=== PATIENT | male | born 1945 | race Caucasian/White ===

== ENCOUNTER 2017-11-08 17:30 | Inpatient (IN) | payer MEDICARE, MEDICAID ==
--- NOTE | 2017-11-08 18:55 | ED Physician Chart ---
ED Chief Complaint/HPI - Patient Information Date Seen:: 11/08/17 Time Seen:: 18:00 Chief Complaint:: ALOC History of Present Illness:: onset x 2 days of ALOC, decreased activity, weakness, dizziness with abnormal lab tests reported today; no report of trauma, H/As, neck pain, C/P, SOB, Abd. Pain, A/N/V/D/C, fever, chills, or urinary s/s Allergies:: Allergies Allergy/AdvReac Type Severity Reaction Status Date / Time No Known Allergies Allergy Verified 11/08/17 17:58 Vitals:: Vital Signs - 8 hr 11/08/17 17:58 Temp 98.0 F HR 99 RR 23 BP 105/50 O2 Sat % 96 Historian:: Patient, EMS Review:: Nurse's Note Reviewed, Old Chart Reviewed, EMS run form Reviewed ED Review of Systems - Review of Systems General/Constitutional: No fever, No chills, No weight loss, No weakness, No diaphoresis, No edema, No loss of appetite Skin: No skin lesions, No rash, No bruising Head: No headache, No light-headedness Eyes: No loss of vision, No pain, No diplopia ENT: No earache, No nasal drainage, No sore throat, No tinnitus Neck: No neck pain, No swelling, No thyromegaly, No stiffness, No mass noted Cardio Vascular: No chest pain, No palpitations, No PND, No orthopnea, No edema Pulmonary: No SOB, No cough, No sputum, No wheezing GI: No nausea, No vomiting, No diarrhea, No pain, No melena, No hematochezia, No constipation, No hematemesis G/U: No dysuria, No frequency, No hematuria, No nacturia Musculoskeletal: No bone or joint pain, No back pain, No muscle pain Endocrine: No polyuria, No polydipsia Psychiatric: Prior psych history, No depression, No anxiety, No suicidal ideation, No homicidal ideation, No auditory hallucination, No visual hallucination Hematopoietic: No bruising, No lymphadenopathy Allergic/Immuno: No urticaria, No angioedema Neurological: No syncope, No focal symptoms, Weakness, No paresthesia, No headache, No seizure, Dizziness, Confusion, Vertigo ED Past Medical History - Past Medical History Obtainable: Yes Past Medical History: Dementia, Other (Encephalopathy; Cardiac Arrythmias) Family History: Diabetes Melitus, HTN Social History: Non Smoker, No Alcohol, No Drug Use, Single, Care Facility Surgical History: Pacemaker Psychiatricy History: Bipolar, Dementia Medication: Reviewed ED Physical Exam - Physical Examination General/Constitutional: Awake, Well-developed, well-nourished, Alert, No distress, GCS 15, Non-toxic appearing, Ambulatory Head: Atraumatic Eyes: Lids, conjuctiva normal, PERRL, EOMI Skin: Nl inspection, No rash, No skin lesions, No ecchymosis, Well hydrated, No lymphadenopathy ENMT: External ears, nose nl, TM canals nl, Nasal exam nl, Lips, teeth, gums nl , Oropharynx nl, Tonsils nl Neck: Nontender, Full ROM w/o pain, No JVD, No nuchal rigidity, No bruit, No mass, No stridor Respiratory: Nl effort/Exclusion, Clear to Auscultation, No Wheeze/Rhonchi/Rales Cardio Vascular: RRR, No murmur, gallop, rubs, NL S1 S2, Carotid/Femoral/Distal pulses equal bilaterally GI: No tenderness/rebounding/guarding, No organomegaly, No hernia, Normal BS's, Nondistended, No mass/bruits, No McBurney tenderness : No CVA tenderness Extremities: No tenderness or effusion, Full ROM, normal strength in all extremities, No edema, Normal digits & nails Neuro/Psych: DTR's symmetric, Normal sensory exam, Normal motor strength, Judgement/insight normal, Mood normal, Normal gait, No focal deficits Other Neuro/Psych comments:: Disoriented and confused Misc: Normal back, No paraspinal tenderness ED Septic Shock - . Is Septic Shock (SBP<90, OR Lactate>4 mmol\L) present?: No - <6hrs of presentation: Vital Signs: Vital Signs - 8 hr 11/08/ 17:58 Temp 98.0 F HR 99 RR 23 BP 105/50 O2 Sat % 96 ED Reassessment (Disposition) - Reassessment Reassessment Condition:: Improved - Diagnosis Diagnosis:: Dehydration; ALOC; Encephalopathy; Cardiac Arrythmias - Aftercare/Follow up Instructions Aftercare/Follow-Up Instructions:: Counseled pt regarding lab results/diagnosis & need follow up, Counseled pt & family regarding lab results/diagnosis & need follow up - Patient Disposition Discharge/Transfer:: Acute Care w/in this hosp Accepting Physician:: Dr. Munoz Time Called:: 1899 Time Responded:: 19:00 Admitted to:: Telemetry Spoke to:: Dr. Munoz Admitting Medical Physician:: Dr. Munoz Condition at Disposition:: Stable, Improved
[2017-11-08] MEDS: Sodium Chloride 0.9% 1,000 ML IV ONE ×2 (19:06→22:52)
[2017-11-08 19:17] LABS: % BASOPHILS 0.3 % (0.0-2.0); % EOSINOPHILS 0.3 % (0.0-5.0); % LYMPHOCYTES 6.6 % (20.0-50.0); % MONOCYTES 11.4 % (2.0-10.0); % NEUTROPHILS 81.4 % (40.0-80.0); HEMATOCRIT 37.8 % (41.0-60); HEMOGLOBIN 12.8 gm/dL (12-16); LYMPHOCYTE ABSOLUTE 0.7 Th/cmm (1.5-3.0); MEAN CELL VOLUME 97.7 fl (80-99); MEAN CORPUSCULAR HEMOGLOBIN 33.1 pg (27.0-31.0); MEAN CORPUSCULAR HGB CONC 33.8 pg (28.0-36.0); MEAN PLATELET VOLUME 10.1 fl; MONOCYTE ABSOLUTE 1.2 Th/cmm (0.3-1.0); PLATELET COUNT 189 Th/cmm (150-400); RED BLOOD COUNT 3.87 Mil/cmm (3.80-5.80); RED CELL DISTRIBUTION WIDTH 13.6 % (11.5-20.0); WHITE BLOOD COUNT 10.9 Th/cmm (4.8-10.8)
[2017-11-08 19:39] LABS: ALB/GLOB RATIO 0.8 (1.0-1.8); ALBUMIN 3.8 gm/dL (4.2-5.5); ALKALINE PHOSPHATASE 66 U/L (34-104); ANION GAP 16.3 (7.0-16.0); CALCIUM SERUM 9.7 mg/dL (8.6-10.3); CARBON DIOXIDE 20.6 mEq/L (21.0-31.0); CHLORIDE 110 mEq/L (98-107); CREATININE - SERUM 3.4 mg/dL (0.7-1.3); GLUCOSE 134 mg/dL (70-105); POTASSIUM SERUM 3.9 mEq/L (3.5-5.1); SGOT 57 U/L (13-39); SGPT/ALT 35 U/L (7-52); SODIUM SERUM 143 mEq/L (136-145); TOTAL PROTEIN,SERUM 8.6 gm/dL (6.0-8.3)
[2017-11-08 19:42] LABS: BUN - UREA NITROGEN 96 mg/dL (7-25)
[2017-11-08 19:56] LABS: INR 1.1 (0.5-1.4); PROTHROMBIN TIME (TEST) 11.5 SECONDS (9.5-11.5)
[2017-11-08] MEDS ORDERED: Magnesium Hydroxide (MOM) 30 mL UDC PO PRN (20:26)
[2017-11-08] MEDS ORDERED: Albuterol Nebulizer 2.5mg/3mL HHN PRN (20:29)
[2017-11-08] MEDS ORDERED: Ipratropium Neb 0.5 mg/2.5 mL UD IH PRN (20:29)
[2017-11-08] MEDS ORDERED: Maalox 30 mL Cup PO PRN (20:29)
[2017-11-08] MEDS ORDERED: Haloperidol Lactate 5 mg/mL 1mL Vial IM STA (20:30)
[2017-11-08] MEDS ORDERED: Haloperidol Lactate 5 mg/mL 1mL Vial ONE (20:31)
[2017-11-08] MEDS: Sodium Chloride 0.45% 1,000 ML IV SCH (23:00)
[2017-11-08] MEDS: INSULIN ASPART, RECOMBINANT 100 UNITS/ML SUBQ SCH (23:01)
[2017-11-08 23:42] LABS: AMYLASE SERUM 43 U/L (29-103); LIPASE 13 U/L (11-82)
[2017-11-08 23:43] LABS: ALB/GLOB RATIO 0.8 (1.0-1.8); ALBUMIN 3.7 gm/dL (4.2-5.5); BILIRUBIN,DIRECT 0.24 mg/dL (0.0-0.2); TOTAL PROTEIN,SERUM 8.1 gm/dL (6.0-8.3)
[2017-11-09] MEDS ORDERED: Pneumococcal Vaccine 0.5 mL Vial IM ONE (01:09)
[2017-11-09] MEDS: Sodium Chloride 0.45% 1,000 ML IV SCH (06:43)
[2017-11-09] MEDS: INSULIN ASPART, RECOMBINANT 100 UNITS/ML SUBQ SCH ×4 (06:44→21:49)
--- NOTE | 2017-11-09 07:51 | Diagnostic Imaging Report ---
Portable chest x-ray HISTORY: Pain The heart is enlarged. Cardiac electrode lead wires project over the right atrium and right ventricle. No focal pulmonary processes. Right shoulder arthroplasty noted. Severe degenerative changes noted about the left shoulder. IMPRESSION: 1. No acute focal pulmonary processes 2. Cardiomegaly with electrode lead placement
[2017-11-09] MEDS: Benztropine 1 MG TAB PO SCH ×2 (08:45→17:20)
[2017-11-09] MEDS: Multivitamin w/ Minerals Tab PO SCH (08:45)
[2017-11-09] MEDS ORDERED: Non-Formulary Item 1 EA (Amino Acids/Protein Hydrolys [Pro-Stat Sugar Free Liquid] 30 ML) PO SCH (09:00)
--- NOTE | 2017-11-09 11:56 | Internal Medicine Prog Note ---
Internal Medicine Subjective - Subjective Service Date: 11/09/17 ([id number] [facility]) Internal Medicine Objective - Results Result Diagrams: 11/08/17 18:55 11/08/17 18:55 Recent Labs: Laboratory Last Values WBC 10.9 Th/cmm (4.8-10.8) H 11/08/17 18:55 RBC 3.87 Mil/cmm (3.80-5.80) 11/08/17 18:55 Hgb 12.8 gm/dL (12-16) 11/08/17 18:55 Hct 37.8 % (41.0-60) L 11/08/17 18:55 MCV 97.7 fl (80-99) 11/08/17 18:55 MCH 33.1 pg (27.0-31.0) H 11/08/17 18:55 MCHC Differential 33.8 pg (28.0-36.0) 11/08/17 18:55 RDW 13.6 % (11.5-20.0) 11/08/17 18:55 Plt Count 189 Th/cmm (150-400) 11/08/17 18:55 MPV 10.1 fl 11/08/17 18:55 Neutrophils % 81.4 % (40.0-80.0) H 11/08/17 18:55 Lymphocytes % 6.6 % (20.0-50.0) L 11/08/17 18:55 Monocytes % 11.4 % (2.0-10.0) H 11/08/17 18:55 Eosinophils % 0.3 % (0.0-5.0) 11/08/17 18:55 Basophils % 0.3 % (0.0-2.0) 11/08/17 18:55 PT 11.5 SECONDS (9.5-11.5) 11/08/17 17:50 INR 1.10 (0.5-1.4) 11/08/17 17:50 PTT (Actin FS) 24.5 SECONDS (26.0-38.0) L 11/08/17 17:50 Sodium 143 mEq/L (136-145) 11/08/17 18:55 Potassium 3.9 mEq/L (3.5-5.1) 11/08/17 18:55 Chloride 110 mEq/L (98-107) H 11/08/17 18:55 Carbon Dioxide 20.6 mEq/L (21.0-31.0) L 11/08/17 18:55 Anion Gap 16.3 (7.0-16.0) H 11/08/17 18:55 BUN 96 mg/dL (7-25) H* 11/08/17 18:55 Creatinine 3.4 mg/dL (0.7-1.3) H 11/08/17 18:55 Est GFR ( Amer) TNP 11/08/17 18:55 Est GFR (Non-Af Amer) TNP 11/08/17 18:55 BUN/Creatinine Ratio 28.2 11/08/17 18:55 Glucose 134 mg/dL (70-105) H 11/08/17 18:55 POC Glucose 160 MG/DL (70 - 105) H 11/09/17 11:17 Whole Bld Lactic Acid 1.69 mmol/L (0.60-1.99) 11/08/17 18:55 Calcium 9.7 mg/dL (8.6-10.3) 11/08/17 18:55 Total Bilirubin 1.0 mg/dL (0.3-1.0) 11/08/17 18:55 Direct Bilirubin 0.24 mg/dL (0.0-0.2) H 11/08/17 17:50 AST 57 U/L (13-39) H 11/08/17 18:55 ALT 35 U/L (7-52) 11/08/17 18:55 Alkaline Phosphatase 66 U/L (34-104) 11/08/17 18:55 Creatine Kinase 1066 U/L (30-223) H 11/08/17 18:55 Troponin I 0.03 ng/mL (0.01-0.05) 11/08/17 18:55 B-Natriuretic Peptide 65.3 pg/mL (5.0-100.0) 11/08/17 18:55 Total Protein 8.6 gm/dL (6.0-8.3) H 11/08/17 18:55 Albumin 3.8 gm/dL (4.2-5.5) L 11/08/17 18:55 Globulin 4.8 gm/dL 11/08/17 18:55 Albumin/Globulin Ratio 0.8 (1.0-1.8) L 11/08/17 18:55 Triglycerides 117 mg/dL (<150) 11/08/17 18:55 Cholesterol 188 mg/dL (<200) 11/08/17 18:55 LDL Cholesterol Direct 163 mg/dL (75-193) 11/08/17 18:55 HDL Cholesterol 37 mg/dL (23-92) 11/08/17 18:55 Amylase 43 U/L (29-103) 11/08/17 17:50 Lipase 13 U/L (11-82) 11/08/17 17:50 - Physical Exam Vitals and I&O: Vital Signs Temp 97.9 F 11/09/17 08:05 Pulse 95 11/09/17 08:47 Resp 19 11/09/17 08:05 BP 97/44 11/09/17 08:47 Pulse Ox 95 11/09/17 08:05 Intake & Output 11/08/17 11/09/17 11/09/17 18:59 06:59 18:59 Intake Total 376.667 Balance 376.667 Weight (lbs) 245 lb Intake: Intake, IV Amount 376.667 Sodium Chloride 0.9% 1, 376.667 000 ml @ 100 mls/hr IV . Q10H ONE Rx#:[id number] Active Medications: Current Medications Acetaminophen (Tylenol) 650 mg PO Q4H PRN PRN Reason: Pain Or Fever above 101 Stop: 01/07/18 20:29 Al Hydrox/Mg Hydrox/Simethicone (Maalox) 30 ml PO Q6H PRN PRN Reason: Dyspepsia Stop: 01/07/18 20:28 Albuterol Sulfate (Albuterol 2.5mg/3ml Neb Ud) 2.5 mg HHN Q2HRT PRN PRN Reason: Shortness of Breath or Wheeze Stop: 01/07/18 20:28 Ascorbic Acid (Vitamin C) 500 mg PO DAILY [facility] Stop: 01/08/18 08:59 Last Admin: 11/09/17 08:45 Dose: 500 mg Benztropine Mesylate (Cogentin) 1 mg PO BID [facility] Stop: 01/08/18 08:59 Last Admin: 11/09/17 08:45 Dose: 1 mg Carvedilol (Coreg) 12.5 mg PO BID [facility] Stop: 01/08/18 08:59 Last Admin: 11/09/17 08:47 Dose: Not Given Docusate Sodium (Colace) 100 mg PO DAILY [facility] Stop: 01/08/18 08:59 Last Admin: 11/09/17 08:45 Dose: 100 mg Gabapentin (Neurontin) 300 mg PO TID [facility] Stop: 01/07/18 20:59 Last Admin: 11/09/17 08:45 Dose: 300 mg Haloperidol (Haldol) 5 mg PO BID [place] PRN Reason: Protocol Stop: 01/08/18 08:59 Last Admin: 11/09/17 08:46 Dose: 5 mg Heparin Sodium (Porcine) (Heparin) 5,000 units SUBQ Q12HR [facility] Stop: 01/07/18 20:59 Last Admin: 11/09/17 08:46 Dose: 5,000 units Sodium Chloride (Nacl 0.45%) 1,000 mls @ 100 mls/hr IV .Q10H [facility] Stop: 01/07/18 20:29 Last Admin: 11/09/17 06:43 Dose: Not Given Insulin Aspart (Novolog) 0 units SUBQ ACHS [facility] PRN Reason: Protocol Stop: 01/07/18 20:59 Last Admin: 11/09/17 11:29 Dose: Not Given Ipratropium [place] (Atrovent Neb 0.5mg/2.5ml) 0.5 mg IH Q2HRT PRN PRN Reason: Shortness of Breath or Wheeze Stop: 01/07/18 20:28 Magnesium Hydroxide (Milk Of Magnesia) 30 ml PO DAILY PRN PRN Reason: Constipation Stop: 01/07/18 20:25 Miscellaneous (Clinical Monitoring) 1 ea [facility] DAILY PRN PRN Reason: RENAL Stop: 01/08/18 08:43 Ondansetron HCl (Zofran) 4 mg IV Q8H PRN PRN Reason: Nausea / Vomiting Stop: 01/07/18 20:29 Tramadol HCl (Ultram) 50 mg PO Q6HR PRN PRN Reason: PAIN Stop: 01/07/18 20:25 Last Admin: 11/09/17 11:38 Dose: 50 mg Zinc Sulfate (Zinc Sulfate) 220 mg PO DAILY [facility] Stop: 01/08/18 08:59 Last Admin: 11/09/17 08:45 Dose: 220 mg Zolpidem Tartrate (Ambien) 10 mg PO HS PRN PRN Reason: Insomnia Stop: 01/07/18 20:28 Internal Medicine Assmt/Plan - Assessment Assessment: ALOC ACUTE RENAL FAILURE DM2 PSYCHOSIS HTN MILD PROTEIN CALORIE MALNUTRITION CHEST DEFBRILLATOR STATUS COPD CHF CAD
--- NOTE | 2017-11-09 12:42 | History & Physical ---
ADMIT DATE: 11/08/2017 DICTATED FOR: Dr. Luis Munoz CHIEF COMPLAINT: Elevated BUN and creatinine; BUN of 94, creatinine 3.23. HISTORY OF PRESENT ILLNESS: This is a 72-year-old male who is a resident of [facility], was brought here to [facility] due to elevated BUN and creatinine for further management. The patient is now admitted to the med/surg unit. PAST MEDICAL HISTORY: Type 2 diabetes, psychosis, hypertension, anxiety, chest defibrillator, COPD, CHF, CAD, Alzheimer's. PAST SURGICAL HISTORY: None. SOCIAL HISTORY: The patient is a [facility] resident, requiring 24-hour nursing care. ALLERGIES: No drug allergies. REVIEW OF SYSTEMS: Unable to obtain due to the patient's mental status. PHYSICAL EXAMINATION: GENERAL: This is an elderly male, awake, not interactive, in no apparent distress. VITAL SIGNS: Temperature 97.9, heart rate of 95, blood pressure of 97/44, respiration 19, O2 95%. HEENT: Head; normocephalic, atraumatic. NECK: Supple. No mass. LUNGS: Clear bilaterally. HEART: ____. ABDOMEN: Soft, nontender. SKIN: Noted with few excoriations. LABORATORY DATA: WBC 10.9, H and H 12.8 and 37.8, platelet of 189. Sodium 142, potassium 3.9, chloride 110, BUN 96, creatinine 3.4, glucose of 134. DIAGNOSTIC DATA: The patient had a chest x-ray done and the impression is no acute pulmonary processes, cardiomegaly with electrode and lead placement. ASSESSMENT: ALOC, acute renal failure, mild protein calorie malnutrition, type 2 diabetes, hypertension, anxiety, psychosis, chest defibrillator status, COPD, CHF, CAD, Alzheimer disease. PLAN: The patient to be admitted to the med-surg unit. We will get a director hospice operations as well as psych on the case. We will get carotid ultrasound as well as renal ultrasound. We will also get a CT of the head without contrast. Keep the patient on IV fluids for hydration. Put the patient on Accu-Chek a.c. and at bedtime with sliding scale. We will continue to monitor this patient. JOB# [id number]
--- NOTE | 2017-11-09 20:23 | Consultation ---
DATE OF CONSULTATION: 11/09/2017 PSYCHIATRIC CONSULTATION CHIEF COMPLAINT: Psychotic illness. HISTORY OF PRESENT ILLNESS: The patient is a 72-year-old male with a history of psychosis and dementia, was admitted to the hospital with dizziness, abnormal lab testing, decreased activities, has been very restless, agitated now on medical floor, at times combative with staff. The patient apparently also has been trying to get out of bed, trying to push staff. The patient is confused and not able to give much information. PAST PSYCHIATRIC HISTORY: Significant for psychosis and dementia. Patient, according to chart in his intermediate facility, he was hearing voices. PAST MEDICAL HISTORY: Significant for history of cardiac arrhythmia, encephalopathy, dehydration. PSYCHOSOCIAL HISTORY: The patient resides in a intermediate facility and requires complete care. MENTAL STATUS EXAMINATION: The patient is disorganized, internally preoccupied, oriented to person, not oriented to time or place. Insight is poor. Judgment is impaired. ASSESSMENT: 1. Psychosis, not otherwise specified 2. Dementia, Alzheimer's type. PLAN: At this time, would recommend continuation of medical supportive measures. We would decrease Haldol to 2.5 mg p.o. b.i.d. Decrease Cogentin gradually over next few days. Add small dose of Seroquel. Monitor closely. The patient will benefit from psychiatric hospitalization given the level of confusion and agitation. Thank you for the consultation. JOB# [id number]
--- NOTE | 2017-11-09 22:34 | Consultation ---
DATE OF CONSULTATION: 11/09/2017 ATTENDING: Luis Munoz D.O. EXPERIMENTAL DISPLAY BUILDER: Iban Garcia M.D. REASON FOR CONSULT: Worsening kidney function, electrolyte imbalance and fluid management. HISTORY OF PRESENT ILLNESS: This is a 72-year-old male with past medical history of chronic kidney disease, who was brought in because of elevated BUN/creatinine. A few hours prior to admission, the patient was found to be confused, restless and disoriented. Labs were drawn, which revealed a BUN/creatinine of 94/3.23 and sodium of 147. He was then brought to the Emergency Room. His BUN/creatinine upon arrival were 96/3.4. Chest x-ray revealed no acute disease. He was then admitted for further evaluation and management. PAST MEDICAL HISTORY: 1. Type 2 diabetes mellitus. 2. Essential hypertension. 3. History of psychosis. 4. History of anxiety. 5. AICD. 6. COPD. 7. History of decompensating CHF. 8. Coronary artery disease. CURRENT MEDICATIONS: He is currently on acetaminophen, albuterol, ascorbic acid, benztropine, Coreg, docusate sodium, haloperidol, lorazepam, magnesium, ondansetron, quetiapine, , tramadol, zinc sulfate, zolpidem. ALLERGIES: No known drug allergies. SOCIAL AND FAMILY HISTORY: I was unable to obtain from the patient because of his current mental status. REVIEW OF SYSTEMS: Again, I was unable to decipher directly from the patient because of the above reasons. PHYSICAL EXAMINATION: GENERAL: The patient is uncooperative, agitated, restless. VITAL SIGNS: Temperature is 97.6 degrees, pulse 93, blood pressure 122/61. SKIN: Dry, warm, poor turgor. HEENT: Head: Normocephalic, atraumatic. Eyes: Unable to assess his extraocular muscles nor pupils. Anicteric sclerae. Nose: Midline nasal septum. Mouth: Very dry mucosa, adequate dentition. NECK: Supple, unable to again pursue further examination of the neck because the patient is not cooperative. CHEST AND CARDIOVASCULAR: S1, S2. No rub, murmur, nor gallop appreciated. Point of maximal impulse, unable to assess. LUNGS: Equal expansion. No use of accessory muscles. No supraclavicular retractions. Decreased breath sounds, but no rhonchi, no rales or wheeze appreciated. ABDOMEN: Mildly globular, soft. Positive for bowel sounds. No bruits either diastolic or systolic. RECTAL: Unable to perform. GENITOURINARY: Normal appearing male genitalia. MUSCULOSKELETAL: Unable to perform. EXTREMITIES: No evidence of any edema, cyanosis nor clubbing. He has a palpable femoral, but unable to examine his popliteal, dorsalis pedis pulses. He has multiple small ulcers of both lower extremities especially on his feet. BACK: He has multiple areas of hematomas observed in his back, which is quite tender to touch. NEURO EXAM: The patient is agitated, uncooperative, so I could not pursue further my neuro exam. LABORATORY DATA: Revealed white count 10.9, hemoglobin 12.8, hematocrit 37.8, platelets 189, polys 81.4%. Sodium 143, potassium 3.9, chloride 110, bicarbonate 20.6, BUN 96, creatinine 3.4, glucose 134, calcium 9.7. Creatinine kinase 1066, troponin 0.03. BNP of 65.1. Albumin is 3.7. IMPRESSION: 1. Acute kidney injury. The patient has no history of kidney failure in the past. However, since that he has developed prerenal azotemia because of his psychosis, he was unable to eat properly nor drink as required, he developed dehydration. His prerenal azotemia then progressed to acute tubular injury. 2. Metabolic (uremia) encephalopathy. 3. Acute decompensation of his psychosis. 4. Multiple ulcers involving bilateral lower extremities. 5. Multiple hematomas present in his back. 6. Mildly elevated CPK likely secondary to multiple hematomas. 7. Type 2 diabetes mellitus with chronic kidney disease. 8. Essential hypertension with chronic kidney disease. 9. Anxiety. 10. Automatic implantable cardioverter-defibrillator. 11. Chronic obstructive pulmonary disease. 12. History of decompensating congestive heart failure. 13. Coronary artery disease. PLAN: 1. Agree with IV fluids. 2. Followup urinalysis. 3. Requests for urine sodium, eosinophils and creatinine. 4. Urine for microalbumin to creatinine ratio. 5. Renal ultrasound. 6. Follow up electrolytes and CBC. Thank you, Dr. Munoz, for this consult. I will follow the patient closely with you. JOB# [id number]
[2017-11-10 06:02] LABS: % BASOPHILS 0.1 % (0.0-2.0); % EOSINOPHILS 0.4 % (0.0-5.0); % MONOCYTES 8.8 % (2.0-10.0); % NEUTROPHILS 81.7 % (40.0-80.0); EOSINOPHILE ABSOLUTE 0.1 Th/cmm (0.1-0.4); HEMATOCRIT 38.5 % (41.0-60); HEMOGLOBIN 12.9 gm/dL (12-16); LYMPHOCYTE ABSOLUTE 1.4 Th/cmm (1.5-3.0); MEAN CELL VOLUME 97.1 fl (80-99); MEAN CORPUSCULAR HEMOGLOBIN 32.6 pg (27.0-31.0); MEAN CORPUSCULAR HGB CONC 33.6 pg (28.0-36.0); MEAN PLATELET VOLUME 9.4 fl; MONOCYTE ABSOLUTE 1.3 Th/cmm (0.3-1.0); NEUTROPHILE ABSOLUTE 12.2 Th/cmm (1.8-8.0); PLATELET COUNT 163 Th/cmm (150-400); RED BLOOD COUNT 3.96 Mil/cmm (3.80-5.80); RED CELL DISTRIBUTION WIDTH 13.5 % (11.5-20.0)
[2017-11-10 06:28] LABS: ANION GAP 11.8 (7.0-16.0); BUN - UREA NITROGEN 54 mg/dL (7-25); CALCIUM SERUM 9.7 mg/dL (8.6-10.3); CHLORIDE 117 mEq/L (98-107); CREATININE - SERUM 1.6 mg/dL (0.7-1.3); GLUCOSE 148 mg/dL (70-105); MAGNESIUM 1.8 mg/dL (1.9-2.7); PHOSPHOROUS 2.8 mg/dL (2.5-5.0); POTASSIUM SERUM 3.8 mEq/L (3.5-5.1); SODIUM SERUM 150 mEq/L (136-145); URIC ACID 8.2 mg/dL (4.4-7.6)
--- NOTE | 2017-11-10 08:22 | Diagnostic Imaging Report ---
Head CT without intravenous contrast Indication: Altered level of consciousness Comparison: None Technique: Axial images were obtained from the vertex to the skull base without IV contrast. Coronal reconstructions were made. Total DLP: 811, [id number] FINDINGS: Images of the brain obtained without contrast demonstrate no evidence of an acute hemorrhage. Atrophy is noted. The celaya-white matter differentiation is preserved. The ventricles and basal cisterns are patent. No mass effect or midline shift. No evidence of a skull fracture focal soft tissue swelling. The visualized paranasal sinuses are clear. Mild atherosclerosis is noted. IMPRESSION: No acute intracranial abnormality. Atrophy. Mild atherosclerosis.
[2017-11-10] MEDS: INSULIN ASPART, RECOMBINANT 100 UNITS/ML SUBQ SCH ×4 (08:23→22:21)
[2017-11-10] MEDS: Benztropine 1 MG TAB PO SCH ×2 (09:00→18:00)
--- NOTE | 2017-11-10 11:29 | Internal Medicine Prog Note ---
Internal Medicine Subjective - Subjective Service Date: 11/10/17 (patients right elbow noted with redness and hardness noted with yellowish drainage. patient right big toe noted with open wound. multiple wound are noted on patients body) Patient seen and examined:: with staff Patient is:: awake Patient Complaints of:: other (pain) Per staff patient has:: tolerating meds Internal Medicine Objective - Results Result Diagrams: 11/10/17 05:20 11/10/17 05:20 Recent Labs: Laboratory Last Values WBC 15.0 Th/cmm (4.8-10.8) H D 11/10/17 05:20 RBC 3.96 Mil/cmm (3.80-5.80) 11/10/17 05:20 Hgb 12.9 gm/dL (12-16) 11/10/17 05:20 Hct 38.5 % (41.0-60) L 11/10/17 05:20 MCV 97.1 fl (80-99) 11/10/17 05:20 MCH 32.6 pg (27.0-31.0) H 11/10/17 05:20 MCHC Differential 33.6 pg (28.0-36.0) 11/10/17 05:20 RDW 13.5 % (11.5-20.0) 11/10/17 05:20 Plt Count 163 Th/cmm (150-400) 11/10/17 05:20 MPV 9.4 fl 11/10/17 05:20 Neutrophils % 81.7 % (40.0-80.0) H 11/10/17 05:20 Lymphocytes % 9.0 % (20.0-50.0) L 11/10/17 05:20 Monocytes % 8.8 % (2.0-10.0) 11/10/17 05:20 Eosinophils % 0.4 % (0.0-5.0) 11/10/17 05:20 Basophils % 0.1 % (0.0-2.0) 11/10/17 05:20 PT 11.5 SECONDS (9.5-11.5) 11/08/17 17:50 INR 1.10 (0.5-1.4) 11/08/17 17:50 PTT (Actin FS) 24.5 SECONDS (26.0-38.0) L 11/08/17 17:50 Sodium 150 mEq/L (136-145) H 11/10/17 05:20 Potassium 3.8 mEq/L (3.5-5.1) 11/10/17 05:20 Chloride 117 mEq/L (98-107) H 11/10/17 05:20 Carbon Dioxide 25.0 mEq/L (21.0-31.0) 11/10/17 05:20 Anion Gap 11.8 (7.0-16.0) 11/10/17 05:20 BUN 54 mg/dL (7-25) H 11/10/17 05:20 Creatinine 1.6 mg/dL (0.7-1.3) H 11/10/17 05:20 Est GFR ( Amer) TNP 11/10/17 05:20 Est GFR (Non-Af Amer) TNP 11/10/17 05:20 BUN/Creatinine Ratio 33.8 11/10/17 05:20 Glucose 148 mg/dL (70-105) H 11/10/17 05:20 POC Glucose 129 MG/DL (70 - 105) H 11/10/17 07:02 Whole Bld Lactic Acid 1.69 mmol/L (0.60-1.99) 11/08/17 18:55 Uric Acid 8.2 mg/dL (4.4-7.6) H 11/10/17 05:20 Calcium 9.7 mg/dL (8.6-10.3) 11/10/17 05:20 Phosphorus 2.8 mg/dL (2.5-5.0) 11/10/17 05:20 Magnesium 1.8 mg/dL (1.9-2.7) L 11/10/17 05:20 Total Bilirubin 1.0 mg/dL (0.3-1.0) 11/08/17 18:55 Direct Bilirubin 0.24 mg/dL (0.0-0.2) H 11/08/17 17:50 AST 57 U/L (13-39) H 11/08/17 18:55 ALT 35 U/L (7-52) 11/08/17 18:55 Alkaline Phosphatase 66 U/L (34-104) 11/08/17 18:55 Creatine Kinase 1066 U/L (30-223) H 11/08/17 18:55 CK-MB (CK-2) 8.7 ng/mL (0.6-6.3) H 11/08/17 18:55 Troponin I 0.03 ng/mL (0.01-0.05) 11/08/17 18:55 B-Natriuretic Peptide 65.3 pg/mL (5.0-100.0) 11/08/17 18:55 Total Protein 8.6 gm/dL (6.0-8.3) H 11/08/17 18:55 Albumin 3.8 gm/dL (4.2-5.5) L 11/08/17 18:55 Globulin 4.8 gm/dL 11/08/17 18:55 Albumin/Globulin Ratio 0.8 (1.0-1.8) L 11/08/17 18:55 Triglycerides 117 mg/dL (<150) 11/08/17 18:55 Cholesterol 188 mg/dL (<200) 11/08/17 18:55 LDL Cholesterol Direct 163 mg/dL (75-193) 11/08/17 18:55 HDL Cholesterol 37 mg/dL (23-92) 11/08/17 18:55 Amylase 43 U/L (29-103) 11/08/17 17:50 Lipase 13 U/L (11-82) 11/08/17 17:50 - Physical Exam Vitals and I&O: Vital Signs Temp 97.5 F 11/10/17 04:00 Pulse 85 11/10/17 07:00 Resp 18 11/10/17 07:00 BP 112/64 11/10/17 04:00 Pulse Ox 96 11/10/17 07:00 Intake & Output 11/09/17 11/10/17 11/10/17 18:59 06:59 18:59 Weight (lbs) 238 lb 5 oz Other: # Voids 2 # Bowel Movements 1 Active Medications: Current Medications Acetaminophen (Tylenol) 650 mg PO Q4H PRN PRN Reason: Pain Or Fever above 101 Stop: 01/07/18 20:29 Last Admin: 11/10/17 00:56 Dose: 650 mg Al Hydrox/Mg Hydrox/Simethicone (Maalox) 30 ml PO Q6H PRN PRN Reason: Dyspepsia Stop: 01/07/18 20:28 Albuterol Sulfate (Albuterol 2.5mg/3ml Neb Ud) 2.5 mg HHN Q2HRT PRN PRN Reason: Shortness of Breath or Wheeze Stop: 01/07/18 20:28 Ascorbic Acid (Vitamin C) 500 mg PO DAILY [facility] Stop: 01/08/18 08:59 Last Admin: 11/09/17 08:45 Dose: 500 mg Benztropine Mesylate (Cogentin) 1 mg PO BID [facility] Stop: 01/08/18 08:59 Last Admin: 11/09/17 17:20 Dose: 1 mg Carvedilol (Coreg) 12.5 mg PO BID [facility] Stop: 01/08/18 08:59 Last Admin: 11/09/17 17:20 Dose: 12.5 mg Docusate Sodium (Colace) 100 mg PO DAILY [facility] Stop: 01/08/18 08:59 Last Admin: 11/09/17 08:45 Dose: 100 mg Gabapentin (Neurontin) 300 mg PO TID [facility] Stop: 01/07/18 20:59 Last Admin: 11/09/17 21:49 Dose: 300 mg Haloperidol (Haldol) 2.5 mg PO BID [facility] PRN Reason: Protocol Stop: 01/08/18 14:46 Heparin Sodium (Porcine) (Heparin) 5,000 units SUBQ Q12HR [facility] Stop: 01/07/18 20:59 Last Admin: 11/09/17 21:49 Dose: 5,000 units Sodium Chloride (Nacl 0.45%) 1,000 mls @ 100 mls/hr IV .Q10H [facility] Stop: 01/07/18 20:29 Last Admin: 11/09/17 06:43 Dose: Not Given Insulin Aspart (Novolog) 0 units SUBQ ACHS [facility] PRN Reason: Protocol Stop: 01/07/18 20:59 Last Admin: 11/10/17 08:23 Dose: Not Given Ipratropium [place] (Atrovent Neb 0.5mg/2.5ml) 0.5 mg IH Q2HRT PRN PRN Reason: Shortness of Breath or Wheeze Stop: 01/07/18 20:28 Lorazepam (Ativan) 1 mg IVP Q6HR PRN; Protocol PRN Reason: Agitation Stop: 01/09/18 08:36 Magnesium Hydroxide (Milk Of Magnesia) 30 ml PO DAILY PRN PRN Reason: Constipation Stop: 01/07/18 20:25 Miscellaneous (Clinical Monitoring) 1 ea MC DAILY PRN PRN Reason: RENAL Stop: 01/08/18 08:43 Morphine Sulfate (Morphine) 1 mg IVP Q6H PRN PRN Reason: Pain (Moderate) Stop: 01/09/18 08:30 Ondansetron HCl (Zofran) 4 mg IV Q8H PRN PRN Reason: Nausea / Vomiting Stop: 01/07/18 20:29 Quetiapine Fumarate (Seroquel) 12.5 mg PO TID [facility] PRN Reason: Protocol Stop: 01/08/18 20:59 Tramadol HCl (Ultram) 50 mg PO Q6HR PRN PRN Reason: PAIN Stop: 01/07/18 20:25 Last Admin: 11/10/17 01:56 Dose: 50 mg Zinc Sulfate (Zinc Sulfate) 220 mg PO DAILY [facility] Stop: 01/08/18 08:59 Last Admin: 11/09/17 08:45 Dose: 220 mg Zolpidem Tartrate (Ambien) 10 mg PO HS PRN PRN Reason: Insomnia Stop: 01/07/18 20:28 Last Admin: 11/09/17 21:49 Dose: 10 mg General: weak, alert HEENT: NC/AT, PERRLA Neck: Supple Lungs: CTAB Cardiovascular: RRR, Normal S1, Normal S2, without murmur Abdomen: soft, non-tender, non-distended, positive bowel sound Extremities: other (right elbow abscess, right big toe open wound, multiple open wound ) Neurological: no change Internal Medicine Assmt/Plan - Assessment Assessment: RIGHT ELBOW CELLULITIS MULTIPLE OPEN WOUND ALOC ACUTE RENAL FAILURE DM2 PSYCHOSIS HTN MILD PROTEIN CALORIE MALNUTRITION CHEST DEFBRILLATOR STATUS COPD CHF CAD - Plan Plan: surgical consult with Dr. Isaiah salas and jocelin wound culture continue with wound care follow up labs in am pain mgmt continue current plan of care
[2017-11-10] MEDS: Multivitamin w/ Minerals Tab PO SCH (12:18)
[2017-11-10] MEDS: Vancomycin HCl 1.5 GM in Sodium Chloride 0.9% 500 ML IV SCH (13:15)
[2017-11-10] MEDS ORDERED: Sodium Chloride 0.45% 1,000 ML IV SCH (14:03)
[2017-11-10] MEDS ORDERED: Mag Sulfate 2gm/50mL Premix 2 GM/50 ML BAG IV ONE (14:08)
--- NOTE | 2017-11-10 14:10 | General Progress Note ---
Subjective - Review of Systems Service Date: 11/10/17 Subjective: still restless, agitated Objective - Results Result Diagrams: 11/10/17 05:20 11/10/17 05:20 Recent Labs: Laboratory Last Values WBC 15.0 Th/cmm (4.8-10.8) H D 11/10/17 05:20 RBC 3.96 Mil/cmm (3.80-5.80) 11/10/17 05:20 Hgb 12.9 gm/dL (12-16) 11/10/17 05:20 Hct 38.5 % (41.0-60) L 11/10/17 05:20 MCV 97.1 fl (80-99) 11/10/17 05:20 MCH 32.6 pg (27.0-31.0) H 11/10/17 05:20 MCHC Differential 33.6 pg (28.0-36.0) 11/10/17 05:20 RDW 13.5 % (11.5-20.0) 11/10/17 05:20 Plt Count 163 Th/cmm (150-400) 11/10/17 05:20 MPV 9.4 fl 11/10/17 05:20 Neutrophils % 81.7 % (40.0-80.0) H 11/10/17 05:20 Lymphocytes % 9.0 % (20.0-50.0) L 11/10/17 05:20 Monocytes % 8.8 % (2.0-10.0) 11/10/17 05:20 Eosinophils % 0.4 % (0.0-5.0) 11/10/17 05:20 Basophils % 0.1 % (0.0-2.0) 11/10/17 05:20 PT 11.5 SECONDS (9.5-11.5) 11/08/17 17:50 INR 1.10 (0.5-1.4) 11/08/17 17:50 PTT (Actin FS) 24.5 SECONDS (26.0-38.0) L 11/08/17 17:50 Sodium 150 mEq/L (136-145) H 11/10/17 05:20 Potassium 3.8 mEq/L (3.5-5.1) 11/10/17 05:20 Chloride 117 mEq/L (98-107) H 11/10/17 05:20 Carbon Dioxide 25.0 mEq/L (21.0-31.0) 11/10/17 05:20 Anion Gap 11.8 (7.0-16.0) 11/10/17 05:20 BUN 54 mg/dL (7-25) H 11/10/17 05:20 Creatinine 1.6 mg/dL (0.7-1.3) H 11/10/17 05:20 Est GFR ( Amer) TNP 11/10/17 05:20 Est GFR (Non-Af Amer) TNP 11/10/17 05:20 BUN/Creatinine Ratio 33.8 11/10/17 05:20 Glucose 148 mg/dL (70-105) H 11/10/17 05:20 POC Glucose 126 MG/DL (70 - 105) H 11/10/17 13:03 Whole Bld Lactic Acid 1.69 mmol/L (0.60-1.99) 11/08/17 18:55 Uric Acid 8.2 mg/dL (4.4-7.6) H 11/10/17 05:20 Calcium 9.7 mg/dL (8.6-10.3) 11/10/17 05:20 Phosphorus 2.8 mg/dL (2.5-5.0) 11/10/17 05:20 Magnesium 1.8 mg/dL (1.9-2.7) L 11/10/17 05:20 Total Bilirubin 1.0 mg/dL (0.3-1.0) 11/08/17 18:55 Direct Bilirubin 0.24 mg/dL (0.0-0.2) H 11/08/17 17:50 AST 57 U/L (13-39) H 11/08/17 18:55 ALT 35 U/L (7-52) 11/08/17 18:55 Alkaline Phosphatase 66 U/L (34-104) 11/08/17 18:55 Creatine Kinase 1066 U/L (30-223) H 11/08/17 18:55 CK-MB (CK-2) 8.7 ng/mL (0.6-6.3) H 11/08/17 18:55 Troponin I 0.03 ng/mL (0.01-0.05) 11/08/17 18:55 B-Natriuretic Peptide 65.3 pg/mL (5.0-100.0) 11/08/17 18:55 Total Protein 8.6 gm/dL (6.0-8.3) H 11/08/17 18:55 Albumin 3.8 gm/dL (4.2-5.5) L 11/08/17 18:55 Globulin 4.8 gm/dL 11/08/17 18:55 Albumin/Globulin Ratio 0.8 (1.0-1.8) L 11/08/17 18:55 Triglycerides 117 mg/dL (<150) 11/08/17 18:55 Cholesterol 188 mg/dL (<200) 11/08/17 18:55 LDL Cholesterol Direct 163 mg/dL (75-193) 11/08/17 18:55 HDL Cholesterol 37 mg/dL (23-92) 11/08/17 18:55 Amylase 43 U/L (29-103) 11/08/17 17:50 Lipase 13 U/L (11-82) 11/08/17 17:50 - Physical Exam Vitals and I&O: Vital Signs Temp 97.5 F 11/10/17 04:00 Pulse 93 11/10/17 12:15 Resp 18 11/10/17 07:00 BP 163/65 11/10/17 12:15 Pulse Ox 96 11/10/17 07:00 Intake & Output 11/09/17 11/10/17 11/10/17 18:59 06:59 18:59 Weight (lbs) 108.097 kg Other: # Voids 2 # Bowel Movements 1 Active Medications: Current Medications Acetaminophen (Tylenol) 650 mg PO Q4H PRN PRN Reason: Pain Or Fever above 101 Stop: 01/07/18 20:29 Last Admin: 11/10/17 00:56 Dose: 650 mg Al Hydrox/Mg Hydrox/Simethicone (Maalox) 30 ml PO Q6H PRN PRN Reason: Dyspepsia Stop: 01/07/18 20:28 Albuterol Sulfate (Albuterol 2.5mg/3ml Neb Ud) 2.5 mg HHN Q2HRT PRN PRN Reason: Shortness of Breath or Wheeze Stop: 01/07/18 20:28 Ascorbic Acid (Vitamin C) 500 mg PO DAILY [facility] Stop: 01/08/18 08:59 Last Admin: 11/10/17 09:00 Dose: Not Given Benztropine Mesylate (Cogentin) 1 mg PO BID [facility] Stop: 01/08/18 08:59 Last Admin: 11/10/17 09:00 Dose: Not Given Carvedilol (Coreg) 12.5 mg PO BID [facility] Stop: 01/08/18 08:59 Last Admin: 11/10/17 12:15 Dose: 12.5 mg Docusate Sodium (Colace) 100 mg PO DAILY [facility] Stop: 01/08/18 08:59 Last Admin: 11/10/17 09:00 Dose: Not Given Gabapentin (Neurontin) 300 mg PO TID [facility] Stop: 01/07/18 20:59 Last Admin: 11/10/17 12:17 Dose: Not Given Haloperidol (Haldol) 2.5 mg PO BID [facility] PRN Reason: Protocol Stop: 01/08/18 14:46 Last Admin: 11/10/17 09:00 Dose: Not Given Heparin Sodium (Porcine) (Heparin) 5,000 units SUBQ Q12HR [facility] Stop: 01/07/18 20:59 Last Admin: 11/10/17 12:18 Dose: Not Given Sodium Chloride (Nacl 0.45%) 1,000 mls @ 100 mls/hr IV .Q10H [facility] Stop: 01/07/18 20:29 Last Admin: 11/09/17 06:43 Dose: Not Given Vancomycin HCl 1.5 gm/ Sodium (Chloride) 500 mls @ 250 mls/hr IV Q12H [facility] Stop: 01/09/18 11:59 Last Admin: 11/10/17 13:15 Dose: 250 mls/hr Piperacillin Sod/Tazobactam (Sod 2.25 gm/ Dextrose) 50 mls @ 50 mls/hr IV Q8HR [facility] Stop: 01/09/18 12:59 Insulin Aspart (Novolog) 0 units SUBQ ACHS [facility] PRN Reason: Protocol Stop: 01/07/18 20:59 Last Admin: 11/10/17 08:23 Dose: Not Given Ipratropium [place] (Atrovent Neb 0.5mg/2.5ml) 0.5 mg IH Q2HRT PRN PRN Reason: Shortness of Breath or Wheeze Stop: 01/07/18 20:28 Lorazepam (Ativan) 1 mg IVP Q6HR PRN; Protocol PRN Reason: Agitation Stop: 01/09/18 08:36 Magnesium Hydroxide (Milk Of Magnesia) 30 ml PO DAILY PRN PRN Reason: Constipation Stop: 01/07/18 20:25 Miscellaneous (Clinical Monitoring) 1 ea MC DAILY PRN PRN Reason: RENAL Stop: 01/08/18 08:43 Miscellaneous (Vancomycin Iv Per Pharmacy) 1 ea MC PRN [facility] Stop: 01/09/18 11:29 Morphine Sulfate (Morphine) 1 mg IVP Q6H PRN PRN Reason: Pain (Moderate) Stop: 01/09/18 08:30 Ondansetron HCl (Zofran) 4 mg IV Q8H PRN PRN Reason: Nausea / Vomiting Stop: 01/07/18 20:29 Quetiapine Fumarate (Seroquel) 12.5 mg PO TID [facility] PRN Reason: Protocol Stop: 01/08/18 20:59 Last Admin: 11/10/17 09:00 Dose: Not Given Tramadol HCl (Ultram) 50 mg PO Q6HR PRN PRN Reason: PAIN Stop: 01/07/18 20:25 Last Admin: 11/10/17 01:56 Dose: 50 mg Zinc Sulfate (Zinc Sulfate) 220 mg PO DAILY [facility] Stop: 01/08/18 08:59 Last Admin: 11/10/17 12:18 Dose: Not Given Zolpidem Tartrate (Ambien) 10 mg PO HS PRN PRN Reason: Insomnia Stop: 01/07/18 20:28 Last Admin: 11/09/17 21:49 Dose: 10 mg General: Mild distress HEENT: Atraumatic, Mucous membr. moist/pink Neck: Supple, +2 carotid pulse wo bruit Cardiovascular: Regular rate, Normal S1, Normal S2 Lungs: Clear to auscultation Abdomen: Bowel sounds, Soft Extremities: no Edema Neurological: Sensation intact Skin: Breakdown Psych/Mental Status: Other (acute psychosis) Assessment/Plan - Problem List Patient Problems: All Active Problems ABNORMAL LAB RESULTS (Acute) - Plan Plan: Lab - Result Diagrams 11/10/17 05:20 11/10/17 05:20 Current Medications Acetaminophen (Tylenol) 650 mg PO Q4H PRN PRN Reason: Pain Or Fever above 101 Stop: 01/07/18 20:29 Last Admin: 11/10/17 00:56 Dose: 650 mg Al Hydrox/Mg Hydrox/Simethicone (Maalox) 30 ml PO Q6H PRN PRN Reason: Dyspepsia Stop: 01/07/18 20:28 Albuterol Sulfate (Albuterol 2.5mg/3ml Neb Ud) 2.5 mg HHN Q2HRT PRN PRN Reason: Shortness of Breath or Wheeze Stop: 01/07/18 20:28 Ascorbic Acid (Vitamin C) 500 mg PO DAILY [facility] Stop: 01/08/18 08:59 Last Admin: 11/10/17 09:00 Dose: Not Given Benztropine Mesylate (Cogentin) 1 mg PO BID [facility] Stop: 01/08/18 08:59 Last Admin: 11/10/17 09:00 Dose: Not Given Carvedilol (Coreg) 12.5 mg PO BID [facility] Stop: 01/08/18 08:59 Last Admin: 11/10/17 12:15 Dose: 12.5 mg Docusate Sodium (Colace) 100 mg PO DAILY [facility] Stop: 01/08/18 08:59 Last Admin: 11/10/17 09:00 Dose: Not Given Gabapentin (Neurontin) 300 mg PO TID [facility] Stop: 01/07/18 20:59 Last Admin: 11/10/17 12:17 Dose: Not Given Haloperidol (Haldol) 2.5 mg PO BID [facility] PRN Reason: Protocol Stop: 01/08/18 14:46 Last Admin: 11/10/17 09:00 Dose: Not Given Heparin Sodium (Porcine) (Heparin) 5,000 units SUBQ Q12HR [facility] Stop: 01/07/18 20:59 Last Admin: 11/10/17 12:18 Dose: Not Given Sodium Chloride (Nacl 0.45%) 1,000 mls @ 100 mls/hr IV .Q10H [facility] Stop: 01/07/18 20:29 Last Admin: 11/09/17 06:43 Dose: Not Given Vancomycin HCl 1.5 gm/ Sodium (Chloride) 500 mls @ 250 mls/hr IV Q12H [facility] Stop: 01/09/18 11:59 Last Admin: 11/10/17 13:15 Dose: 250 mls/hr Piperacillin Sod/Tazobactam (Sod 2.25 gm/ Dextrose) 50 mls @ 50 mls/hr IV Q8HR [facility] Stop: 01/09/18 12:59 Insulin Aspart (Novolog) 0 units SUBQ ACHS [facility] PRN Reason: Protocol Stop: 01/07/18 20:59 Last Admin: 11/10/17 08:23 Dose: Not Given Ipratropium [place] (Atrovent Neb 0.5mg/2.5ml) 0.5 mg IH Q2HRT PRN PRN Reason: Shortness of Breath or Wheeze Stop: 01/07/18 20:28 Lorazepam (Ativan) 1 mg IVP Q6HR PRN; Protocol PRN Reason: Agitation Stop: 01/09/18 08:36 Magnesium Hydroxide (Milk Of Magnesia) 30 ml PO DAILY PRN PRN Reason: Constipation Stop: 01/07/18 20:25 Miscellaneous (Clinical Monitoring) 1 ea MC DAILY PRN PRN Reason: RENAL Stop: 01/08/18 08:43 Miscellaneous (Vancomycin Iv Per Pharmacy) 1 ea MC PRN [facility] Stop: 01/09/18 11:29 Morphine Sulfate (Morphine) 1 mg IVP Q6H PRN PRN Reason: Pain (Moderate) Stop: 01/09/18 08:30 Ondansetron HCl (Zofran) 4 mg IV Q8H PRN PRN Reason: Nausea / Vomiting Stop: 01/07/18 20:29 Quetiapine Fumarate (Seroquel) 12.5 mg PO TID [facility] PRN Reason: Protocol Stop: 01/08/18 20:59 Last Admin: 11/10/17 09:00 Dose: Not Given Tramadol HCl (Ultram) 50 mg PO Q6HR PRN PRN Reason: PAIN Stop: 01/07/18 20:25 Last Admin: 11/10/17 01:56 Dose: 50 mg Zinc Sulfate (Zinc Sulfate) 220 mg PO DAILY [facility] Stop: 01/08/18 08:59 Last Admin: 11/10/17 12:18 Dose: Not Given Zolpidem Tartrate (Ambien) 10 mg PO HS PRN PRN Reason: Insomnia Stop: 01/07/18 20:28 Last Admin: 11/09/17 21:49 Dose: 10 mg
[2017-11-10] MEDS: Morphine Sulfate 2 mg/mL 1mL Syr IVP PRN (15:59)
[2017-11-10] MEDS: Dextrose 5% 1,000 ML IV SCH (17:55)
[2017-11-11] MEDS: Vancomycin HCl 1.5 GM in Sodium Chloride 0.9% 500 ML IV SCH ×2 (00:12→15:20)
[2017-11-11] MEDS: Morphine Sulfate 2 mg/mL 1mL Syr IVP PRN ×2 (03:59→14:51)
[2017-11-11 05:57] LABS: % BASOPHILS 0.3 % (0.0-2.0); EOSINOPHILE ABSOLUTE 0.1 Th/cmm (0.1-0.4)
[2017-11-11 06:01] LABS: % LYMPHOCYTES 7.7 % (20.0-50.0); % MONOCYTES 6.4 % (2.0-10.0); % NEUTROPHILS 84.6 % (40.0-80.0); HEMATOCRIT 35.9 % (41.0-60); HEMOGLOBIN 12.4 gm/dL (12-16); LYMPHOCYTE ABSOLUTE 1.1 Th/cmm (1.5-3.0); MEAN CELL VOLUME 97.6 fl (80-99); MEAN CORPUSCULAR HEMOGLOBIN 33.7 pg (27.0-31.0); MEAN CORPUSCULAR HGB CONC 34.5 pg (28.0-36.0); MEAN PLATELET VOLUME 9.7 fl; MONOCYTE ABSOLUTE 0.9 Th/cmm (0.3-1.0); NEUTROPHILE ABSOLUTE 12.5 Th/cmm (1.8-8.0); PLATELET COUNT 183 Th/cmm (150-400); RED BLOOD COUNT 3.68 Mil/cmm (3.80-5.80); RED CELL DISTRIBUTION WIDTH 13.4 % (11.5-20.0)
[2017-11-11 06:08] LABS: WHITE BLOOD COUNT 14.6 Th/cmm (4.8-10.8)
[2017-11-11 06:19] LABS: ANION GAP 10.8 (7.0-16.0); BUN - UREA NITROGEN 42 mg/dL (7-25); CALCIUM SERUM 9.4 mg/dL (8.6-10.3); CHLORIDE 120 mEq/L (98-107); CREATININE - SERUM 1.7 mg/dL (0.7-1.3); GLUCOSE 157 mg/dL (70-105); POTASSIUM SERUM 3.8 mEq/L (3.5-5.1); SODIUM SERUM 150 mEq/L (136-145)
[2017-11-11] MEDS: INSULIN ASPART, RECOMBINANT 100 UNITS/ML SUBQ SCH ×4 (06:31→23:36)
[2017-11-11] MEDS: Benztropine 1 MG TAB PO SCH ×2 (09:01→16:57)
[2017-11-11] MEDS: Multivitamin w/ Minerals Tab PO SCH (09:02)
--- NOTE | 2017-11-11 10:55 | General Progress Note ---
Subjective - Review of Systems Service Date: 11/11/17 Events since last encounter: has right elbow cellulitis, doubt abscess multiple ulcers, worse on right big toe suggest local wound care Objective - Results Result Diagrams: 11/11/17 05:40 11/11/17 05:40 Recent Labs: Laboratory Last Values WBC 14.6 Th/cmm (4.8-10.8) H 11/11/17 05:40 RBC 3.68 Mil/cmm (3.80-5.80) L 11/11/17 05:40 Hgb 12.4 gm/dL (12-16) 11/11/17 05:40 Hct 35.9 % (41.0-60) L 11/11/17 05:40 MCV 97.6 fl (80-99) 11/11/17 05:40 MCH 33.7 pg (27.0-31.0) H 11/11/17 05:40 MCHC Differential 34.5 pg (28.0-36.0) 11/11/17 05:40 RDW 13.4 % (11.5-20.0) 11/11/17 05:40 Plt Count 183 Th/cmm (150-400) 11/11/17 05:40 MPV 9.7 fl 11/11/17 05:40 Neutrophils % 84.6 % (40.0-80.0) H 11/11/17 05:40 Lymphocytes % 7.7 % (20.0-50.0) L 11/11/17 05:40 Monocytes % 6.4 % (2.0-10.0) 11/11/17 05:40 Eosinophils % 1.0 % (0.0-5.0) 11/11/17 05:40 Basophils % 0.3 % (0.0-2.0) 11/11/17 05:40 PT 11.5 SECONDS (9.5-11.5) 11/08/17 17:50 INR 1.10 (0.5-1.4) 11/08/17 17:50 PTT (Actin FS) 24.5 SECONDS (26.0-38.0) L 11/08/17 17:50 Sodium 150 mEq/L (136-145) H 11/11/17 05:40 Potassium 3.8 mEq/L (3.5-5.1) 11/11/17 05:40 Chloride 120 mEq/L (98-107) H 11/11/17 05:40 Carbon Dioxide 23.0 mEq/L (21.0-31.0) 11/11/17 05:40 Anion Gap 10.8 (7.0-16.0) 11/11/17 05:40 BUN 42 mg/dL (7-25) H 11/11/17 05:40 Creatinine 1.7 mg/dL (0.7-1.3) H 11/11/17 05:40 Est GFR ( Amer) TNP 11/11/17 05:40 Est GFR (Non-Af Amer) TNP 11/11/17 05:40 BUN/Creatinine Ratio 24.7 11/11/17 05:40 Glucose 157 mg/dL (70-105) H 11/11/17 05:40 POC Glucose 165 MG/DL (70 - 105) H 11/10/17 22:20 Whole Bld Lactic Acid 1.69 mmol/L (0.60-1.99) 11/08/17 18:55 Uric Acid 8.2 mg/dL (4.4-7.6) H 11/10/17 05:20 Calcium 9.4 mg/dL (8.6-10.3) 11/11/17 05:40 Phosphorus 2.8 mg/dL (2.5-5.0) 11/10/17 05:20 Magnesium 1.8 mg/dL (1.9-2.7) L 11/10/17 05:20 Total Bilirubin 1.0 mg/dL (0.3-1.0) 11/08/17 18:55 Direct Bilirubin 0.24 mg/dL (0.0-0.2) H 11/08/17 17:50 AST 57 U/L (13-39) H 11/08/17 18:55 ALT 35 U/L (7-52) 11/08/17 18:55 Alkaline Phosphatase 66 U/L (34-104) 11/08/17 18:55 Creatine Kinase 1066 U/L (30-223) H 11/08/17 18:55 CK-MB (CK-2) 8.7 ng/mL (0.6-6.3) H 11/08/17 18:55 Troponin I 0.03 ng/mL (0.01-0.05) 11/08/17 18:55 B-Natriuretic Peptide 65.3 pg/mL (5.0-100.0) 11/08/17 18:55 Total Protein 8.6 gm/dL (6.0-8.3) H 11/08/17 18:55 Albumin 3.8 gm/dL (4.2-5.5) L 11/08/17 18:55 Globulin 4.8 gm/dL 11/08/17 18:55 Albumin/Globulin Ratio 0.8 (1.0-1.8) L 11/08/17 18:55 Triglycerides 117 mg/dL (<150) 11/08/17 18:55 Cholesterol 188 mg/dL (<200) 11/08/17 18:55 LDL Cholesterol Direct 163 mg/dL (75-193) 11/08/17 18:55 HDL Cholesterol 37 mg/dL (23-92) 11/08/17 18:55 Amylase 43 U/L (29-103) 11/08/17 17:50 Lipase 13 U/L (11-82) 11/08/17 17:50 - Physical Exam Vitals and I&O: Vital Signs Temp 98 F 11/11/17 04:00 Pulse 87 11/11/17 09:02 Resp 18 11/11/17 04:00 BP 116/64 11/11/17 09:02 Pulse Ox 97 11/11/17 04:00 Intake & Output 11/10/17 11/11/17 11/11/17 18:59 06:59 18:59 Intake Total 550 50 Balance 550 50 Intake: Intake, IV Amount 550 50 Piperacillin Sodium/ 50 50 Tazobact 2.25 gm In Dextrose 5% 50 ml @ 50 mls/hr IV Q8HR [facility] Rx#: [id number] Vancomycin HCl 1.5 gm In 500 Sodium Chloride 0.9% 500 ml @ 250 mls/hr IV Q12H [facility] Rx#:[id number] Active Medications: Current Medications Acetaminophen (Tylenol) 650 mg PO Q4H PRN PRN Reason: Pain Or Fever above 101 Stop: 01/07/18 20:29 Last Admin: 11/10/17 00:56 Dose: 650 mg Al Hydrox/Mg Hydrox/Simethicone (Maalox) 30 ml PO Q6H PRN PRN Reason: Dyspepsia Stop: 01/07/18 20:28 Albuterol Sulfate (Albuterol 2.5mg/3ml Neb Ud) 2.5 mg HHN Q2HRT PRN PRN Reason: Shortness of Breath or Wheeze Stop: 01/07/18 20:28 Ascorbic Acid (Vitamin C) 500 mg PO DAILY [facility] Stop: 01/08/18 08:59 Last Admin: 11/11/17 09:02 Dose: 500 mg Benztropine Mesylate (Cogentin) 1 mg PO BID [place] Stop: 01/08/18 08:59 Last Admin: 11/11/17 09:01 Dose: 1 mg Carvedilol (Coreg) 12.5 mg PO BID [facility] Stop: 01/08/18 08:59 Last Admin: 11/11/17 09:02 Dose: 12.5 mg Docusate Sodium (Colace) 100 mg PO DAILY [facility] Stop: 01/08/18 08:59 Last Admin: 11/11/17 09:02 Dose: 100 mg Gabapentin (Neurontin) 300 mg PO TID [facility] Stop: 01/07/18 20:59 Last Admin: 11/11/17 09:02 Dose: 300 mg Haloperidol (Haldol) 2.5 mg PO BID [place] PRN Reason: Protocol Stop: 01/08/18 14:46 Last Admin: 11/11/17 09:02 Dose: 2.5 mg Heparin Sodium (Porcine) (Heparin) 5,000 units SUBQ Q12HR [facility] Stop: 01/07/18 20:59 Last Admin: 11/11/17 09:03 Dose: 5,000 units Vancomycin HCl 1.5 gm/ Sodium (Chloride) 500 mls @ 250 mls/hr IV Q12H [facility] Stop: 01/09/18 11:59 Last Admin: 11/11/17 00:12 Dose: 250 mls/hr Piperacillin Sod/Tazobactam (Sod 2.25 gm/ Dextrose) 50 mls @ 50 mls/hr IV Q8HR [facility] Stop: 01/09/18 12:59 Last Admin: 11/11/17 04:41 Dose: 50 mls/hr Dextrose (D5w) 1,000 mls @ 100 mls/hr IV .Q10H [facility] Stop: 01/09/18 14:59 Last Admin: 11/10/17 17:55 Dose: 100 mls/hr Insulin Aspart (Novolog) 0 units SUBQ ACHS [place] PRN Reason: Protocol Stop: 01/07/18 20:59 Last Admin: 11/11/17 06:31 Dose: Not Given Ipratropium [place] (Atrovent Neb 0.5mg/2.5ml) 0.5 mg IH Q2HRT PRN PRN Reason: Shortness of Breath or Wheeze Stop: 01/07/18 20:28 Lorazepam (Ativan) 1 mg IVP Q6HR PRN; Protocol PRN Reason: Agitation Stop: 01/09/18 08:36 Last Admin: 11/11/17 09:15 Dose: 1 mg Magnesium Hydroxide (Milk Of Magnesia) 30 ml PO DAILY PRN PRN Reason: Constipation Stop: 01/07/18 20:25 Miscellaneous (Clinical Monitoring) 1 ea MC DAILY PRN PRN Reason: RENAL Stop: 01/08/18 08:43 Miscellaneous (Vancomycin Iv Per Pharmacy) 1 ea MC PRN [place] Stop: 01/09/18 11:29 Morphine Sulfate (Morphine) 1 mg IVP Q6H PRN PRN Reason: Pain (Moderate) Stop: 01/09/18 08:30 Last Admin: 11/11/17 03:59 Dose: 1 mg Ondansetron HCl (Zofran) 4 mg IV Q8H PRN PRN Reason: Nausea / Vomiting Stop: 01/07/18 20:29 Quetiapine Fumarate (Seroquel) 12.5 mg PO TID [place] PRN Reason: Protocol Stop: 01/08/18 20:59 Last Admin: 11/11/17 09:01 Dose: 12.5 mg Tramadol HCl (Ultram) 50 mg PO Q6HR PRN PRN Reason: PAIN Stop: 01/07/18 20:25 Last Admin: 11/10/17 01:56 Dose: 50 mg Zinc Sulfate (Zinc Sulfate) 220 mg PO DAILY [place] Stop: 01/08/18 08:59 Last Admin: 11/11/17 09:03 Dose: 220 mg Zolpidem Tartrate (Ambien) 10 mg PO HS PRN PRN Reason: Insomnia Stop: 01/07/18 20:28 Last Admin: 11/09/17 21:49 Dose: 10 mg General: Mild distress HEENT: Atraumatic, Mucous membr. moist/pink Neck: Supple, +2 carotid pulse wo bruit Cardiovascular: Regular rate, Normal S1, Normal S2 Lungs: Clear to auscultation Abdomen: Bowel sounds, Soft Extremities: no Edema Neurological: Sensation intact Skin: Breakdown Psych/Mental Status: Other (acute psychosis) Assessment/Plan - Problem List Patient Problems: All Active Problems ABNORMAL LAB RESULTS (Acute)
[2017-11-11] MEDS: Dextrose 5% 1,000 ML IV SCH (12:11)
--- NOTE | 2017-11-11 13:03 | Internal Medicine Prog Note ---
Internal Medicine Subjective - Subjective Service Date: 11/11/17 Patient is:: awake Patient Complaints of:: other (pain) Per staff patient has:: tolerating meds Internal Medicine Objective - Results Result Diagrams: 11/11/17 05:40 11/11/17 05:40 Recent Labs: Laboratory Last Values WBC 14.6 Th/cmm (4.8-10.8) H 11/11/17 05:40 RBC 3.68 Mil/cmm (3.80-5.80) L 11/11/17 05:40 Hgb 12.4 gm/dL (12-16) 11/11/17 05:40 Hct 35.9 % (41.0-60) L 11/11/17 05:40 MCV 97.6 fl (80-99) 11/11/17 05:40 MCH 33.7 pg (27.0-31.0) H 11/11/17 05:40 MCHC Differential 34.5 pg (28.0-36.0) 11/11/17 05:40 RDW 13.4 % (11.5-20.0) 11/11/17 05:40 Plt Count 183 Th/cmm (150-400) 11/11/17 05:40 MPV 9.7 fl 11/11/17 05:40 Neutrophils % 84.6 % (40.0-80.0) H 11/11/17 05:40 Lymphocytes % 7.7 % (20.0-50.0) L 11/11/17 05:40 Monocytes % 6.4 % (2.0-10.0) 11/11/17 05:40 Eosinophils % 1.0 % (0.0-5.0) 11/11/17 05:40 Basophils % 0.3 % (0.0-2.0) 11/11/17 05:40 PT 11.5 SECONDS (9.5-11.5) 11/08/17 17:50 INR 1.10 (0.5-1.4) 11/08/17 17:50 PTT (Actin FS) 24.5 SECONDS (26.0-38.0) L 11/08/17 17:50 Sodium 150 mEq/L (136-145) H 11/11/17 05:40 Potassium 3.8 mEq/L (3.5-5.1) 11/11/17 05:40 Chloride 120 mEq/L (98-107) H 11/11/17 05:40 Carbon Dioxide 23.0 mEq/L (21.0-31.0) 11/11/17 05:40 Anion Gap 10.8 (7.0-16.0) 11/11/17 05:40 BUN 42 mg/dL (7-25) H 11/11/17 05:40 Creatinine 1.7 mg/dL (0.7-1.3) H 11/11/17 05:40 Est GFR ( Amer) TNP 11/11/17 05:40 Est GFR (Non-Af Amer) TNP 11/11/17 05:40 BUN/Creatinine Ratio 24.7 11/11/17 05:40 Glucose 157 mg/dL (70-105) H 11/11/17 05:40 POC Glucose 125 MG/DL (70 - 105) H 11/11/17 11:33 Whole Bld Lactic Acid 1.69 mmol/L (0.60-1.99) 11/08/17 18:55 Uric Acid 8.2 mg/dL (4.4-7.6) H 11/10/17 05:20 Calcium 9.4 mg/dL (8.6-10.3) 11/11/17 05:40 Phosphorus 2.8 mg/dL (2.5-5.0) 11/10/17 05:20 Magnesium 1.8 mg/dL (1.9-2.7) L 11/10/17 05:20 Total Bilirubin 1.0 mg/dL (0.3-1.0) 11/08/17 18:55 Direct Bilirubin 0.24 mg/dL (0.0-0.2) H 11/08/17 17:50 AST 57 U/L (13-39) H 11/08/17 18:55 ALT 35 U/L (7-52) 11/08/17 18:55 Alkaline Phosphatase 66 U/L (34-104) 11/08/17 18:55 Creatine Kinase 1066 U/L (30-223) H 11/08/17 18:55 CK-MB (CK-2) 8.7 ng/mL (0.6-6.3) H 11/08/17 18:55 Troponin I 0.03 ng/mL (0.01-0.05) 11/08/17 18:55 B-Natriuretic Peptide 65.3 pg/mL (5.0-100.0) 11/08/17 18:55 Total Protein 8.6 gm/dL (6.0-8.3) H 11/08/17 18:55 Albumin 3.8 gm/dL (4.2-5.5) L 11/08/17 18:55 Globulin 4.8 gm/dL 11/08/17 18:55 Albumin/Globulin Ratio 0.8 (1.0-1.8) L 11/08/17 18:55 Triglycerides 117 mg/dL (<150) 11/08/17 18:55 Cholesterol 188 mg/dL (<200) 11/08/17 18:55 LDL Cholesterol Direct 163 mg/dL (75-193) 11/08/17 18:55 HDL Cholesterol 37 mg/dL (23-92) 11/08/17 18:55 Amylase 43 U/L (29-103) 11/08/17 17:50 Lipase 13 U/L (11-82) 11/08/17 17:50 Vancomycin Trough 19.8 ug/mL (10-20) 11/11/17 11:30 - Physical Exam Vitals and I&O: Vital Signs Temp 98 F 11/11/17 04:00 Pulse 87 11/11/17 09:02 Resp 18 11/11/17 04:00 BP 116/64 11/11/17 09:02 Pulse Ox 97 11/11/17 04:00 Intake & Output 11/10/17 11/11/17 11/11/17 18:59 06:59 18:59 Intake Total 550 1100 Balance 550 1100 Intake: Intake, IV Amount 550 1100 Dextrose 5% 1,000 ml @ 1000 100 mls/hr IV .Q10H [facility] Rx#:[id number] Piperacillin Sodium/ 50 100 Tazobact 2.25 gm In Dextrose 5% 50 ml @ 50 mls/hr IV Q8HR [facility] Rx#: [id number] Vancomycin HCl 1.5 gm In 500 Sodium Chloride 0.9% 500 ml @ 250 mls/hr IV Q12H [facility] Rx#:[id number] Active Medications: Current Medications Acetaminophen (Tylenol) 650 mg PO Q4H PRN PRN Reason: Pain Or Fever above 101 Stop: 01/07/18 20:29 Last Admin: 11/10/17 00:56 Dose: 650 mg Al Hydrox/Mg Hydrox/Simethicone (Maalox) 30 ml PO Q6H PRN PRN Reason: Dyspepsia Stop: 01/07/18 20:28 Albuterol Sulfate (Albuterol 2.5mg/3ml Neb Ud) 2.5 mg HHN Q2HRT PRN PRN Reason: Shortness of Breath or Wheeze Stop: 01/07/18 20:28 Ascorbic Acid (Vitamin C) 500 mg PO DAILY [facility] Stop: 01/08/18 08:59 Last Admin: 11/11/17 09:02 Dose: 500 mg Benztropine Mesylate (Cogentin) 1 mg PO BID [facility] Stop: 01/08/18 08:59 Last Admin: 11/11/17 09:01 Dose: 1 mg Carvedilol (Coreg) 12.5 mg PO BID [facility] Stop: 01/08/18 08:59 Last Admin: 11/11/17 09:02 Dose: 12.5 mg Docusate Sodium (Colace) 100 mg PO DAILY [facility] Stop: 01/08/18 08:59 Last Admin: 11/11/17 09:02 Dose: 100 mg Gabapentin (Neurontin) 300 mg PO TID [facility] Stop: 01/07/18 20:59 Last Admin: 11/11/17 09:02 Dose: 300 mg Haloperidol (Haldol) 2.5 mg PO BID [facility] PRN Reason: Protocol Stop: 01/08/18 14:46 Last Admin: 11/11/17 09:02 Dose: 2.5 mg Heparin Sodium (Porcine) (Heparin) 5,000 units SUBQ Q12HR [facility] Stop: 01/07/18 20:59 Last Admin: 11/11/17 09:03 Dose: 5,000 units Vancomycin HCl 1.5 gm/ Sodium (Chloride) 500 mls @ 250 mls/hr IV Q12H [facility] Stop: 01/09/18 11:59 Last Admin: 11/11/17 00:12 Dose: 250 mls/hr Piperacillin Sod/Tazobactam (Sod 2.25 gm/ Dextrose) 50 mls @ 50 mls/hr IV Q8HR [facility] Stop: 01/09/18 12:59 Last Admin: 11/11/17 12:11 Dose: 50 mls/hr Dextrose (D5w) 1,000 mls @ 100 mls/hr IV .Q10H [facility] Stop: 01/09/18 14:59 Last Admin: 11/11/17 12:11 Dose: 100 mls/hr Insulin Aspart (Novolog) 0 units SUBQ ACHS [facility] PRN Reason: Protocol Stop: 01/07/18 20:59 Last Admin: 11/11/17 11:46 Dose: Not Given Ipratropium [place] (Atrovent Neb 0.5mg/2.5ml) 0.5 mg IH Q2HRT PRN PRN Reason: Shortness of Breath or Wheeze Stop: 01/07/18 20:28 Lorazepam (Ativan) 1 mg IVP Q6HR PRN; Protocol PRN Reason: Agitation Stop: 01/09/18 08:36 Last Admin: 11/11/17 09:15 Dose: 1 mg Magnesium Hydroxide (Milk Of Magnesia) 30 ml PO DAILY PRN PRN Reason: Constipation Stop: 01/07/18 20:25 Miscellaneous (Clinical Monitoring) 1 ea DAILY PRN PRN Reason: RENAL Stop: 01/08/18 08:43 Miscellaneous (Vancomycin Iv Per Pharmacy) 1 ea PRN [facility] Stop: 01/09/18 11:29 Morphine Sulfate (Morphine) 1 mg IVP Q6H PRN PRN Reason: Pain (Moderate) Stop: 01/09/18 08:30 Last Admin: 11/11/17 03:59 Dose: 1 mg Ondansetron HCl (Zofran) 4 mg IV Q8H PRN PRN Reason: Nausea / Vomiting Stop: 01/07/18 20:29 Quetiapine Fumarate (Seroquel) 12.5 mg PO TID [facility] PRN Reason: Protocol Stop: 01/08/18 20:59 Last Admin: 11/11/17 09:01 Dose: 12.5 mg Tramadol HCl (Ultram) 50 mg PO Q6HR PRN PRN Reason: PAIN Stop: 01/07/18 20:25 Last Admin: 11/10/17 01:56 Dose: 50 mg Zinc Sulfate (Zinc Sulfate) 220 mg PO DAILY [facility] Stop: 01/08/18 08:59 Last Admin: 11/11/17 09:03 Dose: 220 mg Zolpidem Tartrate (Ambien) 10 mg PO HS PRN PRN Reason: Insomnia Stop: 01/07/18 20:28 Last Admin: 11/09/17 21:49 Dose: 10 mg General: weak, alert HEENT: NC/AT, PERRLA Neck: Supple Lungs: CTAB Cardiovascular: RRR, Normal S1, Normal S2, without murmur Abdomen: soft, non-tender, non-distended, positive bowel sound Extremities: other (right elbow abscess, right big toe open wound, multiple open wound ) Neurological: no change Internal Medicine Assmt/Plan - Assessment Assessment: RIGHT ELBOW CELLULITIS MULTIPLE OPEN WOUND ALOC ACUTE RENAL FAILURE DM2 PSYCHOSIS HTN MILD PROTEIN CALORIE MALNUTRITION CHEST DEFBRILLATOR STATUS COPD CHF CAD - Plan Plan: continue ivabx await for wound cultures dc haldol per family request continue with wound care follow up labs in am pain mgmt continue current plan of care
--- NOTE | 2017-11-11 14:26 | General Progress Note ---
Subjective - Review of Systems Service Date: 11/11/17 Subjective: sedated today Objective - Results Result Diagrams: 11/11/17 05:40 11/11/17 05:40 Recent Labs: Laboratory Last Values WBC 14.6 Th/cmm (4.8-10.8) H 11/11/17 05:40 RBC 3.68 Mil/cmm (3.80-5.80) L 11/11/17 05:40 Hgb 12.4 gm/dL (12-16) 11/11/17 05:40 Hct 35.9 % (41.0-60) L 11/11/17 05:40 MCV 97.6 fl (80-99) 11/11/17 05:40 MCH 33.7 pg (27.0-31.0) H 11/11/17 05:40 MCHC Differential 34.5 pg (28.0-36.0) 11/11/17 05:40 RDW 13.4 % (11.5-20.0) 11/11/17 05:40 Plt Count 183 Th/cmm (150-400) 11/11/17 05:40 MPV 9.7 fl 11/11/17 05:40 Neutrophils % 84.6 % (40.0-80.0) H 11/11/17 05:40 Lymphocytes % 7.7 % (20.0-50.0) L 11/11/17 05:40 Monocytes % 6.4 % (2.0-10.0) 11/11/17 05:40 Eosinophils % 1.0 % (0.0-5.0) 11/11/17 05:40 Basophils % 0.3 % (0.0-2.0) 11/11/17 05:40 PT 11.5 SECONDS (9.5-11.5) 11/08/17 17:50 INR 1.10 (0.5-1.4) 11/08/17 17:50 PTT (Actin FS) 24.5 SECONDS (26.0-38.0) L 11/08/17 17:50 Sodium 150 mEq/L (136-145) H 11/11/17 05:40 Potassium 3.8 mEq/L (3.5-5.1) 11/11/17 05:40 Chloride 120 mEq/L (98-107) H 11/11/17 05:40 Carbon Dioxide 23.0 mEq/L (21.0-31.0) 11/11/17 05:40 Anion Gap 10.8 (7.0-16.0) 11/11/17 05:40 BUN 42 mg/dL (7-25) H 11/11/17 05:40 Creatinine 1.7 mg/dL (0.7-1.3) H 11/11/17 05:40 Est GFR ( Amer) TNP 11/11/17 05:40 Est GFR (Non-Af Amer) TNP 11/11/17 05:40 BUN/Creatinine Ratio 24.7 11/11/17 05:40 Glucose 157 mg/dL (70-105) H 11/11/17 05:40 POC Glucose 125 MG/DL (70 - 105) H 11/11/17 11:33 Whole Bld Lactic Acid 1.69 mmol/L (0.60-1.99) 11/08/17 18:55 Uric Acid 8.2 mg/dL (4.4-7.6) H 11/10/17 05:20 Calcium 9.4 mg/dL (8.6-10.3) 11/11/17 05:40 Phosphorus 2.8 mg/dL (2.5-5.0) 11/10/17 05:20 Magnesium 1.8 mg/dL (1.9-2.7) L 11/10/17 05:20 Total Bilirubin 1.0 mg/dL (0.3-1.0) 11/08/17 18:55 Direct Bilirubin 0.24 mg/dL (0.0-0.2) H 11/08/17 17:50 AST 57 U/L (13-39) H 11/08/17 18:55 ALT 35 U/L (7-52) 11/08/17 18:55 Alkaline Phosphatase 66 U/L (34-104) 11/08/17 18:55 Ammonia 73 umol/L (16-53) H 11/11/17 05:40 Creatine Kinase 1066 U/L (30-223) H 11/08/17 18:55 CK-MB (CK-2) 8.7 ng/mL (0.6-6.3) H 11/08/17 18:55 Troponin I 0.03 ng/mL (0.01-0.05) 11/08/17 18:55 B-Natriuretic Peptide 65.3 pg/mL (5.0-100.0) 11/08/17 18:55 Total Protein 8.6 gm/dL (6.0-8.3) H 11/08/17 18:55 Albumin 3.8 gm/dL (4.2-5.5) L 11/08/17 18:55 Globulin 4.8 gm/dL 11/08/17 18:55 Albumin/Globulin Ratio 0.8 (1.0-1.8) L 11/08/17 18:55 Triglycerides 117 mg/dL (<150) 11/08/17 18:55 Cholesterol 188 mg/dL (<200) 11/08/17 18:55 LDL Cholesterol Direct 163 mg/dL (75-193) 11/08/17 18:55 HDL Cholesterol 37 mg/dL (23-92) 11/08/17 18:55 Amylase 43 U/L (29-103) 11/08/17 17:50 Lipase 13 U/L (11-82) 11/08/17 17:50 Vancomycin Trough 19.8 ug/mL (10-20) 11/11/17 11:30 - Physical Exam Vitals and I&O: Vital Signs Temp 98 F 11/11/17 04:00 Pulse 87 11/11/17 09:02 Resp 18 11/11/17 04:00 BP 116/64 11/11/17 09:02 Pulse Ox 97 11/11/17 04:00 Intake & Output 11/10/17 11/11/17 11/11/17 18:59 06:59 18:59 Intake Total 550 1100 Balance 550 1100 Intake: Intake, IV Amount 550 1100 Dextrose 5% 1,000 ml @ 1000 100 mls/hr IV .Q10H [facility] Rx#:[id number] Piperacillin Sodium/ 50 100 Tazobact 2.25 gm In Dextrose 5% 50 ml @ 50 mls/hr IV Q8HR [facility] Rx#: [id number] Vancomycin HCl 1.5 gm In 500 Sodium Chloride 0.9% 500 ml @ 250 mls/hr IV Q12H [facility] Rx#:[id number] Active Medications: Current Medications Acetaminophen (Tylenol) 650 mg PO Q4H PRN PRN Reason: Pain Or Fever above 101 Stop: 01/07/18 20:29 Last Admin: 11/10/17 00:56 Dose: 650 mg Al Hydrox/Mg Hydrox/Simethicone (Maalox) 30 ml PO Q6H PRN PRN Reason: Dyspepsia Stop: 01/07/18 20:28 Albuterol Sulfate (Albuterol 2.5mg/3ml Neb Ud) 2.5 mg HHN Q2HRT PRN PRN Reason: Shortness of Breath or Wheeze Stop: 01/07/18 20:28 Ascorbic Acid (Vitamin C) 500 mg PO DAILY [facility] Stop: 01/08/18 08:59 Last Admin: 11/11/17 09:02 Dose: 500 mg Benztropine Mesylate (Cogentin) 1 mg PO BID [facility] Stop: 01/08/18 08:59 Last Admin: 11/11/17 09:01 Dose: 1 mg Carvedilol (Coreg) 12.5 mg PO BID [facility] Stop: 01/08/18 08:59 Last Admin: 11/11/17 09:02 Dose: 12.5 mg Docusate Sodium (Colace) 100 mg PO DAILY [facility] Stop: 01/08/18 08:59 Last Admin: 11/11/17 09:02 Dose: 100 mg Gabapentin (Neurontin) 300 mg PO TID [facility] Stop: 01/07/18 20:59 Last Admin: 11/11/17 09:02 Dose: 300 mg Haloperidol (Haldol) 2.5 mg PO BID [facility] PRN Reason: Protocol Stop: 01/08/18 14:46 Last Admin: 11/11/17 09:02 Dose: 2.5 mg Heparin Sodium (Porcine) (Heparin) 5,000 units SUBQ Q12HR [facility] Stop: 01/07/18 20:59 Last Admin: 11/11/17 09:03 Dose: 5,000 units Piperacillin Sod/Tazobactam (Sod 2.25 gm/ Dextrose) 50 mls @ 50 mls/hr IV Q8HR [facility] Stop: 01/09/18 12:59 Last Admin: 11/11/17 12:11 Dose: 50 mls/hr Dextrose (D5w) 1,000 mls @ 100 mls/hr IV .Q10H [facility] Stop: 01/09/18 14:59 Last Admin: 11/11/17 12:11 Dose: 100 mls/hr Vancomycin HCl 1.5 gm/ Sodium (Chloride) 500 mls @ 250 mls/hr IV Q18H [facility] Stop: 01/10/18 14:59 Insulin Aspart (Novolog) 0 units SUBQ ACHS [facility] PRN Reason: Protocol Stop: 01/07/18 20:59 Last Admin: 11/11/17 11:46 Dose: Not Given Ipratropium [place] (Atrovent Neb 0.5mg/2.5ml) 0.5 mg IH Q2HRT PRN PRN Reason: Shortness of Breath or Wheeze Stop: 01/07/18 20:28 Lorazepam (Ativan) 1 mg IVP Q6HR PRN; Protocol PRN Reason: Agitation Stop: 01/09/18 08:36 Last Admin: 11/11/17 09:15 Dose: 1 mg Magnesium Hydroxide (Milk Of Magnesia) 30 ml PO DAILY PRN PRN Reason: Constipation Stop: 01/07/18 20:25 Miscellaneous (Clinical Monitoring) 1 ea DAILY PRN PRN Reason: RENAL Stop: 01/08/18 08:43 Miscellaneous (Vancomycin Iv Per Pharmacy) 1 ea [facility] PRN [facility] Stop: 01/09/18 11:29 Morphine Sulfate (Morphine) 1 mg IVP Q6H PRN PRN Reason: Pain (Moderate) Stop: 01/09/18 08:30 Last Admin: 11/11/17 03:59 Dose: 1 mg Ondansetron HCl (Zofran) 4 mg IV Q8H PRN PRN Reason: Nausea / Vomiting Stop: 01/07/18 20:29 Quetiapine Fumarate (Seroquel) 12.5 mg PO TID [facility] PRN Reason: Protocol Stop: 01/08/18 20:59 Last Admin: 11/11/17 09:01 Dose: 12.5 mg Tramadol HCl (Ultram) 50 mg PO Q6HR PRN PRN Reason: PAIN Stop: 01/07/18 20:25 Last Admin: 11/10/17 01:56 Dose: 50 mg Zinc Sulfate (Zinc Sulfate) 220 mg PO DAILY [facility] Stop: 01/08/18 08:59 Last Admin: 11/11/17 09:03 Dose: 220 mg Zolpidem Tartrate (Ambien) 10 mg PO HS PRN PRN Reason: Insomnia Stop: 01/07/18 20:28 Last Admin: 11/09/17 21:49 Dose: 10 mg General: Mild distress HEENT: Atraumatic, Mucous membr. moist/pink Neck: Supple, +2 carotid pulse wo bruit Cardiovascular: Regular rate, Normal S1, Normal S2 Lungs: Clear to auscultation Abdomen: Bowel sounds, Soft Extremities: no Edema Neurological: Sensation intact Skin: Breakdown Psych/Mental Status: Other (acute psychosis) Assessment/Plan - Problem List Patient Problems: All Active Problems ABNORMAL LAB RESULTS (Acute) - Assessment Assessment: DENNIS Uremic enceph Psychosis COPD Multiple hematomas back Multiple ulcers lower ext Type 2 DM Ess Htn AICD - Plan Plan: Lab - Result Diagrams 11/10/17 05:20 11/10/17 05:20 Current Medications Acetaminophen (Tylenol) 650 mg PO Q4H PRN PRN Reason: Pain Or Fever above 101 Stop: 01/07/18 20:29 Last Admin: 11/10/17 00:56 Dose: 650 mg Al Hydrox/Mg Hydrox/Simethicone (Maalox) 30 ml PO Q6H PRN PRN Reason: Dyspepsia Stop: 01/07/18 20:28 Albuterol Sulfate (Albuterol 2.5mg/3ml Neb Ud) 2.5 mg HHN Q2HRT PRN PRN Reason: Shortness of Breath or Wheeze Stop: 01/07/18 20:28 Ascorbic Acid (Vitamin C) 500 mg PO DAILY [facility] Stop: 01/08/18 08:59 Last Admin: 11/10/17 09:00 Dose: Not Given Benztropine Mesylate (Cogentin) 1 mg PO BID [facility] Stop: 01/08/18 08:59 Last Admin: 11/10/17 09:00 Dose: Not Given Carvedilol (Coreg) 12.5 mg PO BID [facility] Stop: 01/08/18 08:59 Last Admin: 11/10/17 12:15 Dose: 12.5 mg Docusate Sodium (Colace) 100 mg PO DAILY [facility] Stop: 01/08/18 08:59 Last Admin: 11/10/17 09:00 Dose: Not Given Gabapentin (Neurontin) 300 mg PO TID [facility] Stop: 01/07/18 20:59 Last Admin: 11/10/17 12:17 Dose: Not Given Haloperidol (Haldol) 2.5 mg PO BID [facility] PRN Reason: Protocol Stop: 01/08/18 14:46 Last Admin: 11/10/17 09:00 Dose: Not Given Heparin Sodium (Porcine) (Heparin) 5,000 units SUBQ Q12HR [facility] Stop: 01/07/18 20:59 Last Admin: 11/10/17 12:18 Dose: Not Given Sodium Chloride (Nacl 0.45%) 1,000 mls @ 100 mls/hr IV .Q10H [facility] Stop: 01/07/18 20:29 Last Admin: 11/09/17 06:43 Dose: Not Given Vancomycin HCl 1.5 gm/ Sodium (Chloride) 500 mls @ 250 mls/hr IV Q12H [facility] Stop: 01/09/18 11:59 Last Admin: 11/10/17 13:15 Dose: 250 mls/hr Piperacillin Sod/Tazobactam (Sod 2.25 gm/ Dextrose) 50 mls @ 50 mls/hr IV Q8HR [facility] Stop: 01/09/18 12:59 Insulin Aspart (Novolog) 0 units SUBQ ACHS [facility] PRN Reason: Protocol Stop: 01/07/18 20:59 Last Admin: 11/10/17 08:23 Dose: Not Given Ipratropium [place] (Atrovent Neb 0.5mg/2.5ml) 0.5 mg IH Q2HRT PRN PRN Reason: Shortness of Breath or Wheeze Stop: 01/07/18 20:28 Lorazepam (Ativan) 1 mg IVP Q6HR PRN; Protocol PRN Reason: Agitation Stop: 01/09/18 08:36 Magnesium Hydroxide (Milk Of Magnesia) 30 ml PO DAILY PRN PRN Reason: Constipation Stop: 01/07/18 20:25 Miscellaneous (Clinical Monitoring) 1 ea [facility] DAILY PRN PRN Reason: RENAL Stop: 01/08/18 08:43 Miscellaneous (Vancomycin Iv Per Pharmacy) 1 ea [facility] PRN [facility] Stop: 01/09/18 11:29 Morphine Sulfate (Morphine) 1 mg IVP Q6H PRN PRN Reason: Pain (Moderate) Stop: 01/09/18 08:30 Ondansetron HCl (Zofran) 4 mg IV Q8H PRN PRN Reason: Nausea / Vomiting Stop: 01/07/18 20:29 Quetiapine Fumarate (Seroquel) 12.5 mg PO TID [facility] PRN Reason: Protocol Stop: 01/08/18 20:59 Last Admin: 11/10/17 09:00 Dose: Not Given Tramadol HCl (Ultram) 50 mg PO Q6HR PRN PRN Reason: PAIN Stop: 01/07/18 20:25 Last Admin: 11/10/17 01:56 Dose: 50 mg Zinc Sulfate (Zinc Sulfate) 220 mg PO DAILY [facility] Stop: 01/08/18 08:59 Last Admin: 11/10/17 12:18 Dose: Not Given Zolpidem Tartrate (Ambien) 10 mg PO HS PRN PRN Reason: Insomnia Stop: 01/07/18 20:28 Last Admin: 11/09/17 21:49 Dose: 10 mg Lab - Result Diagrams 11/11/17 05:40 11/11/17 05:40 Continue ivf 1/2 NS Na stable @ 150, BUN down to 42 f/u electrolytes, cbc
[2017-11-11] MEDS: Lactulose 10 Gm/15 mL 30mL UDC PO SCH (16:56)
[2017-11-11] MEDS ORDERED: Probiotic Screen MC PRN (16:56)
[2017-11-12] MEDS: Morphine Sulfate 2 mg/mL 1mL Syr IVP PRN (03:55)
[2017-11-12] MEDS: Dextrose 5% 1,000 ML IV SCH (06:24)
[2017-11-12 06:34] LABS: % BASOPHILS 0.5 % (0.0-2.0); % EOSINOPHILS 3.5 % (0.0-5.0); % LYMPHOCYTES 8.4 % (20.0-50.0); % MONOCYTES 8.7 % (2.0-10.0); % NEUTROPHILS 78.9 % (40.0-80.0); BASOPHILE ABSOLUTE 0.1 Th/cumm (0-0.2); EOSINOPHILE ABSOLUTE 0.4 Th/cmm (0.1-0.4); HEMATOCRIT 35.4 % (41.0-60); HEMOGLOBIN 11.9 gm/dL (12-16); LYMPHOCYTE ABSOLUTE 1.1 Th/cmm (1.5-3.0); MEAN CELL VOLUME 98.5 fl (80-99); MEAN CORPUSCULAR HEMOGLOBIN 32.9 pg (27.0-31.0); MEAN CORPUSCULAR HGB CONC 33.4 pg (28.0-36.0); MEAN PLATELET VOLUME 9.8 fl; MONOCYTE ABSOLUTE 1.1 Th/cmm (0.3-1.0); PLATELET COUNT 173 Th/cmm (150-400); RED CELL DISTRIBUTION WIDTH 13.6 % (11.5-20.0)
[2017-11-12 06:56] LABS: ANION GAP 11.4 (7.0-16.0); BUN - UREA NITROGEN 32 mg/dL (7-25); CALCIUM SERUM 9.1 mg/dL (8.6-10.3); CARBON DIOXIDE 26.3 mEq/L (21.0-31.0); CHLORIDE 119 mEq/L (98-107); CREATININE - SERUM 1.5 mg/dL (0.7-1.3); GLUCOSE 130 mg/dL (70-105); POTASSIUM SERUM 3.7 mEq/L (3.5-5.1); SODIUM SERUM 153 mEq/L (136-145); WHITE BLOOD COUNT 12.7 Th/cmm (4.8-10.8)
[2017-11-12] MEDS: INSULIN ASPART, RECOMBINANT 100 UNITS/ML SUBQ SCH ×4 (07:08→22:30)
[2017-11-12] MEDS: Benztropine 1 MG TAB PO SCH ×2 (09:34→17:32)
[2017-11-12] MEDS: Lactulose 10 Gm/15 mL 30mL UDC PO SCH ×2 (09:35→17:33)
[2017-11-12] MEDS: Multivitamin w/ Minerals Tab PO SCH (09:36)
--- NOTE | 2017-11-12 12:04 | Internal Medicine Prog Note ---
Internal Medicine Subjective - Subjective Service Date: 11/12/17 Patient seen and examined:: with staff Patient is:: awake, agitated Patient Complaints of:: other (pain) Per staff patient has:: tolerating meds Internal Medicine Objective - Results Result Diagrams: 11/12/17 05:30 11/12/17 05:30 Recent Labs: Laboratory Last Values WBC 12.7 Th/cmm (4.8-10.8) H 11/12/17 05:30 RBC 3.60 Mil/cmm (3.80-5.80) L 11/12/17 05:30 Hgb 11.9 gm/dL (12-16) L 11/12/17 05:30 Hct 35.4 % (41.0-60) L 11/12/17 05:30 MCV 98.5 fl (80-99) 11/12/17 05:30 MCH 32.9 pg (27.0-31.0) H 11/12/17 05:30 MCHC Differential 33.4 pg (28.0-36.0) 11/12/17 05:30 RDW 13.6 % (11.5-20.0) 11/12/17 05:30 Plt Count 173 Th/cmm (150-400) 11/12/17 05:30 MPV 9.8 fl 11/12/17 05:30 Neutrophils % 78.9 % (40.0-80.0) 11/12/17 05:30 Lymphocytes % 8.4 % (20.0-50.0) L 11/12/17 05:30 Monocytes % 8.7 % (2.0-10.0) 11/12/17 05:30 Eosinophils % 3.5 % (0.0-5.0) 11/12/17 05:30 Basophils % 0.5 % (0.0-2.0) 11/12/17 05:30 PT 11.5 SECONDS (9.5-11.5) 11/08/17 17:50 INR 1.10 (0.5-1.4) 11/08/17 17:50 PTT (Actin FS) 24.5 SECONDS (26.0-38.0) L 11/08/17 17:50 Sodium 153 mEq/L (136-145) H 11/12/17 05:30 Potassium 3.7 mEq/L (3.5-5.1) 11/12/17 05:30 Chloride 119 mEq/L (98-107) H 11/12/17 05:30 Carbon Dioxide 26.3 mEq/L (21.0-31.0) 11/12/17 05:30 Anion Gap 11.4 (7.0-16.0) 11/12/17 05:30 BUN 32 mg/dL (7-25) H 11/12/17 05:30 Creatinine 1.5 mg/dL (0.7-1.3) H 11/12/17 05:30 Est GFR ( Amer) TNP 11/12/17 05:30 Est GFR (Non-Af Amer) TNP 11/12/17 05:30 BUN/Creatinine Ratio 21.3 11/12/17 05:30 Glucose 130 mg/dL (70-105) H 11/12/17 05:30 POC Glucose 152 MG/DL (70 - 105) H 11/12/17 07:08 Whole Bld Lactic Acid 1.69 mmol/L (0.60-1.99) 11/08/17 18:55 Uric Acid 8.2 mg/dL (4.4-7.6) H 11/10/17 05:20 Calcium 9.1 mg/dL (8.6-10.3) 11/12/17 05:30 Phosphorus 2.8 mg/dL (2.5-5.0) 11/10/17 05:20 Magnesium 1.8 mg/dL (1.9-2.7) L 11/10/17 05:20 Total Bilirubin 1.0 mg/dL (0.3-1.0) 11/08/17 18:55 Direct Bilirubin 0.24 mg/dL (0.0-0.2) H 11/08/17 17:50 AST 57 U/L (13-39) H 11/08/17 18:55 ALT 35 U/L (7-52) 11/08/17 18:55 Alkaline Phosphatase 66 U/L (34-104) 11/08/17 18:55 Ammonia 45 umol/L (16-53) 11/12/17 05:30 Creatine Kinase 1066 U/L (30-223) H 11/08/17 18:55 CK-MB (CK-2) 8.7 ng/mL (0.6-6.3) H 11/08/17 18:55 Troponin I 0.03 ng/mL (0.01-0.05) 11/08/17 18:55 B-Natriuretic Peptide 65.3 pg/mL (5.0-100.0) 11/08/17 18:55 Total Protein 8.6 gm/dL (6.0-8.3) H 11/08/17 18:55 Albumin 3.8 gm/dL (4.2-5.5) L 11/08/17 18:55 Globulin 4.8 gm/dL 11/08/17 18:55 Albumin/Globulin Ratio 0.8 (1.0-1.8) L 11/08/17 18:55 Triglycerides 117 mg/dL (<150) 11/08/17 18:55 Cholesterol 188 mg/dL (<200) 11/08/17 18:55 LDL Cholesterol Direct 163 mg/dL (75-193) 11/08/17 18:55 HDL Cholesterol 37 mg/dL (23-92) 11/08/17 18:55 Amylase 43 U/L (29-103) 11/08/17 17:50 Lipase 13 U/L (11-82) 11/08/17 17:50 Vancomycin Trough 19.8 ug/mL (10-20) 11/12/17 05:30 - Physical Exam Vitals and I&O: Vital Signs Temp 98 F 11/11/17 20:00 Pulse 84 11/12/17 09:34 Resp 20 11/12/17 08:24 BP 146/71 11/12/17 09:34 Pulse Ox 96 11/12/17 08:24 Intake & Output 11/11/17 11/12/17 11/12/17 18:59 06:59 18:59 Intake Total 1165 435 Balance 1165 435 Weight (lbs) 238 lb Intake: Intake, IV Amount 1165 435 Dextrose 5% 1,000 ml @ 615 385 100 mls/hr IV .Q10H [facility] Rx#:[id number] Piperacillin Sodium/ 50 50 Tazobact 2.25 gm In Dextrose 5% 50 ml @ 50 mls/hr IV Q8HR [facility] Rx#: [id number] Vancomycin HCl 1.5 gm In 500 Sodium Chloride 0.9% 500 ml @ 250 mls/hr IV Q18H [facility] Rx#:[id number] Other: # Voids 6 # Bowel Movements 0 Active Medications: Current Medications Acetaminophen (Tylenol) 650 mg PO Q4H PRN PRN Reason: Pain Or Fever above 101 Stop: 01/07/18 20:29 Last Admin: 11/10/17 00:56 Dose: 650 mg Al Hydrox/Mg Hydrox/Simethicone (Maalox) 30 ml PO Q6H PRN PRN Reason: Dyspepsia Stop: 01/07/18 20:28 Albuterol Sulfate (Albuterol 2.5mg/3ml Neb Ud) 2.5 mg HHN Q2HRT PRN PRN Reason: Shortness of Breath or Wheeze Stop: 01/07/18 20:28 Ascorbic Acid (Vitamin C) 500 mg PO DAILY [facility] Stop: 01/08/18 08:59 Last Admin: 11/12/17 09:34 Dose: 500 mg Benztropine Mesylate (Cogentin) 1 mg PO BID [facility] Stop: 01/08/18 08:59 Last Admin: 11/12/17 09:34 Dose: 1 mg Carvedilol (Coreg) 12.5 mg PO BID [facility] Stop: 01/08/18 08:59 Last Admin: 11/12/17 09:34 Dose: 12.5 mg Docusate Sodium (Colace) 100 mg PO DAILY [facility] Stop: 01/08/18 08:59 Last Admin: 11/12/17 09:35 Dose: 100 mg Gabapentin (Neurontin) 300 mg PO TID [facility] Stop: 01/07/18 20:59 Last Admin: 11/12/17 09:35 Dose: 300 mg Heparin Sodium (Porcine) (Heparin) 5,000 units SUBQ Q12HR [facility] Stop: 01/07/18 20:59 Last Admin: 11/12/17 09:37 Dose: 5,000 units Piperacillin Sod/Tazobactam (Sod 2.25 gm/ Dextrose) 50 mls @ 50 mls/hr IV Q8HR [facility] Stop: 01/09/18 12:59 Last Admin: 11/12/17 06:23 Dose: 50 mls/hr Dextrose (D5w) 1,000 mls @ 100 mls/hr IV .Q10H [facility] Stop: 01/09/18 14:59 Last Admin: 11/12/17 06:24 Dose: 100 mls/hr Vancomycin HCl 1.5 gm/ Sodium (Chloride) 500 mls @ 250 mls/hr IV Q18H [facility] Stop: 01/10/18 14:59 Last Infusion: 11/11/17 18:20 Dose: Infused Insulin Aspart (Novolog) 0 units SUBQ ACHS [facility] PRN Reason: Protocol Stop: 01/07/18 20:59 Last Admin: 11/12/17 07:08 Dose: Not Given Ipratropium [place] (Atrovent Neb 0.5mg/2.5ml) 0.5 mg IH Q2HRT PRN PRN Reason: Shortness of Breath or Wheeze Stop: 01/07/18 20:28 Lactulose (Cephulac) 45 gm PO BID [facility] Stop: 01/10/18 16:59 Last Admin: 11/12/17 09:35 Dose: 45 gm Lorazepam (Ativan) 1 mg IVP Q6HR PRN; Protocol PRN Reason: Agitation Stop: 01/09/18 08:36 Last Admin: 11/12/17 10:10 Dose: 1 mg Lorazepam (Ativan) 1 mg IV X1 ONE PRN Reason: Protocol Stop: 11/12/17 12:03 Magnesium Hydroxide (Milk Of Magnesia) 30 ml PO DAILY PRN PRN Reason: Constipation Stop: 01/07/18 20:25 Miscellaneous (Clinical Monitoring) 1 ea DAILY PRN PRN Reason: RENAL Stop: 01/08/18 08:43 Miscellaneous (Vancomycin Iv Per Pharmacy) 1 ea PRN [facility] Stop: 01/09/18 11:29 Miscellaneous (Probiotic Screen) 1 ea PRN PRN PRN Reason: PROTOCOL Stop: 01/10/18 16:55 Morphine Sulfate (Morphine) 1 mg IVP Q6H PRN PRN Reason: Pain (Moderate) Stop: 01/09/18 08:30 Last Admin: 11/12/17 03:55 Dose: 1 mg Ondansetron HCl (Zofran) 4 mg IV Q8H PRN PRN Reason: Nausea / Vomiting Stop: 01/07/18 20:29 Quetiapine Fumarate (Seroquel) 12.5 mg PO TID [facility] PRN Reason: Protocol Stop: 01/08/18 20:59 Last Admin: 11/12/17 09:32 Dose: 12.5 mg Tramadol HCl (Ultram) 50 mg PO Q6HR PRN PRN Reason: PAIN Stop: 01/07/18 20:25 Last Admin: 11/10/17 01:56 Dose: 50 mg Zinc Sulfate (Zinc Sulfate) 220 mg PO DAILY [facility] Stop: 01/08/18 08:59 Last Admin: 11/12/17 09:33 Dose: 220 mg Zolpidem Tartrate (Ambien) 10 mg PO HS PRN PRN Reason: Insomnia Stop: 01/07/18 20:28 Last Admin: 11/09/17 21:49 Dose: 10 mg General: weak, alert HEENT: NC/AT, PERRLA Neck: Supple Lungs: CTAB Cardiovascular: RRR, Normal S1, Normal S2, without murmur Abdomen: soft, non-tender, non-distended, positive bowel sound Extremities: other (right elbow abscess, right big toe open wound, multiple open wound ) Neurological: no change Internal Medicine Assmt/Plan - Assessment Assessment: RIGHT ELBOW CELLULITIS MULTIPLE OPEN WOUND ALOC ACUTE RENAL FAILURE DM2 PSYCHOSIS HTN MILD PROTEIN CALORIE MALNUTRITION CHEST DEFBRILLATOR STATUS COPD CHF CAD - Plan Plan: continue ivabx await for wound cultures continue with wound care follow up labs in am pain mgmt continue current plan of care Nutritional Asmnt/Malnutr-PDOC - Dietary Evaluation Malnutrition Findings (Please click <Entered> for more info): Nutritional Asmnt/Malnutrition Start: 11/11/17 16: 30 Text: Status: Complete Freq: Document 11/11/17 16:30 [facility] (Rec: 11/11/17 16:[email or web address] Nutritional Asmnt/Malnutrition Patient General Information Nutritional Screening High Risk Consult Diagnosis ALOC, ARF Pertinent Medical Hx/Surgical Hx DM, psychosis, HTN, anxiety, chest defibrillator, COPD, CHF , CAD, alzheimer's Subjective Information Consult received for FTT. Per notes, pt refused breakfast, only take liquid at lunch and soup for dinner on 11/10. Spoke with YASMIN Ch, RN reported pt was agitated, not eating food. Diet down to pureed diet from dinner, dinner tray at bed side at the time of visit. Per RN, Pt took long time to swallow meds mixed with pudding. Current Diet Order/ Nutrition Support pureed, Prosource 30ml daily Pertinent Medications vitamin C, D5, colace, novolog , piperacillin, seroquel, vancomycin, zinc Pertinent Labs 11/11 Na 150, K 3.8, Cl 120, BUN 42, Cr 1.7, GLucose 157, POC 125, Ammonia 73 Nutritional Hx/Data Height 5 ft 10 in Height (Calculated Centimeters) 177.8 Current Weight (lbs) 238 lb 4.8 oz Weight (Calculated Kilograms) 108.1 Weight (Calculated Grams) 075985.1 [place] Body Weight 166 % [place] Body Weight 144 Body Mass Index (BMI) 34.2 Weight Status Obese GI Symptoms GI Symptoms None Skin Integrity/Comment: skin tear to right arm, bruise to left arm, decubitus ulceration to right big toe Estimated Nutritional Goals BEE in Kcals: Adj wt of IBW Calories/Kcals/Kg 25-30 Kcals Calculated 3686-8513 Protein: Adj wt of IBW Protein g/k.6-0.8 Protein Calculated 50-67g monitor renal labs Fluid: ml per MD d/t ARF Nutritional Problem 2. Problem Problem altered nutrition related lab values Etiology acute renal failure Signs/Symptoms: BUN 42, Cr 1.7 1. Problem Problem inadequate food intake Etiology mental status, possible swallow problem Signs/Symptoms: PO intake < 25% Malnutrition Alert Protein-Calorie Malnutrition N/A Is there a minimum of two criteria No selected? Query Text:Check all the applicable criteria. A minimum of two criteria are recommended for diagnosis of either severe or non-severe malnutrition. Intervention/Recommendation Comments 1. Recommend swallow eval d/t possible swallowing problem 2. If pt failed swallow eval, will consider alternative nutrition route 3. If continue to oral diet, will consider nutrition supplements to increase nutrition intake 4. F/U as high risk in 2-3 days, 11/13-11/14 Expected Outcomes/Goals Expected Outcomes/Goals 1. Pt to meet at least 75% of nutritional needs in 2-3 days. 2. Wt stability, skin to remain intact, labs to improve .
[2017-11-12] MEDS: Vancomycin HCl 1.5 GM in Sodium Chloride 0.9% 500 ML IV SCH (12:22)
--- NOTE | 2017-11-12 13:12 | General Progress Note ---
Subjective - Review of Systems Service Date: 11/12/17 Events since last encounter: no evidence of abscess right elbow on exam doppler arterial and venous study lower extremities Objective - Results Result Diagrams: 11/12/17 05:30 11/12/17 05:30 Recent Labs: Laboratory Last Values WBC 12.7 Th/cmm (4.8-10.8) H 11/12/17 05:30 RBC 3.60 Mil/cmm (3.80-5.80) L 11/12/17 05:30 Hgb 11.9 gm/dL (12-16) L 11/12/17 05:30 Hct 35.4 % (41.0-60) L 11/12/17 05:30 MCV 98.5 fl (80-99) 11/12/17 05:30 MCH 32.9 pg (27.0-31.0) H 11/12/17 05:30 MCHC Differential 33.4 pg (28.0-36.0) 11/12/17 05:30 RDW 13.6 % (11.5-20.0) 11/12/17 05:30 Plt Count 173 Th/cmm (150-400) 11/12/17 05:30 MPV 9.8 fl 11/12/17 05:30 Neutrophils % 78.9 % (40.0-80.0) 11/12/17 05:30 Lymphocytes % 8.4 % (20.0-50.0) L 11/12/17 05:30 Monocytes % 8.7 % (2.0-10.0) 11/12/17 05:30 Eosinophils % 3.5 % (0.0-5.0) 11/12/17 05:30 Basophils % 0.5 % (0.0-2.0) 11/12/17 05:30 PT 11.5 SECONDS (9.5-11.5) 11/08/17 17:50 INR 1.10 (0.5-1.4) 11/08/17 17:50 PTT (Actin FS) 24.5 SECONDS (26.0-38.0) L 11/08/17 17:50 Sodium 153 mEq/L (136-145) H 11/12/17 05:30 Potassium 3.7 mEq/L (3.5-5.1) 11/12/17 05:30 Chloride 119 mEq/L (98-107) H 11/12/17 05:30 Carbon Dioxide 26.3 mEq/L (21.0-31.0) 11/12/17 05:30 Anion Gap 11.4 (7.0-16.0) 11/12/17 05:30 BUN 32 mg/dL (7-25) H 11/12/17 05:30 Creatinine 1.5 mg/dL (0.7-1.3) H 11/12/17 05:30 Est GFR ( Amer) TNP 11/12/17 05:30 Est GFR (Non-Af Amer) TNP 11/12/17 05:30 BUN/Creatinine Ratio 21.3 11/12/17 05:30 Glucose 130 mg/dL (70-105) H 11/12/17 05:30 POC Glucose 127 MG/DL (70 - 105) H 11/12/17 12:34 Whole Bld Lactic Acid 1.69 mmol/L (0.60-1.99) 11/08/17 18:55 Uric Acid 8.2 mg/dL (4.4-7.6) H 11/10/17 05:20 Calcium 9.1 mg/dL (8.6-10.3) 11/12/17 05:30 Phosphorus 2.8 mg/dL (2.5-5.0) 11/10/17 05:20 Magnesium 1.8 mg/dL (1.9-2.7) L 11/10/17 05:20 Total Bilirubin 1.0 mg/dL (0.3-1.0) 11/08/17 18:55 Direct Bilirubin 0.24 mg/dL (0.0-0.2) H 11/08/17 17:50 AST 57 U/L (13-39) H 11/08/17 18:55 ALT 35 U/L (7-52) 11/08/17 18:55 Alkaline Phosphatase 66 U/L (34-104) 11/08/17 18:55 Ammonia 45 umol/L (16-53) 11/12/17 05:30 Creatine Kinase 1066 U/L (30-223) H 11/08/17 18:55 CK-MB (CK-2) 8.7 ng/mL (0.6-6.3) H 11/08/17 18:55 Troponin I 0.03 ng/mL (0.01-0.05) 11/08/17 18:55 B-Natriuretic Peptide 65.3 pg/mL (5.0-100.0) 11/08/17 18:55 Total Protein 8.6 gm/dL (6.0-8.3) H 11/08/17 18:55 Albumin 3.8 gm/dL (4.2-5.5) L 11/08/17 18:55 Globulin 4.8 gm/dL 11/08/17 18:55 Albumin/Globulin Ratio 0.8 (1.0-1.8) L 11/08/17 18:55 Triglycerides 117 mg/dL (<150) 11/08/17 18:55 Cholesterol 188 mg/dL (<200) 11/08/17 18:55 LDL Cholesterol Direct 163 mg/dL (75-193) 11/08/17 18:55 HDL Cholesterol 37 mg/dL (23-92) 11/08/17 18:55 Amylase 43 U/L (29-103) 11/08/17 17:50 Lipase 13 U/L (11-82) 11/08/17 17:50 Vancomycin Trough 19.8 ug/mL (10-20) 11/12/17 05:30 - Physical Exam Vitals and I&O: Vital Signs Temp 98 F 11/11/17 20:00 Pulse 84 11/12/17 09:34 Resp 20 11/12/17 08:24 BP 146/71 11/12/17 09:34 Pulse Ox 96 11/12/17 08:24 Intake & Output 11/11/17 11/12/17 11/12/17 18:59 06:59 18:59 Intake Total 1165 435 Balance 1165 435 Weight (lbs) 107.955 kg Intake: Intake, IV Amount 1165 435 Dextrose 5% 1,000 ml @ 615 385 100 mls/hr IV .Q10H [facility] Rx#:[id number] Piperacillin Sodium/ 50 50 Tazobact 2.25 gm In Dextrose 5% 50 ml @ 50 mls/hr IV Q8HR [facility] Rx#: [id number] Vancomycin HCl 1.5 gm In 500 Sodium Chloride 0.9% 500 ml @ 250 mls/hr IV Q18H [facility] Rx#:[id number] Other: # Voids 6 # Bowel Movements 0 Active Medications: Current Medications Acetaminophen (Tylenol) 650 mg PO Q4H PRN PRN Reason: Pain Or Fever above 101 Stop: 01/07/18 20:29 Last Admin: 11/10/17 00:56 Dose: 650 mg Al Hydrox/Mg Hydrox/Simethicone (Maalox) 30 ml PO Q6H PRN PRN Reason: Dyspepsia Stop: 01/07/18 20:28 Albuterol Sulfate (Albuterol 2.5mg/3ml Neb Ud) 2.5 mg HHN Q2HRT PRN PRN Reason: Shortness of Breath or Wheeze Stop: 01/07/18 20:28 Ascorbic Acid (Vitamin C) 500 mg PO DAILY [facility] Stop: 01/08/18 08:59 Last Admin: 11/12/17 09:34 Dose: 500 mg Benztropine Mesylate (Cogentin) 1 mg PO BID [facility] Stop: 01/08/18 08:59 Last Admin: 11/12/17 09:34 Dose: 1 mg Carvedilol (Coreg) 12.5 mg PO BID [facility] Stop: 01/08/18 08:59 Last Admin: 11/12/17 09:34 Dose: 12.5 mg Docusate Sodium (Colace) 100 mg PO DAILY [facility] Stop: 01/08/18 08:59 Last Admin: 11/12/17 09:35 Dose: 100 mg Gabapentin (Neurontin) 300 mg PO TID [facility] Stop: 01/07/18 20:59 Last Admin: 11/12/17 09:35 Dose: 300 mg Heparin Sodium (Porcine) (Heparin) 5,000 units SUBQ Q12HR [facility] Stop: 01/07/18 20:59 Last Admin: 11/12/17 09:37 Dose: 5,000 units Piperacillin Sod/Tazobactam (Sod 2.25 gm/ Dextrose) 50 mls @ 50 mls/hr IV Q8HR [facility] Stop: 01/09/18 12:59 Last Admin: 11/12/17 06:23 Dose: 50 mls/hr Dextrose (D5w) 1,000 mls @ 100 mls/hr IV .Q10H [facility] Stop: 01/09/18 14:59 Last Admin: 11/12/17 06:24 Dose: 100 mls/hr Vancomycin HCl 1.5 gm/ Sodium (Chloride) 500 mls @ 250 mls/hr IV Q18H [facility] Stop: 01/10/18 14:59 Last Admin: 11/12/17 12:22 Dose: 250 mls/hr Insulin Aspart (Novolog) 0 units SUBQ ACHS [facility] PRN Reason: Protocol Stop: 01/07/18 20:59 Last Admin: 11/12/17 12:41 Dose: Not Given Ipratropium [place] (Atrovent Neb 0.5mg/2.5ml) 0.5 mg IH Q2HRT PRN PRN Reason: Shortness of Breath or Wheeze Stop: 01/07/18 20:28 Lactulose (Cephulac) 45 gm PO BID [facility] Stop: 01/10/18 16:59 Last Admin: 11/12/17 09:35 Dose: 45 gm Lorazepam (Ativan) 1 mg IVP Q6HR PRN; Protocol PRN Reason: Agitation Stop: 01/09/18 08:36 Last Admin: 11/12/17 10:10 Dose: 1 mg Magnesium Hydroxide (Milk Of Magnesia) 30 ml PO DAILY PRN PRN Reason: Constipation Stop: 01/07/18 20:25 Miscellaneous (Clinical Monitoring) 1 ea MC DAILY PRN PRN Reason: RENAL Stop: 01/08/18 08:43 Miscellaneous (Vancomycin Iv Per Pharmacy) 1 ea MC PRN [facility] Stop: 01/09/18 11:29 Miscellaneous (Probiotic Screen) 1 ea MC PRN PRN PRN Reason: PROTOCOL Stop: 01/10/18 16:55 Morphine Sulfate (Morphine) 1 mg IVP Q6H PRN PRN Reason: Pain (Moderate) Stop: 01/09/18 08:30 Last Admin: 11/12/17 03:55 Dose: 1 mg Ondansetron HCl (Zofran) 4 mg IV Q8H PRN PRN Reason: Nausea / Vomiting Stop: 01/07/18 20:29 Quetiapine Fumarate (Seroquel) 12.5 mg PO TID [facility] PRN Reason: Protocol Stop: 01/08/18 20:59 Last Admin: 11/12/17 09:32 Dose: 12.5 mg Tramadol HCl (Ultram) 50 mg PO Q6HR PRN PRN Reason: PAIN Stop: 01/07/18 20:25 Last Admin: 11/10/17 01:56 Dose: 50 mg Zinc Sulfate (Zinc Sulfate) 220 mg PO DAILY [facility] Stop: 01/08/18 08:59 Last Admin: 11/12/17 09:33 Dose: 220 mg Zolpidem Tartrate (Ambien) 10 mg PO HS PRN PRN Reason: Insomnia Stop: 01/07/18 20:28 Last Admin: 11/09/17 21:49 Dose: 10 mg General: Mild distress HEENT: Atraumatic, Mucous membr. moist/pink Neck: Supple, +2 carotid pulse wo bruit Cardiovascular: Regular rate, Normal S1, Normal S2 Lungs: Clear to auscultation Abdomen: Bowel sounds, Soft Extremities: no Edema Neurological: Sensation intact Skin: Breakdown Psych/Mental Status: Other (acute psychosis) Assessment/Plan - Problem List Patient Problems: All Active Problems ABNORMAL LAB RESULTS (Acute) Nutritional Asmnt/Malnutr-PDOC - Dietary Evaluation Malnutrition Findings (Please click <Entered> for more info): Nutritional Asmnt/Malnutrition Start: 11/11/17 16: 30 Text: Status: Complete Freq: Document 11/11/17 16:30 LCHENG (Rec: 11/11/17 16:49 [email or web address]) Nutritional Asmnt/Malnutrition Patient General Information Nutritional Screening High Risk Consult Diagnosis ALOC, ARF Pertinent Medical Hx/Surgical Hx DM, psychosis, HTN, anxiety, chest defibrillator, COPD, CHF , CAD, alzheimer's Subjective Information Consult received for FTT. Per notes, pt refused breakfast, only take liquid at lunch and soup for dinner on 11/10. Spoke with YASMIN Ch RN reported pt was agitated, not eating food. Diet down to pureed diet from dinner, dinner tray at bed side at the time of visit. Per RN, Pt took long time to swallow meds mixed with pudding. Current Diet Order/ Nutrition Support pureed, Prosource 30ml daily Pertinent Medications vitamin C, D5, colace, novolog , piperacillin, seroquel, vancomycin, zinc Pertinent Labs 11/11 Na 150, K 3.8, Cl 120, BUN 42, Cr 1.7, GLucose 157, POC 125, Ammonia 73 Nutritional Hx/Data Height 1.78 m Height (Calculated Centimeters) 177.8 Current Weight (lbs) 108.091 kg Weight (Calculated Kilograms) 108.1 Weight (Calculated Grams) 354061.1 [place] Body Weight 166 % [place] Body Weight 144 Body Mass Index (BMI) 34.2 Weight Status Obese GI Symptoms GI Symptoms None Skin Integrity/Comment: skin tear to right arm, bruise to left arm, decubitus ulceration to right big toe Estimated Nutritional Goals BEE in Kcals: Adj wt of IBW Calories/Kcals/Kg 25-30 Kcals Calculated 9446-6330 Protein: Adj wt of IBW Protein g/k.6-0.8 Protein Calculated 50-67g monitor renal labs Fluid: ml per MD d/t ARF Nutritional Problem 2. Problem Problem altered nutrition related lab values Etiology acute renal failure Signs/Symptoms: BUN 42, Cr 1.7 1. Problem Problem inadequate food intake Etiology mental status, possible swallow problem Signs/Symptoms: PO intake < 25% Malnutrition Alert Protein-Calorie Malnutrition N/A Is there a minimum of two criteria No selected? Query Text:Check all the applicable criteria. A minimum of two criteria are recommended for diagnosis of either severe or non-severe malnutrition. Intervention/Recommendation Comments 1. Recommend swallow eval d/t possible swallowing problem 2. If pt failed swallow eval, will consider alternative nutrition route 3. If continue to oral diet, will consider nutrition supplements to increase nutrition intake 4. F/U as high risk in 2-3 days, 11/13-11/14 Expected Outcomes/Goals Expected Outcomes/Goals 1. Pt to meet at least 75% of nutritional needs in 2-3 days. 2. Wt stability, skin to remain intact, labs to improve .
--- NOTE | 2017-11-12 14:44 | Consultation ---
DATE OF CONSULTATION: 11/11/2017 SURGICAL CONSULTATION REFERRING PHYSICIAN: Dr. Munoz. REASON FOR CONSULTATION: Question of abscess, right elbow. Thank you for referring this patient to me. HISTORY OF PRESENT ILLNESS: A 72-year-old male from a detention, admitted because of worsening renal function. The patient has been seen in consult by Dr. Garcia, animal rides manager. PAST HISTORY: Includes diabetes mellitus, hypertension, psychosis, COPD, AICD placement, coronary artery disease, and CHF. The patient is totally unable to give any meaningful information. He has been seen by a psychiatrist. LABORATORY DATA AND DIAGNOSTIC STUDIES: The laboratory studies show the WBC elevated to 14,600, hemoglobin 12.4. Chemistry: The BUN is 32 with creatinine of 1.5, blood sugar 130. The patient underwent CT of the head, which did not show any acute infarct. Chest x-ray did not show any evidence of pneumonia or cardiomegaly. PHYSICAL EXAMINATION: Now, the patient is obese. He is totally unresponsive to questions and moves about constantly. Significant findings include marked swelling of the right arm, particular around the elbow area, but there is no evidence of abscess on palpation around the joint. ASSESSMENT: There are areas of ulceration of old type involving the lower extremities, but the feet in particular; one shallow ulcer with eschar in the left big toe. PLAN: We will order local wound care and Doppler studies, arterial and venous. JOB# [id number]
--- NOTE | 2017-11-12 15:24 | General Progress Note ---
Subjective - Review of Systems Service Date: 11/12/17 Subjective: remains sedated Objective - Results Result Diagrams: 11/12/17 05:30 11/12/17 05:30 Recent Labs: Laboratory Last Values WBC 12.7 Th/cmm (4.8-10.8) H 11/12/17 05:30 RBC 3.60 Mil/cmm (3.80-5.80) L 11/12/17 05:30 Hgb 11.9 gm/dL (12-16) L 11/12/17 05:30 Hct 35.4 % (41.0-60) L 11/12/17 05:30 MCV 98.5 fl (80-99) 11/12/17 05:30 MCH 32.9 pg (27.0-31.0) H 11/12/17 05:30 MCHC Differential 33.4 pg (28.0-36.0) 11/12/17 05:30 RDW 13.6 % (11.5-20.0) 11/12/17 05:30 Plt Count 173 Th/cmm (150-400) 11/12/17 05:30 MPV 9.8 fl 11/12/17 05:30 Neutrophils % 78.9 % (40.0-80.0) 11/12/17 05:30 Lymphocytes % 8.4 % (20.0-50.0) L 11/12/17 05:30 Monocytes % 8.7 % (2.0-10.0) 11/12/17 05:30 Eosinophils % 3.5 % (0.0-5.0) 11/12/17 05:30 Basophils % 0.5 % (0.0-2.0) 11/12/17 05:30 PT 11.5 SECONDS (9.5-11.5) 11/08/17 17:50 INR 1.10 (0.5-1.4) 11/08/17 17:50 PTT (Actin FS) 24.5 SECONDS (26.0-38.0) L 11/08/17 17:50 Sodium 153 mEq/L (136-145) H 11/12/17 05:30 Potassium 3.7 mEq/L (3.5-5.1) 11/12/17 05:30 Chloride 119 mEq/L (98-107) H 11/12/17 05:30 Carbon Dioxide 26.3 mEq/L (21.0-31.0) 11/12/17 05:30 Anion Gap 11.4 (7.0-16.0) 11/12/17 05:30 BUN 32 mg/dL (7-25) H 11/12/17 05:30 Creatinine 1.5 mg/dL (0.7-1.3) H 11/12/17 05:30 Est GFR ( Amer) TNP 11/12/17 05:30 Est GFR (Non-Af Amer) TNP 11/12/17 05:30 BUN/Creatinine Ratio 21.3 11/12/17 05:30 Glucose 130 mg/dL (70-105) H 11/12/17 05:30 POC Glucose 127 MG/DL (70 - 105) H 11/12/17 12:34 Whole Bld Lactic Acid 1.69 mmol/L (0.60-1.99) 11/08/17 18:55 Uric Acid 8.2 mg/dL (4.4-7.6) H 11/10/17 05:20 Calcium 9.1 mg/dL (8.6-10.3) 11/12/17 05:30 Phosphorus 2.8 mg/dL (2.5-5.0) 11/10/17 05:20 Magnesium 1.8 mg/dL (1.9-2.7) L 11/10/17 05:20 Total Bilirubin 1.0 mg/dL (0.3-1.0) 11/08/17 18:55 Direct Bilirubin 0.24 mg/dL (0.0-0.2) H 11/08/17 17:50 AST 57 U/L (13-39) H 11/08/17 18:55 ALT 35 U/L (7-52) 11/08/17 18:55 Alkaline Phosphatase 66 U/L (34-104) 11/08/17 18:55 Ammonia 45 umol/L (16-53) 11/12/17 05:30 Creatine Kinase 1066 U/L (30-223) H 11/08/17 18:55 CK-MB (CK-2) 8.7 ng/mL (0.6-6.3) H 11/08/17 18:55 Troponin I 0.03 ng/mL (0.01-0.05) 11/08/17 18:55 B-Natriuretic Peptide 65.3 pg/mL (5.0-100.0) 11/08/17 18:55 Total Protein 8.6 gm/dL (6.0-8.3) H 11/08/17 18:55 Albumin 3.8 gm/dL (4.2-5.5) L 11/08/17 18:55 Globulin 4.8 gm/dL 11/08/17 18:55 Albumin/Globulin Ratio 0.8 (1.0-1.8) L 11/08/17 18:55 Triglycerides 117 mg/dL (<150) 11/08/17 18:55 Cholesterol 188 mg/dL (<200) 11/08/17 18:55 LDL Cholesterol Direct 163 mg/dL (75-193) 11/08/17 18:55 HDL Cholesterol 37 mg/dL (23-92) 11/08/17 18:55 Amylase 43 U/L (29-103) 11/08/17 17:50 Lipase 13 U/L (11-82) 11/08/17 17:50 Vancomycin Trough 19.8 ug/mL (10-20) 11/12/17 05:30 - Physical Exam Vitals and I&O: Vital Signs Temp 98.1 F 11/12/17 08:00 Pulse 84 11/12/17 09:34 Resp 20 11/12/17 08:24 BP 146/71 11/12/17 09:34 Pulse Ox 96 11/12/17 08:24 Intake & Output 11/11/17 11/12/17 11/12/17 18:59 06:59 18:59 Intake Total 1165 435 50 Balance 1165 435 50 Weight (lbs) 107.955 kg Intake: Intake, IV Amount 1165 435 50 Dextrose 5% 1,000 ml @ 615 385 100 mls/hr IV .Q10H [facility] Rx#:[id number] Piperacillin Sodium/ 50 50 50 Tazobact 2.25 gm In Dextrose 5% 50 ml @ 50 mls/hr IV Q8HR [facility] Rx#: [id number] Vancomycin HCl 1.5 gm In 500 Sodium Chloride 0.9% 500 ml @ 250 mls/hr IV Q18H [facility] Rx#:[id number] Other: # Voids 6 # Bowel Movements 0 Active Medications: Current Medications Acetaminophen (Tylenol) 650 mg PO Q4H PRN PRN Reason: Pain Or Fever above 101 Stop: 01/07/18 20:29 Last Admin: 11/10/17 00:56 Dose: 650 mg Al Hydrox/Mg Hydrox/Simethicone (Maalox) 30 ml PO Q6H PRN PRN Reason: Dyspepsia Stop: 01/07/18 20:28 Albuterol Sulfate (Albuterol 2.5mg/3ml Neb Ud) 2.5 mg HHN Q2HRT PRN PRN Reason: Shortness of Breath or Wheeze Stop: 01/07/18 20:28 Ascorbic Acid (Vitamin C) 500 mg PO DAILY [facility] Stop: 01/08/18 08:59 Last Admin: 11/12/17 09:34 Dose: 500 mg Benztropine Mesylate (Cogentin) 1 mg PO BID [facility] Stop: 01/08/18 08:59 Last Admin: 11/12/17 09:34 Dose: 1 mg Carvedilol (Coreg) 12.5 mg PO BID [facility] Stop: 01/08/18 08:59 Last Admin: 11/12/17 09:34 Dose: 12.5 mg Docusate Sodium (Colace) 100 mg PO DAILY [facility] Stop: 01/08/18 08:59 Last Admin: 11/12/17 09:35 Dose: 100 mg Gabapentin (Neurontin) 300 mg PO TID [facility] Stop: 01/07/18 20:59 Last Admin: 11/12/17 13:57 Dose: 300 mg Heparin Sodium (Porcine) (Heparin) 5,000 units SUBQ Q12HR [facility] Stop: 01/07/18 20:59 Last Admin: 11/12/17 09:37 Dose: 5,000 units Piperacillin Sod/Tazobactam (Sod 2.25 gm/ Dextrose) 50 mls @ 50 mls/hr IV Q8HR [facility] Stop: 01/09/18 12:59 Last Admin: 11/12/17 13:58 Dose: 50 mls/hr Dextrose (D5w) 1,000 mls @ 100 mls/hr IV .Q10H [facility] Stop: 01/09/18 14:59 Last Admin: 11/12/17 06:24 Dose: 100 mls/hr Vancomycin HCl 1.5 gm/ Sodium (Chloride) 500 mls @ 250 mls/hr IV Q18H [facility] Stop: 01/10/18 14:59 Last Admin: 11/12/17 12:22 Dose: 250 mls/hr Insulin Aspart (Novolog) 0 units SUBQ ACHS [facility] PRN Reason: Protocol Stop: 01/07/18 20:59 Last Admin: 11/12/17 12:41 Dose: Not Given Ipratropium [place] (Atrovent Neb 0.5mg/2.5ml) 0.5 mg IH Q2HRT PRN PRN Reason: Shortness of Breath or Wheeze Stop: 01/07/18 20:28 Lactulose (Cephulac) 45 gm PO BID [facility] Stop: 01/10/18 16:59 Last Admin: 11/12/17 09:35 Dose: 45 gm Lorazepam (Ativan) 1 mg IVP Q6HR PRN; Protocol PRN Reason: Agitation Stop: 01/09/18 08:36 Last Admin: 11/12/17 10:10 Dose: 1 mg Magnesium Hydroxide (Milk Of Magnesia) 30 ml PO DAILY PRN PRN Reason: Constipation Stop: 01/07/18 20:25 Miscellaneous (Clinical Monitoring) 1 ea MC DAILY PRN PRN Reason: RENAL Stop: 01/08/18 08:43 Miscellaneous (Vancomycin Iv Per Pharmacy) 1 ea MC PRN [facility] Stop: 01/09/18 11:29 Miscellaneous (Probiotic Screen) 1 ea MC PRN PRN PRN Reason: PROTOCOL Stop: 01/10/18 16:55 Morphine Sulfate (Morphine) 1 mg IVP Q6H PRN PRN Reason: Pain (Moderate) Stop: 01/09/18 08:30 Last Admin: 11/12/17 03:55 Dose: 1 mg Ondansetron HCl (Zofran) 4 mg IV Q8H PRN PRN Reason: Nausea / Vomiting Stop: 01/07/18 20:29 Quetiapine Fumarate (Seroquel) 25 mg PO BID [facility] PRN Reason: Protocol Stop: 01/11/18 16:59 Tramadol HCl (Ultram) 50 mg PO Q6HR PRN PRN Reason: PAIN Stop: 01/07/18 20:25 Last Admin: 11/10/17 01:56 Dose: 50 mg Zinc Sulfate (Zinc Sulfate) 220 mg PO DAILY [facility] Stop: 01/08/18 08:59 Last Admin: 11/12/17 09:33 Dose: 220 mg Zolpidem Tartrate (Ambien) 10 mg PO HS PRN PRN Reason: Insomnia Stop: 01/07/18 20:28 Last Admin: 11/09/17 21:49 Dose: 10 mg General: Mild distress HEENT: Atraumatic, Mucous membr. moist/pink Neck: Supple, +2 carotid pulse wo bruit Cardiovascular: Regular rate, Normal S1, Normal S2 Lungs: Clear to auscultation Abdomen: Bowel sounds, Soft Extremities: no Edema Neurological: Sensation intact Skin: Breakdown Psych/Mental Status: Other (acute psychosis) Assessment/Plan - Problem List Patient Problems: All Active Problems ABNORMAL LAB RESULTS (Acute) - Assessment Assessment: DENNIS Uremic enceph Psychosis COPD Multiple hematomas back Multiple ulcers lower ext Type 2 DM Ess Htn AICD - Plan Plan: Lab - Result Diagrams 11/10/17 05:20 11/10/17 05:20 Current Medications Acetaminophen (Tylenol) 650 mg PO Q4H PRN PRN Reason: Pain Or Fever above 101 Stop: 01/07/18 20:29 Last Admin: 11/10/17 00:56 Dose: 650 mg Al Hydrox/Mg Hydrox/Simethicone (Maalox) 30 ml PO Q6H PRN PRN Reason: Dyspepsia Stop: 01/07/18 20:28 Albuterol Sulfate (Albuterol 2.5mg/3ml Neb Ud) 2.5 mg HHN Q2HRT PRN PRN Reason: Shortness of Breath or Wheeze Stop: 01/07/18 20:28 Ascorbic Acid (Vitamin C) 500 mg PO DAILY [facility] Stop: 01/08/18 08:59 Last Admin: 11/10/17 09:00 Dose: Not Given Benztropine Mesylate (Cogentin) 1 mg PO BID [facility] Stop: 01/08/18 08:59 Last Admin: 11/10/17 09:00 Dose: Not Given Carvedilol (Coreg) 12.5 mg PO BID [facility] Stop: 01/08/18 08:59 Last Admin: 11/10/17 12:15 Dose: 12.5 mg Docusate Sodium (Colace) 100 mg PO DAILY [facility] Stop: 01/08/18 08:59 Last Admin: 11/10/17 09:00 Dose: Not Given Gabapentin (Neurontin) 300 mg PO TID [facility] Stop: 01/07/18 20:59 Last Admin: 11/10/17 12:17 Dose: Not Given Haloperidol (Haldol) 2.5 mg PO BID [facility] PRN Reason: Protocol Stop: 01/08/18 14:46 Last Admin: 11/10/17 09:00 Dose: Not Given Heparin Sodium (Porcine) (Heparin) 5,000 units SUBQ Q12HR [facility] Stop: 01/07/18 20:59 Last Admin: 11/10/17 12:18 Dose: Not Given Sodium Chloride (Nacl 0.45%) 1,000 mls @ 100 mls/hr IV .Q10H [facility] Stop: 01/07/18 20:29 Last Admin: 11/09/17 06:43 Dose: Not Given Vancomycin HCl 1.5 gm/ Sodium (Chloride) 500 mls @ 250 mls/hr IV Q12H [facility] Stop: 01/09/18 11:59 Last Admin: 11/10/17 13:15 Dose: 250 mls/hr Piperacillin Sod/Tazobactam (Sod 2.25 gm/ Dextrose) 50 mls @ 50 mls/hr IV Q8HR [facility] Stop: 01/09/18 12:59 Insulin Aspart (Novolog) 0 units SUBQ ACHS [facility] PRN Reason: Protocol Stop: 01/07/18 20:59 Last Admin: 11/10/17 08:23 Dose: Not Given Ipratropium [place] (Atrovent Neb 0.5mg/2.5ml) 0.5 mg IH Q2HRT PRN PRN Reason: Shortness of Breath or Wheeze Stop: 01/07/18 20:28 Lorazepam (Ativan) 1 mg IVP Q6HR PRN; Protocol PRN Reason: Agitation Stop: 01/09/18 08:36 Magnesium Hydroxide (Milk Of Magnesia) 30 ml PO DAILY PRN PRN Reason: Constipation Stop: 01/07/18 20:25 Miscellaneous (Clinical Monitoring) 1 ea MC DAILY PRN PRN Reason: RENAL Stop: 01/08/18 08:43 Miscellaneous (Vancomycin Iv Per Pharmacy) 1 ea MC PRN [facility] Stop: 01/09/18 11:29 Morphine Sulfate (Morphine) 1 mg IVP Q6H PRN PRN Reason: Pain (Moderate) Stop: 02/19/18 08:30 Ondansetron HCl (Zofran) 4 mg IV Q8H PRN PRN Reason: Nausea / Vomiting Stop: 01/07/18 20:29 Quetiapine Fumarate (Seroquel) 12.5 mg PO TID [facility] PRN Reason: Protocol Stop: 01/08/18 20:59 Last Admin: 11/10/17 09:00 Dose: Not Given Tramadol HCl (Ultram) 50 mg PO Q6HR PRN PRN Reason: PAIN Stop: 01/07/18 20:25 Last Admin: 11/10/17 01:56 Dose: 50 mg Zinc Sulfate (Zinc Sulfate) 220 mg PO DAILY [facility] Stop: 01/08/18 08:59 Last Admin: 11/10/17 12:18 Dose: Not Given Zolpidem Tartrate (Ambien) 10 mg PO HS PRN PRN Reason: Insomnia Stop: 01/07/18 20:28 Last Admin: 11/09/17 21:49 Dose: 10 mg Lab - Result Diagrams 11/12/17 05:30 11/12/17 05:30 Na up to 153 BUN down to 32 f/u electrolytes, cbc Na gradually increasing, start IVF Nutritional Asmnt/Malnutr-PDOC - Dietary Evaluation Malnutrition Findings (Please click <Entered> for more info): Nutritional Asmnt/Malnutrition Start: 11/11/17 16: 30 Text: Status: Complete Freq: Document 11/11/17 16:30 LCHENG (Rec: 11/11/17 16:49 [email or web address]) Nutritional Asmnt/Malnutrition Patient General Information Nutritional Screening High Risk Consult Diagnosis ALOC, ARF Pertinent Medical Hx/Surgical Hx DM, psychosis, HTN, anxiety, chest defibrillator, COPD, CHF , CAD, alzheimer's Subjective Information Consult received for FTT. Per notes, pt refused breakfast, only take liquid at lunch and soup for dinner on 11/10. Spoke with YASMIN Ch RN reported pt was agitated, not eating food. Diet down to pureed diet from dinner, dinner tray at bed side at the time of visit. Per RN, Pt took long time to swallow meds mixed with pudding. Current Diet Order/ Nutrition Support pureed, Prosource 30ml daily Pertinent Medications vitamin C, D5, colace, novolog , piperacillin, seroquel, vancomycin, zinc Pertinent Labs 11/11 Na 150, K 3.8, Cl 120, BUN 42, Cr 1.7, GLucose 157, POC 125, Ammonia 73 Nutritional Hx/Data Height 1.78 m Height (Calculated Centimeters) 177.8 Current Weight (lbs) 108.091 kg Weight (Calculated Kilograms) 108.1 Weight (Calculated Grams) 618648.1 [place] Body Weight 166 % [place] Body Weight 144 Body Mass Index (BMI) 34.2 Weight Status Obese GI Symptoms GI Symptoms None Skin Integrity/Comment: skin tear to right arm, bruise to left arm, decubitus ulceration to right big toe Estimated Nutritional Goals BEE in Kcals: Adj wt of IBW Calories/Kcals/Kg 25-30 Kcals Calculated 8636-4180 Protein: Adj wt of IBW Protein g/k.6-0.8 Protein Calculated 50-67g monitor renal labs Fluid: ml per MD d/t ARF Nutritional Problem 2. Problem Problem altered nutrition related lab values Etiology acute renal failure Signs/Symptoms: BUN 42, Cr 1.7 1. Problem Problem inadequate food intake Etiology mental status, possible swallow problem Signs/Symptoms: PO intake < 25% Malnutrition Alert Protein-Calorie Malnutrition N/A Is there a minimum of two criteria No selected? Query Text:Check all the applicable criteria. A minimum of two criteria are recommended for diagnosis of either severe or non-severe malnutrition. Intervention/Recommendation Comments 1. Recommend swallow eval d/t possible swallowing problem 2. If pt failed swallow eval, will consider alternative nutrition route 3. If continue to oral diet, will consider nutrition supplements to increase nutrition intake 4. F/U as high risk in 2-3 days, 11/13-11/14 Expected Outcomes/Goals Expected Outcomes/Goals 1. Pt to meet at least 75% of nutritional needs in 2-3 days. 2. Wt stability, skin to remain intact, labs to improve .
--- NOTE | 2017-11-13 00:03 | Progress Notes ---
DATE: 11/12/2017 The patient was seen, chart reviewed, discussed with staff. Remains restless, anxious, easily agitated, still confused. The patient has poor insight into his problems. At times attempting to push staff when trying to assist him with his ADLs. The patient is still confused and easily agitated. Haldol was discontinued. Increase Seroquel to 25 mg p.o. t.i.d. Inpatient psychiatric hospitalization is highly recommended. Once medically stable, will follow closely. [facility]# [id number]
[2017-11-13] MEDS: Vancomycin HCl 1.5 GM in Sodium Chloride 0.9% 500 ML IV SCH (02:49)
[2017-11-13] MEDS: Dextrose 5% 1,000 ML IV SCH ×2 (04:36→21:12)
[2017-11-13] MEDS: Morphine Sulfate 2 mg/mL 1mL Syr IVP PRN ×2 (04:37→21:05)
[2017-11-13 06:56] LABS: % BASOPHILS 0.1 % (0.0-2.0); % EOSINOPHILS 3.2 % (0.0-5.0); % LYMPHOCYTES 8.2 % (20.0-50.0); % MONOCYTES 8.7 % (2.0-10.0); % NEUTROPHILS 79.8 % (40.0-80.0); EOSINOPHILE ABSOLUTE 0.3 Th/cmm (0.1-0.4); HEMATOCRIT 36.4 % (41.0-60); HEMOGLOBIN 12.3 gm/dL (12-16); LYMPHOCYTE ABSOLUTE 0.9 Th/cmm (1.5-3.0); MEAN CELL VOLUME 98.2 fl (80-99); MEAN CORPUSCULAR HEMOGLOBIN 33.2 pg (27.0-31.0); MEAN CORPUSCULAR HGB CONC 33.8 pg (28.0-36.0); MEAN PLATELET VOLUME 9.7 fl; MONOCYTE ABSOLUTE 0.9 Th/cmm (0.3-1.0); NEUTROPHILE ABSOLUTE 8.7 Th/cmm (1.8-8.0); PLATELET COUNT 185 Th/cmm (150-400); RED CELL DISTRIBUTION WIDTH 13.2 % (11.5-20.0); WHITE BLOOD COUNT 10.8 Th/cmm (4.8-10.8)
[2017-11-13] MEDS: INSULIN ASPART, RECOMBINANT 100 UNITS/ML SUBQ SCH ×4 (07:00→21:29)
[2017-11-13 07:04] LABS: ANION GAP 9.7 (7.0-16.0); BUN - UREA NITROGEN 27 mg/dL (7-25); CHLORIDE 121 mEq/L (98-107); CREATININE - SERUM 1.5 mg/dL (0.7-1.3); GLUCOSE 127 mg/dL (70-105); POTASSIUM SERUM 3.7 mEq/L (3.5-5.1); SODIUM SERUM 152 mEq/L (136-145)
[2017-11-13 07:55] LABS: URINE MICROSCOPIC INDICATED? YES; URINE SOURCE MIDSTREAM
[2017-11-13 07:58] LABS: URINE BILIRUBIN SMALL (NEGATIVE); URINE BLOOD SMALL (NEGATIVE); URINE GLUCOSE (UA) NEGATIVE (NEGATIVE); URINE KETONE NEGATIVE (NEGATIVE); URINE LEUKOCYTE ESTERASE NEGATIVE (NEGATIVE); URINE NITRATE NEGATIVE (NEGATIVE); URINE PH 5.5 (4.6 - 8.0); URINE PROTEIN 30 mg/dL (NEGATIVE)
[2017-11-13] MEDS: Lactulose 10 Gm/15 mL 30mL UDC PO SCH ×2 (08:49→16:16)
[2017-11-13] MEDS: Benztropine 1 MG TAB PO SCH ×2 (08:50→16:11)
[2017-11-13] MEDS: Multivitamin w/ Minerals Tab PO SCH (08:50)
--- NOTE | 2017-11-13 09:27 | General Progress Note ---
Subjective - Review of Systems Service Date: 11/13/17 Events since last encounter: awaiting results of doppler venous and arterial lower extremities Objective - Results Result Diagrams: 11/13/17 05:43 11/13/17 05:43 Recent Labs: Laboratory Last Values WBC 10.8 Th/cmm (4.8-10.8) 11/13/17 05:43 RBC 3.70 Mil/cmm (3.80-5.80) L 11/13/17 05:43 Hgb 12.3 gm/dL (12-16) 11/13/17 05:43 Hct 36.4 % (41.0-60) L 11/13/17 05:43 MCV 98.2 fl (80-99) 11/13/17 05:43 MCH 33.2 pg (27.0-31.0) H 11/13/17 05:43 MCHC Differential 33.8 pg (28.0-36.0) 11/13/17 05:43 RDW 13.2 % (11.5-20.0) 11/13/17 05:43 Plt Count 185 Th/cmm (150-400) 11/13/17 05:43 MPV 9.7 fl 11/13/17 05:43 Neutrophils % 79.8 % (40.0-80.0) 11/13/17 05:43 Lymphocytes % 8.2 % (20.0-50.0) L 11/13/17 05:43 Monocytes % 8.7 % (2.0-10.0) 11/13/17 05:43 Eosinophils % 3.2 % (0.0-5.0) 11/13/17 05:43 Basophils % 0.1 % (0.0-2.0) 11/13/17 05:43 PT 11.5 SECONDS (9.5-11.5) 11/08/17 17:50 INR 1.10 (0.5-1.4) 11/08/17 17:50 PTT (Actin FS) 24.5 SECONDS (26.0-38.0) L 11/08/17 17:50 Sodium 152 mEq/L (136-145) H 11/13/17 05:43 Potassium 3.7 mEq/L (3.5-5.1) 11/13/17 05:43 Chloride 121 mEq/L (98-107) H 11/13/17 05:43 Carbon Dioxide 25.0 mEq/L (21.0-31.0) 11/13/17 05:43 Anion Gap 9.7 (7.0-16.0) 11/13/17 05:43 BUN 27 mg/dL (7-25) H 11/13/17 05:43 Creatinine 1.5 mg/dL (0.7-1.3) H 11/13/17 05:43 Est GFR ( Amer) TNP 11/13/17 05:43 Est GFR (Non-Af Amer) TNP 11/13/17 05:43 BUN/Creatinine Ratio 18.0 11/13/17 05:43 Glucose 127 mg/dL (70-105) H 11/13/17 05:43 POC Glucose 129 MG/DL (70 - 105) H 11/13/17 05:43 Whole Bld Lactic Acid 1.69 mmol/L (0.60-1.99) 11/08/17 18:55 Uric Acid 8.2 mg/dL (4.4-7.6) H 11/10/17 05:20 Calcium 9.0 mg/dL (8.6-10.3) 11/13/17 05:43 Phosphorus 2.8 mg/dL (2.5-5.0) 11/10/17 05:20 Magnesium 1.8 mg/dL (1.9-2.7) L 11/10/17 05:20 Total Bilirubin 1.0 mg/dL (0.3-1.0) 11/08/17 18:55 Direct Bilirubin 0.24 mg/dL (0.0-0.2) H 11/08/17 17:50 AST 57 U/L (13-39) H 11/08/17 18:55 ALT 35 U/L (7-52) 11/08/17 18:55 Alkaline Phosphatase 66 U/L (34-104) 11/08/17 18:55 Ammonia 45 umol/L (16-53) 11/12/17 05:30 Creatine Kinase 1066 U/L (30-223) H 11/08/17 18:55 CK-MB (CK-2) 8.7 ng/mL (0.6-6.3) H 11/08/17 18:55 Troponin I 0.03 ng/mL (0.01-0.05) 11/08/17 18:55 B-Natriuretic Peptide 65.3 pg/mL (5.0-100.0) 11/08/17 18:55 Total Protein 8.6 gm/dL (6.0-8.3) H 11/08/17 18:55 Albumin 3.8 gm/dL (4.2-5.5) L 11/08/17 18:55 Globulin 4.8 gm/dL 11/08/17 18:55 Albumin/Globulin Ratio 0.8 (1.0-1.8) L 11/08/17 18:55 Triglycerides 117 mg/dL (<150) 11/08/17 18:55 Cholesterol 188 mg/dL (<200) 11/08/17 18:55 LDL Cholesterol Direct 163 mg/dL (75-193) 11/08/17 18:55 HDL Cholesterol 37 mg/dL (23-92) 11/08/17 18:55 Amylase 43 U/L (29-103) 11/08/17 17:50 Lipase 13 U/L (11-82) 11/08/17 17:50 Urine Creatinine 199.0 mg/dl (39.0-259.0) 11/13/17 05:30 Vancomycin Trough 19.8 ug/mL (10-20) 11/12/17 05:30 - Physical Exam Vitals and I&O: Vital Signs Temp 98.1 F 11/13/17 04:00 Pulse 88 11/13/17 08:50 Resp 22 11/13/17 07:58 BP 120/66 11/13/17 08:50 Pulse Ox 96 11/13/17 07:58 Intake & Output 11/12/17 11/13/17 11/13/17 18:59 06:59 18:59 Intake Total 1050 700 Balance 1050 700 Weight (lbs) 108.817 kg Intake: Intake, IV Amount 1050 550 Dextrose 5% 1,000 ml @ 1000 100 mls/hr IV .Q10H [facility] Rx#:[id number] Piperacillin Sodium/ 50 50 Tazobact 2.25 gm In Dextrose 5% 50 ml @ 50 mls/hr IV Q8HR [facility] Rx#: [id number] Vancomycin HCl 1.5 gm In 500 Sodium Chloride 0.9% 500 ml @ 250 mls/hr IV Q18H [facility] Rx#:[id number] Oral 150 Other: # Voids 3 # Bowel Movements 1 Active Medications: Current Medications Acetaminophen (Tylenol) 650 mg PO Q4H PRN PRN Reason: Pain Or Fever above 101 Stop: 01/07/18 20:29 Last Admin: 11/10/17 00:56 Dose: 650 mg Al Hydrox/Mg Hydrox/Simethicone (Maalox) 30 ml PO Q6H PRN PRN Reason: Dyspepsia Stop: 01/07/18 20:28 Albuterol Sulfate (Albuterol 2.5mg/3ml Neb Ud) 2.5 mg HHN Q2HRT PRN PRN Reason: Shortness of Breath or Wheeze Stop: 01/07/18 20:28 Ascorbic Acid (Vitamin C) 500 mg PO DAILY [facility] Stop: 01/08/18 08:59 Last Admin: 11/13/17 08:50 Dose: 500 mg Benztropine Mesylate (Cogentin) 1 mg PO BID [facility] Stop: 01/08/18 08:59 Last Admin: 11/13/17 08:50 Dose: 1 mg Carvedilol (Coreg) 12.5 mg PO BID [facility] Stop: 01/08/18 08:59 Last Admin: 11/13/17 08:50 Dose: 12.5 mg Docusate Sodium (Colace) 100 mg PO DAILY [facility] Stop: 01/08/18 08:59 Last Admin: 11/13/17 08:50 Dose: 100 mg Gabapentin (Neurontin) 300 mg PO TID [facility] Stop: 01/07/18 20:59 Last Admin: 11/13/17 08:50 Dose: 300 mg Heparin Sodium (Porcine) (Heparin) 5,000 units SUBQ Q12HR [facility] Stop: 01/07/18 20:59 Last Admin: 11/13/17 08:51 Dose: 5,000 units Piperacillin Sod/Tazobactam (Sod 2.25 gm/ Dextrose) 50 mls @ 50 mls/hr IV Q8HR [facility] Stop: 01/09/18 12:59 Last Admin: 11/13/17 05:39 Dose: 100 mls/hr Dextrose (D5w) 1,000 mls @ 100 mls/hr IV .Q10H [facility] Stop: 01/09/18 14:59 Last Admin: 11/13/17 04:36 Dose: 100 mls/hr Vancomycin HCl 1.5 gm/ Sodium (Chloride) 500 mls @ 250 mls/hr IV Q18H [facility] Stop: 01/10/18 14:59 Last Admin: 11/13/17 02:49 Dose: 250 mls/hr Insulin Aspart (Novolog) 0 units SUBQ ACHS [facility] PRN Reason: Protocol Stop: 01/07/18 20:59 Last Admin: 11/13/17 07:00 Dose: Not Given Ipratropium [place] (Atrovent Neb 0.5mg/2.5ml) 0.5 mg IH Q2HRT PRN PRN Reason: Shortness of Breath or Wheeze Stop: 01/07/18 20:28 Lactulose (Cephulac) 45 gm PO BID [facility] Stop: 01/10/18 16:59 Last Admin: 11/13/17 08:49 Dose: 45 gm Lorazepam (Ativan) 1 mg IVP Q6HR PRN; Protocol PRN Reason: Agitation Stop: 01/09/18 08:36 Last Admin: 11/13/17 02:46 Dose: 1 mg Magnesium Hydroxide (Milk Of Magnesia) 30 ml PO DAILY PRN PRN Reason: Constipation Stop: 01/07/18 20:25 Miscellaneous (Clinical Monitoring) 1 ea MC DAILY PRN PRN Reason: RENAL Stop: 01/08/18 08:43 Miscellaneous (Vancomycin Iv Per Pharmacy) 1 ea MC PRN [facility] Stop: 01/09/18 11:29 Miscellaneous (Probiotic Screen) 1 ea PRN PRN PRN Reason: PROTOCOL Stop: 01/10/18 16:55 Morphine Sulfate (Morphine) 1 mg IVP Q6H PRN PRN Reason: Pain (Moderate) Stop: 01/09/18 08:30 Last Admin: 11/13/17 04:37 Dose: 1 mg Ondansetron HCl (Zofran) 4 mg IV Q8H PRN PRN Reason: Nausea / Vomiting Stop: 01/07/18 20:29 Quetiapine Fumarate (Seroquel) 25 mg PO BID [facility] PRN Reason: Protocol Stop: 01/11/18 16:59 Last Admin: 11/13/17 08:50 Dose: 25 mg Tramadol HCl (Ultram) 50 mg PO Q6HR PRN PRN Reason: PAIN Stop: 01/07/18 20:25 Last Admin: 11/10/17 01:56 Dose: 50 mg Zinc Sulfate (Zinc Sulfate) 220 mg PO DAILY [facility] Stop: 01/08/18 08:59 Last Admin: 11/13/17 08:50 Dose: 220 mg Zolpidem Tartrate (Ambien) 10 mg PO HS PRN PRN Reason: Insomnia Stop: 01/07/18 20:28 Last Admin: 11/09/17 21:49 Dose: 10 mg General: Mild distress HEENT: Atraumatic, Mucous membr. moist/pink Neck: Supple, +2 carotid pulse wo bruit Cardiovascular: Regular rate, Normal S1, Normal S2 Lungs: Clear to auscultation Abdomen: Bowel sounds, Soft Extremities: no Edema Neurological: Sensation intact Skin: Breakdown Psych/Mental Status: Other (acute psychosis) Assessment/Plan - Problem List Patient Problems: All Active Problems ABNORMAL LAB RESULTS (Acute) Nutritional Asmnt/Malnutr-PDOC - Dietary Evaluation Malnutrition Findings (Please click <Entered> for more info): Nutritional Asmnt/Malnutrition Start: 11/11/17 16: 30 Text: Status: Complete Freq: Document 11/11/17 16:30 LCHENG (Rec: 11/11/17 16:49 [email or web address]) Nutritional Asmnt/Malnutrition Patient General Information Nutritional Screening High Risk Consult Diagnosis ALOC, ARF Pertinent Medical Hx/Surgical Hx DM, psychosis, HTN, anxiety, chest defibrillator, COPD, CHF , CAD, alzheimer's Subjective Information Consult received for FTT. Per notes, pt refused breakfast, only take liquid at lunch and soup for dinner on 11/10. Spoke with YASMIN Ch, RN reported pt was agitated, not eating food. Diet down to pureed diet from dinner, dinner tray at bed side at the time of visit. Per RN, Pt took long time to swallow meds mixed with pudding. Current Diet Order/ Nutrition Support pureed, Prosource 30ml daily Pertinent Medications vitamin C, D5, colace, novolog , piperacillin, seroquel, vancomycin, zinc Pertinent Labs 11/11 Na 150, K 3.8, Cl 120, BUN 42, Cr 1.7, GLucose 157, POC 125, Ammonia 73 Nutritional Hx/Data Height 1.78 m Height (Calculated Centimeters) 177.8 Current Weight (lbs) 108.091 kg Weight (Calculated Kilograms) 108.1 Weight (Calculated Grams) 499378.1 Dawson Body Weight 166 % Dawson Body Weight 144 Body Mass Index (BMI) 34.2 Weight Status Obese GI Symptoms GI Symptoms None Skin Integrity/Comment: skin tear to right arm, bruise to left arm, decubitus ulceration to right big toe Estimated Nutritional Goals BEE in Kcals: Adj wt of IBW Calories/Kcals/Kg 25-30 Kcals Calculated [id number] Protein: Adj wt of IBW Protein g/k.6-0.8 Protein Calculated 50-67g monitor renal labs Fluid: ml per MD d/t ARF Nutritional Problem 2. Problem Problem altered nutrition related lab values Etiology acute renal failure Signs/Symptoms: BUN 42, Cr 1.7 1. Problem Problem inadequate food intake Etiology mental status, possible swallow problem Signs/Symptoms: PO intake < 25% Malnutrition Alert Protein-Calorie Malnutrition N/A Is there a minimum of two criteria No selected? Query Text:Check all the applicable criteria. A minimum of two criteria are recommended for diagnosis of either severe or non-severe malnutrition. Intervention/Recommendation Comments 1. Recommend swallow eval d/t possible swallowing problem 2. If pt failed swallow eval, will consider alternative nutrition route 3. If continue to oral diet, will consider nutrition supplements to increase nutrition intake 4. F/U as high risk in 2-3 days, 11/13-11/14 Expected Outcomes/Goals Expected Outcomes/Goals 1. Pt to meet at least 75% of nutritional needs in 2-3 days. 2. Wt stability, skin to remain intact, labs to improve .
[2017-11-13 09:35] LABS: URINE CLARITY HAZY (CLEAR); URINE COLOR YELLOW
[2017-11-13 09:36] LABS: URINE BACTERIA 2+ /hpf (NONE SEEN); URINE EPITHELIAL CELLS OCCASIONAL /lpf (FEW); URINE RBC 0-2 /hpf (0-5); URINE WBC 0-2 /hpf (0-5)
[2017-11-13 09:37] LABS: URINE COARSE GRANULAR CAST 0-2 /lpf (NONE SEEN)
--- NOTE | 2017-11-13 14:06 | General Progress Note ---
Subjective - Review of Systems Service Date: 11/13/17 Subjective: remains sedated, periods of agitation Objective - Results Result Diagrams: 11/13/17 05:43 11/13/17 05:43 Recent Labs: Laboratory Last Values WBC 10.8 Th/cmm (4.8-10.8) 11/13/17 05:43 RBC 3.70 Mil/cmm (3.80-5.80) L 11/13/17 05:43 Hgb 12.3 gm/dL (12-16) 11/13/17 05:43 Hct 36.4 % (41.0-60) L 11/13/17 05:43 MCV 98.2 fl (80-99) 11/13/17 05:43 MCH 33.2 pg (27.0-31.0) H 11/13/17 05:43 MCHC Differential 33.8 pg (28.0-36.0) 11/13/17 05:43 RDW 13.2 % (11.5-20.0) 11/13/17 05:43 Plt Count 185 Th/cmm (150-400) 11/13/17 05:43 MPV 9.7 fl 11/13/17 05:43 Neutrophils % 79.8 % (40.0-80.0) 11/13/17 05:43 Lymphocytes % 8.2 % (20.0-50.0) L 11/13/17 05:43 Monocytes % 8.7 % (2.0-10.0) 11/13/17 05:43 Eosinophils % 3.2 % (0.0-5.0) 11/13/17 05:43 Basophils % 0.1 % (0.0-2.0) 11/13/17 05:43 PT 11.5 SECONDS (9.5-11.5) 11/08/17 17:50 INR 1.10 (0.5-1.4) 11/08/17 17:50 PTT (Actin FS) 24.5 SECONDS (26.0-38.0) L 11/08/17 17:50 Sodium 152 mEq/L (136-145) H 11/13/17 05:43 Potassium 3.7 mEq/L (3.5-5.1) 11/13/17 05:43 Chloride 121 mEq/L (98-107) H 11/13/17 05:43 Carbon Dioxide 25.0 mEq/L (21.0-31.0) 11/13/17 05:43 Anion Gap 9.7 (7.0-16.0) 11/13/17 05:43 BUN 27 mg/dL (7-25) H 11/13/17 05:43 Creatinine 1.5 mg/dL (0.7-1.3) H 11/13/17 05:43 Est GFR ( Amer) TNP 11/13/17 05:43 Est GFR (Non-Af Amer) TNP 11/13/17 05:43 BUN/Creatinine Ratio 18.0 11/13/17 05:43 Glucose 127 mg/dL (70-105) H 11/13/17 05:43 POC Glucose 124 MG/DL (70 - 105) H 11/13/17 11:30 Whole Bld Lactic Acid 1.69 mmol/L (0.60-1.99) 11/08/17 18:55 Uric Acid 8.2 mg/dL (4.4-7.6) H 11/10/17 05:20 Calcium 9.0 mg/dL (8.6-10.3) 11/13/17 05:43 Phosphorus 2.8 mg/dL (2.5-5.0) 11/10/17 05:20 Magnesium 1.8 mg/dL (1.9-2.7) L 11/10/17 05:20 Total Bilirubin 1.0 mg/dL (0.3-1.0) 11/08/17 18:55 Direct Bilirubin 0.24 mg/dL (0.0-0.2) H 11/08/17 17:50 AST 57 U/L (13-39) H 11/08/17 18:55 ALT 35 U/L (7-52) 11/08/17 18:55 Alkaline Phosphatase 66 U/L (34-104) 11/08/17 18:55 Ammonia 45 umol/L (16-53) 11/12/17 05:30 Creatine Kinase 1066 U/L (30-223) H 11/08/17 18:55 CK-MB (CK-2) 8.7 ng/mL (0.6-6.3) H 11/08/17 18:55 Troponin I 0.03 ng/mL (0.01-0.05) 11/08/17 18:55 B-Natriuretic Peptide 65.3 pg/mL (5.0-100.0) 11/08/17 18:55 Total Protein 8.6 gm/dL (6.0-8.3) H 11/08/17 18:55 Albumin 3.8 gm/dL (4.2-5.5) L 11/08/17 18:55 Globulin 4.8 gm/dL 11/08/17 18:55 Albumin/Globulin Ratio 0.8 (1.0-1.8) L 11/08/17 18:55 Triglycerides 117 mg/dL (<150) 11/08/17 18:55 Cholesterol 188 mg/dL (<200) 11/08/17 18:55 LDL Cholesterol Direct 163 mg/dL (75-193) 11/08/17 18:55 HDL Cholesterol 37 mg/dL (23-92) 11/08/17 18:55 Amylase 43 U/L (29-103) 11/08/17 17:50 Lipase 13 U/L (11-82) 11/08/17 17:50 Urine Source MIDSTREAM 11/13/17 05:30 Urine Color YELLOW 11/13/17 05:30 Urine Clarity HAZY (CLEAR) 11/13/17 05:30 Urine pH 5.5 (4.6 - 8.0) 11/13/17 05:30 Ur Specific [place] 1.025 (1.005-1.030) 11/13/17 05:30 Urine Protein 30 mg/dL (NEGATIVE) H 11/13/17 05:30 Urine Glucose (UA) NEGATIVE mg/dL (NEGATIVE) 11/13/17 05:30 Urine Ketones NEGATIVE mg/dL (NEGATIVE) 11/13/17 05:30 Urine Blood SMALL (NEGATIVE) H 11/13/17 05:30 Urine Nitrate NEGATIVE (NEGATIVE) 11/13/17 05:30 Urine Bilirubin SMALL (NEGATIVE) H 11/13/17 05:30 Urine Urobilinogen 2.0 E.U./dL (0.2 - 1.0) 11/13/17 05:30 Ur Leukocyte Esterase NEGATIVE (NEGATIVE) 11/13/17 05:30 Urine RBC 0-2 /hpf (0-5) H 11/13/17 05:30 Urine WBC 0-2 /hpf (0-5) 11/13/17 05:30 Ur Epithelial Cells OCCASIONAL /lpf (FEW) 11/13/17 05:30 Calcium Oxalate Crystal FEW /hpf 11/13/17 05:30 Urine Bacteria 2+ /hpf (NONE SEEN) H 11/13/17 05:30 Coarse Granular Casts 0-2 /lpf (NONE SEEN) H 11/13/17 05:30 Ur Random Sodium 83 mmol/L 11/13/17 05:30 Urine Creatinine 199.0 mg/dl (39.0-259.0) 11/13/17 05:30 Vancomycin Trough 19.8 ug/mL (10-20) 11/12/17 05:30 - Physical Exam Vitals and I&O: Vital Signs Temp 98.1 F 11/13/17 04:00 Pulse 88 11/13/17 08:50 Resp 18 11/13/17 10:56 BP 120/66 11/13/17 08:50 Pulse Ox 96 11/13/17 07:58 Intake & Output 11/12/17 11/13/17 11/13/17 18:59 06:59 18:59 Intake Total 1050 750 Balance 1050 750 Weight (lbs) 108.817 kg Intake: Intake, IV Amount 1050 600 Dextrose 5% 1,000 ml @ 1000 100 mls/hr IV .Q10H [facility] Rx#:[id number] Piperacillin Sodium/ 50 100 Tazobact 2.25 gm In Dextrose 5% 50 ml @ 50 mls/hr IV Q8HR [facility] Rx#: [id number] Vancomycin HCl 1.5 gm In 500 Sodium Chloride 0.9% 500 ml @ 250 mls/hr IV Q18H [facility] Rx#:[id number] Oral 150 Other: # Voids 3 # Bowel Movements 1 Stool Characteristics Formed Active Medications: Current Medications Acetaminophen (Tylenol) 650 mg PO Q4H PRN PRN Reason: Pain Or Fever above 101 Stop: 01/07/18 20:29 Last Admin: 11/10/17 00:56 Dose: 650 mg Al Hydrox/Mg Hydrox/Simethicone (Maalox) 30 ml PO Q6H PRN PRN Reason: Dyspepsia Stop: 01/07/18 20:28 Albuterol Sulfate (Albuterol 2.5mg/3ml Neb Ud) 2.5 mg HHN Q2HRT PRN PRN Reason: Shortness of Breath or Wheeze Stop: 01/07/18 20:28 Ascorbic Acid (Vitamin C) 500 mg PO DAILY [facility] Stop: 01/08/18 08:59 Last Admin: 11/13/17 08:50 Dose: 500 mg Benztropine Mesylate (Cogentin) 1 mg PO BID [facility] Stop: 01/08/18 08:59 Last Admin: 11/13/17 08:50 Dose: 1 mg Carvedilol (Coreg) 12.5 mg PO BID [facility] Stop: 01/08/18 08:59 Last Admin: 11/13/17 08:50 Dose: 12.5 mg Docusate Sodium (Colace) 100 mg PO DAILY [facility] Stop: 01/08/18 08:59 Last Admin: 11/13/17 08:50 Dose: 100 mg Gabapentin (Neurontin) 300 mg PO TID [facility] Stop: 01/07/18 20:59 Last Admin: 11/13/17 13:26 Dose: 300 mg Heparin Sodium (Porcine) (Heparin) 5,000 units SUBQ Q12HR [facility] Stop: 01/07/18 20:59 Last Admin: 11/13/17 08:51 Dose: 5,000 units Piperacillin Sod/Tazobactam (Sod 2.25 gm/ Dextrose) 50 mls @ 50 mls/hr IV Q8HR [facility] Stop: 01/09/18 12:59 Last Admin: 11/13/17 13:26 Dose: 100 mls/hr Dextrose (D5w) 1,000 mls @ 100 mls/hr IV .Q10H [facility] Stop: 01/09/18 14:59 Last Admin: 11/13/17 04:36 Dose: 100 mls/hr Vancomycin HCl 1.5 gm/ Sodium (Chloride) 500 mls @ 250 mls/hr IV Q18H [facility] Stop: 01/10/18 14:59 Last Admin: 11/13/17 02:49 Dose: 250 mls/hr Insulin Aspart (Novolog) 0 units SUBQ ACHS [facility] PRN Reason: Protocol Stop: 01/07/18 20:59 Last Admin: 11/13/17 11:47 Dose: Not Given Ipratropium [place] (Atrovent Neb 0.5mg/2.5ml) 0.5 mg IH Q2HRT PRN PRN Reason: Shortness of Breath or Wheeze Stop: 01/07/18 20:28 Lactulose (Cephulac) 45 gm PO BID [facility] Stop: 01/10/18 16:59 Last Admin: 11/13/17 08:49 Dose: 45 gm Lorazepam (Ativan) 1 mg IVP Q6HR PRN; Protocol PRN Reason: Agitation Stop: 01/09/18 08:36 Last Admin: 11/13/17 09:30 Dose: 1 mg Magnesium Hydroxide (Milk Of Magnesia) 30 ml PO DAILY PRN PRN Reason: Constipation Stop: 01/07/18 20:25 Miscellaneous (Clinical Monitoring) 1 ea MC DAILY PRN PRN Reason: RENAL Stop: 01/08/18 08:43 Miscellaneous (Vancomycin Iv Per Pharmacy) 1 ea MC PRN [facility] Stop: 01/09/18 11:29 Miscellaneous (Probiotic Screen) 1 ea PRN PRN PRN Reason: PROTOCOL Stop: 01/10/18 16:55 Morphine Sulfate (Morphine) 1 mg IVP Q6H PRN PRN Reason: Pain (Moderate) Stop: 01/09/18 08:30 Last Admin: 11/13/17 04:37 Dose: 1 mg Ondansetron HCl (Zofran) 4 mg IV Q8H PRN PRN Reason: Nausea / Vomiting Stop: 01/07/18 20:29 Quetiapine Fumarate (Seroquel) 25 mg PO BID [facility] PRN Reason: Protocol Stop: 01/11/18 16:59 Last Admin: 11/13/17 08:50 Dose: 25 mg Tramadol HCl (Ultram) 50 mg PO Q6HR PRN PRN Reason: PAIN Stop: 01/07/18 20:25 Last Admin: 11/10/17 01:56 Dose: 50 mg Zinc Sulfate (Zinc Sulfate) 220 mg PO DAILY [facility] Stop: 01/08/18 08:59 Last Admin: 11/13/17 08:50 Dose: 220 mg Zolpidem Tartrate (Ambien) 10 mg PO HS PRN PRN Reason: Insomnia Stop: 01/07/18 20:28 Last Admin: 11/09/17 21:49 Dose: 10 mg General: Mild distress HEENT: Atraumatic, Mucous membr. moist/pink Neck: Supple, +2 carotid pulse wo bruit Cardiovascular: Regular rate, Normal S1, Normal S2 Lungs: Clear to auscultation Abdomen: Bowel sounds, Soft Extremities: no Edema Neurological: Sensation intact Skin: Breakdown Psych/Mental Status: Other (acute psychosis) Assessment/Plan - Problem List Patient Problems: All Active Problems ABNORMAL LAB RESULTS (Acute) - Assessment Assessment: DENNIS Uremic enceph Psychosis COPD Multiple hematomas back Multiple ulcers lower ext Type 2 DM Ess Htn AICD - Plan Plan: Lab - Result Diagrams 11/10/17 05:20 11/10/17 05:20 Current Medications Acetaminophen (Tylenol) 650 mg PO Q4H PRN PRN Reason: Pain Or Fever above 101 Stop: 01/07/18 20:29 Last Admin: 11/10/17 00:56 Dose: 650 mg Al Hydrox/Mg Hydrox/Simethicone (Maalox) 30 ml PO Q6H PRN PRN Reason: Dyspepsia Stop: 01/07/18 20:28 Albuterol Sulfate (Albuterol 2.5mg/3ml Neb Ud) 2.5 mg HHN Q2HRT PRN PRN Reason: Shortness of Breath or Wheeze Stop: 01/07/18 20:28 Ascorbic Acid (Vitamin C) 500 mg PO DAILY [facility] Stop: 01/08/18 08:59 Last Admin: 11/10/17 09:00 Dose: Not Given Benztropine Mesylate (Cogentin) 1 mg PO BID [facility] Stop: 01/08/18 08:59 Last Admin: 11/10/17 09:00 Dose: Not Given Carvedilol (Coreg) 12.5 mg PO BID [facility] Stop: 01/08/18 08:59 Last Admin: 11/10/17 12:15 Dose: 12.5 mg Docusate Sodium (Colace) 100 mg PO DAILY [facility] Stop: 01/08/18 08:59 Last Admin: 11/10/17 09:00 Dose: Not Given Gabapentin (Neurontin) 300 mg PO TID [facility] Stop: 01/07/18 20:59 Last Admin: 11/10/17 12:17 Dose: Not Given Haloperidol (Haldol) 2.5 mg PO BID [facility] PRN Reason: Protocol Stop: 01/08/18 14:46 Last Admin: 11/10/17 09:00 Dose: Not Given Heparin Sodium (Porcine) (Heparin) 5,000 units SUBQ Q12HR [facility] Stop: 01/07/18 20:59 Last Admin: 11/10/17 12:18 Dose: Not Given Sodium Chloride (Nacl 0.45%) 1,000 mls @ 100 mls/hr IV .Q10H [facility] Stop: 01/07/18 20:29 Last Admin: 11/09/17 06:43 Dose: Not Given Vancomycin HCl 1.5 gm/ Sodium (Chloride) 500 mls @ 250 mls/hr IV Q12H [facility] Stop: 01/09/18 11:59 Last Admin: 11/10/17 13:15 Dose: 250 mls/hr Piperacillin Sod/Tazobactam (Sod 2.25 gm/ Dextrose) 50 mls @ 50 mls/hr IV Q8HR [facility] Stop: 01/09/18 12:59 Insulin Aspart (Novolog) 0 units SUBQ ACHS [facility] PRN Reason: Protocol Stop: 01/07/18 20:59 Last Admin: 11/10/17 08:23 Dose: Not Given Ipratropium [place] (Atrovent Neb 0.5mg/2.5ml) 0.5 mg IH Q2HRT PRN PRN Reason: Shortness of Breath or Wheeze Stop: 01/07/18 20:28 Lorazepam (Ativan) 1 mg IVP Q6HR PRN; Protocol PRN Reason: Agitation Stop: 01/09/18 08:36 Magnesium Hydroxide (Milk Of Magnesia) 30 ml PO DAILY PRN PRN Reason: Constipation Stop: 01/07/18 20:25 Miscellaneous (Clinical Monitoring) 1 ea DAILY PRN PRN Reason: RENAL Stop: 01/08/18 08:43 Miscellaneous (Vancomycin Iv Per Pharmacy) 1 ea MC PRN [facility] Stop: 01/09/18 11:29 Morphine Sulfate (Morphine) 1 mg IVP Q6H PRN PRN Reason: Pain (Moderate) Stop: 01/09/18 08:30 Ondansetron HCl (Zofran) 4 mg IV Q8H PRN PRN Reason: Nausea / Vomiting Stop: 01/07/18 20:29 Quetiapine Fumarate (Seroquel) 12.5 mg PO TID [facility] PRN Reason: Protocol Stop: 01/08/18 20:59 Last Admin: 11/10/17 09:00 Dose: Not Given Tramadol HCl (Ultram) 50 mg PO Q6HR PRN PRN Reason: PAIN Stop: 01/07/18 20:25 Last Admin: 11/10/17 01:56 Dose: 50 mg Zinc Sulfate (Zinc Sulfate) 220 mg PO DAILY [facility] Stop: 01/08/18 08:59 Last Admin: 11/10/17 12:18 Dose: Not Given Zolpidem Tartrate (Ambien) 10 mg PO HS PRN PRN Reason: Insomnia Stop: 01/07/18 20:28 Last Admin: 11/09/17 21:49 Dose: 10 mg Lab - Result Diagrams 11/13/17 05:43 11/13/17 05:43 Na down to 152 BUN down to 27, Cr. stable f/u electrolytes, cbc Na gradually increasing, start IVF Nutritional Asmnt/Malnutr-PDOC - Dietary Evaluation Malnutrition Findings (Please click <Entered> for more info): Nutritional Asmnt/Malnutrition Start: 11/11/17 16: 30 Text: Status: Complete Freq: Document 11/11/17 16:30 [email or web address] (Rec: 11/11/17 16:49 [email or web address]) Nutritional Asmnt/Malnutrition Patient General Information Nutritional Screening High Risk Consult Diagnosis ALOC, ARF Pertinent Medical Hx/Surgical Hx DM, psychosis, HTN, anxiety, chest defibrillator, COPD, CHF , CAD, alzheimer's Subjective Information Consult received for FTT. Per notes, pt refused breakfast, only take liquid at lunch and soup for dinner on 11/10. Spoke with YASMIN Ch, RN reported pt was agitated, not eating food. Diet down to pureed diet from dinner, dinner tray at bed side at the time of visit. Per RN, Pt took long time to swallow meds mixed with pudding. Current Diet Order/ Nutrition Support pureed, Prosource 30ml daily Pertinent Medications vitamin C, D5, colace, novolog , piperacillin, seroquel, vancomycin, zinc Pertinent Labs 11/11 Na 150, K 3.8, Cl 120, BUN 42, Cr 1.7, GLucose 157, POC 125, Ammonia 73 Nutritional Hx/Data Height 1.78 m Height (Calculated Centimeters) 177.8 Current Weight (lbs) 108.091 kg Weight (Calculated Kilograms) 108.1 Weight (Calculated Grams) 922956.1 [place] Body Weight 166 % [place] Body Weight 144 Body Mass Index (BMI) 34.2 Weight Status Obese GI Symptoms GI Symptoms None Skin Integrity/Comment: skin tear to right arm, bruise to left arm, decubitus ulceration to right big toe Estimated Nutritional Goals BEE in Kcals: Adj wt of IBW Calories/Kcals/Kg 25-30 Kcals Calculated [id number] Protein: Adj wt of IBW Protein g/k.6-0.8 Protein Calculated 50-67g monitor renal labs Fluid: ml per MD d/t ARF Nutritional Problem 2. Problem Problem altered nutrition related lab values Etiology acute renal failure Signs/Symptoms: BUN 42, Cr 1.7 1. Problem Problem inadequate food intake Etiology mental status, possible swallow problem Signs/Symptoms: PO intake < 25% Malnutrition Alert Protein-Calorie Malnutrition N/A Is there a minimum of two criteria No selected? Query Text:Check all the applicable criteria. A minimum of two criteria are recommended for diagnosis of either severe or non-severe malnutrition. Intervention/Recommendation Comments 1. Recommend swallow eval d/t possible swallowing problem 2. If pt failed swallow eval, will consider alternative nutrition route 3. If continue to oral diet, will consider nutrition supplements to increase nutrition intake 4. F/U as high risk in 2-3 days, 11/13-11/14 Expected Outcomes/Goals Expected Outcomes/Goals 1. Pt to meet at least 75% of nutritional needs in 2-3 days. 2. Wt stability, skin to remain intact, labs to improve .
--- NOTE | 2017-11-13 19:02 | Consultation ---
DATE OF CONSULTATION: 11/13/2017 NEUROLOGY CONSULT HISTORY OF PRESENT ILLNESS: The patient is 72-year-old. The patient in long-term was transferred because of the patient's altered mentation. Noted to have markedly elevated BUN and creatinine. Here, the patient is very agitated. He is awake, alert, sometime he seems to be able to interact a little bit when I ask him his name, but most of the time he is not. He will actually try to spit at you. He will also try to move extremities and he will abruptly move them in all direction with danger of hitting. The patient moves upper and lower extremities. PAST MEDICAL HISTORY: 1. Diagnosis of Alzheimer's. 2. Psychosis. 3. Type 2 diabetes. 4. CHF. 5. Defibrillator. 6. Hypertension. 7. Anxiety. MEDICATIONS: Cogentin, Coreg, gabapentin 300 mg t.i.d., lactulose, lorazepam p.r.n., Ambien, tramadol, Seroquel 25 mg b.i.d., morphine p.r.n. REVIEW OF SYSTEMS: Not obtainable. The patient is moving all extremities . He does not follow instructions. He does not give me any information. No seizures noted. PHYSICAL EXAMINATION: VITAL SIGNS: Temperature 99.0, blood pressure 110/60, pulse is around 80. NECK: Supple, no bruits. HEART: Sounds S1, S2. LUNGS: Clear. NEUROLOGIC: The patient is lying in bed, awake, alert. He will look at me. Once or twice, he responded to his name, but otherwise no speech. Pupils react. He will resist my exam. Almost tried to spit at me. The patient moves upper extremities and moves lower extremities. Reflexes about 1, difficult to get at the knees and ankles. INVESTIGATIONS: CT scan of the head on 11/09/2017, no acute process. LABORATORY DATA: WBC 10.8, hemoglobin 12.3, sodium 152, BUN is down to 27, creatinine 1.5. ASSESSMENT: 1. Encephalopathy. 2. Psychosis. 3. Abnormal behavior. 4. History of pacemaker. 5. Renal failure better. 6. History of diabetes. 7. Coronary artery disease. 8. Congestive heart failure. 9. History of Alzheimer. PLAN: At the moment, continue present medications. Suggest with the approval of Psychiatry to increase Seroquel. JOB# [id number]
[2017-11-14] MEDS: Vancomycin HCl 1.5 GM in Sodium Chloride 0.9% 500 ML IV SCH ×2 (03:15→15:29)
[2017-11-14 06:01] LABS: % BASOPHILS 0.4 % (0.0-2.0); % EOSINOPHILS 3.8 % (0.0-5.0); % LYMPHOCYTES 12.4 % (20.0-50.0); % MONOCYTES 9.9 % (2.0-10.0); % NEUTROPHILS 73.5 % (40.0-80.0); EOSINOPHILE ABSOLUTE 0.4 Th/cmm (0.1-0.4); HEMATOCRIT 34.5 % (41.0-60); HEMOGLOBIN 11.7 gm/dL (12-16); LYMPHOCYTE ABSOLUTE 1.3 Th/cmm (1.5-3.0); MEAN CELL VOLUME 97.8 fl (80-99); MEAN CORPUSCULAR HEMOGLOBIN 33.2 pg (27.0-31.0); MEAN CORPUSCULAR HGB CONC 33.9 pg (28.0-36.0); MEAN PLATELET VOLUME 9.2 fl; NEUTROPHILE ABSOLUTE 7.8 Th/cmm (1.8-8.0); PLATELET COUNT 185 Th/cmm (150-400); RED BLOOD COUNT 3.53 Mil/cmm (3.80-5.80); RED CELL DISTRIBUTION WIDTH 13.4 % (11.5-20.0); WHITE BLOOD COUNT 10.5 Th/cmm (4.8-10.8)
[2017-11-14 06:18] LABS: ANION GAP 8.5 (7.0-16.0); BUN - UREA NITROGEN 21 mg/dL (7-25); CALCIUM SERUM 8.9 mg/dL (8.6-10.3); CHLORIDE 116 mEq/L (98-107); CREATININE - SERUM 1.4 mg/dL (0.7-1.3); GLUCOSE 123 mg/dL (70-105); POTASSIUM SERUM 3.5 mEq/L (3.5-5.1); SODIUM SERUM 148 mEq/L (136-145)
[2017-11-14] MEDS: Benztropine 1 MG TAB PO SCH ×2 (09:51→17:03)
[2017-11-14] MEDS: Multivitamin w/ Minerals Tab PO SCH (09:52)
[2017-11-14] MEDS: INSULIN ASPART, RECOMBINANT 100 UNITS/ML SUBQ SCH ×4 (09:53→23:08)
[2017-11-14] MEDS: Lactulose 10 Gm/15 mL 30mL UDC PO SCH ×2 (11:05→17:04)
[2017-11-14] MEDS: Morphine Sulfate 2 mg/mL 1mL Syr IVP PRN (11:29)
--- NOTE | 2017-11-14 11:38 | Internal Medicine Prog Note ---
Internal Medicine Subjective - Subjective Service Date: 11/14/17 Patient seen and examined:: with staff Patient is:: awake, agitated, confused Patient Complaints of:: other (pain) Per staff patient has:: tolerating meds Internal Medicine Objective - Results Result Diagrams: 11/14/17 05:48 11/14/17 05:48 Recent Labs: Laboratory Last Values WBC 10.5 Th/cmm (4.8-10.8) 11/14/17 05:48 RBC 3.53 Mil/cmm (3.80-5.80) L 11/14/17 05:48 Hgb 11.7 gm/dL (12-16) L 11/14/17 05:48 Hct 34.5 % (41.0-60) L 11/14/17 05:48 MCV 97.8 fl (80-99) 11/14/17 05:48 MCH 33.2 pg (27.0-31.0) H 11/14/17 05:48 MCHC Differential 33.9 pg (28.0-36.0) 11/14/17 05:48 RDW 13.4 % (11.5-20.0) 11/14/17 05:48 Plt Count 185 Th/cmm (150-400) 11/14/17 05:48 MPV 9.2 fl 11/14/17 05:48 Neutrophils % 73.5 % (40.0-80.0) 11/14/17 05:48 Lymphocytes % 12.4 % (20.0-50.0) L 11/14/17 05:48 Monocytes % 9.9 % (2.0-10.0) 11/14/17 05:48 Eosinophils % 3.8 % (0.0-5.0) 11/14/17 05:48 Basophils % 0.4 % (0.0-2.0) 11/14/17 05:48 PT 11.5 SECONDS (9.5-11.5) 11/08/17 17:50 INR 1.10 (0.5-1.4) 11/08/17 17:50 PTT (Actin FS) 24.5 SECONDS (26.0-38.0) L 11/08/17 17:50 Sodium 148 mEq/L (136-145) H 11/14/17 05:48 Potassium 3.5 mEq/L (3.5-5.1) 11/14/17 05:48 Chloride 116 mEq/L (98-107) H 11/14/17 05:48 Carbon Dioxide 27.0 mEq/L (21.0-31.0) 11/14/17 05:48 Anion Gap 8.5 (7.0-16.0) 11/14/17 05:48 BUN 21 mg/dL (7-25) 11/14/17 05:48 Creatinine 1.4 mg/dL (0.7-1.3) H 11/14/17 05:48 Est GFR ( Amer) TNP 11/14/17 05:48 Est GFR (Non-Af Amer) TNP 11/14/17 05:48 BUN/Creatinine Ratio 15.0 11/14/17 05:48 Glucose 123 mg/dL (70-105) H 11/14/17 05:48 POC Glucose 132 MG/DL (70 - 105) H 11/13/17 21:22 Whole Bld Lactic Acid 1.69 mmol/L (0.60-1.99) 11/08/17 18:55 Uric Acid 8.2 mg/dL (4.4-7.6) H 11/10/17 05:20 Calcium 8.9 mg/dL (8.6-10.3) 11/14/17 05:48 Phosphorus 2.8 mg/dL (2.5-5.0) 11/10/17 05:20 Magnesium 1.8 mg/dL (1.9-2.7) L 11/10/17 05:20 Total Bilirubin 1.0 mg/dL (0.3-1.0) 11/08/17 18:55 Direct Bilirubin 0.24 mg/dL (0.0-0.2) H 11/08/17 17:50 AST 57 U/L (13-39) H 11/08/17 18:55 ALT 35 U/L (7-52) 11/08/17 18:55 Alkaline Phosphatase 66 U/L (34-104) 11/08/17 18:55 Ammonia 45 umol/L (16-53) 11/12/17 05:30 Creatine Kinase 1066 U/L (30-223) H 11/08/17 18:55 CK-MB (CK-2) 8.7 ng/mL (0.6-6.3) H 11/08/17 18:55 Troponin I 0.03 ng/mL (0.01-0.05) 11/08/17 18:55 B-Natriuretic Peptide 65.3 pg/mL (5.0-100.0) 11/08/17 18:55 Total Protein 8.6 gm/dL (6.0-8.3) H 11/08/17 18:55 Albumin 3.8 gm/dL (4.2-5.5) L 11/08/17 18:55 Globulin 4.8 gm/dL 11/08/17 18:55 Albumin/Globulin Ratio 0.8 (1.0-1.8) L 11/08/17 18:55 Triglycerides 117 mg/dL (<150) 11/08/17 18:55 Cholesterol 188 mg/dL (<200) 11/08/17 18:55 LDL Cholesterol Direct 163 mg/dL (75-193) 11/08/17 18:55 HDL Cholesterol 37 mg/dL (23-92) 11/08/17 18:55 Amylase 43 U/L (29-103) 11/08/17 17:50 Lipase 13 U/L (11-82) 11/08/17 17:50 Urine Source MIDSTREAM 11/13/17 05:30 Urine Color YELLOW 11/13/17 05:30 Urine Clarity HAZY (CLEAR) 11/13/17 05:30 Urine pH 5.5 (4.6 - 8.0) 11/13/17 05:30 Ur Specific [place] 1.025 (1.005-1.030) 11/13/17 05:30 Urine Protein 30 mg/dL (NEGATIVE) H 11/13/17 05:30 Urine Glucose (UA) NEGATIVE mg/dL (NEGATIVE) 11/13/17 05:30 Urine Ketones NEGATIVE mg/dL (NEGATIVE) 11/13/17 05:30 Urine Blood SMALL (NEGATIVE) H 11/13/17 05:30 Urine Nitrate NEGATIVE (NEGATIVE) 11/13/17 05:30 Urine Bilirubin SMALL (NEGATIVE) H 11/13/17 05:30 Urine Urobilinogen 2.0 E.U./dL (0.2 - 1.0) 11/13/17 05:30 Ur Leukocyte Esterase NEGATIVE (NEGATIVE) 11/13/17 05:30 Urine RBC 0-2 /hpf (0-5) H 11/13/17 05:30 Urine WBC 0-2 /hpf (0-5) 11/13/17 05:30 Ur Epithelial Cells OCCASIONAL /lpf (FEW) 11/13/17 05:30 Calcium Oxalate Crystal FEW /hpf 11/13/17 05:30 Urine Bacteria 2+ /hpf (NONE SEEN) H 11/13/17 05:30 Coarse Granular Casts 0-2 /lpf (NONE SEEN) H 11/13/17 05:30 Ur Random Sodium 83 mmol/L 11/13/17 05:30 Urine Creatinine 199.0 mg/dl (39.0-259.0) 11/13/17 05:30 Vancomycin Trough 19.8 ug/mL (10-20) 11/12/17 05:30 - Physical Exam Vitals and I&O: Vital Signs Temp 98.8 F 11/14/17 04:00 Pulse 87 11/14/17 09:52 Resp 18 11/14/17 08:04 BP 100/67 11/14/17 09:52 Pulse Ox 100 11/14/17 07:15 Intake & Output 11/13/17 11/14/17 11/14/17 18:59 06:59 18:59 Intake Total 1050 50 Balance 1050 50 Weight (lbs) 238 lb Intake: Intake, IV Amount 1050 50 Dextrose 5% 1,000 ml @ 1000 100 mls/hr IV .Q10H [facility] Rx#:[id number] Piperacillin Sodium/ 50 50 Tazobact 2.25 gm In Dextrose 5% 50 ml @ 50 mls/hr IV Q8HR [facility] Rx#: [id number] Other: # Voids 3 # Bowel Movements 1 Stool Characteristics Formed Formed Formed Active Medications: Current Medications Acetaminophen (Tylenol) 650 mg PO Q4H PRN PRN Reason: Pain Or Fever above 101 Stop: 01/07/18 20:29 Last Admin: 11/10/17 00:56 Dose: 650 mg Al Hydrox/Mg Hydrox/Simethicone (Maalox) 30 ml PO Q6H PRN PRN Reason: Dyspepsia Stop: 01/07/18 20:28 Albuterol Sulfate (Albuterol 2.5mg/3ml Neb Ud) 2.5 mg HHN Q2HRT PRN PRN Reason: Shortness of Breath or Wheeze Stop: 01/07/18 20:28 Ascorbic Acid (Vitamin C) 500 mg PO DAILY [facility] Stop: 01/08/18 08:59 Last Admin: 11/14/17 09:52 Dose: 500 mg Benztropine Mesylate (Cogentin) 1 mg PO BID [facility] Stop: 01/08/18 08:59 Last Admin: 11/14/17 09:51 Dose: 1 mg Carvedilol (Coreg) 12.5 mg PO BID [facility] Stop: 01/08/18 08:59 Last Admin: 11/14/17 09:52 Dose: 12.5 mg Docusate Sodium (Colace) 100 mg PO DAILY [facility] Stop: 01/08/18 08:59 Last Admin: 11/14/17 09:51 Dose: 100 mg Gabapentin (Neurontin) 300 mg PO TID [facility] Stop: 01/07/18 20:59 Last Admin: 11/14/17 09:52 Dose: 300 mg Heparin Sodium (Porcine) (Heparin) 5,000 units SUBQ Q12HR [facility] Stop: 01/07/18 20:59 Last Admin: 11/14/17 09:54 Dose: 5,000 units Piperacillin Sod/Tazobactam (Sod 2.25 gm/ Dextrose) 50 mls @ 50 mls/hr IV Q8HR [facility] Stop: 01/09/18 12:59 Last Admin: 11/14/17 05:37 Dose: 50 mls/hr Dextrose (D5w) 1,000 mls @ 100 mls/hr IV .Q10H [facility] Stop: 01/09/18 14:59 Last Admin: 11/13/17 21:12 Dose: 100 mls/hr Vancomycin HCl 1.5 gm/ Sodium (Chloride) 500 mls @ 250 mls/hr IV Q18H [facility] Stop: 01/10/18 14:59 Last Admin: 11/14/17 03:15 Dose: 250 mls/hr Insulin Aspart (Novolog) 0 units SUBQ ACHS [facility] PRN Reason: Protocol Stop: 01/07/18 20:59 Last Admin: 11/14/17 09:53 Dose: Not Given Ipratropium [place] (Atrovent Neb 0.5mg/2.5ml) 0.5 mg IH Q2HRT PRN PRN Reason: Shortness of Breath or Wheeze Stop: 01/07/18 20:28 Lactulose (Cephulac) 30 gm PO BID [facility] Stop: 01/13/18 10:49 Last Admin: 11/14/17 11:05 Dose: 30 gm Lorazepam (Ativan) 1 mg IVP Q6HR PRN; Protocol PRN Reason: Agitation Stop: 01/09/18 08:36 Last Admin: 11/14/17 11:28 Dose: 1 mg Magnesium Hydroxide (Milk Of Magnesia) 30 ml PO DAILY PRN PRN Reason: Constipation Stop: 01/07/18 20:25 Miscellaneous (Clinical Monitoring) 1 ea MC DAILY PRN PRN Reason: RENAL Stop: 01/08/18 08:43 Miscellaneous (Vancomycin Iv Per Pharmacy) 1 ea MC PRN [facility] Stop: 01/09/18 11:29 Miscellaneous (Probiotic Screen) 1 ea MC PRN PRN PRN Reason: PROTOCOL Stop: 01/10/18 16:55 Morphine Sulfate (Morphine) 1 mg IVP Q6H PRN PRN Reason: Pain (Moderate) Stop: 01/09/18 08:30 Last Admin: 11/14/17 11:29 Dose: 1 mg Ondansetron HCl (Zofran) 4 mg IV Q8H PRN PRN Reason: Nausea / Vomiting Stop: 01/07/18 20:29 Quetiapine Fumarate (Seroquel) 25 mg PO BID [facility] PRN Reason: Protocol Stop: 01/11/18 16:59 Last Admin: 11/14/17 09:51 Dose: 25 mg Tramadol HCl (Ultram) 50 mg PO Q6HR PRN PRN Reason: PAIN Stop: 01/07/18 20:25 Last Admin: 11/10/17 01:56 Dose: 50 mg Zinc Sulfate (Zinc Sulfate) 220 mg PO DAILY [facility] Stop: 01/08/18 08:59 Last Admin: 11/14/17 09:51 Dose: 220 mg Zolpidem Tartrate (Ambien) 10 mg PO HS PRN PRN Reason: Insomnia Stop: 01/07/18 20:28 Last Admin: 11/09/17 21:49 Dose: 10 mg General: weak, alert HEENT: NC/AT, PERRLA Neck: Supple Lungs: CTAB Cardiovascular: RRR, Normal S1, Normal S2, without murmur Abdomen: soft, non-tender, non-distended, positive bowel sound Extremities: other (right elbow abscess, right big toe open wound, multiple open wound ) Neurological: no change Internal Medicine Assmt/Plan - Assessment Assessment: RIGHT ELBOW CELLULITIS MULTIPLE OPEN WOUND - MRSA WOUND ALOC ACUTE RENAL FAILURE DM2 PSYCHOSIS HTN MILD PROTEIN CALORIE MALNUTRITION CHEST DEFBRILLATOR STATUS COPD CHF CAD - Plan Plan: ltac eval continue ivabx continue with wound care follow up labs in am pain mgmt continue current plan of care Nutritional Asmnt/Malnutr-PDOC - Dietary Evaluation Malnutrition Findings (Please click <Entered> for more info): Nutritional Asmnt/Malnutrition Start: 11/11/17 16: 30 Text: Status: Complete Freq: Document 11/11/17 16:30 LCHENG (Rec: 11/11/17 16:49 [email or web address] [email or web address]) Nutritional Asmnt/Malnutrition Patient General Information Nutritional Screening High Risk Consult Diagnosis ALOC, ARF Pertinent Medical Hx/Surgical Hx DM, psychosis, HTN, anxiety, chest defibrillator, COPD, CHF , CAD, alzheimer's Subjective Information Consult received for FTT. Per notes, pt refused breakfast, only take liquid at lunch and soup for dinner on 11/10. Spoke with YASMIN Ch, RN reported pt was agitated, not eating food. Diet down to pureed diet from dinner, dinner tray at bed side at the time of visit. Per RN, Pt took long time to swallow meds mixed with pudding. Current Diet Order/ Nutrition Support pureed, Prosource 30ml daily Pertinent Medications vitamin C, D5, colace, novolog , piperacillin, seroquel, vancomycin, zinc Pertinent Labs 11/11 Na 150, K 3.8, Cl 120, BUN 42, Cr 1.7, GLucose 157, POC 125, Ammonia 73 Nutritional Hx/Data Height 5 ft 10 in Height (Calculated Centimeters) 177.8 Current Weight (lbs) 238 lb 4.8 oz Weight (Calculated Kilograms) 108.1 Weight (Calculated Grams) 821092.1 [place] Body Weight 166 % [place] Body Weight 144 Body Mass Index (BMI) 34.2 Weight Status Obese GI Symptoms GI Symptoms None Skin Integrity/Comment: skin tear to right arm, bruise to left arm, decubitus ulceration to right big toe Estimated Nutritional Goals BEE in Kcals: Adj wt of IBW Calories/Kcals/Kg 25-30 Kcals Calculated [id number] Protein: Adj wt of IBW Protein g/k.6-0.8 Protein Calculated 50-67g monitor renal labs Fluid: ml per MD d/t ARF Nutritional Problem 2. Problem Problem altered nutrition related lab values Etiology acute renal failure Signs/Symptoms: BUN 42, Cr 1.7 1. Problem Problem inadequate food intake Etiology mental status, possible swallow problem Signs/Symptoms: PO intake < 25% Malnutrition Alert Protein-Calorie Malnutrition N/A Is there a minimum of two criteria No selected? Query Text:Check all the applicable criteria. A minimum of two criteria are recommended for diagnosis of either severe or non-severe malnutrition. Intervention/Recommendation Comments 1. Recommend swallow eval d/t possible swallowing problem 2. If pt failed swallow eval, will consider alternative nutrition route 3. If continue to oral diet, will consider nutrition supplements to increase nutrition intake 4. F/U as high risk in 2-3 days, 11/13-11/14 Expected Outcomes/Goals Expected Outcomes/Goals 1. Pt to meet at least 75% of nutritional needs in 2-3 days. 2. Wt stability, skin to remain intact, labs to improve .
[2017-11-14] MEDS: Dextrose 5% 1,000 ML IV SCH (14:46)
[2017-11-14 15:10] LABS: ANION GAP 9.9 (7.0-16.0); BUN - UREA NITROGEN 20 mg/dL (7-25); CALCIUM SERUM 9.2 mg/dL (8.6-10.3); CARBON DIOXIDE 23.8 mEq/L (21.0-31.0); CHLORIDE 119 mEq/L (98-107); CREATININE - SERUM 1.4 mg/dL (0.7-1.3); GLUCOSE 139 mg/dL (70-105); POTASSIUM SERUM 3.7 mEq/L (3.5-5.1); SODIUM SERUM 149 mEq/L (136-145)
--- NOTE | 2017-11-14 15:30 | General Progress Note ---
Subjective - Review of Systems Service Date: 11/14/17 Subjective: remains sedated, periods of agitation Objective - Results Result Diagrams: 11/14/17 05:48 11/14/17 14:40 Recent Labs: Laboratory Last Values WBC 10.5 Th/cmm (4.8-10.8) 11/14/17 05:48 RBC 3.53 Mil/cmm (3.80-5.80) L 11/14/17 05:48 Hgb 11.7 gm/dL (12-16) L 11/14/17 05:48 Hct 34.5 % (41.0-60) L 11/14/17 05:48 MCV 97.8 fl (80-99) 11/14/17 05:48 MCH 33.2 pg (27.0-31.0) H 11/14/17 05:48 MCHC Differential 33.9 pg (28.0-36.0) 11/14/17 05:48 RDW 13.4 % (11.5-20.0) 11/14/17 05:48 Plt Count 185 Th/cmm (150-400) 11/14/17 05:48 MPV 9.2 fl 11/14/17 05:48 Neutrophils % 73.5 % (40.0-80.0) 11/14/17 05:48 Lymphocytes % 12.4 % (20.0-50.0) L 11/14/17 05:48 Monocytes % 9.9 % (2.0-10.0) 11/14/17 05:48 Eosinophils % 3.8 % (0.0-5.0) 11/14/17 05:48 Basophils % 0.4 % (0.0-2.0) 11/14/17 05:48 PT 11.5 SECONDS (9.5-11.5) 11/08/17 17:50 INR 1.10 (0.5-1.4) 11/08/17 17:50 PTT (Actin FS) 24.5 SECONDS (26.0-38.0) L 11/08/17 17:50 Sodium 149 mEq/L (136-145) H 11/14/17 14:40 Potassium 3.7 mEq/L (3.5-5.1) 11/14/17 14:40 Chloride 119 mEq/L (98-107) H 11/14/17 14:40 Carbon Dioxide 23.8 mEq/L (21.0-31.0) 11/14/17 14:40 Anion Gap 9.9 (7.0-16.0) 11/14/17 14:40 BUN 20 mg/dL (7-25) 11/14/17 14:40 Creatinine 1.4 mg/dL (0.7-1.3) H 11/14/17 14:40 Est GFR ( Amer) TNP 11/14/17 14:40 Est GFR (Non-Af Amer) TNP 11/14/17 14:40 BUN/Creatinine Ratio 14.3 11/14/17 14:40 Glucose 139 mg/dL (70-105) H 11/14/17 14:40 POC Glucose 144 MG/DL (70 - 105) H 11/14/17 11:35 Whole Bld Lactic Acid 1.69 mmol/L (0.60-1.99) 11/08/17 18:55 Uric Acid 8.2 mg/dL (4.4-7.6) H 11/10/17 05:20 Calcium 9.2 mg/dL (8.6-10.3) 11/14/17 14:40 Phosphorus 2.8 mg/dL (2.5-5.0) 11/10/17 05:20 Magnesium 1.8 mg/dL (1.9-2.7) L 11/10/17 05:20 Total Bilirubin 1.0 mg/dL (0.3-1.0) 11/08/17 18:55 Direct Bilirubin 0.24 mg/dL (0.0-0.2) H 11/08/17 17:50 AST 57 U/L (13-39) H 11/08/17 18:55 ALT 35 U/L (7-52) 11/08/17 18:55 Alkaline Phosphatase 66 U/L (34-104) 11/08/17 18:55 Ammonia 64 umol/L (16-53) H 11/14/17 14:40 Creatine Kinase 1066 U/L (30-223) H 11/08/17 18:55 CK-MB (CK-2) 8.7 ng/mL (0.6-6.3) H 11/08/17 18:55 Troponin I 0.03 ng/mL (0.01-0.05) 11/08/17 18:55 B-Natriuretic Peptide 65.3 pg/mL (5.0-100.0) 11/08/17 18:55 Total Protein 8.6 gm/dL (6.0-8.3) H 11/08/17 18:55 Albumin 3.8 gm/dL (4.2-5.5) L 11/08/17 18:55 Globulin 4.8 gm/dL 11/08/17 18:55 Albumin/Globulin Ratio 0.8 (1.0-1.8) L 11/08/17 18:55 Triglycerides 117 mg/dL (<150) 11/08/17 18:55 Cholesterol 188 mg/dL (<200) 11/08/17 18:55 LDL Cholesterol Direct 163 mg/dL (75-193) 11/08/17 18:55 HDL Cholesterol 37 mg/dL (23-92) 11/08/17 18:55 Amylase 43 U/L (29-103) 11/08/17 17:50 Lipase 13 U/L (11-82) 11/08/17 17:50 Urine Source MIDSTREAM 11/13/17 05:30 Urine Color YELLOW 11/13/17 05:30 Urine Clarity HAZY (CLEAR) 11/13/17 05:30 Urine pH 5.5 (4.6 - 8.0) 11/13/17 05:30 Ur Specific [place] 1.025 (1.005-1.030) 11/13/17 05:30 Urine Protein 30 mg/dL (NEGATIVE) H 11/13/17 05:30 Urine Glucose (UA) NEGATIVE mg/dL (NEGATIVE) 11/13/17 05:30 Urine Ketones NEGATIVE mg/dL (NEGATIVE) 11/13/17 05:30 Urine Blood SMALL (NEGATIVE) H 11/13/17 05:30 Urine Nitrate NEGATIVE (NEGATIVE) 11/13/17 05:30 Urine Bilirubin SMALL (NEGATIVE) H 11/13/17 05:30 Urine Urobilinogen 2.0 E.U./dL (0.2 - 1.0) 11/13/17 05:30 Ur Leukocyte Esterase NEGATIVE (NEGATIVE) 11/13/17 05:30 Urine RBC 0-2 /hpf (0-5) H 11/13/17 05:30 Urine WBC 0-2 /hpf (0-5) 11/13/17 05:30 Ur Epithelial Cells OCCASIONAL /lpf (FEW) 11/13/17 05:30 Calcium Oxalate Crystal FEW /hpf 11/13/17 05:30 Urine Bacteria 2+ /hpf (NONE SEEN) H 11/13/17 05:30 Coarse Granular Casts 0-2 /lpf (NONE SEEN) H 11/13/17 05:30 Ur Random Sodium 83 mmol/L 11/13/17 05:30 Urine Creatinine 199.0 mg/dl (39.0-259.0) 11/13/17 05:30 Vancomycin Trough 19.1 ug/mL (10-20) 11/14/17 14:40 - Physical Exam Vitals and I&O: Vital Signs Temp 97.5 F 11/14/17 12:00 Pulse 69 11/14/17 12:00 Resp 17 11/14/17 12:00 BP 110/56 11/14/17 12:00 Pulse Ox 94 11/14/17 12:00 Intake & Output 11/13/17 11/14/17 11/14/17 18:59 06:59 18:59 Intake Total 3515 177 4538 Balance 8607 928 4670 Weight (lbs) 107.955 kg Intake: Intake, IV Amount 4626 374 8815 Dextrose 5% 1,000 ml @ 1000 1000 100 mls/hr IV .Q10H [facility] Rx#:[id number] Piperacillin Sodium/ 50 100 Tazobact 2.25 gm In Dextrose 5% 50 ml @ 50 mls/hr IV Q8HR [facility] Rx#: [id number] Other: # Voids 3 # Bowel Movements 1 Stool Characteristics Formed Formed Formed Active Medications: Current Medications Acetaminophen (Tylenol) 650 mg PO Q4H PRN PRN Reason: Pain Or Fever above 101 Stop: 01/07/18 20:29 Last Admin: 11/10/17 00:56 Dose: 650 mg Al Hydrox/Mg Hydrox/Simethicone (Maalox) 30 ml PO Q6H PRN PRN Reason: Dyspepsia Stop: 01/07/18 20:28 Albuterol Sulfate (Albuterol 2.5mg/3ml Neb Ud) 2.5 mg HHN Q2HRT PRN PRN Reason: Shortness of Breath or Wheeze Stop: 01/07/18 20:28 Ascorbic Acid (Vitamin C) 500 mg PO DAILY [facility] Stop: 01/08/18 08:59 Last Admin: 11/14/17 09:52 Dose: 500 mg Benztropine Mesylate (Cogentin) 1 mg PO BID [facility] Stop: 01/08/18 08:59 Last Admin: 11/14/17 09:51 Dose: 1 mg Carvedilol (Coreg) 12.5 mg PO BID [facility] Stop: 01/08/18 08:59 Last Admin: 11/14/17 09:52 Dose: 12.5 mg Docusate Sodium (Colace) 100 mg PO DAILY [facility] Stop: 01/08/18 08:59 Last Admin: 11/14/17 09:51 Dose: 100 mg Gabapentin (Neurontin) 300 mg PO TID [facility] Stop: 01/07/18 20:59 Last Admin: 11/14/17 14:04 Dose: Not Given Heparin Sodium (Porcine) (Heparin) 5,000 units SUBQ Q12HR [facility] Stop: 01/07/18 20:59 Last Admin: 11/14/17 09:54 Dose: 5,000 units Piperacillin Sod/Tazobactam (Sod 2.25 gm/ Dextrose) 50 mls @ 50 mls/hr IV Q8HR [facility] Stop: 01/09/18 12:59 Last Admin: 11/14/17 12:25 Dose: 50 mls/hr Dextrose (D5w) 1,000 mls @ 100 mls/hr IV .Q10H [facility] Stop: 01/09/18 14:59 Last Admin: 11/14/17 14:46 Dose: 100 mls/hr Vancomycin HCl 1.5 gm/ Sodium (Chloride) 500 mls @ 250 mls/hr IV Q18H [facility] Stop: 01/10/18 14:59 Last Admin: 11/14/17 03:15 Dose: 250 mls/hr Insulin Aspart (Novolog) 0 units SUBQ ACHS [facility] PRN Reason: Protocol Stop: 01/07/18 20:59 Last Admin: 11/14/17 11:37 Dose: Not Given Ipratropium [place] (Atrovent Neb 0.5mg/2.5ml) 0.5 mg IH Q2HRT PRN PRN Reason: Shortness of Breath or Wheeze Stop: 01/07/18 20:28 Lactulose (Cephulac) 30 gm PO BID [facility] Stop: 01/13/18 10:49 Last Admin: 11/14/17 11:05 Dose: 30 gm Lorazepam (Ativan) 1 mg IVP Q6HR PRN; Protocol PRN Reason: Agitation Stop: 01/09/18 08:36 Last Admin: 11/14/17 11:28 Dose: 1 mg Magnesium Hydroxide (Milk Of Magnesia) 30 ml PO DAILY PRN PRN Reason: Constipation Stop: 01/07/18 20:25 Miscellaneous (Clinical Monitoring) 1 ea MC DAILY PRN PRN Reason: RENAL Stop: 01/08/18 08:43 Miscellaneous (Vancomycin Iv Per Pharmacy) 1 ea MC PRN [facility] Stop: 01/09/18 11:29 Miscellaneous (Probiotic Screen) 1 ea PRN PRN PRN Reason: PROTOCOL Stop: 01/10/18 16:55 Morphine Sulfate (Morphine) 1 mg IVP Q6H PRN PRN Reason: Pain (Moderate) Stop: 01/09/18 08:30 Last Admin: 11/14/17 11:29 Dose: 1 mg Ondansetron HCl (Zofran) 4 mg IV Q8H PRN PRN Reason: Nausea / Vomiting Stop: 01/07/18 20:29 Quetiapine Fumarate (Seroquel) 25 mg PO BID [facility] PRN Reason: Protocol Stop: 01/11/18 16:59 Last Admin: 11/14/17 09:51 Dose: 25 mg Tramadol HCl (Ultram) 50 mg PO Q6HR PRN PRN Reason: PAIN Stop: 01/07/18 20:25 Last Admin: 11/10/17 01:56 Dose: 50 mg Zinc Sulfate (Zinc Sulfate) 220 mg PO DAILY [facility] Stop: 01/08/18 08:59 Last Admin: 11/14/17 09:51 Dose: 220 mg Zolpidem Tartrate (Ambien) 10 mg PO HS PRN PRN Reason: Insomnia Stop: 01/07/18 20:28 Last Admin: 11/09/17 21:49 Dose: 10 mg General: Mild distress HEENT: Atraumatic, Mucous membr. moist/pink Neck: Supple, +2 carotid pulse wo bruit Cardiovascular: Regular rate, Normal S1, Normal S2 Lungs: Clear to auscultation Abdomen: Bowel sounds, Soft Extremities: no Edema Neurological: Sensation intact Skin: Breakdown Psych/Mental Status: Other (acute psychosis) Assessment/Plan - Problem List Patient Problems: All Active Problems ABNORMAL LAB RESULTS (Acute) - Assessment Assessment: DENNIS Uremic enceph Psychosis COPD Multiple hematomas back Multiple ulcers lower ext Type 2 DM Ess Htn AICD - Plan Plan: Lab - Result Diagrams 11/10/17 05:20 11/10/17 05:20 Current Medications Acetaminophen (Tylenol) 650 mg PO Q4H PRN PRN Reason: Pain Or Fever above 101 Stop: 01/07/18 20:29 Last Admin: 11/10/17 00:56 Dose: 650 mg Al Hydrox/Mg Hydrox/Simethicone (Maalox) 30 ml PO Q6H PRN PRN Reason: Dyspepsia Stop: 01/07/18 20:28 Albuterol Sulfate (Albuterol 2.5mg/3ml Neb Ud) 2.5 mg HHN Q2HRT PRN PRN Reason: Shortness of Breath or Wheeze Stop: 01/07/18 20:28 Ascorbic Acid (Vitamin C) 500 mg PO DAILY [facility] Stop: 01/08/18 08:59 Last Admin: 11/10/17 09:00 Dose: Not Given Benztropine Mesylate (Cogentin) 1 mg PO BID [facility] Stop: 01/08/18 08:59 Last Admin: 11/10/17 09:00 Dose: Not Given Carvedilol (Coreg) 12.5 mg PO BID [facility] Stop: 01/08/18 08:59 Last Admin: 11/10/17 12:15 Dose: 12.5 mg Docusate Sodium (Colace) 100 mg PO DAILY [facility] Stop: 01/08/18 08:59 Last Admin: 11/10/17 09:00 Dose: Not Given Gabapentin (Neurontin) 300 mg PO TID [facility] Stop: 01/07/18 20:59 Last Admin: 11/10/17 12:17 Dose: Not Given Haloperidol (Haldol) 2.5 mg PO BID [facility] PRN Reason: Protocol Stop: 01/08/18 14:46 Last Admin: 11/10/17 09:00 Dose: Not Given Heparin Sodium (Porcine) (Heparin) 5,000 units SUBQ Q12HR [facility] Stop: 01/07/18 20:59 Last Admin: 11/10/17 12:18 Dose: Not Given Sodium Chloride (Nacl 0.45%) 1,000 mls @ 100 mls/hr IV .Q10H [facility] Stop: 01/07/18 20:29 Last Admin: 11/09/17 06:43 Dose: Not Given Vancomycin HCl 1.5 gm/ Sodium (Chloride) 500 mls @ 250 mls/hr IV Q12H [facility] Stop: 01/09/18 11:59 Last Admin: 11/10/17 13:15 Dose: 250 mls/hr Piperacillin Sod/Tazobactam (Sod 2.25 gm/ Dextrose) 50 mls @ 50 mls/hr IV Q8HR [facility] Stop: 01/09/18 12:59 Insulin Aspart (Novolog) 0 units SUBQ ACHS [facility] PRN Reason: Protocol Stop: 01/07/18 20:59 Last Admin: 11/10/17 08:23 Dose: Not Given Ipratropium [place] (Atrovent Neb 0.5mg/2.5ml) 0.5 mg IH Q2HRT PRN PRN Reason: Shortness of Breath or Wheeze Stop: 01/07/18 20:28 Lorazepam (Ativan) 1 mg IVP Q6HR PRN; Protocol PRN Reason: Agitation Stop: 01/09/18 08:36 Magnesium Hydroxide (Milk Of Magnesia) 30 ml PO DAILY PRN PRN Reason: Constipation Stop: 01/07/18 20:25 Miscellaneous (Clinical Monitoring) 1 ea MC DAILY PRN PRN Reason: RENAL Stop: 01/08/18 08:43 Miscellaneous (Vancomycin Iv Per Pharmacy) 1 ea MC PRN [facility] Stop: 01/09/18 11:29 Morphine Sulfate (Morphine) 1 mg IVP Q6H PRN PRN Reason: Pain (Moderate) Stop: 01/09/18 08:30 Ondansetron HCl (Zofran) 4 mg IV Q8H PRN PRN Reason: Nausea / Vomiting Stop: 01/07/18 20:29 Quetiapine Fumarate (Seroquel) 12.5 mg PO TID [facility] PRN Reason: Protocol Stop: 01/08/18 20:59 Last Admin: 11/10/17 09:00 Dose: Not Given Tramadol HCl (Ultram) 50 mg PO Q6HR PRN PRN Reason: PAIN Stop: 01/07/18 20:25 Last Admin: 11/10/17 01:56 Dose: 50 mg Zinc Sulfate (Zinc Sulfate) 220 mg PO DAILY [facility] Stop: 01/08/18 08:59 Last Admin: 11/10/17 12:18 Dose: Not Given Zolpidem Tartrate (Ambien) 10 mg PO HS PRN PRN Reason: Insomnia Stop: 01/07/18 20:28 Last Admin: 11/09/17 21:49 Dose: 10 mg Lab - Result Diagrams 11/14/17 05:48 11/14/17 14:40 Na down to 149 BUN down to 27, Cr. stable f/u electrolytes, cbc Na gradually increasing, started IVF Nutritional Asmnt/Malnutr-PDOC - Dietary Evaluation Malnutrition Findings (Please click <Entered> for more info): Nutritional Asmnt/Malnutrition Start: 11/11/17 16: 30 Text: Status: Complete Freq: Document 11/11/17 16:30 LCHENG (Rec: 11/11/17 16:49 [email or web address]) Nutritional Asmnt/Malnutrition Patient General Information Nutritional Screening High Risk Consult Diagnosis ALOC, ARF Pertinent Medical Hx/Surgical Hx DM, psychosis, HTN, anxiety, chest defibrillator, COPD, CHF , CAD, alzheimer's Subjective Information Consult received for FTT. Per notes, pt refused breakfast, only take liquid at lunch and soup for dinner on 11/10. Spoke with YASMIN Ch, RN reported pt was agitated, not eating food. Diet down to pureed diet from dinner, dinner tray at bed side at the time of visit. Per RN, Pt took long time to swallow meds mixed with pudding. Current Diet Order/ Nutrition Support pureed, Prosource 30ml daily Pertinent Medications vitamin C, D5, colace, novolog , piperacillin, seroquel, vancomycin, zinc Pertinent Labs 11/11 Na 150, K 3.8, Cl 120, BUN 42, Cr 1.7, GLucose 157, POC 125, Ammonia 73 Nutritional Hx/Data Height 1.78 m Height (Calculated Centimeters) 177.8 Current Weight (lbs) 108.091 kg Weight (Calculated Kilograms) 108.1 Weight (Calculated Grams) 280798.1 [place] Body Weight 166 % [place] Body Weight 144 Body Mass Index (BMI) 34.2 Weight Status Obese GI Symptoms GI Symptoms None Skin Integrity/Comment: skin tear to right arm, bruise to left arm, decubitus ulceration to right big toe Estimated Nutritional Goals BEE in Kcals: Adj wt of IBW Calories/Kcals/Kg 25-30 Kcals Calculated 9544-8453 Protein: Adj wt of IBW Protein g/k.6-0.8 Protein Calculated 50-67g monitor renal labs Fluid: ml per MD d/t ARF Nutritional Problem 2. Problem Problem altered nutrition related lab values Etiology acute renal failure Signs/Symptoms: BUN 42, Cr 1.7 1. Problem Problem inadequate food intake Etiology mental status, possible swallow problem Signs/Symptoms: PO intake < 25% Malnutrition Alert Protein-Calorie Malnutrition N/A Is there a minimum of two criteria No selected? Query Text:Check all the applicable criteria. A minimum of two criteria are recommended for diagnosis of either severe or non-severe malnutrition. Intervention/Recommendation Comments 1. Recommend swallow eval d/t possible swallowing problem 2. If pt failed swallow eval, will consider alternative nutrition route 3. If continue to oral diet, will consider nutrition supplements to increase nutrition intake 4. F/U as high risk in 2-3 days, 11/13-11/14 Expected Outcomes/Goals Expected Outcomes/Goals 1. Pt to meet at least 75% of nutritional needs in 2-3 days. 2. Wt stability, skin to remain intact, labs to improve .
[2017-11-15 06:16] LABS: % BASOPHILS 0.6 % (0.0-2.0); % EOSINOPHILS 4.3 % (0.0-5.0); % LYMPHOCYTES 11.1 % (20.0-50.0); % MONOCYTES 11.9 % (2.0-10.0); % NEUTROPHILS 72.1 % (40.0-80.0); BASOPHILE ABSOLUTE 0.1 Th/cumm (0-0.2); EOSINOPHILE ABSOLUTE 0.4 Th/cmm (0.1-0.4); HEMATOCRIT 32.9 % (41.0-60); HEMOGLOBIN 11.3 gm/dL (12-16); MEAN CELL VOLUME 97.1 fl (80-99); MEAN CORPUSCULAR HEMOGLOBIN 33.3 pg (27.0-31.0); MEAN CORPUSCULAR HGB CONC 34.3 pg (28.0-36.0); MEAN PLATELET VOLUME 9.5 fl; MONOCYTE ABSOLUTE 1.1 Th/cmm (0.3-1.0); NEUTROPHILE ABSOLUTE 6.4 Th/cmm (1.8-8.0); PLATELET COUNT 175 Th/cmm (150-400); RED BLOOD COUNT 3.39 Mil/cmm (3.80-5.80); RED CELL DISTRIBUTION WIDTH 13.4 % (11.5-20.0)
[2017-11-15 06:30] LABS: ANION GAP 11.1 (7.0-16.0); BUN - UREA NITROGEN 17 mg/dL (7-25); CALCIUM SERUM 8.9 mg/dL (8.6-10.3); CARBON DIOXIDE 23.3 mEq/L (21.0-31.0); CHLORIDE 116 mEq/L (98-107); CREATININE - SERUM 1.4 mg/dL (0.7-1.3); GLUCOSE 123 mg/dL (70-105); POTASSIUM SERUM 3.4 mEq/L (3.5-5.1); SODIUM SERUM 147 mEq/L (136-145)
[2017-11-15] MEDS: INSULIN ASPART, RECOMBINANT 100 UNITS/ML SUBQ SCH ×4 (07:16→22:32)
--- NOTE | 2017-11-15 08:33 | Diagnostic Imaging Report ---
Bilateral lower extremity Doppler venous ultrasound exam HISTORY: Pain/swelling Sonographic sector images were obtained through the deep venous systems of both legs. Associated Doppler data was obtained. The exam demonstrates patency of the common femoral, superficial femoral, popliteal, and posterior tibial veins bilaterally. Specifically, no thrombus is seen. There are normal compressibility and augmentation responses. IMPRESSION: Negative exam for deep vein thrombophlebitis.
[2017-11-15] MEDS: Benztropine 1 MG TAB PO SCH ×2 (08:58→17:30)
[2017-11-15] MEDS: Vancomycin HCl 1.5 GM in Sodium Chloride 0.9% 500 ML IV SCH (09:00)
[2017-11-15] MEDS: Multivitamin w/ Minerals Tab PO SCH (09:00)
[2017-11-15] MEDS: Lactulose 10 Gm/15 mL 30mL UDC PO SCH ×2 (09:01→17:32)
--- NOTE | 2017-11-15 09:05 | General Progress Note ---
Subjective - Review of Systems Service Date: 11/15/17 Events since last encounter: doppler: no DVT still waiting for arterial study Objective - Results Result Diagrams: 11/15/17 05:55 11/15/17 05:55 Recent Labs: Laboratory Last Values WBC 9.0 Th/cmm (4.8-10.8) 11/15/17 05:55 RBC 3.39 Mil/cmm (3.80-5.80) L 11/15/17 05:55 Hgb 11.3 gm/dL (12-16) L 11/15/17 05:55 Hct 32.9 % (41.0-60) L 11/15/17 05:55 MCV 97.1 fl (80-99) 11/15/17 05:55 MCH 33.3 pg (27.0-31.0) H 11/15/17 05:55 MCHC Differential 34.3 pg (28.0-36.0) 11/15/17 05:55 RDW 13.4 % (11.5-20.0) 11/15/17 05:55 Plt Count 175 Th/cmm (150-400) 11/15/17 05:55 MPV 9.5 fl 11/15/17 05:55 Neutrophils % 72.1 % (40.0-80.0) 11/15/17 05:55 Lymphocytes % 11.1 % (20.0-50.0) L 11/15/17 05:55 Monocytes % 11.9 % (2.0-10.0) H 11/15/17 05:55 Eosinophils % 4.3 % (0.0-5.0) 11/15/17 05:55 Basophils % 0.6 % (0.0-2.0) 11/15/17 05:55 PT 11.5 SECONDS (9.5-11.5) 11/08/17 17:50 INR 1.10 (0.5-1.4) 11/08/17 17:50 PTT (Actin FS) 24.5 SECONDS (26.0-38.0) L 11/08/17 17:50 Sodium 147 mEq/L (136-145) H 11/15/17 05:55 Potassium 3.4 mEq/L (3.5-5.1) L 11/15/17 05:55 Chloride 116 mEq/L (98-107) H 11/15/17 05:55 Carbon Dioxide 23.3 mEq/L (21.0-31.0) 11/15/17 05:55 Anion Gap 11.1 (7.0-16.0) 11/15/17 05:55 BUN 17 mg/dL (7-25) 11/15/17 05:55 Creatinine 1.4 mg/dL (0.7-1.3) H 11/15/17 05:55 Est GFR ( Amer) TNP 11/15/17 05:55 Est GFR (Non-Af Amer) TNP 11/15/17 05:55 BUN/Creatinine Ratio 12.1 11/15/17 05:55 Glucose 123 mg/dL (70-105) H 11/15/17 05:55 POC Glucose 120 MG/DL (70 - 105) H 11/15/17 05:54 Whole Bld Lactic Acid 1.69 mmol/L (0.60-1.99) 11/08/17 18:55 Uric Acid 8.2 mg/dL (4.4-7.6) H 11/10/17 05:20 Calcium 8.9 mg/dL (8.6-10.3) 11/15/17 05:55 Phosphorus 2.8 mg/dL (2.5-5.0) 11/10/17 05:20 Magnesium 1.8 mg/dL (1.9-2.7) L 11/10/17 05:20 Total Bilirubin 1.0 mg/dL (0.3-1.0) 11/08/17 18:55 Direct Bilirubin 0.24 mg/dL (0.0-0.2) H 11/08/17 17:50 AST 57 U/L (13-39) H 11/08/17 18:55 ALT 35 U/L (7-52) 11/08/17 18:55 Alkaline Phosphatase 66 U/L (34-104) 11/08/17 18:55 Ammonia 39 umol/L (16-53) 11/15/17 05:55 Creatine Kinase 1066 U/L (30-223) H 11/08/17 18:55 CK-MB (CK-2) 8.7 ng/mL (0.6-6.3) H 11/08/17 18:55 Troponin I 0.03 ng/mL (0.01-0.05) 11/08/17 18:55 B-Natriuretic Peptide 313.0 pg/mL (5.0-100.0) H 11/15/17 05:55 Total Protein 8.6 gm/dL (6.0-8.3) H 11/08/17 18:55 Albumin 3.8 gm/dL (4.2-5.5) L 11/08/17 18:55 Globulin 4.8 gm/dL 11/08/17 18:55 Albumin/Globulin Ratio 0.8 (1.0-1.8) L 11/08/17 18:55 Triglycerides 117 mg/dL (<150) 11/08/17 18:55 Cholesterol 188 mg/dL (<200) 11/08/17 18:55 LDL Cholesterol Direct 163 mg/dL (75-193) 11/08/17 18:55 HDL Cholesterol 37 mg/dL (23-92) 11/08/17 18:55 Amylase 43 U/L (29-103) 11/08/17 17:50 Lipase 13 U/L (11-82) 11/08/17 17:50 Urine Source MIDSTREAM 11/13/17 05:30 Urine Color YELLOW 11/13/17 05:30 Urine Clarity HAZY (CLEAR) 11/13/17 05:30 Urine pH 5.5 (4.6 - 8.0) 11/13/17 05:30 Ur Specific [place] 1.025 (1.005-1.030) 11/13/17 05:30 Urine Protein 30 mg/dL (NEGATIVE) H 11/13/17 05:30 Urine Glucose (UA) NEGATIVE mg/dL (NEGATIVE) 11/13/17 05:30 Urine Ketones NEGATIVE mg/dL (NEGATIVE) 11/13/17 05:30 Urine Blood SMALL (NEGATIVE) H 11/13/17 05:30 Urine Nitrate NEGATIVE (NEGATIVE) 11/13/17 05:30 Urine Bilirubin SMALL (NEGATIVE) H 11/13/17 05:30 Urine Urobilinogen 2.0 E.U./dL (0.2 - 1.0) 11/13/17 05:30 Ur Leukocyte Esterase NEGATIVE (NEGATIVE) 11/13/17 05:30 Urine RBC 0-2 /hpf (0-5) H 11/13/17 05:30 Urine WBC 0-2 /hpf (0-5) 11/13/17 05:30 Ur Epithelial Cells OCCASIONAL /lpf (FEW) 11/13/17 05:30 Calcium Oxalate Crystal FEW /hpf 11/13/17 05:30 Urine Bacteria 2+ /hpf (NONE SEEN) H 11/13/17 05:30 Coarse Granular Casts 0-2 /lpf (NONE SEEN) H 11/13/17 05:30 Ur Random Sodium 83 mmol/L 11/13/17 05:30 Urine Creatinine 199.0 mg/dl (39.0-259.0) 11/13/17 05:30 Vancomycin Trough 19.1 ug/mL (10-20) 11/14/17 14:40 - Physical Exam Vitals and I&O: Vital Signs Temp 97.8 F 11/15/17 04:00 Pulse 88 11/15/17 07:41 Resp 22 11/15/17 07:41 BP 120/60 11/15/17 04:00 Pulse Ox 97 11/15/17 07:41 Intake & Output 11/14/17 11/15/17 11/15/17 18:59 06:59 18:59 Intake Total 1150 50 Output Total 3 Balance 1147 50 Weight (lbs) 107.955 kg 107.955 kg Intake: Intake, IV Amount 1050 50 Dextrose 5% 1,000 ml @ 1000 100 mls/hr IV .Q10H [facility] Rx#:[id number] Piperacillin Sodium/ 50 50 Tazobact 2.25 gm In Dextrose 5% 50 ml @ 50 mls/hr IV Q8HR [facility] Rx#: [id number] Oral 100 Output: Urine/Stool Mix 3 Other: # Voids 4 3 # Bowel Movements 3 7 Stool Characteristics Formed Active Medications: Current Medications Acetaminophen (Tylenol) 650 mg PO Q4H PRN PRN Reason: Pain Or Fever above 101 Stop: 01/07/18 20:29 Last Admin: 11/10/17 00:56 Dose: 650 mg Al Hydrox/Mg Hydrox/Simethicone (Maalox) 30 ml PO Q6H PRN PRN Reason: Dyspepsia Stop: 01/07/18 20:28 Albuterol Sulfate (Albuterol 2.5mg/3ml Neb Ud) 2.5 mg HHN Q2HRT PRN PRN Reason: Shortness of Breath or Wheeze Stop: 01/07/18 20:28 Ascorbic Acid (Vitamin C) 500 mg PO DAILY [facility] Stop: 01/08/18 08:59 Last Admin: 11/14/17 09:52 Dose: 500 mg Benztropine Mesylate (Cogentin) 1 mg PO BID [facility] Stop: 01/08/18 08:59 Last Admin: 11/14/17 17:03 Dose: 1 mg Carvedilol (Coreg) 12.5 mg PO BID [facility] Stop: 01/08/18 08:59 Last Admin: 11/14/17 17:02 Dose: 12.5 mg Docusate Sodium (Colace) 100 mg PO DAILY [facility] Stop: 01/08/18 08:59 Last Admin: 11/14/17 09:51 Dose: 100 mg Gabapentin (Neurontin) 300 mg PO TID [facility] Stop: 01/07/18 20:59 Last Admin: 11/14/17 23:09 Dose: 300 mg Heparin Sodium (Porcine) (Heparin) 5,000 units SUBQ Q12HR [facility] Stop: 01/07/18 20:59 Last Admin: 11/14/17 23:04 Dose: 5,000 units Piperacillin Sod/Tazobactam (Sod 2.25 gm/ Dextrose) 50 mls @ 50 mls/hr IV Q8HR [facility] Stop: 01/09/18 12:59 Last Admin: 11/15/17 05:55 Dose: 50 mls/hr Dextrose (D5w) 1,000 mls @ 100 mls/hr IV .Q10H [facility] Stop: 01/09/18 14:59 Last Admin: 11/14/17 14:46 Dose: 100 mls/hr Vancomycin HCl 1.5 gm/ Sodium (Chloride) 500 mls @ 250 mls/hr IV Q18H [facility] Stop: 01/10/18 14:59 Last Admin: 11/14/17 15:29 Dose: 250 mls/hr Insulin Aspart (Novolog) 0 units SUBQ ACHS [facility] PRN Reason: Protocol Stop: 01/07/18 20:59 Last Admin: 11/15/17 07:16 Dose: Not Given Ipratropium [place] (Atrovent Neb 0.5mg/2.5ml) 0.5 mg IH Q2HRT PRN PRN Reason: Shortness of Breath or Wheeze Stop: 02/17/18 20:28 Lactulose (Cephulac) 30 gm PO BID [facility] Stop: 01/13/18 10:49 Last Admin: 11/14/17 17:04 Dose: 30 gm Lorazepam (Ativan) 1 mg IVP Q6HR PRN; Protocol PRN Reason: Agitation Stop: 01/09/18 08:36 Last Admin: 11/15/17 01:22 Dose: 1 mg Magnesium Hydroxide (Milk Of Magnesia) 30 ml PO DAILY PRN PRN Reason: Constipation Stop: 01/07/18 20:25 Miscellaneous (Clinical Monitoring) 1 ea MC DAILY PRN PRN Reason: RENAL Stop: 01/08/18 08:43 Miscellaneous (Vancomycin Iv Per Pharmacy) 1 ea PRN [facility] Stop: 01/09/18 11:29 Miscellaneous (Probiotic Screen) 1 ea PRN PRN PRN Reason: PROTOCOL Stop: 01/10/18 16:55 Morphine Sulfate (Morphine) 1 mg IVP Q6H PRN PRN Reason: Pain (Moderate) Stop: 01/09/18 08:30 Last Admin: 11/14/17 11:29 Dose: 1 mg Ondansetron HCl (Zofran) 4 mg IV Q8H PRN PRN Reason: Nausea / Vomiting Stop: 01/07/18 20:29 Quetiapine Fumarate (Seroquel) 25 mg PO BID [facility] PRN Reason: Protocol Stop: 01/11/18 16:59 Last Admin: 11/14/17 17:03 Dose: 25 mg Tramadol HCl (Ultram) 50 mg PO Q6HR PRN PRN Reason: PAIN Stop: 01/07/18 20:25 Last Admin: 11/10/17 01:56 Dose: 50 mg Zinc Sulfate (Zinc Sulfate) 220 mg PO DAILY [facility] Stop: 01/08/18 08:59 Last Admin: 11/14/17 09:51 Dose: 220 mg Zolpidem Tartrate (Ambien) 10 mg PO HS PRN PRN Reason: Insomnia Stop: 01/07/18 20:28 Last Admin: 11/09/17 21:49 Dose: 10 mg General: Mild distress HEENT: Atraumatic, Mucous membr. moist/pink Neck: Supple, +2 carotid pulse wo bruit Cardiovascular: Regular rate, Normal S1, Normal S2 Lungs: Clear to auscultation Abdomen: Bowel sounds, Soft Extremities: no Edema Neurological: Sensation intact Skin: Breakdown Psych/Mental Status: Other (acute psychosis) Assessment/Plan - Problem List Patient Problems: All Active Problems ABNORMAL LAB RESULTS (Acute) Nutritional Asmnt/Malnutr-PDOC - Dietary Evaluation Malnutrition Findings (Please click <Entered> for more info): Nutritional Asmnt/Malnutrition Start: 11/11/17 16: 30 Text: Status: Complete Freq: Document 11/11/17 16:30 [facility] (Rec: 11/11/17 16:49 HEN [email or web address]) Nutritional Asmnt/Malnutrition Patient General Information Nutritional Screening High Risk Consult Diagnosis ALOC, ARF Pertinent Medical Hx/Surgical Hx DM, psychosis, HTN, anxiety, chest defibrillator, COPD, CHF , CAD, alzheimer's Subjective Information Consult received for FTT. Per notes, pt refused breakfast, only take liquid at lunch and soup for dinner on 11/10. Spoke with YASMIN Ch, RN reported pt was agitated, not eating food. Diet down to pureed diet from dinner, dinner tray at bed side at the time of visit. Per RN, Pt took long time to swallow meds mixed with pudding. Current Diet Order/ Nutrition Support pureed, Prosource 30ml daily Pertinent Medications vitamin C, D5, colace, novolog , piperacillin, seroquel, vancomycin, zinc Pertinent Labs 11/11 Na 150, K 3.8, Cl 120, BUN 42, Cr 1.7, GLucose 157, POC 125, Ammonia 73 Nutritional Hx/Data Height 1.78 m Height (Calculated Centimeters) 177.8 Current Weight (lbs) 108.091 kg Weight (Calculated Kilograms) 108.1 Weight (Calculated Grams) 337049.1 [place] Body Weight 166 % [place] Body Weight 144 Body Mass Index (BMI) 34.2 Weight Status Obese GI Symptoms GI Symptoms None Skin Integrity/Comment: skin tear to right arm, bruise to left arm, decubitus ulceration to right big toe Estimated Nutritional Goals BEE in Kcals: Adj wt of IBW Calories/Kcals/Kg 25-30 Kcals Calculated 9550-7800 Protein: Adj wt of IBW Protein g/k.6-0.8 Protein Calculated 50-67g monitor renal labs Fluid: ml per MD d/t ARF Nutritional Problem 2. Problem Problem altered nutrition related lab values Etiology acute renal failure Signs/Symptoms: BUN 42, Cr 1.7 1. Problem Problem inadequate food intake Etiology mental status, possible swallow problem Signs/Symptoms: PO intake < 25% Malnutrition Alert Protein-Calorie Malnutrition N/A Is there a minimum of two criteria No selected? Query Text:Check all the applicable criteria. A minimum of two criteria are recommended for diagnosis of either severe or non-severe malnutrition. Intervention/Recommendation Comments 1. Recommend swallow eval d/t possible swallowing problem 2. If pt failed swallow eval, will consider alternative nutrition route 3. If continue to oral diet, will consider nutrition supplements to increase nutrition intake 4. F/U as high risk in 2-3 days, 11/13-11/14 Expected Outcomes/Goals Expected Outcomes/Goals 1. Pt to meet at least 75% of nutritional needs in 2-3 days. 2. Wt stability, skin to remain intact, labs to improve .
[2017-11-15] MEDS: Morphine Sulfate 2 mg/mL 1mL Syr IVP PRN (11:21)
--- NOTE | 2017-11-15 12:50 | Internal Medicine Prog Note ---
Internal Medicine Subjective - Subjective Service Date: 11/15/17 Patient is:: awake, agitated, confused Patient Complaints of:: other (pain) Per staff patient has:: tolerating meds Internal Medicine Objective - Results Result Diagrams: 11/15/17 05:55 11/15/17 05:55 Recent Labs: Laboratory Last Values WBC 9.0 Th/cmm (4.8-10.8) 11/15/17 05:55 RBC 3.39 Mil/cmm (3.80-5.80) L 11/15/17 05:55 Hgb 11.3 gm/dL (12-16) L 11/15/17 05:55 Hct 32.9 % (41.0-60) L 11/15/17 05:55 MCV 97.1 fl (80-99) 11/15/17 05:55 MCH 33.3 pg (27.0-31.0) H 11/15/17 05:55 MCHC Differential 34.3 pg (28.0-36.0) 11/15/17 05:55 RDW 13.4 % (11.5-20.0) 11/15/17 05:55 Plt Count 175 Th/cmm (150-400) 11/15/17 05:55 MPV 9.5 fl 11/15/17 05:55 Neutrophils % 72.1 % (40.0-80.0) 11/15/17 05:55 Lymphocytes % 11.1 % (20.0-50.0) L 11/15/17 05:55 Monocytes % 11.9 % (2.0-10.0) H 11/15/17 05:55 Eosinophils % 4.3 % (0.0-5.0) 11/15/17 05:55 Basophils % 0.6 % (0.0-2.0) 11/15/17 05:55 PT 11.5 SECONDS (9.5-11.5) 11/08/17 17:50 INR 1.10 (0.5-1.4) 11/08/17 17:50 PTT (Actin FS) 24.5 SECONDS (26.0-38.0) L 11/08/17 17:50 Sodium 147 mEq/L (136-145) H 11/15/17 05:55 Potassium 3.4 mEq/L (3.5-5.1) L 11/15/17 05:55 Chloride 116 mEq/L (98-107) H 11/15/17 05:55 Carbon Dioxide 23.3 mEq/L (21.0-31.0) 11/15/17 05:55 Anion Gap 11.1 (7.0-16.0) 11/15/17 05:55 BUN 17 mg/dL (7-25) 11/15/17 05:55 Creatinine 1.4 mg/dL (0.7-1.3) H 11/15/17 05:55 Est GFR ( Amer) TNP 11/15/17 05:55 Est GFR (Non-Af Amer) TNP 11/15/17 05:55 BUN/Creatinine Ratio 12.1 11/15/17 05:55 Glucose 123 mg/dL (70-105) H 11/15/17 05:55 POC Glucose 116 MG/DL (70 - 105) H 11/15/17 11:33 Whole Bld Lactic Acid 1.69 mmol/L (0.60-1.99) 11/08/17 18:55 Uric Acid 8.2 mg/dL (4.4-7.6) H 11/10/17 05:20 Calcium 8.9 mg/dL (8.6-10.3) 11/15/17 05:55 Phosphorus 2.8 mg/dL (2.5-5.0) 11/10/17 05:20 Magnesium 1.8 mg/dL (1.9-2.7) L 11/10/17 05:20 Total Bilirubin 1.0 mg/dL (0.3-1.0) 11/08/17 18:55 Direct Bilirubin 0.24 mg/dL (0.0-0.2) H 11/08/17 17:50 AST 57 U/L (13-39) H 11/08/17 18:55 ALT 35 U/L (7-52) 11/08/17 18:55 Alkaline Phosphatase 66 U/L (34-104) 11/08/17 18:55 Ammonia 39 umol/L (16-53) 11/15/17 05:55 Creatine Kinase 1066 U/L (30-223) H 11/08/17 18:55 CK-MB (CK-2) 8.7 ng/mL (0.6-6.3) H 11/08/17 18:55 Troponin I 0.03 ng/mL (0.01-0.05) 11/08/17 18:55 B-Natriuretic Peptide 313.0 pg/mL (5.0-100.0) H 11/15/17 05:55 Total Protein 8.6 gm/dL (6.0-8.3) H 11/08/17 18:55 Albumin 3.8 gm/dL (4.2-5.5) L 11/08/17 18:55 Globulin 4.8 gm/dL 11/08/17 18:55 Albumin/Globulin Ratio 0.8 (1.0-1.8) L 11/08/17 18:55 Triglycerides 117 mg/dL (<150) 11/08/17 18:55 Cholesterol 188 mg/dL (<200) 11/08/17 18:55 LDL Cholesterol Direct 163 mg/dL (75-193) 11/08/17 18:55 HDL Cholesterol 37 mg/dL (23-92) 11/08/17 18:55 Amylase 43 U/L (29-103) 11/08/17 17:50 Lipase 13 U/L (11-82) 11/08/17 17:50 Urine Source MIDSTREAM 11/13/17 05:30 Urine Color YELLOW 11/13/17 05:30 Urine Clarity HAZY (CLEAR) 11/13/17 05:30 Urine pH 5.5 (4.6 - 8.0) 11/13/17 05:30 Ur Specific [place] 1.025 (1.005-1.030) 11/13/17 05:30 Urine Protein 30 mg/dL (NEGATIVE) H 11/13/17 05:30 Urine Glucose (UA) NEGATIVE mg/dL (NEGATIVE) 11/13/17 05:30 Urine Ketones NEGATIVE mg/dL (NEGATIVE) 11/13/17 05:30 Urine Blood SMALL (NEGATIVE) H 11/13/17 05:30 Urine Nitrate NEGATIVE (NEGATIVE) 11/13/17 05:30 Urine Bilirubin SMALL (NEGATIVE) H 11/13/17 05:30 Urine Urobilinogen 2.0 E.U./dL (0.2 - 1.0) 11/13/17 05:30 Ur Leukocyte Esterase NEGATIVE (NEGATIVE) 11/13/17 05:30 Urine RBC 0-2 /hpf (0-5) H 11/13/17 05:30 Urine WBC 0-2 /hpf (0-5) 11/13/17 05:30 Ur Epithelial Cells OCCASIONAL /lpf (FEW) 11/13/17 05:30 Calcium Oxalate Crystal FEW /hpf 11/13/17 05:30 Urine Bacteria 2+ /hpf (NONE SEEN) H 11/13/17 05:30 Coarse Granular Casts 0-2 /lpf (NONE SEEN) H 11/13/17 05:30 Ur Random Sodium 83 mmol/L 11/13/17 05:30 Urine Creatinine 199.0 mg/dl (39.0-259.0) 11/13/17 05:30 Vancomycin Trough 19.1 ug/mL (10-20) 11/14/17 14:40 - Physical Exam Vitals and I&O: Vital Signs Temp 97.8 F 11/15/17 04:00 Pulse 78 11/15/17 08:59 Resp 18 11/15/17 08:00 BP 127/63 11/15/17 08:59 Pulse Ox 97 11/15/17 07:41 Intake & Output 11/14/17 11/15/17 11/15/17 18:59 06:59 18:59 Intake Total 1650 50 Output Total 3 Balance 1647 50 Weight (lbs) 238 lb 238 lb Intake: Intake, IV Amount 1550 50 Dextrose 5% 1,000 ml @ 1000 100 mls/hr IV .Q10H [facility] Rx#:[id number] Piperacillin Sodium/ 50 50 Tazobact 2.25 gm In Dextrose 5% 50 ml @ 50 mls/hr IV Q8HR [facility] Rx#: [id number] Vancomycin HCl 1.5 gm In 500 Sodium Chloride 0.9% 500 ml @ 250 mls/hr IV Q18H [facility] Rx#:[id number] Oral 100 Output: Urine/Stool Mix 3 Other: # Voids 4 3 # Bowel Movements 3 7 Stool Characteristics Formed Active Medications: Current Medications Acetaminophen (Tylenol) 650 mg PO Q4H PRN PRN Reason: Pain Or Fever above 101 Stop: 01/07/18 20:29 Last Admin: 11/10/17 00:56 Dose: 650 mg Al Hydrox/Mg Hydrox/Simethicone (Maalox) 30 ml PO Q6H PRN PRN Reason: Dyspepsia Stop: 01/07/18 20:28 Albuterol Sulfate (Albuterol 2.5mg/3ml Neb Ud) 2.5 mg HHN Q2HRT PRN PRN Reason: Shortness of Breath or Wheeze Stop: 01/07/18 20:28 Ascorbic Acid (Vitamin C) 500 mg PO DAILY [facility] Stop: 01/08/18 08:59 Last Admin: 11/15/17 08:59 Dose: 500 mg Benztropine Mesylate (Cogentin) 1 mg PO BID [facility] Stop: 01/08/18 08:59 Last Admin: 11/15/17 08:58 Dose: 1 mg Carvedilol (Coreg) 12.5 mg PO BID [facility] Stop: 01/08/18 08:59 Last Admin: 11/15/17 08:59 Dose: 12.5 mg Docusate Sodium (Colace) 100 mg PO DAILY [facility] Stop: 01/08/18 08:59 Last Admin: 11/15/17 09:01 Dose: Not Given Gabapentin (Neurontin) 300 mg PO TID [facility] Stop: 01/07/18 20:59 Last Admin: 11/15/17 09:00 Dose: 300 mg Heparin Sodium (Porcine) (Heparin) 5,000 units SUBQ Q12HR [facility] Stop: 01/07/18 20:59 Last Admin: 11/15/17 09:01 Dose: 5,000 units Piperacillin Sod/Tazobactam (Sod 2.25 gm/ Dextrose) 50 mls @ 50 mls/hr IV Q8HR [facility] Stop: 01/09/18 12:59 Last Admin: 11/15/17 05:55 Dose: 50 mls/hr Dextrose (D5w) 1,000 mls @ 100 mls/hr IV .Q10H [facility] Stop: 01/09/18 14:59 Last Admin: 11/14/17 14:46 Dose: 100 mls/hr Vancomycin HCl 1.5 gm/ Sodium (Chloride) 500 mls @ 250 mls/hr IV Q18H [facility] Stop: 01/10/18 14:59 Last Admin: 11/15/17 09:00 Dose: 250 mls/hr Insulin Aspart (Novolog) 0 units SUBQ ACHS [facility] PRN Reason: Protocol Stop: 01/07/18 20:59 Last Admin: 11/15/17 07:16 Dose: Not Given Ipratropium [place] (Atrovent Neb 0.5mg/2.5ml) 0.5 mg IH Q2HRT PRN PRN Reason: Shortness of Breath or Wheeze Stop: 01/07/18 20:28 Lactulose (Cephulac) 30 gm PO BID [facility] Stop: 01/13/18 10:49 Last Admin: 11/15/17 09:01 Dose: Not Given Lorazepam (Ativan) 1 mg IVP Q6HR PRN; Protocol PRN Reason: Agitation Stop: 01/09/18 08:36 Last Admin: 11/15/17 09:56 Dose: 1 mg Magnesium Hydroxide (Milk Of Magnesia) 30 ml PO DAILY PRN PRN Reason: Constipation Stop: 01/07/18 20:25 Miscellaneous (Clinical Monitoring) 1 ea DAILY PRN PRN Reason: RENAL Stop: 01/08/18 08:43 Miscellaneous (Vancomycin Iv Per Pharmacy) 1 ea PRN [facility] Stop: 01/09/18 11:29 Miscellaneous (Probiotic Screen) 1 ea PRN PRN PRN Reason: PROTOCOL Stop: 01/10/18 16:55 Morphine Sulfate (Morphine) 1 mg IVP Q6H PRN PRN Reason: Pain (Moderate) Stop: 01/09/18 08:30 Last Admin: 11/15/17 11:21 Dose: 1 mg Ondansetron HCl (Zofran) 4 mg IV Q8H PRN PRN Reason: Nausea / Vomiting Stop: 01/07/18 20:29 Quetiapine Fumarate (Seroquel) 25 mg PO BID [facility] PRN Reason: Protocol Stop: 01/11/18 16:59 Last Admin: 11/15/17 08:59 Dose: 25 mg Tramadol HCl (Ultram) 50 mg PO Q6HR PRN PRN Reason: PAIN Stop: 01/07/18 20:25 Last Admin: 11/10/17 01:56 Dose: 50 mg Zinc Sulfate (Zinc Sulfate) 220 mg PO DAILY [facility] Stop: 01/08/18 08:59 Last Admin: 11/15/17 08:59 Dose: 220 mg Zolpidem Tartrate (Ambien) 10 mg PO HS PRN PRN Reason: Insomnia Stop: 01/07/18 20:28 Last Admin: 11/09/17 21:49 Dose: 10 mg General: weak, alert HEENT: NC/AT, PERRLA Neck: Supple Lungs: CTAB Cardiovascular: RRR, Normal S1, Normal S2, without murmur Abdomen: soft, non-tender, non-distended, positive bowel sound Extremities: other (right elbow abscess, right big toe open wound, multiple open wound ) Neurological: no change Internal Medicine Assmt/Plan - Assessment Assessment: RIGHT ELBOW CELLULITIS MULTIPLE OPEN WOUND - MRSA WOUND ALOC ACUTE RENAL FAILURE DM2 PSYCHOSIS HTN MILD PROTEIN CALORIE MALNUTRITION CHEST DEFBRILLATOR STATUS COPD CHF CAD - Plan Plan: ltac eval continue ivabx continue with wound care follow up labs in am pain mgmt continue current plan of care Nutritional Asmnt/Malnutr-PDOC - Dietary Evaluation Malnutrition Findings (Please click <Entered> for more info): Nutritional Asmnt/Malnutrition Start: 11/11/17 16: 30 Text: Status: Complete Freq: Document 11/11/17 16:30 [email or web address] (Rec: 11/11/17 16:49 [email or web address]) Nutritional Asmnt/Malnutrition Patient General Information Nutritional Screening High Risk Consult Diagnosis ALOC, ARF Pertinent Medical Hx/Surgical Hx DM, psychosis, HTN, anxiety, chest defibrillator, COPD, CHF , CAD, alzheimer's Subjective Information Consult received for FTT. Per notes, pt refused breakfast, only take liquid at lunch and soup for dinner on 11/10. Spoke with YASMIN Ch, RN reported pt was agitated, not eating food. Diet down to pureed diet from dinner, dinner tray at bed side at the time of visit. Per RN, Pt took long time to swallow meds mixed with pudding. Current Diet Order/ Nutrition Support pureed, Prosource 30ml daily Pertinent Medications vitamin C, D5, colace, novolog , piperacillin, seroquel, vancomycin, zinc Pertinent Labs 11/11 Na 150, K 3.8, Cl 120, BUN 42, Cr 1.7, GLucose 157, POC 125, Ammonia 73 Nutritional Hx/Data Height 5 ft 10 in Height (Calculated Centimeters) 177.8 Current Weight (lbs) 238 lb 4.8 oz Weight (Calculated Kilograms) 108.1 Weight (Calculated Grams) 492582.1 Rupert Body Weight 166 % Rupert Body Weight 144 Body Mass Index (BMI) 34.2 Weight Status Obese GI Symptoms GI Symptoms None Skin Integrity/Comment: skin tear to right arm, bruise to left arm, decubitus ulceration to right big toe Estimated Nutritional Goals BEE in Kcals: Adj wt of IBW Calories/Kcals/Kg 25-30 Kcals Calculated [id number] Protein: Adj wt of IBW Protein g/k.6-0.8 Protein Calculated 50-67g monitor renal labs Fluid: ml per MD d/t ARF Nutritional Problem 2. Problem Problem altered nutrition related lab values Etiology acute renal failure Signs/Symptoms: BUN 42, Cr 1.7 1. Problem Problem inadequate food intake Etiology mental status, possible swallow problem Signs/Symptoms: PO intake < 25% Malnutrition Alert Protein-Calorie Malnutrition N/A Is there a minimum of two criteria No selected? Query Text:Check all the applicable criteria. A minimum of two criteria are recommended for diagnosis of either severe or non-severe malnutrition. Intervention/Recommendation Comments 1. Recommend swallow eval d/t possible swallowing problem 2. If pt failed swallow eval, will consider alternative nutrition route 3. If continue to oral diet, will consider nutrition supplements to increase nutrition intake 4. F/U as high risk in 2-3 days, 11/13-11/14 Expected Outcomes/Goals Expected Outcomes/Goals 1. Pt to meet at least 75% of nutritional needs in 2-3 days. 2. Wt stability, skin to remain intact, labs to improve .
[2017-11-15] MEDS ORDERED: Potassium Chloride 20 mEq ER Tab PO ONE (12:51)
[2017-11-16] MEDS: Dextrose 5% 1,000 ML IV SCH ×2 (00:42→18:22)
[2017-11-16] MEDS: Vancomycin HCl 1.5 GM in Sodium Chloride 0.9% 500 ML IV SCH ×2 (04:09→20:56)
[2017-11-16 06:20] LABS: % BASOPHILS 0.3 % (0.0-2.0); % EOSINOPHILS 5.8 % (0.0-5.0); % LYMPHOCYTES 17.5 % (20.0-50.0); % MONOCYTES 14.9 % (2.0-10.0); % NEUTROPHILS 61.5 % (40.0-80.0); EOSINOPHILE ABSOLUTE 0.4 Th/cmm (0.1-0.4); HEMATOCRIT 34.6 % (41.0-60); HEMOGLOBIN 11.6 gm/dL (12-16); LYMPHOCYTE ABSOLUTE 1.1 Th/cmm (1.5-3.0); MEAN CELL VOLUME 97.5 fl (80-99); MEAN CORPUSCULAR HEMOGLOBIN 32.6 pg (27.0-31.0); MEAN CORPUSCULAR HGB CONC 33.4 pg (28.0-36.0); MEAN PLATELET VOLUME 9.4 fl; MONOCYTE ABSOLUTE 0.9 Th/cmm (0.3-1.0); NEUTROPHILE ABSOLUTE 3.9 Th/cmm (1.8-8.0); PLATELET COUNT 172 Th/cmm (150-400); RED BLOOD COUNT 3.55 Mil/cmm (3.80-5.80); RED CELL DISTRIBUTION WIDTH 13.1 % (11.5-20.0)
[2017-11-16 06:21] LABS: WHITE BLOOD COUNT 6.3 Th/cmm (4.8-10.8)
[2017-11-16 06:37] LABS: ANION GAP 8.2 (7.0-16.0); BUN - UREA NITROGEN 15 mg/dL (7-25); CALCIUM SERUM 8.9 mg/dL (8.6-10.3); CARBON DIOXIDE 27.3 mEq/L (21.0-31.0); CHLORIDE 114 mEq/L (98-107); CREATININE - SERUM 1.3 mg/dL (0.7-1.3); GLUCOSE 130 mg/dL (70-105); POTASSIUM SERUM 3.5 mEq/L (3.5-5.1); SODIUM SERUM 146 mEq/L (136-145)
[2017-11-16] MEDS: INSULIN ASPART, RECOMBINANT 100 UNITS/ML SUBQ SCH ×4 (06:42→20:59)
[2017-11-16] MEDS: Benztropine 1 MG TAB PO SCH ×2 (10:14→18:21)
[2017-11-16] MEDS: Multivitamin w/ Minerals Tab PO SCH (10:15)
[2017-11-16] MEDS: Lactulose 10 Gm/15 mL 30mL UDC PO SCH ×2 (10:15→10:26)
--- NOTE | 2017-11-16 13:27 | Internal Medicine Prog Note ---
Internal Medicine Subjective - Subjective Patient seen and examined:: with staff, chart reviewed Patient is:: awake, non-verbal, non-interactive, eyes closed, in bed, agitated, confused Patient Complaints of:: other (pain) Per staff patient has:: no adverse event, no episodes of fall, poor appetite, combative, noncompliant, tolerating meds, refusing care Internal Medicine Objective - Results Result Diagrams: 11/16/17 05:55 11/16/17 05:55 Recent Labs: Laboratory Last Values WBC 6.3 Th/cmm (4.8-10.8) D 11/16/17 05:55 RBC 3.55 Mil/cmm (3.80-5.80) L 11/16/17 05:55 Hgb 11.6 gm/dL (12-16) L 11/16/17 05:55 Hct 34.6 % (41.0-60) L 11/16/17 05:55 MCV 97.5 fl (80-99) 11/16/17 05:55 MCH 32.6 pg (27.0-31.0) H 11/16/17 05:55 MCHC Differential 33.4 pg (28.0-36.0) 11/16/17 05:55 RDW 13.1 % (11.5-20.0) 11/16/17 05:55 Plt Count 172 Th/cmm (150-400) 11/16/17 05:55 MPV 9.4 fl 11/16/17 05:55 Neutrophils % 61.5 % (40.0-80.0) 11/16/17 05:55 Lymphocytes % 17.5 % (20.0-50.0) L 11/16/17 05:55 Monocytes % 14.9 % (2.0-10.0) H 11/16/17 05:55 Eosinophils % 5.8 % (0.0-5.0) H 11/16/17 05:55 Basophils % 0.3 % (0.0-2.0) 11/16/17 05:55 PT 11.5 SECONDS (9.5-11.5) 11/08/17 17:50 INR 1.10 (0.5-1.4) 11/08/17 17:50 PTT (Actin FS) 24.5 SECONDS (26.0-38.0) L 11/08/17 17:50 Sodium 146 mEq/L (136-145) H 11/16/17 05:55 Potassium 3.5 mEq/L (3.5-5.1) 11/16/17 05:55 Chloride 114 mEq/L (98-107) H 11/16/17 05:55 Carbon Dioxide 27.3 mEq/L (21.0-31.0) 11/16/17 05:55 Anion Gap 8.2 (7.0-16.0) 11/16/17 05:55 BUN 15 mg/dL (7-25) 11/16/17 05:55 Creatinine 1.3 mg/dL (0.7-1.3) 11/16/17 05:55 Est GFR ( Amer) TNP 11/16/17 05:55 Est GFR (Non-Af Amer) TNP 11/16/17 05:55 BUN/Creatinine Ratio 11.5 11/16/17 05:55 Glucose 130 mg/dL (70-105) H 11/16/17 05:55 POC Glucose 124 MG/DL (70 - 105) H 11/16/17 12:21 Whole Bld Lactic Acid 1.69 mmol/L (0.60-1.99) 11/08/17 18:55 Uric Acid 8.2 mg/dL (4.4-7.6) H 11/10/17 05:20 Calcium 8.9 mg/dL (8.6-10.3) 11/16/17 05:55 Phosphorus 2.8 mg/dL (2.5-5.0) 11/10/17 05:20 Magnesium 1.8 mg/dL (1.9-2.7) L 11/10/17 05:20 Total Bilirubin 1.0 mg/dL (0.3-1.0) 11/08/17 18:55 Direct Bilirubin 0.24 mg/dL (0.0-0.2) H 11/08/17 17:50 AST 57 U/L (13-39) H 11/08/17 18:55 ALT 35 U/L (7-52) 11/08/17 18:55 Alkaline Phosphatase 66 U/L (34-104) 11/08/17 18:55 Ammonia 39 umol/L (16-53) 11/15/17 05:55 Creatine Kinase 1066 U/L (30-223) H 11/08/17 18:55 CK-MB (CK-2) 8.7 ng/mL (0.6-6.3) H 11/08/17 18:55 Troponin I 0.03 ng/mL (0.01-0.05) 11/08/17 18:55 B-Natriuretic Peptide 313.0 pg/mL (5.0-100.0) H 11/15/17 05:55 Total Protein 8.6 gm/dL (6.0-8.3) H 11/08/17 18:55 Albumin 3.8 gm/dL (4.2-5.5) L 11/08/17 18:55 Globulin 4.8 gm/dL 11/08/17 18:55 Albumin/Globulin Ratio 0.8 (1.0-1.8) L 11/08/17 18:55 Triglycerides 117 mg/dL (<150) 11/08/17 18:55 Cholesterol 188 mg/dL (<200) 11/08/17 18:55 LDL Cholesterol Direct 163 mg/dL (75-193) 11/08/17 18:55 HDL Cholesterol 37 mg/dL (23-92) 11/08/17 18:55 Amylase 43 U/L (29-103) 11/08/17 17:50 Lipase 13 U/L (11-82) 11/08/17 17:50 Urine Source MIDSTREAM 11/13/17 05:30 Urine Color YELLOW 11/13/17 05:30 Urine Clarity HAZY (CLEAR) 11/13/17 05:30 Urine pH 5.5 (4.6 - 8.0) 11/13/17 05:30 Ur Specific [place] 1.025 (1.005-1.030) 11/13/17 05:30 Urine Protein 30 mg/dL (NEGATIVE) H 11/13/17 05:30 Urine Glucose (UA) NEGATIVE mg/dL (NEGATIVE) 11/13/17 05:30 Urine Ketones NEGATIVE mg/dL (NEGATIVE) 11/13/17 05:30 Urine Blood SMALL (NEGATIVE) H 11/13/17 05:30 Urine Nitrate NEGATIVE (NEGATIVE) 11/13/17 05:30 Urine Bilirubin SMALL (NEGATIVE) H 11/13/17 05:30 Urine Urobilinogen 2.0 E.U./dL (0.2 - 1.0) 11/13/17 05:30 Ur Leukocyte Esterase NEGATIVE (NEGATIVE) 11/13/17 05:30 Urine RBC 0-2 /hpf (0-5) H 11/13/17 05:30 Urine WBC 0-2 /hpf (0-5) 11/13/17 05:30 Ur Epithelial Cells OCCASIONAL /lpf (FEW) 11/13/17 05:30 Calcium Oxalate Crystal FEW /hpf 11/13/17 05:30 Urine Bacteria 2+ /hpf (NONE SEEN) H 11/13/17 05:30 Coarse Granular Casts 0-2 /lpf (NONE SEEN) H 11/13/17 05:30 Ur Random Sodium 83 mmol/L 11/13/17 05:30 Urine Creatinine 199.0 mg/dl (39.0-259.0) 11/13/17 05:30 Vancomycin Trough 19.1 ug/mL (10-20) 11/14/17 14:40 - Physical Exam Vitals and I&O: Vital Signs Temp 98.4 F 11/16/17 08:00 Pulse 74 11/16/17 10:14 Resp 18 11/16/17 08:00 BP 123/74 11/16/17 10:14 Pulse Ox 100 11/16/17 08:00 Intake & Output 11/15/17 11/16/17 11/16/17 18:59 06:59 18:59 Intake Total 480 1738.333 Balance 480 1738.333 Weight (lbs) 107.955 kg 107.411 kg Intake: Intake, IV Amount 1638.333 Dextrose 5% 1,000 ml @ 538.333 100 mls/hr IV .Q10H [facility] Rx#:[id number] Piperacillin Sodium/ 100 Tazobact 2.25 gm In Dextrose 5% 50 ml @ 50 mls/hr IV Q8HR [facility] Rx#: [id number] Vancomycin HCl 1.5 gm In 1000 Sodium Chloride 0.9% 500 ml @ 250 mls/hr IV Q18H [facility] Rx#:[id number] Oral 480 100 Other: # Voids 3 2 # Bowel Movements 1 2 Stool Characteristics Soft Soft Active Medications: Current Medications Acetaminophen (Tylenol) 650 mg PO Q4H PRN PRN Reason: Pain Or Fever above 101 Stop: 01/07/18 20:29 Last Admin: 11/10/17 00:56 Dose: 650 mg Al Hydrox/Mg Hydrox/Simethicone (Maalox) 30 ml PO Q6H PRN PRN Reason: Dyspepsia Stop: 01/07/18 20:28 Albuterol Sulfate (Albuterol 2.5mg/3ml Neb Ud) 2.5 mg HHN Q2HRT PRN PRN Reason: Shortness of Breath or Wheeze Stop: 01/07/18 20:28 Ascorbic Acid (Vitamin C) 500 mg PO DAILY [facility] Stop: 01/08/18 08:59 Last Admin: 11/16/17 10:14 Dose: 500 mg Benztropine Mesylate (Cogentin) 1 mg PO BID [facility] Stop: 01/08/18 08:59 Last Admin: 11/16/17 10:14 Dose: 1 mg Carvedilol (Coreg) 12.5 mg PO BID [facility] Stop: 01/08/18 08:59 Last Admin: 11/16/17 10:14 Dose: 12.5 mg Docusate Sodium (Colace) 100 mg PO DAILY [facility] Stop: 01/08/18 08:59 Last Admin: 11/16/17 10:15 Dose: 100 mg Gabapentin (Neurontin) 300 mg PO TID [facility] Stop: 01/07/18 20:59 Last Admin: 11/16/17 10:15 Dose: 300 mg Piperacillin Sod/Tazobactam (Sod 2.25 gm/ Dextrose) 50 mls @ 50 mls/hr IV Q8HR [facility] Stop: 01/09/18 12:59 Last Admin: 11/16/17 07:01 Dose: 50 mls/hr Dextrose (D5w) 1,000 mls @ 100 mls/hr IV .Q10H [facility] Stop: 01/09/18 14:59 Last Infusion: 11/16/17 06:05 Dose: 100 mls/hr Vancomycin HCl 1.5 gm/ Sodium (Chloride) 500 mls @ 250 mls/hr IV Q18H [facility] Stop: 01/10/18 14:59 Last Infusion: 11/16/17 06:06 Dose: Infused Insulin Aspart (Novolog) 0 units SUBQ ACHS [facility] PRN Reason: Protocol Stop: 01/07/18 20:59 Last Admin: 11/16/17 06:42 Dose: Not Given Ipratropium [place] (Atrovent Neb 0.5mg/2.5ml) 0.5 mg IH Q2HRT PRN PRN Reason: Shortness of Breath or Wheeze Stop: 01/07/18 20:28 Lactulose (Cephulac) 30 gm PO BID [facility] Stop: 01/13/18 10:49 Last Admin: 11/16/17 10:26 Dose: Not Given Lorazepam (Ativan) 1 mg IVP Q6HR PRN; Protocol PRN Reason: Agitation Stop: 01/09/18 08:36 Last Admin: 11/16/17 06:20 Dose: 1 mg Magnesium Hydroxide (Milk Of Magnesia) 30 ml PO DAILY PRN PRN Reason: Constipation Stop: 01/07/18 20:25 Miscellaneous (Clinical Monitoring) 1 ea DAILY PRN PRN Reason: RENAL Stop: 01/08/18 08:43 Miscellaneous (Vancomycin Iv Per Pharmacy) 1 [facility] PRN [facility] Stop: 01/09/18 11:29 Miscellaneous (Probiotic Screen) 1 [facility] PRN PRN PRN Reason: PROTOCOL Stop: 01/10/18 16:55 Morphine Sulfate (Morphine) 1 mg IVP Q6H PRN PRN Reason: Pain (Moderate) Stop: 01/09/18 08:30 Last Admin: 11/15/17 11:21 Dose: 1 mg Ondansetron HCl (Zofran) 4 mg IV Q8H PRN PRN Reason: Nausea / Vomiting Stop: 01/07/18 20:29 Quetiapine Fumarate (Seroquel) 25 mg PO BID [facility] PRN Reason: Protocol Stop: 01/11/18 16:59 Last Admin: 11/16/17 10:15 Dose: 25 mg Zinc Sulfate (Zinc Sulfate) 220 mg PO DAILY [facility] Stop: 01/08/18 08:59 Last Admin: 11/16/17 10:16 Dose: 220 mg General: weak, alert HEENT: NC/AT, PERRLA Neck: Supple Lungs: CTAB Cardiovascular: RRR, Normal S1, Normal S2, without murmur Abdomen: soft, non-tender, non-distended, positive bowel sound Extremities: edema, excoriation, contracture, other (right elbow abscess, right big toe open wound, multiple open wound ) Neurological: no change, unsteady, bedbound Internal Medicine Assmt/Plan - Assessment Assessment: - Assessment Assessment: RIGHT ELBOW CELLULITIS MULTIPLE OPEN WOUND - MRSA WOUND ALOC ACUTE RENAL FAILURE DM2 PSYCHOSIS HTN MILD PROTEIN CALORIE MALNUTRITION CHEST DEFBRILLATOR STATUS COPD CHF CAD - Plan Plan: ltac eval continue ivabx continue with wound care follow up labs in am pain mgmt continue current plan of care - Plan Plan: cpm see orders placement closer to family psych follow up Nutritional Asmnt/Malnutr-PDOC - Dietary Evaluation Malnutrition Findings (Please click <Entered> for more info): Nutritional Asmnt/Malnutrition Start: 11/11/17 16: 30 Text: Status: Complete Freq: Document 11/11/17 16:30 LCHENG (Rec: 11/11/17 16:49 LCHENG [email or web address]) Nutritional Asmnt/Malnutrition Patient General Information Nutritional Screening High Risk Consult Diagnosis ALOC, ARF Pertinent Medical Hx/Surgical Hx DM, psychosis, HTN, anxiety, chest defibrillator, COPD, CHF , CAD, alzheimer's Subjective Information Consult received for FTT. Per notes, pt refused breakfast, only take liquid at lunch and soup for dinner on 11/10. Spoke with YASMIN Ch, RN reported pt was agitated, not eating food. Diet down to pureed diet from dinner, dinner tray at bed side at the time of visit. Per RN, Pt took long time to swallow meds mixed with pudding. Current Diet Order/ Nutrition Support pureed, Prosource 30ml daily Pertinent Medications vitamin C, D5, colace, novolog , piperacillin, seroquel, vancomycin, zinc Pertinent Labs 11/11 Na 150, K 3.8, Cl 120, BUN 42, Cr 1.7, GLucose 157, POC 125, Ammonia 73 Nutritional Hx/Data Height 1.78 m Height (Calculated Centimeters) 177.8 Current Weight (lbs) 108.091 kg Weight (Calculated Kilograms) 108.1 Weight (Calculated Grams) 186080.1 [place] Body Weight 166 % [place] Body Weight 144 Body Mass Index (BMI) 34.2 Weight Status Obese GI Symptoms GI Symptoms None Skin Integrity/Comment: skin tear to right arm, bruise to left arm, decubitus ulceration to right big toe Estimated Nutritional Goals BEE in Kcals: Adj wt of IBW Calories/Kcals/Kg 25-30 Kcals Calculated [id number] Protein: Adj wt of IBW Protein g/k.6-0.8 Protein Calculated 50-67g monitor renal labs Fluid: ml per MD d/t ARF Nutritional Problem 2. Problem Problem altered nutrition related lab values Etiology acute renal failure Signs/Symptoms: BUN 42, Cr 1.7 1. Problem Problem inadequate food intake Etiology mental status, possible swallow problem Signs/Symptoms: PO intake < 25% Malnutrition Alert Protein-Calorie Malnutrition N/A Is there a minimum of two criteria No selected? Query Text:Check all the applicable criteria. A minimum of two criteria are recommended for diagnosis of either severe or non-severe malnutrition. Intervention/Recommendation Comments 1. Recommend swallow eval d/t possible swallowing problem 2. If pt failed swallow eval, will consider alternative nutrition route 3. If continue to oral diet, will consider nutrition supplements to increase nutrition intake 4. F/U as high risk in 2-3 days, 11/13-11/14 Expected Outcomes/Goals Expected Outcomes/Goals 1. Pt to meet at least 75% of nutritional needs in 2-3 days. 2. Wt stability, skin to remain intact, labs to improve .
[2017-11-16] MEDS: Morphine Sulfate 2 mg/mL 1mL Syr IVP PRN (13:41)
--- NOTE | 2017-11-16 14:52 | General Progress Note ---
Subjective - Review of Systems Service Date: 11/17/17 Events since last encounter: still no arterial doppler test ordered 3 days ago Objective - Results Result Diagrams: 11/16/17 05:55 11/16/17 05:55 Recent Labs: Laboratory Last Values WBC 6.3 Th/cmm (4.8-10.8) D 11/16/17 05:55 RBC 3.55 Mil/cmm (3.80-5.80) L 11/16/17 05:55 Hgb 11.6 gm/dL (12-16) L 11/16/17 05:55 Hct 34.6 % (41.0-60) L 11/16/17 05:55 MCV 97.5 fl (80-99) 11/16/17 05:55 MCH 32.6 pg (27.0-31.0) H 11/16/17 05:55 MCHC Differential 33.4 pg (28.0-36.0) 11/16/17 05:55 RDW 13.1 % (11.5-20.0) 11/16/17 05:55 Plt Count 172 Th/cmm (150-400) 11/16/17 05:55 MPV 9.4 fl 11/16/17 05:55 Neutrophils % 61.5 % (40.0-80.0) 11/16/17 05:55 Lymphocytes % 17.5 % (20.0-50.0) L 11/16/17 05:55 Monocytes % 14.9 % (2.0-10.0) H 11/16/17 05:55 Eosinophils % 5.8 % (0.0-5.0) H 11/16/17 05:55 Basophils % 0.3 % (0.0-2.0) 11/16/17 05:55 PT 11.5 SECONDS (9.5-11.5) 11/08/17 17:50 INR 1.10 (0.5-1.4) 11/08/17 17:50 PTT (Actin FS) 24.5 SECONDS (26.0-38.0) L 11/08/17 17:50 Sodium 146 mEq/L (136-145) H 11/16/17 05:55 Potassium 3.5 mEq/L (3.5-5.1) 11/16/17 05:55 Chloride 114 mEq/L (98-107) H 11/16/17 05:55 Carbon Dioxide 27.3 mEq/L (21.0-31.0) 11/16/17 05:55 Anion Gap 8.2 (7.0-16.0) 11/16/17 05:55 BUN 15 mg/dL (7-25) 11/16/17 05:55 Creatinine 1.3 mg/dL (0.7-1.3) 11/16/17 05:55 Est GFR ( Amer) TNP 11/16/17 05:55 Est GFR (Non-Af Amer) TNP 11/16/17 05:55 BUN/Creatinine Ratio 11.5 11/16/17 05:55 Glucose 130 mg/dL (70-105) H 11/16/17 05:55 POC Glucose 124 MG/DL (70 - 105) H 11/16/17 12:21 Whole Bld Lactic Acid 1.69 mmol/L (0.60-1.99) 11/08/17 18:55 Uric Acid 8.2 mg/dL (4.4-7.6) H 11/10/17 05:20 Calcium 8.9 mg/dL (8.6-10.3) 11/16/17 05:55 Phosphorus 2.8 mg/dL (2.5-5.0) 11/10/17 05:20 Magnesium 1.8 mg/dL (1.9-2.7) L 11/10/17 05:20 Total Bilirubin 1.0 mg/dL (0.3-1.0) 11/08/17 18:55 Direct Bilirubin 0.24 mg/dL (0.0-0.2) H 11/08/17 17:50 AST 57 U/L (13-39) H 11/08/17 18:55 ALT 35 U/L (7-52) 11/08/17 18:55 Alkaline Phosphatase 66 U/L (34-104) 11/08/17 18:55 Ammonia 39 umol/L (16-53) 11/15/17 05:55 Creatine Kinase 1066 U/L (30-223) H 11/08/17 18:55 CK-MB (CK-2) 8.7 ng/mL (0.6-6.3) H 11/08/17 18:55 Troponin I 0.03 ng/mL (0.01-0.05) 11/08/17 18:55 B-Natriuretic Peptide 313.0 pg/mL (5.0-100.0) H 11/15/17 05:55 Total Protein 8.6 gm/dL (6.0-8.3) H 11/08/17 18:55 Albumin 3.8 gm/dL (4.2-5.5) L 11/08/17 18:55 Globulin 4.8 gm/dL 11/08/17 18:55 Albumin/Globulin Ratio 0.8 (1.0-1.8) L 11/08/17 18:55 Triglycerides 117 mg/dL (<150) 11/08/17 18:55 Cholesterol 188 mg/dL (<200) 11/08/17 18:55 LDL Cholesterol Direct 163 mg/dL (75-193) 11/08/17 18:55 HDL Cholesterol 37 mg/dL (23-92) 11/08/17 18:55 Amylase 43 U/L (29-103) 11/08/17 17:50 Lipase 13 U/L (11-82) 11/08/17 17:50 Urine Source MIDSTREAM 11/13/17 05:30 Urine Color YELLOW 11/13/17 05:30 Urine Clarity HAZY (CLEAR) 11/13/17 05:30 Urine pH 5.5 (4.6 - 8.0) 11/13/17 05:30 Ur Specific [place] 1.025 (1.005-1.030) 11/13/17 05:30 Urine Protein 30 mg/dL (NEGATIVE) H 11/13/17 05:30 Urine Glucose (UA) NEGATIVE mg/dL (NEGATIVE) 11/13/17 05:30 Urine Ketones NEGATIVE mg/dL (NEGATIVE) 11/13/17 05:30 Urine Blood SMALL (NEGATIVE) H 11/13/17 05:30 Urine Nitrate NEGATIVE (NEGATIVE) 11/13/17 05:30 Urine Bilirubin SMALL (NEGATIVE) H 11/13/17 05:30 Urine Urobilinogen 2.0 E.U./dL (0.2 - 1.0) 11/13/17 05:30 Ur Leukocyte Esterase NEGATIVE (NEGATIVE) 11/13/17 05:30 Urine RBC 0-2 /hpf (0-5) H 11/13/17 05:30 Urine WBC 0-2 /hpf (0-5) 11/13/17 05:30 Ur Epithelial Cells OCCASIONAL /lpf (FEW) 11/13/17 05:30 Calcium Oxalate Crystal FEW /hpf 11/13/17 05:30 Urine Bacteria 2+ /hpf (NONE SEEN) H 11/13/17 05:30 Coarse Granular Casts 0-2 /lpf (NONE SEEN) H 11/13/17 05:30 Ur Random Sodium 83 mmol/L 11/13/17 05:30 Urine Creatinine 199.0 mg/dl (39.0-259.0) 11/13/17 05:30 Vancomycin Trough 19.1 ug/mL (10-20) 11/14/17 14:40 - Physical Exam Vitals and I&O: Vital Signs Temp 98.4 F 11/16/17 08:00 Pulse 74 11/16/17 10:14 Resp 18 11/16/17 08:00 BP 123/74 11/16/17 10:14 Pulse Ox 100 11/16/17 08:00 Intake & Output 11/15/17 11/16/17 11/16/17 18:59 06:59 18:59 Intake Total 480 1738.333 50 Balance 480 1738.333 50 Weight (lbs) 107.955 kg 107.411 kg Intake: Intake, IV Amount 1638.333 50 Dextrose 5% 1,000 ml @ 538.333 100 mls/hr IV .Q10H [facility] Rx#:[id number] Piperacillin Sodium/ 100 50 Tazobact 2.25 gm In Dextrose 5% 50 ml @ 50 mls/hr IV Q8HR [facility] Rx#: [id number] Vancomycin HCl 1.5 gm In 1000 Sodium Chloride 0.9% 500 ml @ 250 mls/hr IV Q18H [facility] Rx#:[id number] Oral 480 100 Other: # Voids 3 2 # Bowel Movements 1 2 Stool Characteristics Soft Soft Active Medications: Current Medications Acetaminophen (Tylenol) 650 mg PO Q4H PRN PRN Reason: Pain Or Fever above 101 Stop: 01/07/18 20:29 Last Admin: 11/10/17 00:56 Dose: 650 mg Al Hydrox/Mg Hydrox/Simethicone (Maalox) 30 ml PO Q6H PRN PRN Reason: Dyspepsia Stop: 01/07/18 20:28 Albuterol Sulfate (Albuterol 2.5mg/3ml Neb Ud) 2.5 mg HHN Q2HRT PRN PRN Reason: Shortness of Breath or Wheeze Stop: 01/07/18 20:28 Ascorbic Acid (Vitamin C) 500 mg PO DAILY [facility] Stop: 01/08/18 08:59 Last Admin: 11/16/17 10:14 Dose: 500 mg Benztropine Mesylate (Cogentin) 1 mg PO BID [facility] Stop: 01/08/18 08:59 Last Admin: 11/16/17 10:14 Dose: 1 mg Carvedilol (Coreg) 12.5 mg PO BID [facility] Stop: 01/08/18 08:59 Last Admin: 11/16/17 10:14 Dose: 12.5 mg Docusate Sodium (Colace) 100 mg PO DAILY [facility] Stop: 01/08/18 08:59 Last Admin: 11/16/17 10:15 Dose: 100 mg Gabapentin (Neurontin) 300 mg PO TID [facility] Stop: 01/07/18 20:59 Last Admin: 11/16/17 13:39 Dose: 300 mg Piperacillin Sod/Tazobactam (Sod 2.25 gm/ Dextrose) 50 mls @ 50 mls/hr IV Q8HR [facility] Stop: 01/09/18 12:59 Last Admin: 11/16/17 14:35 Dose: 50 mls/hr Dextrose (D5w) 1,000 mls @ 100 mls/hr IV .Q10H [facility] Stop: 01/09/18 14:59 Last Infusion: 11/16/17 06:05 Dose: 100 mls/hr Vancomycin HCl 1.5 gm/ Sodium (Chloride) 500 mls @ 250 mls/hr IV Q18H [facility] Stop: 01/10/18 14:59 Last Infusion: 11/16/17 06:06 Dose: Infused Insulin Aspart (Novolog) 0 units SUBQ ACHS [facility] PRN Reason: Protocol Stop: 01/07/18 20:59 Last Admin: 11/16/17 06:42 Dose: Not Given Ipratropium [place] (Atrovent Neb 0.5mg/2.5ml) 0.5 mg IH Q2HRT PRN PRN Reason: Shortness of Breath or Wheeze Stop: 01/07/18 20:28 Lactulose (Cephulac) 30 gm PO BID [facility] Stop: 01/13/18 10:49 Last Admin: 11/16/17 10:26 Dose: Not Given Lorazepam (Ativan) 1 mg IVP Q6HR PRN; Protocol PRN Reason: Agitation Stop: 01/09/18 08:36 Last Admin: 11/16/17 14:35 Dose: 1 mg Magnesium Hydroxide (Milk Of Magnesia) 30 ml PO DAILY PRN PRN Reason: Constipation Stop: 01/07/18 20:25 Miscellaneous (Clinical Monitoring) 1 ea [facility] DAILY PRN PRN Reason: RENAL Stop: 01/08/18 08:43 Miscellaneous (Vancomycin Iv Per Pharmacy) 1 ea PRN [facility] Stop: 01/09/18 11:29 Miscellaneous (Probiotic Screen) 1 ea PRN PRN PRN Reason: PROTOCOL Stop: 01/10/18 16:55 Morphine Sulfate (Morphine) 1 mg IVP Q6H PRN PRN Reason: Pain (Moderate) Stop: 01/09/18 08:30 Last Admin: 11/16/17 13:41 Dose: 1 mg Ondansetron HCl (Zofran) 4 mg IV Q8H PRN PRN Reason: Nausea / Vomiting Stop: 01/07/18 20:29 Quetiapine Fumarate (Seroquel) 25 mg PO BID [facility] PRN Reason: Protocol Stop: 01/11/18 16:59 Last Admin: 11/16/17 10:15 Dose: 25 mg Zinc Sulfate (Zinc Sulfate) 220 mg PO DAILY [facility] Stop: 01/08/18 08:59 Last Admin: 11/16/17 10:16 Dose: 220 mg General: Mild distress HEENT: Atraumatic, Mucous membr. moist/pink Neck: Supple, +2 carotid pulse wo bruit Cardiovascular: Regular rate, Normal S1, Normal S2 Lungs: Clear to auscultation Abdomen: Bowel sounds, Soft Extremities: no Edema Neurological: Sensation intact Skin: Breakdown Psych/Mental Status: Other (acute psychosis) Assessment/Plan - Problem List Patient Problems: All Active Problems ABNORMAL LAB RESULTS (Acute) Nutritional Asmnt/Malnutr-PDOC - Dietary Evaluation Malnutrition Findings (Please click <Entered> for more info): Nutritional Asmnt/Malnutrition Start: 11/11/17 16: 30 Text: Status: Complete Freq: Document 11/11/17 16:30 LCHENG (Rec: 11/11/17 16:49 LCHENG [email or web address]) Nutritional Asmnt/Malnutrition Patient General Information Nutritional Screening High Risk Consult Diagnosis ALOC, ARF Pertinent Medical Hx/Surgical Hx DM, psychosis, HTN, anxiety, chest defibrillator, COPD, CHF , CAD, alzheimer's Subjective Information Consult received for FTT. Per notes, pt refused breakfast, only take liquid at lunch and soup for dinner on 11/10. Spoke with YASMIN Ch RN reported pt was agitated, not eating food. Diet down to pureed diet from dinner, dinner tray at bed side at the time of visit. Per RN, Pt took long time to swallow meds mixed with pudding. Current Diet Order/ Nutrition Support pureed, Prosource 30ml daily Pertinent Medications vitamin C, D5, colace, novolog , piperacillin, seroquel, vancomycin, zinc Pertinent Labs 11/11 Na 150, K 3.8, Cl 120, BUN 42, Cr 1.7, GLucose 157, POC 125, Ammonia 73 Nutritional Hx/Data Height 1.78 m Height (Calculated Centimeters) 177.8 Current Weight (lbs) 108.091 kg Weight (Calculated Kilograms) 108.1 Weight (Calculated Grams) 532525.1 [place] Body Weight 166 % [place] Body Weight 144 Body Mass Index (BMI) 34.2 Weight Status Obese GI Symptoms GI Symptoms None Skin Integrity/Comment: skin tear to right arm, bruise to left arm, decubitus ulceration to right big toe Estimated Nutritional Goals BEE in Kcals: Adj wt of IBW Calories/Kcals/Kg 25-30 Kcals Calculated [id number] Protein: Adj wt of IBW Protein g/k.6-0.8 Protein Calculated 50-67g monitor renal labs Fluid: ml per MD d/t ARF Nutritional Problem 2. Problem Problem altered nutrition related lab values Etiology acute renal failure Signs/Symptoms: BUN 42, Cr 1.7 1. Problem Problem inadequate food intake Etiology mental status, possible swallow problem Signs/Symptoms: PO intake < 25% Malnutrition Alert Protein-Calorie Malnutrition N/A Is there a minimum of two criteria No selected? Query Text:Check all the applicable criteria. A minimum of two criteria are recommended for diagnosis of either severe or non-severe malnutrition. Intervention/Recommendation Comments 1. Recommend swallow eval d/t possible swallowing problem 2. If pt failed swallow eval, will consider alternative nutrition route 3. If continue to oral diet, will consider nutrition supplements to increase nutrition intake 4. F/U as high risk in 2-3 days, 11/13-11/14 Expected Outcomes/Goals Expected Outcomes/Goals 1. Pt to meet at least 75% of nutritional needs in 2-3 days. 2. Wt stability, skin to remain intact, labs to improve .
[2017-11-17] MEDS: INSULIN ASPART, RECOMBINANT 100 UNITS/ML SUBQ SCH ×3 (06:48→19:49)
[2017-11-17 08:54] LABS: ANION GAP 8.7 (7.0-16.0); BUN - UREA NITROGEN 12 mg/dL (7-25); CALCIUM SERUM 8.8 mg/dL (8.6-10.3); CARBON DIOXIDE 27.8 mEq/L (21.0-31.0); CHLORIDE 111 mEq/L (98-107); CREATININE - SERUM 1.1 mg/dL (0.7-1.3); GLUCOSE 139 mg/dL (70-105); MAGNESIUM 1.5 mg/dL (1.9-2.7); POTASSIUM SERUM 3.5 mEq/L (3.5-5.1); SODIUM SERUM 144 mEq/L (136-145)
[2017-11-17 09:32] LABS: % BASOPHILS 0.2 % (0.0-2.0); % EOSINOPHILS 4.4 % (0.0-5.0); % LYMPHOCYTES 17.6 % (20.0-50.0); % MONOCYTES 13.8 % (2.0-10.0); EOSINOPHILE ABSOLUTE 0.3 Th/cmm (0.1-0.4); HEMATOCRIT 34.7 % (41.0-60); HEMOGLOBIN 11.7 gm/dL (12-16); LYMPHOCYTE ABSOLUTE 1.1 Th/cmm (1.5-3.0); MEAN CELL VOLUME 96.9 fl (80-99); MEAN CORPUSCULAR HEMOGLOBIN 32.5 pg (27.0-31.0); MEAN CORPUSCULAR HGB CONC 33.6 pg (28.0-36.0); MEAN PLATELET VOLUME 9.7 fl; MONOCYTE ABSOLUTE 0.8 Th/cmm (0.3-1.0); NEUTROPHILE ABSOLUTE 3.8 Th/cmm (1.8-8.0); PLATELET COUNT 187 Th/cmm (150-400); RED BLOOD COUNT 3.58 Mil/cmm (3.80-5.80)
[2017-11-17] MEDS: Benztropine 1 MG TAB PO SCH ×2 (09:33→17:59)
[2017-11-17] MEDS: Lactulose 10 Gm/15 mL 30mL UDC PO SCH ×2 (09:33→17:59)
[2017-11-17] MEDS: Multivitamin w/ Minerals Tab PO SCH (09:35)
--- NOTE | 2017-11-17 14:56 | Internal Medicine Prog Note ---
Internal Medicine Subjective - Subjective Service Date: 11/17/17 Patient is:: awake, non-verbal, non-interactive, eyes closed, in bed, agitated, confused Patient Complaints of:: other (pain) Per staff patient has:: no adverse event, no episodes of fall, poor appetite, combative, noncompliant, tolerating meds, refusing care Internal Medicine Objective - Results Result Diagrams: 11/17/17 08:20 11/17/17 08:20 Recent Labs: Laboratory Last Values WBC 6.0 Th/cmm (4.8-10.8) 11/17/17 08:20 RBC 3.58 Mil/cmm (3.80-5.80) L 11/17/17 08:20 Hgb 11.7 gm/dL (12-16) L 11/17/17 08:20 Hct 34.7 % (41.0-60) L 11/17/17 08:20 MCV 96.9 fl (80-99) 11/17/17 08:20 MCH 32.5 pg (27.0-31.0) H 11/17/17 08:20 MCHC Differential 33.6 pg (28.0-36.0) 11/17/17 08:20 RDW 13.0 % (11.5-20.0) 11/17/17 08:20 Plt Count 187 Th/cmm (150-400) 11/17/17 08:20 MPV 9.7 fl 11/17/17 08:20 Neutrophils % 64.0 % (40.0-80.0) 11/17/17 08:20 Lymphocytes % 17.6 % (20.0-50.0) L 11/17/17 08:20 Monocytes % 13.8 % (2.0-10.0) H 11/17/17 08:20 Eosinophils % 4.4 % (0.0-5.0) 11/17/17 08:20 Basophils % 0.2 % (0.0-2.0) 11/17/17 08:20 PT 11.5 SECONDS (9.5-11.5) 11/08/17 17:50 INR 1.10 (0.5-1.4) 11/08/17 17:50 PTT (Actin FS) 24.5 SECONDS (26.0-38.0) L 11/08/17 17:50 Sodium 144 mEq/L (136-145) 11/17/17 08:20 Potassium 3.5 mEq/L (3.5-5.1) 11/17/17 08:20 Chloride 111 mEq/L (98-107) H 11/17/17 08:20 Carbon Dioxide 27.8 mEq/L (21.0-31.0) 11/17/17 08:20 Anion Gap 8.7 (7.0-16.0) 11/17/17 08:20 BUN 12 mg/dL (7-25) 11/17/17 08:20 Creatinine 1.1 mg/dL (0.7-1.3) 11/17/17 08:20 Est GFR ( Amer) TNP 11/17/17 08:20 Est GFR (Non-Af Amer) TNP 11/17/17 08:20 BUN/Creatinine Ratio 10.9 11/17/17 08:20 Glucose 139 mg/dL (70-105) H 11/17/17 08:20 POC Glucose 139 MG/DL (70 - 105) H 11/17/17 06:42 Whole Bld Lactic Acid 1.69 mmol/L (0.60-1.99) 11/08/17 18:55 Uric Acid 8.2 mg/dL (4.4-7.6) H 11/10/17 05:20 Calcium 8.8 mg/dL (8.6-10.3) 11/17/17 08:20 Phosphorus 2.8 mg/dL (2.5-5.0) 11/10/17 05:20 Magnesium 1.5 mg/dL (1.9-2.7) L 11/17/17 08:20 Total Bilirubin 1.0 mg/dL (0.3-1.0) 11/08/17 18:55 Direct Bilirubin 0.24 mg/dL (0.0-0.2) H 11/08/17 17:50 AST 57 U/L (13-39) H 11/08/17 18:55 ALT 35 U/L (7-52) 11/08/17 18:55 Alkaline Phosphatase 66 U/L (34-104) 11/08/17 18:55 Ammonia 41 umol/L (16-53) 11/17/17 08:20 Creatine Kinase 1066 U/L (30-223) H 11/08/17 18:55 CK-MB (CK-2) 8.7 ng/mL (0.6-6.3) H 11/08/17 18:55 Troponin I 0.03 ng/mL (0.01-0.05) 11/08/17 18:55 B-Natriuretic Peptide 313.0 pg/mL (5.0-100.0) H 11/15/17 05:55 Total Protein 8.6 gm/dL (6.0-8.3) H 11/08/17 18:55 Albumin 3.8 gm/dL (4.2-5.5) L 11/08/17 18:55 Globulin 4.8 gm/dL 11/08/17 18:55 Albumin/Globulin Ratio 0.8 (1.0-1.8) L 11/08/17 18:55 Triglycerides 117 mg/dL (<150) 11/08/17 18:55 Cholesterol 188 mg/dL (<200) 11/08/17 18:55 LDL Cholesterol Direct 163 mg/dL (75-193) 11/08/17 18:55 HDL Cholesterol 37 mg/dL (23-92) 11/08/17 18:55 Amylase 43 U/L (29-103) 11/08/17 17:50 Lipase 13 U/L (11-82) 11/08/17 17:50 Urine Source MIDSTREAM 11/13/17 05:30 Urine Color YELLOW 11/13/17 05:30 Urine Clarity HAZY (CLEAR) 11/13/17 05:30 Urine pH 5.5 (4.6 - 8.0) 11/13/17 05:30 Ur Specific [place] 1.025 (1.005-1.030) 11/13/17 05:30 Urine Protein 30 mg/dL (NEGATIVE) H 11/13/17 05:30 Urine Glucose (UA) NEGATIVE mg/dL (NEGATIVE) 11/13/17 05:30 Urine Ketones NEGATIVE mg/dL (NEGATIVE) 11/13/17 05:30 Urine Blood SMALL (NEGATIVE) H 11/13/17 05:30 Urine Nitrate NEGATIVE (NEGATIVE) 11/13/17 05:30 Urine Bilirubin SMALL (NEGATIVE) H 11/13/17 05:30 Urine Urobilinogen 2.0 E.U./dL (0.2 - 1.0) 11/13/17 05:30 Ur Leukocyte Esterase NEGATIVE (NEGATIVE) 11/13/17 05:30 Urine RBC 0-2 /hpf (0-5) H 11/13/17 05:30 Urine WBC 0-2 /hpf (0-5) 11/13/17 05:30 Ur Epithelial Cells OCCASIONAL /lpf (FEW) 11/13/17 05:30 Calcium Oxalate Crystal FEW /hpf 11/13/17 05:30 Urine Bacteria 2+ /hpf (NONE SEEN) H 11/13/17 05:30 Coarse Granular Casts 0-2 /lpf (NONE SEEN) H 11/13/17 05:30 Ur Random Sodium 83 mmol/L 11/13/17 05:30 Urine Creatinine 199.0 mg/dl (39.0-259.0) 11/13/17 05:30 Vancomycin Trough 19.1 ug/mL (10-20) 11/14/17 14:40 - Physical Exam Vitals and I&O: Vital Signs Temp 97.6 F 11/17/17 04:00 Pulse 69 11/17/17 09:33 Resp 20 11/17/17 08:03 BP 130/59 11/17/17 09:33 Pulse Ox 98 11/17/17 08:03 Intake & Output 11/16/17 11/17/17 11/17/17 18:59 06:59 18:59 Intake Total 055.150 3095 Balance 461.615 4147 Weight (lbs) 236 lb Intake: Intake, IV Amount 571.757 7343 Dextrose 5% 1,000 ml @ 473.970 6993 100 mls/hr IV .Q10H [facility] Rx#:[id number] Piperacillin Sodium/ 100 100 Tazobact 2.25 gm In Dextrose 5% 50 ml @ 50 mls/hr IV Q8HR [facility] Rx#: [id number] Vancomycin HCl 1.5 gm In 500 Sodium Chloride 0.9% 500 ml @ 250 mls/hr IV Q18H [facility] Rx#:[id number] Other: # Voids 2 # Bowel Movements 0 Stool Characteristics Soft Active Medications: Current Medications Acetaminophen (Tylenol) 650 mg PO Q4H PRN PRN Reason: Pain Or Fever above 101 Stop: 01/07/18 20:29 Last Admin: 11/10/17 00:56 Dose: 650 mg Al Hydrox/Mg Hydrox/Simethicone (Maalox) 30 ml PO Q6H PRN PRN Reason: Dyspepsia Stop: 01/07/18 20:28 Albuterol Sulfate (Albuterol 2.5mg/3ml Neb Ud) 2.5 mg HHN Q2HRT PRN PRN Reason: Shortness of Breath or Wheeze Stop: 01/07/18 20:28 Ascorbic Acid (Vitamin C) 500 mg PO DAILY [facility] Stop: 01/08/18 08:59 Last Admin: 11/17/17 09:35 Dose: 500 mg Benztropine Mesylate (Cogentin) 1 mg PO BID [facility] Stop: 01/08/18 08:59 Last Admin: 11/17/17 09:33 Dose: 1 mg Carvedilol (Coreg) 12.5 mg PO BID [facility] Stop: 01/08/18 08:59 Last Admin: 11/17/17 09:33 Dose: 12.5 mg Docusate Sodium (Colace) 100 mg PO DAILY [facility] Stop: 01/08/18 08:59 Last Admin: 11/17/17 09:33 Dose: 100 mg Gabapentin (Neurontin) 300 mg PO TID [facility] Stop: 01/07/18 20:59 Last Admin: 11/17/17 14:32 Dose: 300 mg Piperacillin Sod/Tazobactam (Sod 2.25 gm/ Dextrose) 50 mls @ 50 mls/hr IV Q8HR [facility] Stop: 01/09/18 12:59 Last Admin: 11/17/17 14:32 Dose: 50 mls/hr Dextrose (D5w) 1,000 mls @ 100 mls/hr IV .Q10H [facility] Stop: 01/09/18 14:59 Last Infusion: 11/17/17 06:04 Dose: Infused Vancomycin HCl 1.5 gm/ Sodium (Chloride) 500 mls @ 250 mls/hr IV Q18H [facility] Stop: 01/10/18 14:59 Last Infusion: 11/17/17 06:05 Dose: Infused Insulin Aspart (Novolog) 0 units SUBQ ACHS [facility] PRN Reason: Protocol Stop: 01/07/18 20:59 Last Admin: 11/17/17 12:12 Dose: Not Given Ipratropium [place] (Atrovent Neb 0.5mg/2.5ml) 0.5 mg IH Q2HRT PRN PRN Reason: Shortness of Breath or Wheeze Stop: 01/07/18 20:28 Lactulose (Cephulac) 30 gm PO BID [facility] Stop: 01/13/18 10:49 Last Admin: 11/17/17 09:33 Dose: 30 gm Lorazepam (Ativan) 1 mg IVP Q6HR PRN; Protocol PRN Reason: Agitation Stop: 01/09/18 08:36 Last Admin: 11/17/17 09:27 Dose: 1 mg Magnesium Hydroxide (Milk Of Magnesia) 30 ml PO DAILY PRN PRN Reason: Constipation Stop: 01/07/18 20:25 Miscellaneous (Clinical Monitoring) 1 ea DAILY PRN PRN Reason: RENAL Stop: 01/08/18 08:43 Miscellaneous (Vancomycin Iv Per Pharmacy) 1 ea PRN [facility] Stop: 01/09/18 11:29 Miscellaneous (Probiotic Screen) 1 ea PRN PRN PRN Reason: PROTOCOL Stop: 01/10/18 16:55 Morphine Sulfate (Morphine) 1 mg IVP Q6H PRN PRN Reason: Pain (Moderate) Stop: 01/09/18 08:30 Last Admin: 11/16/17 13:41 Dose: 1 mg Ondansetron HCl (Zofran) 4 mg IV Q8H PRN PRN Reason: Nausea / Vomiting Stop: 01/07/18 20:29 Quetiapine Fumarate (Seroquel) 25 mg PO BID [facility] PRN Reason: Protocol Stop: 01/11/18 16:59 Last Admin: 11/17/17 09:35 Dose: 25 mg Zinc Sulfate (Zinc Sulfate) 220 mg PO DAILY [facility] Stop: 01/08/18 08:59 Last Admin: 11/17/17 09:33 Dose: 220 mg General: weak, alert HEENT: NC/AT, PERRLA Neck: Supple Lungs: CTAB Cardiovascular: RRR, Normal S1, Normal S2, without murmur Abdomen: soft, non-tender, non-distended, positive bowel sound Extremities: edema, excoriation, contracture, other (right elbow abscess, right big toe open wound, multiple open wound ) Neurological: no change, unsteady, bedbound Internal Medicine Assmt/Plan - Assessment Assessment: RIGHT ELBOW CELLULITIS MULTIPLE OPEN WOUND - MRSA WOUND ALOC ACUTE RENAL FAILURE DM2 PSYCHOSIS HTN MILD PROTEIN CALORIE MALNUTRITION CHEST DEFBRILLATOR STATUS COPD CHF CAD - Plan Plan: ltac eval continue ivabx continue with wound care follow up labs in am pain mgmt continue current plan of care Nutritional Asmnt/Malnutr-PDOC - Dietary Evaluation Malnutrition Findings (Please click <Entered> for more info): Nutritional Asmnt/Malnutrition Start: 11/11/17 16: 30 Text: Status: Complete Freq: Document 11/11/17 16:30 LCHENG (Rec: 11/11/17 16:49 LCHENG [email or web address]) Nutritional Asmnt/Malnutrition Patient General Information Nutritional Screening High Risk Consult Diagnosis ALOC, ARF Pertinent Medical Hx/Surgical Hx DM, psychosis, HTN, anxiety, chest defibrillator, COPD, CHF , CAD, alzheimer's Subjective Information Consult received for FTT. Per notes, pt refused breakfast, only take liquid at lunch and soup for dinner on 11/10. Spoke with YASMIN Ch, RN reported pt was agitated, not eating food. Diet down to pureed diet from dinner, dinner tray at bed side at the time of visit. Per RN, Pt took long time to swallow meds mixed with pudding. Current Diet Order/ Nutrition Support pureed, Prosource 30ml daily Pertinent Medications vitamin C, D5, colace, novolog , piperacillin, seroquel, vancomycin, zinc Pertinent Labs 11/11 Na 150, K 3.8, Cl 120, BUN 42, Cr 1.7, GLucose 157, POC 125, Ammonia 73 Nutritional Hx/Data Height 5 ft 10 in Height (Calculated Centimeters) 177.8 Current Weight (lbs) 238 lb 4.8 oz Weight (Calculated Kilograms) 108.1 Weight (Calculated Grams) 174740.1 [place] Body Weight 166 % [place] Body Weight 144 Body Mass Index (BMI) 34.2 Weight Status Obese GI Symptoms GI Symptoms None Skin Integrity/Comment: skin tear to right arm, bruise to left arm, decubitus ulceration to right big toe Estimated Nutritional Goals BEE in Kcals: Adj wt of IBW Calories/Kcals/Kg 25-30 Kcals Calculated 7501-1670 Protein: Adj wt of IBW Protein g/k.6-0.8 Protein Calculated 50-67g monitor renal labs Fluid: ml per MD d/t ARF Nutritional Problem 2. Problem Problem altered nutrition related lab values Etiology acute renal failure Signs/Symptoms: BUN 42, Cr 1.7 1. Problem Problem inadequate food intake Etiology mental status, possible swallow problem Signs/Symptoms: PO intake < 25% Malnutrition Alert Protein-Calorie Malnutrition N/A Is there a minimum of two criteria No selected? Query Text:Check all the applicable criteria. A minimum of two criteria are recommended for diagnosis of either severe or non-severe malnutrition. Intervention/Recommendation Comments 1. Recommend swallow eval d/t possible swallowing problem 2. If pt failed swallow eval, will consider alternative nutrition route 3. If continue to oral diet, will consider nutrition supplements to increase nutrition intake 4. F/U as high risk in 2-3 days, 11/13-11/14 Expected Outcomes/Goals Expected Outcomes/Goals 1. Pt to meet at least 75% of nutritional needs in 2-3 days. 2. Wt stability, skin to remain intact, labs to improve .
[2017-11-17] MEDS: Vancomycin HCl 1.5 GM in Sodium Chloride 0.9% 500 ML IV SCH (18:02)
[2017-11-17] MEDS: Dextrose 5% 1,000 ML IV SCH (18:04)
[2017-11-18 09:19] LABS: FOLIC ACID 14.4 ng/mL (>3.0)
== END 2017-11-17 21:48 | DRG 871 ==
LOC: ER 17:30 → MSI 20:00
PROVIDERS: ADMIT Internal Medicine; ATTEND Internal Medicine
DX: A41.9 Sepsis, unspecified organism (principal); G93.41 Metabolic encephalopathy; N17.9 Acute kidney failure, unspecified; L03.113 Cellulitis of right upper limb; E44.1 Mild protein-calorie malnutrition; I13.0 Hypertensive heart and chronic kidney disease with heart failure and stage 1 through stage 4 chronic kidney disease, or unspecified chronic kidney disease; L97.929 Non-pressure chronic ulcer of unspecified part of left lower leg with unspecified severity; L97.919 Non-pressure chronic ulcer of unspecified part of right lower leg with unspecified severity; F23 Brief psychotic disorder; I50.9 Heart failure, unspecified; E11.22 Type 2 diabetes mellitus with diabetic chronic kidney disease; E11.621 Type 2 diabetes mellitus with foot ulcer; E86.0 Dehydration; L97.529 Non-pressure chronic ulcer of other part of left foot with unspecified severity; G30.9 Alzheimer's disease, unspecified; F02.80 Dementia in other diseases classified elsewhere, unspecified severity, without behavioral disturbance, psychotic disturbance, mood disturbance, and anxiety; J44.9 Chronic obstructive pulmonary disease, unspecified; F41.9 Anxiety disorder, unspecified; N18.9 Chronic kidney disease, unspecified; S30.0XXA Contusion of lower back and pelvis, initial encounter; T14.8XXA Other injury of unspecified body region, initial encounter; B95.62 Methicillin resistant Staphylococcus aureus infection as the cause of diseases classified elsewhere; I25.10 Atherosclerotic heart disease of native coronary artery without angina pectoris; Z83.3 Family history of diabetes mellitus; Z82.49 Family history of ischemic heart disease and other diseases of the circulatory system; Z95.810 Presence of automatic (implantable) cardiac defibrillator; Z68.33 Body mass index [BMI] 33.0-33.9, adult
CPT/HCPCS: 36415-UA; 70450-TC; 71010-TC; 80048-TC; 80053-TC; 80061-TC; 80076-TC; 80202-TC; 81001-TC; 82140-TC; 82150-TC; 82550-TC; 82553; 82570-TC; 82607-90; 82746-90; 82948-90; 83605; 83690-TC; 83735-TC; 83880-TC; 84100-TC; 84300-TC; 84484-TC; 84550-TC; 85007-TC; 85025-TC; 85027-TC; 85610-TC; 85730-TC; 87070-90; 87075-90; 87086-90; 87205-90; 93005; 93970-TC-50; 94760; J1200; J1630; J1644; J1815; J2060; J2270; J2543; J3370; J3475; J7030; J7040; J7070; X7704; Z7610

== ENCOUNTER 2017-11-17 21:50 | Inpatient (IN) | payer MEDICARE, MEDICAID ==
[2017-11-17 22:52] VITALS: BP 117/69
[2017-11-17] MEDS ORDERED: Magnesium Hydroxide (MOM) 30 mL UDC PO PRN (23:20)
[2017-11-17] MEDS ORDERED: Maalox 30 mL Cup PO PRN (23:20)
[2017-11-18] MEDS: INSULIN ASPART, RECOMBINANT 100 UNITS/ML SUBQ SCH ×4 (06:58→20:30)
[2017-11-18] MEDS ORDERED: Non-Formulary Item 1 EA (Amino Acids/Protein Hydrolys [Pro-Stat Sugar Free Liquid] 30 ML) PO SCH (09:00)
[2017-11-18] MEDS: Multivitamin Tab PO SCH (10:02)
[2017-11-18] MEDS: Benztropine 1 MG TAB PO SCH ×2 (10:02→17:28)
--- NOTE | 2017-11-18 12:19 | Internal Medicine Prog Note ---
Internal Medicine Subjective - Subjective Service Date: 11/18/17 Patient seen and examined:: with staff Patient is:: awake, agitated, confused Per staff patient has:: tolerating meds Internal Medicine Objective - Results Recent Labs: Laboratory Last Values POC Glucose 136 MG/DL (70 - 105) H 11/18/17 06:23 - Physical Exam Vitals and I&O: Vital Signs Temp 98.5 F 11/17/17 22:32 Pulse 68 11/17/17 22:32 Resp 18 11/17/17 22:32 BP 117/69 11/17/17 22:52 Pulse Ox 96 11/17/17 22:32 Intake & Output 11/17/17 11/18/17 11/18/17 18:59 06:59 18:59 Weight (lbs) 236 lb Active Medications: Current Medications Acetaminophen (Tylenol) 650 mg PO Q4HR PRN PRN Reason: Mild Pain / Temp above 100 Stop: 01/16/18 23:19 Al Hydrox/Mg Hydrox/Simethicone (Maalox) 30 ml PO Q4HR PRN PRN Reason: GI DISTRESS Stop: 01/16/18 23:19 Ascorbic Acid (Vitamin C) 500 mg PO DAILY [facility] Stop: 01/17/18 08:59 Last Admin: 11/18/17 10:01 Dose: Not Given Benztropine Mesylate (Cogentin) 1 mg PO BID [facility] Stop: 01/17/18 08:59 Last Admin: 11/18/17 10:02 Dose: Not Given Carvedilol (Coreg) 25 mg PO BID [facility] Stop: 01/17/18 08:59 Last Admin: 11/18/17 10:02 Dose: Not Given Docusate Sodium (Colace) 100 mg PO DAILY [facility] Stop: 01/17/18 08:59 Last Admin: 11/18/17 10:02 Dose: Not Given Enalapril Maleate (Vasotec) 7.5 mg PO DAILY [facility] Stop: 01/17/18 08:59 Last Admin: 11/18/17 10:02 Dose: Not Given Gabapentin (Neurontin) 300 mg PO TID [facility] Stop: 01/17/18 08:59 Last Admin: 11/18/17 10:02 Dose: Not Given Haloperidol (Haldol) 5 mg PO BID [facility] PRN Reason: Protocol Stop: 01/17/18 08:59 Last Admin: 11/18/17 09:59 Dose: Not Given Insulin Aspart (Novolog) 0 units SUBQ ACHS [facility] PRN Reason: Protocol Stop: 01/17/18 07:29 Last Admin: 11/18/17 11:14 Dose: Not Given Lorazepam (Ativan) 0.5 mg PO Q4HR PRN; Protocol PRN Reason: Anxiety/agitation Stop: 12/17/17 23:19 Last Admin: 11/18/17 10:01 Dose: 0.5 mg Magnesium Hydroxide (Milk Of Magnesia) 30 ml PO HS PRN PRN Reason: Constipation Multivitamins/Vitamin C (Theragran) 1 tab PO DAILY [facility] Stop: 01/17/18 08:59 Last Admin: 11/18/17 10:02 Dose: Not Given Spironolactone (Aldactone) 12.5 mg PO DAILY [facility] Stop: 01/17/18 08:59 Last Admin: 11/18/17 10:02 Dose: Not Given Tramadol HCl (Ultram) 50 mg PO Q6HR PRN PRN Reason: PAIN Stop: 01/17/18 01:27 Zinc Sulfate (Zinc Sulfate) 220 mg PO DAILY [facility] Stop: 01/17/18 08:59 Last Admin: 11/18/17 10:02 Dose: Not Given Zolpidem Tartrate (Ambien) 5 mg PO HS PRN PRN Reason: Insomnia Stop: 01/16/18 23:19 General: alert HEENT: NC/AT, PERRLA Neck: Supple Lungs: CTAB Cardiovascular: RRR Abdomen: soft, non-tender, non-distended Extremities: ecchymosis, ulcers stage 3, ulcers stage 4, redness Neurological: no change Internal Medicine Assmt/Plan - Assessment Assessment: RIGHT ELBOW CELLULITIS MULTIPLE OPEN WOUND - MRSA WOUND ALOC ACUTE RENAL FAILURE DM2 PSYCHOSIS HTN MILD PROTEIN CALORIE MALNUTRITION CHEST DEFBRILLATOR STATUS COPD CHF CAD - Plan Plan: wound care fall precautions continue current orders
--- NOTE | 2017-11-18 21:51 | Psychosocial Evaluation ---
DATE OF SERVICE: 11/17/2017 Staff was spoken to. The patient is interviewed. IDENTIFYING DATA: The patient is a 72-year-old male, resident of [facility]. Information was obtained by directly interviewing the patient as well as reviewing the admission papers, disposition hospitalization. The patient initially admitted to the Med/Surg unit because of elevated BUN and creatinine and the patient has been medically stabilized and transferred over here for further stabilization. I tried to interview the patient, but the patient has not been able to provide much of information. The patient has been grossly psychotic and is confused and responding to internal stimuli. PAST PSYCHIATRIC HISTORY: Details are not known. MEDICAL HISTORY AND PHYSICAL EXAMINATION: Requested to be done by Dr. Munoz. The patient has a history of diabetes mellitus type 2, hypertension, and the patient has a defibrillator. The patient has history of COPD, congestive heart failure. SOCIAL HISTORY: The patient is a resident of the [facility]. SUBSTANCE ABUSE HISTORY: None. PHYSICAL OR SEXUAL ABUSE HISTORY: None. LEGAL PROBLEMS: None at this time. MENTAL STATUS EXAMINATION: The patient is a 72-year-old, looking his stated age, well-built. Eye contact is poor. The patient is very confused and is not making much sense. Insight and judgment at this time are noted to very much impaired. Impulse control seems to be limited. The patient has been having difficult time to cope with the stress. The patient is currently on Haldol and I will be changing the Haldol to 2 mg twice a day and then the benztropine is going to be changed to 0.5 mg twice a day and the patient is going to be closely monitored. The patient is going to be closely monitored and I encouraged to verbalize the concerns. Mental examination is significant for the patient is confusion and not able to pay any attention and not able to get much of information from this patient. The patient's short and terminal clerk memory could not be tested. DIAGNOSTIC IMPRESSION: 1. Psychosis, not otherwise specified. 1B. Dementia and behavioral change, secondary trait. IMMEDIATE TREATMENT PLAN: The patient is going to be placed on the Haldol and the Cogentin. ESTIMATED LENGTH OF STAY: 3-7 days. DISCHARGE CRITERIA: When he is no longer a threat to self or others and be able to cope up with the stress. JOB# [id number]
[2017-11-19] MEDS: INSULIN ASPART, RECOMBINANT 100 UNITS/ML SUBQ SCH ×4 (06:43→21:00)
[2017-11-19] MEDS: Multivitamin Tab PO SCH (09:35)
[2017-11-19] MEDS: Benztropine 1 MG TAB PO SCH ×2 (09:35→17:29)
--- NOTE | 2017-11-19 15:08 | Internal Medicine Prog Note ---
Internal Medicine Subjective - Subjective Patient seen and examined:: with staff, chart reviewed Patient is:: awake, non-verbal, non-interactive, agitated, confused Patient Complaints of:: congestion Per staff patient has:: no adverse event, poor appetite, agitated, noncompliant , tolerating meds Internal Medicine Objective - Results Recent Labs: Laboratory Last Values POC Glucose 118 MG/DL (70 - 105) H 11/19/17 06:03 - Physical Exam Vitals and I&O: Vital Signs Temp 98.4 F 11/19/17 06:15 Pulse 77 11/19/17 06:15 Resp 18 11/19/17 06:15 BP 106/42 11/19/17 06:15 Pulse Ox 98 11/19/17 06:15 Intake & Output 11/18/17 11/19/17 11/19/17 18:59 06:59 18:59 Intake Total 1200 240 Balance 1200 240 Intake: Oral 1200 240 Other: # Voids 1 # Bowel Movements 1 Stool Characteristics Soft Soft Soft Active Medications: Current Medications Acetaminophen (Tylenol) 650 mg PO Q4HR PRN PRN Reason: Mild Pain / Temp above 100 Stop: 01/16/18 23:19 Al Hydrox/Mg Hydrox/Simethicone (Maalox) 30 ml PO Q4HR PRN PRN Reason: GI DISTRESS Stop: 01/16/18 23:19 Ascorbic Acid (Vitamin C) 500 mg PO DAILY [facility] Stop: 01/17/18 08:59 Last Admin: 11/19/17 09:35 Dose: Not Given Benztropine Mesylate (Cogentin) 0.5 mg PO BID [facility] Stop: 01/17/18 08:59 Last Admin: 11/19/17 09:35 Dose: Not Given Carvedilol (Coreg) 25 mg PO BID [facility] Stop: 01/17/18 08:59 Last Admin: 11/19/17 09:35 Dose: Not Given Docusate Sodium (Colace) 100 mg PO DAILY [facility] Stop: 01/17/18 08:59 Last Admin: 11/19/17 09:35 Dose: Not Given Enalapril Maleate (Vasotec) 7.5 mg PO DAILY [facility] Stop: 01/17/18 08:59 Last Admin: 11/19/17 09:35 Dose: Not Given Gabapentin (Neurontin) 300 mg PO TID [facility] Stop: 01/17/18 08:59 Last Admin: 11/19/17 14:59 Dose: 300 mg Haloperidol (Haldol) 2 mg PO BID [facility] PRN Reason: Protocol Stop: 01/17/18 18:59 Last Admin: 11/18/17 19:44 Dose: 2 mg Insulin Aspart (Novolog) 0 units SUBQ ACHS [facility] PRN Reason: Protocol Stop: 01/17/18 07:29 Last Admin: 11/19/17 11:29 Dose: Not Given Lorazepam (Ativan) 0.5 mg PO Q4HR PRN; Protocol PRN Reason: Anxiety/agitation Stop: 12/17/17 23:19 Last Admin: 11/18/17 17:27 Dose: 0.5 mg Magnesium Hydroxide (Milk Of Magnesia) 30 ml PO HS PRN PRN Reason: Constipation Multivitamins/Vitamin C (Theragran) 1 tab PO DAILY [facility] Stop: 01/17/18 08:59 Last Admin: 11/19/17 09:35 Dose: Not Given Spironolactone (Aldactone) 12.5 mg PO DAILY [facility] Stop: 01/17/18 08:59 Last Admin: 11/19/17 09:35 Dose: Not Given Tramadol HCl (Ultram) 50 mg PO Q6HR PRN PRN Reason: PAIN Stop: 01/17/18 01:27 Zinc Sulfate (Zinc Sulfate) 220 mg PO DAILY [facility] Stop: 01/17/18 08:59 Last Admin: 11/19/17 09:34 Dose: Not Given Zolpidem Tartrate (Ambien) 5 mg PO HS PRN PRN Reason: Insomnia Stop: 01/16/18 23:19 General: congested, demented HEENT: NC/AT, PERRLA Neck: Supple Lungs: CTAB Cardiovascular: RRR Abdomen: soft, non-tender, non-distended Extremities: excoriation, ecchymosis, ulcers stage 3, ulcers stage 4, redness Neurological: no change, disorganized, unsteady, bedbound, spastic Internal Medicine Assmt/Plan - Assessment Assessment: - Assessment Assessment: RIGHT ELBOW CELLULITIS MULTIPLE OPEN WOUND - MRSA WOUND ALOC ACUTE RENAL FAILURE DM2 PSYCHOSIS HTN MILD PROTEIN CALORIE MALNUTRITION CHEST DEFBRILLATOR STATUS COPD CHF CAD - Plan Plan: wound care fall precautions continue current orders - Plan Plan: see orders
--- NOTE | 2017-11-19 16:15 | Progress Notes ---
DATE: 11/19/2017 SUBJECTIVE: Staff was spoken to. The patient is interviewed. Mood is noted to be irritable. Affect is constricted. Insight and judgment are noted to be still impaired. Impulse control is noted to be poor. Coping skills are also noted to be very poor. The patient is still confused and not making much sense. ASSESSMENT: The patient is still grossly psychotic. PLAN: To continue the patient with the supportive therapy and encouraged the patient to verbalize the concerns rather than to act out. JOB# [id number]
[2017-11-19] MEDS: Sulfamethoxazole/TMP 800/160mg Tab PO SCH (17:29)
[2017-11-20] MEDS: INSULIN ASPART, RECOMBINANT 100 UNITS/ML SUBQ SCH ×4 (06:47→20:43)
[2017-11-20] MEDS: Benztropine 1 MG TAB PO SCH ×2 (09:17→16:22)
[2017-11-20] MEDS: Multivitamin Tab PO SCH (09:18)
[2017-11-20] MEDS: Sulfamethoxazole/TMP 800/160mg Tab PO SCH ×2 (09:18→16:22)
--- NOTE | 2017-11-20 15:04 | Internal Medicine Prog Note ---
Internal Medicine Subjective - Subjective Patient seen and examined:: with staff, chart reviewed Patient is:: awake, non-verbal, non-interactive, agitated, confused Patient Complaints of:: congestion Per staff patient has:: no adverse event, poor appetite, agitated, noncompliant , tolerating meds Internal Medicine Objective - Results Recent Labs: Laboratory Last Values POC Glucose 123 MG/DL (70 - 105) H 11/20/17 11:30 - Physical Exam Vitals and I&O: Vital Signs Temp 98.6 F 11/19/17 20:00 Pulse 80 11/19/17 20:00 Resp 20 11/19/17 20:00 BP 166/99 11/19/17 20:00 Pulse Ox 100 11/19/17 17:58 Intake & Output 11/19/17 11/20/17 11/20/17 18:59 06:59 18:59 Intake Total 500 Balance 500 Intake: Oral 500 Other: # Voids 1 Stool Characteristics Soft Soft Active Medications: Current Medications Acetaminophen (Tylenol) 650 mg PO Q4HR PRN PRN Reason: Mild Pain / Temp above 100 Stop: 01/16/18 23:19 Al Hydrox/Mg Hydrox/Simethicone (Maalox) 30 ml PO Q4HR PRN PRN Reason: GI DISTRESS Stop: 01/16/18 23:19 Ascorbic Acid (Vitamin C) 500 mg PO DAILY [facility] Stop: 01/17/18 08:59 Last Admin: 11/20/17 09:16 Dose: 500 mg Benztropine Mesylate (Cogentin) 0.5 mg PO BID [facility] Stop: 01/17/18 08:59 Last Admin: 11/20/17 09:17 Dose: 0.5 mg Carvedilol (Coreg) 25 mg PO BID [facility] Stop: 01/17/18 08:59 Last Admin: 11/20/17 09:19 Dose: Not Given Docusate Sodium (Colace) 100 mg PO DAILY [facility] Stop: 01/17/18 08:59 Last Admin: 11/20/17 09:19 Dose: Not Given Enalapril Maleate (Vasotec) 7.5 mg PO DAILY [facility] Stop: 01/17/18 08:59 Last Admin: 11/20/17 09:19 Dose: Not Given Gabapentin (Neurontin) 300 mg PO TID [facility] Stop: 01/17/18 08:59 Last Admin: 11/20/17 13:20 Dose: 300 mg Haloperidol (Haldol) 2 mg PO BID [facility] PRN Reason: Protocol Stop: 01/17/18 18:59 Last Admin: 11/20/17 09:18 Dose: 2 mg Insulin Aspart (Novolog) 0 units SUBQ ACHS [facility] PRN Reason: Protocol Stop: 01/17/18 07:29 Last Admin: 11/20/17 11:37 Dose: Not Given Lorazepam (Ativan) 0.5 mg PO Q4HR PRN; Protocol PRN Reason: Anxiety/agitation Stop: 12/17/17 23:19 Last Admin: 11/19/17 23:00 Dose: 0.5 mg Magnesium Hydroxide (Milk Of Magnesia) 30 ml PO HS PRN PRN Reason: Constipation Multivitamins/Vitamin C (Theragran) 1 tab PO DAILY [facility] Stop: 01/17/18 08:59 Last Admin: 11/20/17 09:18 Dose: 1 tab Spironolactone (Aldactone) 12.5 mg PO DAILY [facility] Stop: 01/17/18 08:59 Last Admin: 11/20/17 09:17 Dose: Not Given Tramadol HCl (Ultram) 50 mg PO Q6HR PRN PRN Reason: PAIN Stop: 01/17/18 01:27 Trimethoprim/Sulfamethoxazole (Bactrim Ds) 1 tab PO BID [facility] Stop: 11/29/17 16:59 Last Admin: 11/20/17 09:18 Dose: 1 tab Zinc Sulfate (Zinc Sulfate) 220 mg PO DAILY [facility] Stop: 01/17/18 08:59 Last Admin: 11/20/17 09:18 Dose: 220 mg Zolpidem Tartrate (Ambien) 5 mg PO HS PRN PRN Reason: Insomnia Stop: 01/16/18 23:19 Last Admin: 11/19/17 22:15 Dose: 5 mg General: congested, demented HEENT: NC/AT, PERRLA Neck: Supple Lungs: CTAB Cardiovascular: RRR Abdomen: soft, non-tender, non-distended Extremities: excoriation, ecchymosis, ulcers stage 3, ulcers stage 4, redness Neurological: no change, disorganized, unsteady, bedbound, spastic Internal Medicine Assmt/Plan - Assessment Assessment: - Assessment Assessment: RIGHT ELBOW CELLULITIS MULTIPLE OPEN WOUND - MRSA WOUND ALOC ACUTE RENAL FAILURE DM2 PSYCHOSIS HTN MILD PROTEIN CALORIE MALNUTRITION CHEST DEFBRILLATOR STATUS COPD CHF CAD - Plan Plan: wound care fall precautions continue current orders - Plan Plan: see orders
--- NOTE | 2017-11-20 22:51 | Progress Notes ---
DATE: 11/20/2017 SUBJECTIVE: Staff was spoken to. The patient is interviewed. Mood is noted to be anxious. The patient's coping skills are noted to be poor. The patient is very confused and demented. The patient has been maintained on low dose of Haldol at this time. The patient is getting easily agitated, almost in need of a 1:1 observation. The patient is not able to contract for safety at this time. ASSESSMENT: The patient is still psychotic and demented. PLAN: To continue the patient with Haldol 2 mg twice a day and follow the patient. JOB# [id number]
[2017-11-21] MEDS: INSULIN ASPART, RECOMBINANT 100 UNITS/ML SUBQ SCH ×4 (06:38→20:22)
[2017-11-21] MEDS: Benztropine 1 MG TAB PO SCH ×2 (09:49→18:03)
[2017-11-21] MEDS: Sulfamethoxazole/TMP 800/160mg Tab PO SCH ×2 (09:59→18:05)
[2017-11-21] MEDS: Multivitamin Tab PO SCH (10:00)
--- NOTE | 2017-11-21 13:21 | Progress Notes ---
DATE: 11/21/2017 SUBJECTIVE: Staff was spoken to. The patient is interviewed. Mood is noted to be irritable. Affect is constricted. Insight and judgment are noted to be still impaired. Coping skills are noted to be poor. The patient has poor short-term as well as long-term memories. The confusion and agitation compared to the time of admission has been coming down. No side effects to the medications are noted. ASSESSMENT: The patient is still confused and agitated. PLAN: To continue the patient with the supportive therapy and followup. JOB# [id number]
--- NOTE | 2017-11-21 15:03 | Internal Medicine Prog Note ---
Internal Medicine Subjective - Subjective Patient seen and examined:: with staff, chart reviewed Patient is:: awake, non-verbal, non-interactive, agitated, confused Patient Complaints of:: congestion Per staff patient has:: no adverse event, poor appetite, agitated, noncompliant , tolerating meds Internal Medicine Objective - Results Recent Labs: Laboratory Last Values POC Glucose 132 MG/DL (70 - 105) H 11/21/17 06:04 - Physical Exam Vitals and I&O: Vital Signs Temp 97.2 F 11/21/17 14:32 Pulse 75 11/21/17 14:32 Resp 20 11/21/17 14:32 BP 130/80 11/21/17 14:32 Pulse Ox 97 11/21/17 14:32 Active Medications: Current Medications Acetaminophen (Tylenol) 650 mg PO Q4HR PRN PRN Reason: Mild Pain / Temp above 100 Stop: 01/16/18 23:19 Al Hydrox/Mg Hydrox/Simethicone (Maalox) 30 ml PO Q4HR PRN PRN Reason: GI DISTRESS Stop: 01/16/18 23:19 Ascorbic Acid (Vitamin C) 500 mg PO DAILY [facility] Stop: 01/17/18 08:59 Last Admin: 11/21/17 09:49 Dose: 500 mg Benztropine Mesylate (Cogentin) 0.5 mg PO BID [facility] Stop: 01/17/18 08:59 Last Admin: 11/21/17 09:49 Dose: 0.5 mg Carvedilol (Coreg) 25 mg PO BID [facility] Stop: 01/17/18 08:59 Last Admin: 11/21/17 09:57 Dose: 25 mg Docusate Sodium (Colace) 100 mg PO DAILY [facility] Stop: 01/17/18 08:59 Last Admin: 11/21/17 10:01 Dose: 100 mg Enalapril Maleate (Vasotec) 7.5 mg PO DAILY [facility] Stop: 01/17/18 08:59 Last Admin: 11/21/17 09:59 Dose: 7.5 mg Gabapentin (Neurontin) 300 mg PO TID [facility] Stop: 01/17/18 08:59 Last Admin: 11/21/17 10:00 Dose: 300 mg Haloperidol (Haldol) 2 mg PO BID [facility] PRN Reason: Protocol Stop: 02/27/18 18:59 Last Admin: 11/21/17 09:57 Dose: 2 mg Insulin Aspart (Novolog) 0 units SUBQ ACHS [facility] PRN Reason: Protocol Stop: 01/17/18 07:29 Last Admin: 11/21/17 06:38 Dose: Not Given Lorazepam (Ativan) 0.5 mg PO Q4HR PRN; Protocol PRN Reason: Anxiety/agitation Stop: 12/17/17 23:19 Last Admin: 11/21/17 03:14 Dose: 0.5 mg Magnesium Hydroxide (Milk Of Magnesia) 30 ml PO HS PRN PRN Reason: Constipation Multivitamins/Vitamin C (Theragran) 1 tab PO DAILY [facility] Stop: 01/17/18 08:59 Last Admin: 11/21/17 10:00 Dose: 1 tab Spironolactone (Aldactone) 12.5 mg PO DAILY [facility] Stop: 01/17/18 08:59 Last Admin: 11/21/17 10:00 Dose: 12.5 mg Tramadol HCl (Ultram) 50 mg PO Q6HR PRN PRN Reason: PAIN Stop: 01/17/18 01:27 Trimethoprim/Sulfamethoxazole (Bactrim Ds) 1 tab PO BID [facility] Stop: 11/29/17 16:59 Last Admin: 11/21/17 09:59 Dose: 1 tab Zinc Sulfate (Zinc Sulfate) 220 mg PO DAILY [facility] Stop: 01/17/18 08:59 Last Admin: 11/21/17 09:49 Dose: 220 mg Zolpidem Tartrate (Ambien) 5 mg PO HS PRN PRN Reason: Insomnia Stop: 01/16/18 23:19 Last Admin: 11/19/17 22:15 Dose: 5 mg General: congested, demented HEENT: NC/AT, PERRLA Neck: Supple Lungs: CTAB Cardiovascular: RRR Abdomen: soft, non-tender, non-distended Extremities: excoriation, ecchymosis, ulcers stage 3, ulcers stage 4, redness Neurological: no change, disorganized, unsteady, bedbound, spastic Internal Medicine Assmt/Plan - Assessment Assessment: - Assessment Assessment: RIGHT ELBOW CELLULITIS MULTIPLE OPEN WOUND - MRSA WOUND ALOC ACUTE RENAL FAILURE DM2 PSYCHOSIS HTN MILD PROTEIN CALORIE MALNUTRITION CHEST DEFBRILLATOR STATUS COPD CHF CAD - Plan Plan: wound care fall precautions continue current orders - Plan Plan: see orders
[2017-11-22] MEDS: INSULIN ASPART, RECOMBINANT 100 UNITS/ML SUBQ SCH ×2 (06:32→12:02)
[2017-11-22] MEDS: Multivitamin Tab PO SCH (08:39)
[2017-11-22] MEDS: Sulfamethoxazole/TMP 800/160mg Tab PO SCH (08:39)
[2017-11-22] MEDS: Benztropine 1 MG TAB PO SCH (08:39)
--- NOTE | 2017-11-22 11:08 | Internal Medicine Prog Note ---
Internal Medicine Subjective - Subjective Service Date: 11/22/17 Patient is:: awake, non-verbal, non-interactive, agitated, confused Patient Complaints of:: congestion Per staff patient has:: no adverse event, poor appetite, agitated, noncompliant , tolerating meds Internal Medicine Objective - Results Recent Labs: Laboratory Last Values POC Glucose 153 MG/DL (70 - 105) H 11/22/17 06:14 - Physical Exam Vitals and I&O: Vital Signs Temp 98.2 F 11/22/17 06:24 Pulse 75 11/22/17 09:02 Resp 16 11/22/17 06:24 BP 84/33 11/22/17 09:02 Pulse Ox 99 11/22/17 06:24 Active Medications: Current Medications Acetaminophen (Tylenol) 650 mg PO Q4HR PRN PRN Reason: Mild Pain / Temp above 100 Stop: 01/16/18 23:19 Al Hydrox/Mg Hydrox/Simethicone (Maalox) 30 ml PO Q4HR PRN PRN Reason: GI DISTRESS Stop: 01/16/18 23:19 Ascorbic Acid (Vitamin C) 500 mg PO DAILY [facility] Stop: 01/17/18 08:59 Last Admin: 11/22/17 08:39 Dose: 500 mg Benztropine Mesylate (Cogentin) 0.5 mg PO BID [facility] Stop: 01/17/18 08:59 Last Admin: 11/22/17 08:39 Dose: 0.5 mg Carvedilol (Coreg) 25 mg PO BID [facility] Stop: 01/17/18 08:59 Last Admin: 11/22/17 09:01 Dose: Not Given Docusate Sodium (Colace) 100 mg PO DAILY [facility] Stop: 01/17/18 08:59 Last Admin: 11/22/17 08:39 Dose: 100 mg Enalapril Maleate (Vasotec) 7.5 mg PO DAILY [facility] Stop: 01/17/18 08:59 Last Admin: 11/22/17 09:02 Dose: Not Given Gabapentin (Neurontin) 300 mg PO TID [facility] Stop: 01/17/18 08:59 Last Admin: 11/22/17 08:39 Dose: 300 mg Haloperidol (Haldol) 2 mg PO BID [facility] PRN Reason: Protocol Stop: 01/17/18 18:59 Last Admin: 11/22/17 08:40 Dose: 2 mg Insulin Aspart (Novolog) 0 units SUBQ ACHS [facility] PRN Reason: Protocol Stop: 01/17/18 07:29 Last Admin: 11/22/17 06:32 Dose: Not Given Lorazepam (Ativan) 0.5 mg PO Q4HR PRN; Protocol PRN Reason: Anxiety/agitation Stop: 12/17/17 23:19 Last Admin: 11/21/17 03:14 Dose: 0.5 mg Magnesium Hydroxide (Milk Of Magnesia) 30 ml PO HS PRN PRN Reason: Constipation Multivitamins/Vitamin C (Theragran) 1 tab PO DAILY [facility] Stop: 01/17/18 08:59 Last Admin: 11/22/17 08:39 Dose: 1 tab Spironolactone (Aldactone) 12.5 mg PO DAILY [facility] Stop: 01/17/18 08:59 Last Admin: 11/22/17 09:02 Dose: Not Given Tramadol HCl (Ultram) 50 mg PO Q6HR PRN PRN Reason: PAIN Stop: 01/17/18 01:27 Trimethoprim/Sulfamethoxazole (Bactrim Ds) 1 tab PO BID [facility] Stop: 11/29/17 16:59 Last Admin: 11/22/17 08:39 Dose: 1 tab Zinc Sulfate (Zinc Sulfate) 220 mg PO DAILY [facility] Stop: 01/17/18 08:59 Last Admin: 11/22/17 08:40 Dose: 220 mg Zolpidem Tartrate (Ambien) 5 mg PO HS PRN PRN Reason: Insomnia Stop: 01/16/18 23:19 Last Admin: 11/19/17 22:15 Dose: 5 mg General: congested, demented HEENT: NC/AT, PERRLA Neck: Supple Lungs: CTAB Cardiovascular: RRR Abdomen: soft, non-tender, non-distended Extremities: excoriation, ecchymosis, ulcers stage 3, ulcers stage 4, redness Neurological: no change, disorganized, unsteady, bedbound, spastic Internal Medicine Assmt/Plan - Assessment Assessment: RIGHT ELBOW CELLULITIS MULTIPLE OPEN WOUND - MRSA WOUND ALOC ACUTE RENAL FAILURE DM2 PSYCHOSIS HTN MILD PROTEIN CALORIE MALNUTRITION CHEST DEFBRILLATOR STATUS COPD CHF CAD - Plan Plan: wound care fall precautions continue current orders
--- NOTE | 2017-11-22 13:03 | Progress Notes ---
DATE: 11/22/2017 SUBJECTIVE: Staff was spoken to. The patient is interviewed. Mood is noted to be irritable. Affect is constricted. The patient is still confused, agitated and has poor short-term and intermodal dispatcher memory deficits. Insight and judgment at this time are very much impaired. Impulse control is poor. No side effects to the medications are noted. ASSESSMENT: The patient is still psychotic and impulsive. PLAN: To continue the patient with the current medications and followup. JOB# [id number]
== END 2017-11-22 15:46 | DRG 885 ==
LOC: GERO 21:50
DX: F29 Unspecified psychosis not due to a substance or known physiological condition (principal); N17.9 Acute kidney failure, unspecified; F03.91 Unspecified dementia, unspecified severity, with behavioral disturbance; L03.113 Cellulitis of right upper limb; B95.62 Methicillin resistant Staphylococcus aureus infection as the cause of diseases classified elsewhere; I50.9 Heart failure, unspecified; E11.9 Type 2 diabetes mellitus without complications; E44.1 Mild protein-calorie malnutrition; I11.0 Hypertensive heart disease with heart failure; J44.9 Chronic obstructive pulmonary disease, unspecified; I25.10 Atherosclerotic heart disease of native coronary artery without angina pectoris; Z95.810 Presence of automatic (implantable) cardiac defibrillator; Z68.33 Body mass index [BMI] 33.0-33.9, adult
CPT/HCPCS: 82948-90; J1815; X3401; Z7610

== ENCOUNTER 2017-11-22 15:46 | Inpatient (IN) | payer MEDICARE, MEDICAID ==
[2017-11-22] MEDS ORDERED: Albumin 25% 12.5gm/50mL 12.5 GM/50 ML BTL IV SCH (17:00)
[2017-11-22] MEDS ORDERED: Magnesium Hydroxide (MOM) 30 mL UDC PO PRN (17:19)
[2017-11-22] MEDS ORDERED: guaiFENesin 200 MG/10 ML UDC PO PRN (17:21)
[2017-11-22] MEDS ORDERED: D5-0.9%NS 1,000 ML IV SCH (17:30)
[2017-11-22 17:59] LABS: % BASOPHILS 0.5 % (0.0-2.0); % EOSINOPHILS 1.6 % (0.0-5.0); % LYMPHOCYTES 16.9 % (20.0-50.0); EOSINOPHILE ABSOLUTE 0.2 Th/cmm (0.1-0.4); HEMATOCRIT 33.1 % (41.0-60); LYMPHOCYTE ABSOLUTE 1.7 Th/cmm (1.5-3.0); MEAN CELL VOLUME 96.7 fl (80-99); MEAN CORPUSCULAR HEMOGLOBIN 32.2 pg (27.0-31.0); MEAN CORPUSCULAR HGB CONC 33.3 pg (28.0-36.0); MEAN PLATELET VOLUME 9.4 fl; MONOCYTE ABSOLUTE 0.9 Th/cmm (0.3-1.0); NEUTROPHILE ABSOLUTE 7.1 Th/cmm (1.8-8.0); RED BLOOD COUNT 3.42 Mil/cmm (3.80-5.80); RED CELL DISTRIBUTION WIDTH 13.7 % (11.5-20.0)
[2017-11-22] MEDS: Albumin 25% 12.5gm/50mL 25 GM/100 ML BTL IV SCH (18:12)
[2017-11-22 18:18] LABS: WHITE BLOOD COUNT 9.9 Th/cmm (4.8-10.8)
[2017-11-22 18:19] LABS: PLATELET COUNT 287 Th/cmm (150-400)
[2017-11-22] MEDS: Albuterol Nebulizer 2.5mg/3mL HHN SCH (19:03)
[2017-11-22] MEDS: Ipratropium Neb 0.5 mg/2.5 mL UD HHN SCH (19:03)
[2017-11-22 19:15] VITALS: BP 108/85
[2017-11-22 19:46] LABS: ALB/GLOB RATIO 0.7 (1.0-1.8); ALKALINE PHOSPHATASE 87 U/L (34-104); ANION GAP 16.4 (7.0-16.0); BILIRUBIN,TOTAL 0.5 mg/dL (0.3-1.0); BUN - UREA NITROGEN 76 mg/dL (7-25); CALCIUM SERUM 8.2 mg/dL (8.6-10.3); CARBON DIOXIDE 20.2 mEq/L (21.0-31.0); CHLORIDE 103 mEq/L (98-107); GLUCOSE 122 mg/dL (70-105); POTASSIUM SERUM 3.6 mEq/L (3.5-5.1); SGOT 28 U/L (13-39); SGPT/ALT 28 U/L (7-52); SODIUM SERUM 136 mEq/L (136-145); TOTAL PROTEIN,SERUM 7.1 gm/dL (6.0-8.3)
[2017-11-22 19:47] LABS: pH 7.36 (7.35-7.45)
[2017-11-22 19:48] LABS: ALLEN TEST Y
[2017-11-22] MEDS: INSULIN ASPART, RECOMBINANT 100 UNITS/ML SUBQ SCH (20:00)
[2017-11-22] MEDS: D5-0.9%NS 1,000 ML IV SCH (22:02)
[2017-11-22] MEDS ORDERED: DOPamine 400 MG/250 ML BAG IV PRN (22:10)
[2017-11-22 22:25] LABS: URINE MICROSCOPIC INDICATED? YES; URINE SOURCE CATH
[2017-11-22 22:40] LABS: URINE BILIRUBIN SMALL (NEGATIVE); URINE BLOOD TRACE (NEGATIVE); URINE GLUCOSE (UA) NEGATIVE (NEGATIVE); URINE KETONE TRACE mg/dL (NEGATIVE); URINE LEUKOCYTE ESTERASE NEGATIVE (NEGATIVE); URINE NITRATE NEGATIVE (NEGATIVE); URINE PROTEIN NEGATIVE (NEGATIVE); URINE UROBILINOGEN 0.2 E.U./dL (0.2 - 1.0)
[2017-11-22 22:46] LABS: URINE CLARITY HAZY (CLEAR); URINE COLOR BROWN
[2017-11-22 23:03] LABS: URINE EPITHELIAL CELLS FEW /lpf (FEW); URINE RBC 0-2 /hpf (0-5); URINE WBC 0-2 /hpf (0-5)
[2017-11-22 23:04] LABS: URINE BACTERIA FEW /hpf (NONE SEEN); URINE ICTOTEST NEGATIVE (NEGATIVE)
[2017-11-23] MEDS: Albumin 25% 12.5gm/50mL 25 GM/100 ML BTL IV SCH ×3 (03:08→18:16)
[2017-11-23] MEDS: Ipratropium Neb 0.5 mg/2.5 mL UD HHN SCH ×4 (08:08→19:36)
[2017-11-23] MEDS: Albuterol Nebulizer 2.5mg/3mL HHN SCH ×4 (08:08→19:36)
--- NOTE | 2017-11-23 08:21 | Diagnostic Imaging Report ---
Exam: Portable chest x-ray. HISTORY: Pain. Findings: Portable upright examination of chest at 1817 hours reviewed compatible prior study 11/08/2017. The study demonstrates satisfactory positioning of right total shoulder prosthesis. Mediastinal structures midline the heart is enlarged. Mild congestion is present. There is evidence of atelectasis versus peribronchial infiltrate in the right base. Follow-up examination recommended. Left-sided pacemaker is noted. IMPRESSION: Mild peribronchial infiltrate right base follow-up examination recommended.
[2017-11-23] MEDS: INSULIN ASPART, RECOMBINANT 100 UNITS/ML SUBQ SCH ×4 (08:46→21:50)
[2017-11-23 09:04] LABS: % BASOPHILS 0.1 % (0.0-2.0); % EOSINOPHILS 2.2 % (0.0-5.0); % LYMPHOCYTES 11.6 % (20.0-50.0); % MONOCYTES 7.8 % (2.0-10.0); % NEUTROPHILS 78.3 % (40.0-80.0); EOSINOPHILE ABSOLUTE 0.2 Th/cmm (0.1-0.4); HEMATOCRIT 32.7 % (41.0-60); LYMPHOCYTE ABSOLUTE 1.2 Th/cmm (1.5-3.0); MEAN CELL VOLUME 96.4 fl (80-99); MEAN CORPUSCULAR HEMOGLOBIN 32.5 pg (27.0-31.0); MEAN CORPUSCULAR HGB CONC 33.7 pg (28.0-36.0); MEAN PLATELET VOLUME 9.9 fl; MONOCYTE ABSOLUTE 0.8 Th/cmm (0.3-1.0); NEUTROPHILE ABSOLUTE 7.9 Th/cmm (1.8-8.0); PLATELET COUNT 261 Th/cmm (150-400); RED BLOOD COUNT 3.39 Mil/cmm (3.80-5.80); RED CELL DISTRIBUTION WIDTH 13.3 % (11.5-20.0); WHITE BLOOD COUNT 10.1 Th/cmm (4.8-10.8)
[2017-11-23 09:19] LABS: ANION GAP 17.1 (7.0-16.0); BUN - UREA NITROGEN 78 mg/dL (7-25); CALCIUM SERUM 8.1 mg/dL (8.6-10.3); CARBON DIOXIDE 17.8 mEq/L (21.0-31.0); CHLORIDE 107 mEq/L (98-107); GLUCOSE 101 mg/dL (70-105); MAGNESIUM 1.9 mg/dL (1.9-2.7); PHOSPHOROUS 7.4 mg/dL (2.5-5.0); POTASSIUM SERUM 3.9 mEq/L (3.5-5.1); SODIUM SERUM 138 mEq/L (136-145)
[2017-11-23 09:22] LABS: CREATININE - SERUM 10.2 mg/dL (0.7-1.3)
[2017-11-23] MEDS: Benztropine 1 MG TAB PO SCH ×2 (09:28→18:52)
[2017-11-23] MEDS: Multivitamin w/ Minerals Tab PO SCH (09:31)
--- NOTE | 2017-11-23 10:52 | Internal Medicine Prog Note ---
Internal Medicine Subjective - Subjective Service Date: 11/23/17 ([id number] [facility] DICTATED) Internal Medicine Objective - Results Result Diagrams: 11/23/17 08:30 11/23/17 08:30 Recent Labs: Laboratory Last Values WBC 10.1 Th/cmm (4.8-10.8) 11/23/17 08:30 RBC 3.39 Mil/cmm (3.80-5.80) L 11/23/17 08:30 Hgb 11.0 gm/dL (12-16) L 11/23/17 08:30 Hct 32.7 % (41.0-60) L 11/23/17 08:30 MCV 96.4 fl (80-99) 11/23/17 08:30 MCH 32.5 pg (27.0-31.0) H 11/23/17 08:30 MCHC Differential 33.7 pg (28.0-36.0) 11/23/17 08:30 RDW 13.3 % (11.5-20.0) 11/23/17 08:30 Plt Count 261 Th/cmm (150-400) 11/23/17 08:30 MPV 9.9 fl 11/23/17 08:30 Neutrophils % 78.3 % (40.0-80.0) 11/23/17 08:30 Lymphocytes % 11.6 % (20.0-50.0) L 11/23/17 08:30 Monocytes % 7.8 % (2.0-10.0) 11/23/17 08:30 Eosinophils % 2.2 % (0.0-5.0) 11/23/17 08:30 Basophils % 0.1 % (0.0-2.0) 11/23/17 08:30 Specimen Source ARTERIAL 11/22/17 17:19 Sample Site Left Radial 11/22/17 17: pH 7.36 (7.35-7.45) 11/22/17 17:19 pCO2 35.0 mmHg (35.0-45.0) 11/22/17 17:19 pO2 77.0 mmHg (80.0-100.0) L 11/22/17 17: HCO3 21.0 mEq/L (20.0-26.0) 11/22/17 17: Base Excess 5.0 mEq/L (-3.0-3.0) H 11/22/17 17:19 O2 Saturation 95.0 % (92.0-100.0) 11/22/17 17:19 Seven Test Y 11/22/17 17:19 Vent Rate N/A 11/22/17 17:19 Inspired O2 21 11/22/17 17:19 Tidal Volume A/N 11/22/17 17:19 PEEP N/A 11/22/17 17:19 Pressure (ins/psv/peep) N/A 11/22/17 17:19 Critical Value O.SAMPSON 11/22/17 17:19 Sodium 138 mEq/L (136-145) 11/23/17 08:30 Potassium 3.9 mEq/L (3.5-5.1) 11/23/17 08:30 Chloride 107 mEq/L (98-107) 11/23/17 08:30 Carbon Dioxide 17.8 mEq/L (21.0-31.0) L 11/23/17 08:30 Anion Gap 17.1 (7.0-16.0) H 11/23/17 08:30 BUN 78 mg/dL (7-25) H 11/23/17 08:30 Creatinine 10.2 mg/dL (0.7-1.3) H* 11/23/17 08:30 Est GFR ( Amer) TNP 11/23/17 08:30 Est GFR (Non-Af Amer) TNP 11/23/17 08:30 BUN/Creatinine Ratio 7.6 11/23/17 08:30 Glucose 101 mg/dL (70-105) 11/23/17 08:30 POC Glucose 136 MG/DL (70 - 105) H 11/23/17 07:41 Calcium 8.1 mg/dL (8.6-10.3) L 11/23/17 08:30 Phosphorus 7.4 mg/dL (2.5-5.0) H 11/23/17 08:30 Magnesium 1.9 mg/dL (1.9-2.7) 11/23/17 08:30 Total Bilirubin 0.5 mg/dL (0.3-1.0) 11/22/17 17:50 AST 28 U/L (13-39) 11/22/17 17:50 ALT 28 U/L (7-52) 11/22/17 17:50 Alkaline Phosphatase 87 U/L (34-104) 11/22/17 17:50 Ammonia 44 umol/L (16-53) 11/23/17 08:30 B-Natriuretic Peptide 152.0 pg/mL (5.0-100.0) H 11/22/17 17:50 Total Protein 7.1 gm/dL (6.0-8.3) 11/22/17 17:50 Albumin 3.0 gm/dL (4.2-5.5) L 11/22/17 17:50 Globulin 4.1 gm/dL 11/22/17 17:50 Albumin/Globulin Ratio 0.7 (1.0-1.8) L 11/22/17 17:50 Vitamin B12 1039 11/22/17 17:50 Folic Acid 14.4 11/22/17 17:50 Urine Source CATH 11/22/17 22:05 Urine Color BROWN 11/22/17 22:05 Urine Clarity HAZY (CLEAR) 11/22/17 22:05 Urine pH 5.0 (4.6 - 8.0) 11/22/17 22:05 Ur Specific [place] >= 1.030 (1.005-1.030) 11/22/17 22:05 Urine Protein NEGATIVE mg/dL (NEGATIVE) 11/22/17 22:05 Urine Glucose (UA) NEGATIVE mg/dL (NEGATIVE) 11/22/17 22:05 Urine Ketones TRACE mg/dL (NEGATIVE) 11/22/17 22:05 Urine Blood TRACE (NEGATIVE) 11/22/17 22:05 Urine Nitrate NEGATIVE (NEGATIVE) 11/22/17 22:05 Urine Bilirubin SMALL (NEGATIVE) H 11/22/17 22:05 Urine Ictotest NEGATIVE (NEGATIVE) 11/22/17 22:05 Urine Urobilinogen 0.2 E.U./dL (0.2 - 1.0) 11/22/17 22:05 Ur Leukocyte Esterase NEGATIVE (NEGATIVE) 11/22/17 22:05 Urine RBC 0-2 /hpf (0-5) H 11/22/17 22:05 Urine WBC 0-2 /hpf (0-5) 11/22/17 22:05 Ur Epithelial Cells FEW /lpf (FEW) 11/22/17 22:05 Urine Bacteria FEW /hpf (NONE SEEN) 11/22/17 22:05 - Physical Exam Vitals and I&O: Vital Signs Temp 97.8 F 11/23/17 00:00 Pulse 81 11/23/17 08:09 Resp 18 11/23/17 08:09 BP 111/50 11/23/17 04:00 Pulse Ox 96 11/23/17 08:09 Intake & Output 11/22/17 11/23/17 11/23/17 18:59 06:59 18:59 Intake Total 200 Balance 200 Weight (lbs) 245 lb Intake: Intake, IV Amount 200 Albumin 25% 12.5gm/50mL 200 25 gm In 100 ml @ 50 mls/ hr IV Q6HR [facility] Rx#: [id number] Active Medications: Current Medications Acetaminophen (Tylenol) 650 mg PO Q4HR PRN PRN Reason: PAIN Stop: 01/21/18 17:18 Albuterol Sulfate (Albuterol 2.5mg/3ml Neb Ud) 2.5 mg HHN QIDRT [facility] Stop: 01/21/18 18:59 Last Admin: 11/23/17 08:08 Dose: Not Given Ascorbic Acid (Vitamin C) 500 mg PO DAILY [facility] Stop: 01/22/18 08:59 Last Admin: 11/23/17 09:28 Dose: 500 mg Benztropine Mesylate (Cogentin) 1 mg PO BID [facility] Stop: 01/22/18 08:59 Last Admin: 11/23/17 09:28 Dose: 1 mg Docusate Sodium (Colace) 100 mg PO DAILY [facility] Stop: 01/22/18 08:59 Last Admin: 11/23/17 09:28 Dose: 100 mg Gabapentin (Neurontin) 300 mg PO TID [facility] Stop: 01/21/18 20:59 Last Admin: 11/23/17 09:28 Dose: 300 mg Guaifenesin (Robitussin) 200 mg PO Q4HR PRN PRN Reason: Cough or Congestion Stop: 01/21/18 17:20 Haloperidol (Haldol) 5 mg PO BID [facility] PRN Reason: Protocol Stop: 01/22/18 08:59 Last Admin: 11/23/17 09:28 Dose: 5 mg Albumin Human (Albutein 25%) 25 gm in 100 mls @ 50 mls/hr IV Q6HR [facility] Stop: 11/23/17 18:00 Last Admin: 11/23/17 09:26 Dose: 50 mls/hr Dextrose/Sodium Chloride (D5-0.9%Ns) 1,000 mls @ 150 mls/hr IV .Q6H40M [facility] Stop: 01/21/18 21:13 Last Admin: 11/22/17 22:02 Dose: 150 mls/hr Dopamine HCl/Dextrose (Dopamine) 400 mg in 250 mls @ 12.502 mls/hr IV TITR PRN ; Protocol; 3 MCG/KG/MIN PRN Reason: RENAL PERFUSION Stop: 01/21/18 22:09 Last Admin: 11/22/17 23:31 Dose: 3 mcg/kg/min, 12.502 mls/hr Insulin Aspart (Novolog) 0 units SUBQ ACHS [facility] PRN Reason: Protocol Stop: 01/21/18 20:59 Last Admin: 11/23/17 08:46 Dose: Not Given Ipratropium Battiest (Atrovent Neb 0.5mg/2.5ml) 0.5 mg HHN QIDRT [facility] Stop: 01/21/18 18:59 Last Admin: 11/23/17 08:08 Dose: Not Given Magnesium Hydroxide (Milk Of Magnesia) 30 ml PO DAILY PRN PRN Reason: Constipation Stop: 01/21/18 17:18 Miscellaneous (Clinical Monitoring) 1 ea MC DAILY PRN PRN Reason: RENAL Stop: 01/22/18 07:35 Olanzapine (Zyprexa) 5 mg IM DAILY PRN; Protocol PRN Reason: Agitation Stop: 01/21/18 23:04 Last Admin: 11/22/17 23:16 Dose: 5 mg Ondansetron HCl (Zofran) 4 mg IV Q8H PRN PRN Reason: Nausea / Vomiting Stop: 01/21/18 17:20 Zinc Sulfate (Zinc Sulfate) 220 mg PO DAILY [facility] Stop: 01/22/18 08:59 Last Admin: 11/23/17 09:29 Dose: 220 mg
--- NOTE | 2017-11-23 11:18 | History & Physical ---
ADMIT DATE: 11/23/2017 DICTATED FOR: Dr. Luis Munoz. CHIEF COMPLAINT: Low blood pressure. HISTORY OF PRESENT ILLNESS: This is a 72-year-old male who is admitted to the ICU unit. The patient was at [facility] yesterday. I received a call from the nurse. The patient's blood pressure dropped to 60/30. The [facility] and was later transferred to the ICU unit. The patient was given 4 doses of albumin. Upon examination, the patient's blood pressure has improved. PAST MEDICAL HISTORY: Type 2 diabetes, psychosis, hypertension, anxiety, chest defibrillator, COPD, CHF, CAD, Alzheimer's. PAST SURGICAL HISTORY: None. SOCIAL HISTORY: The [facility] is a [facility] resident, requiring 24-hour nursing care. ALLERGIES: No drug allergies. REVIEW OF SYSTEMS: Unable to obtain, patient is confused. PHYSICAL EXAMINATION: GENERAL: Elderly male, awake, confused and agitated. VITAL SIGNS: Temperature 98.2, heart rate of 80, blood pressure 111/50, respirations 17, O2 97%. HEENT: Head normocephalic, atraumatic. NECK: Supple. No mass. LUNGS: Clear bilaterally. CARDIOVASCULAR: Regular rate and rhythm. ABDOMEN: Soft, nontender. LABORATORY DATA: WBC 10.1, H and H 11.0 and 32.7, platelet of 261. Sodium 138, potassium 3.9, chloride of 107, carbon dioxide 17.8, BUN 78, creatinine of 10.2, calcium of 8.1. DIAGNOSTICS: The patient had a chest x-ray done. Impression is mild peribronchial infiltrate right base. ASSESSMENT: 1. Hypertension. 2. Altered level of consciousness. 3. Possible pneumonia. 4. Acute renal failure. 5. Multiple open wounds. 6. Type 2 diabetes. 7. Psychosis. 8. Hypertension. 9. Chest defibrillator status. 10. Chronic obstructive pulmonary disease. 11. Congestive heart failure. 12. Coronary artery disease. PLAN: I will continue patient on ICU monitoring. We will continue with albumin 25% IV q.6. We will get a renal ultrasound as well as a swallow evaluation. We will have a psychiatrist to follow the patient. We will continue to monitor this patient. JOB# [id number]
[2017-11-23 15:44] LABS: A1C % 6.8 % (4.0-6.0)
[2017-11-23] MEDS ORDERED: Haloperidol Lactate 5 mg/mL 1mL Vial IM ONE (20:59)
--- NOTE | 2017-11-24 01:57 | Progress Notes ---
DATE: 11/23/2017 Staff was spoken to. The patient is interviewed. The patient is reported to have had an hypertensive episode and the patient was transferred to the ICU. He has been maintained on high dose of the olanzapine as well as the haloperidol and the olanzapine has been discontinued and the patient is going to be maintained only on 1 mg of the Haldol twice a day as needed for his agitation. The patient at this time is still very confused and is not making much sense. No side effects to the medications are noted at this time. The patient has been very confused and is not able to make much sense. ASSESSMENT: The patient is still confused and psychotic. PLAN: To make these changes and follow the patient with the supportive therapy and followup. JOB# [id number]
[2017-11-24 05:17] LABS: % BASOPHILS 0.6 % (0.0-2.0); % EOSINOPHILS 1.1 % (0.0-5.0); % LYMPHOCYTES 9.7 % (20.0-50.0); % MONOCYTES 6.2 % (2.0-10.0); % NEUTROPHILS 82.4 % (40.0-80.0); BASOPHILE ABSOLUTE 0.1 Th/cumm (0-0.2); EOSINOPHILE ABSOLUTE 0.1 Th/cmm (0.1-0.4); HEMATOCRIT 33.2 % (41.0-60); HEMOGLOBIN 11.2 gm/dL (12-16); LYMPHOCYTE ABSOLUTE 0.9 Th/cmm (1.5-3.0); MEAN CELL VOLUME 96.8 fl (80-99); MEAN CORPUSCULAR HEMOGLOBIN 32.7 pg (27.0-31.0); MEAN CORPUSCULAR HGB CONC 33.8 pg (28.0-36.0); MEAN PLATELET VOLUME 9.5 fl; MONOCYTE ABSOLUTE 0.6 Th/cmm (0.3-1.0); NEUTROPHILE ABSOLUTE 7.9 Th/cmm (1.8-8.0); PLATELET COUNT 256 Th/cmm (150-400); RED BLOOD COUNT 3.43 Mil/cmm (3.80-5.80); RED CELL DISTRIBUTION WIDTH 13.9 % (11.5-20.0); WHITE BLOOD COUNT 9.6 Th/cmm (4.8-10.8)
[2017-11-24 05:52] LABS: ANION GAP 18.1 (7.0-16.0); CALCIUM SERUM 8.5 mg/dL (8.6-10.3); CARBON DIOXIDE 14.7 mEq/L (21.0-31.0); CHLORIDE 104 mEq/L (98-107); GLUCOSE 117 mg/dL (70-105); MAGNESIUM 1.9 mg/dL (1.9-2.7); POTASSIUM SERUM 3.8 mEq/L (3.5-5.1); SODIUM SERUM 133 mEq/L (136-145)
[2017-11-24 06:13] LABS: BUN - UREA NITROGEN 80 mg/dL (7-25); CREATININE - SERUM 9.5 mg/dL (0.7-1.3)
[2017-11-24] MEDS: INSULIN ASPART, RECOMBINANT 100 UNITS/ML SUBQ SCH ×4 (07:00→22:14)
[2017-11-24] MEDS: Albuterol Nebulizer 2.5mg/3mL HHN SCH ×4 (07:59→19:26)
[2017-11-24] MEDS: Ipratropium Neb 0.5 mg/2.5 mL UD HHN SCH ×4 (07:59→19:26)
[2017-11-24 10:16] LABS: FOLIC ACID 13.7 ng/mL (>3.0)
[2017-11-24 10:16] LABS: FOLIC ACID 14.9 ng/mL (>3.0)
[2017-11-24] MEDS: Multivitamin w/ Minerals Tab PO SCH (10:30)
[2017-11-24] MEDS: Benztropine 1 MG TAB PO SCH ×2 (10:30→18:05)
--- NOTE | 2017-11-24 14:11 | Internal Medicine Prog Note ---
Internal Medicine Subjective - Subjective Service Date: 11/24/17 Patient seen and examined:: with staff Patient is:: awake Per staff patient has:: no adverse event Internal Medicine Objective - Results Result Diagrams: 11/24/17 05:05 11/24/17 05:05 Recent Labs: Laboratory Last Values WBC 9.6 Th/cmm (4.8-10.8) 11/24/17 05:05 RBC 3.43 Mil/cmm (3.80-5.80) L 11/24/17 05:05 Hgb 11.2 gm/dL (12-16) L 11/24/17 05:05 Hct 33.2 % (41.0-60) L 11/24/17 05:05 MCV 96.8 fl (80-99) 11/24/17 05:05 MCH 32.7 pg (27.0-31.0) H 11/24/17 05:05 MCHC Differential 33.8 pg (28.0-36.0) 11/24/17 05:05 RDW 13.9 % (11.5-20.0) 11/24/17 05:05 Plt Count 256 Th/cmm (150-400) 11/24/17 05:05 MPV 9.5 fl 11/24/17 05:05 Neutrophils % 82.4 % (40.0-80.0) H 11/24/17 05:05 Lymphocytes % 9.7 % (20.0-50.0) L 11/24/17 05:05 Monocytes % 6.2 % (2.0-10.0) 11/24/17 05:05 Eosinophils % 1.1 % (0.0-5.0) 11/24/17 05:05 Basophils % 0.6 % (0.0-2.0) 11/24/17 05:05 Specimen Source ARTERIAL 11/22/17 17:19 Sample Site Left Radial 11/22/17 17:19 pH 7.36 (7.35-7.45) 11/22/17 17:19 pCO2 35.0 mmHg (35.0-45.0) 11/22/17 17:19 pO2 77.0 mmHg (80.0-100.0) L 11/22/17 17:19 HCO3 21.0 mEq/L (20.0-26.0) 11/22/17 17:19 Base Excess 5.0 mEq/L (-3.0-3.0) H 11/22/17 17:19 O2 Saturation 95.0 % (92.0-100.0) 11/22/17 17:19 Seven Test Y 11/22/17 17:19 Vent Rate N/A 11/22/17 17:19 Inspired O2 21 11/22/17 17:19 Tidal Volume A/N 11/22/17 17:19 PEEP N/A 11/22/17 17:19 Pressure (ins/psv/peep) N/A 11/22/17 17:19 Critical Value O.SAMPSON 11/22/17 17:19 Sodium 133 mEq/L (136-145) L 11/24/17 05:05 Potassium 3.8 mEq/L (3.5-5.1) 11/24/17 05:05 Chloride 104 mEq/L (98-107) 11/24/17 05:05 Carbon Dioxide 14.7 mEq/L (21.0-31.0) L 11/24/17 05:05 Anion Gap 18.1 (7.0-16.0) H 11/24/17 05:05 BUN 80 mg/dL (7-25) H 11/24/17 05:05 Creatinine 9.5 mg/dL (0.7-1.3) H* 11/24/17 05:05 Est GFR ( Amer) TNP 11/24/17 05:05 Est GFR (Non-Af Amer) TNP 11/24/17 05:05 BUN/Creatinine Ratio 8.4 11/24/17 05:05 Glucose 117 mg/dL (70-105) H 11/24/17 05:05 POC Glucose 123 MG/DL (70 - 105) H 11/24/17 12:28 Hemoglobin A1c % 6.8 % (4.0-6.0) H 11/23/17 08:30 Calcium 8.5 mg/dL (8.6-10.3) L 11/24/17 05:05 Phosphorus 8.0 mg/dL (2.5-5.0) H 11/24/17 05:05 Magnesium 1.9 mg/dL (1.9-2.7) 11/24/17 05:05 Total Bilirubin 0.5 mg/dL (0.3-1.0) 11/22/17 17:50 AST 28 U/L (13-39) 11/22/17 17:50 ALT 28 U/L (7-52) 11/22/17 17:50 Alkaline Phosphatase 87 U/L (34-104) 11/22/17 17:50 Ammonia 55 umol/L (16-53) H 11/24/17 05:05 B-Natriuretic Peptide 270.0 pg/mL (5.0-100.0) H 11/24/17 05:05 Total Protein 7.1 gm/dL (6.0-8.3) 11/22/17 17:50 Albumin 3.0 gm/dL (4.2-5.5) L 11/22/17 17:50 Globulin 4.1 gm/dL 11/22/17 17:50 Albumin/Globulin Ratio 0.7 (1.0-1.8) L 11/22/17 17:50 Vitamin B12 922 pg/mL (232-1245) 11/23/17 08:30 Folic Acid 13.7 ng/mL (>3.0) 11/23/17 08:30 Urine Source CATH 11/22/17 22:05 Urine Color BROWN 11/22/17 22:05 Urine Clarity HAZY (CLEAR) 11/22/17 22:05 Urine pH 5.0 (4.6 - 8.0) 11/22/17 22:05 Ur Specific [place] >= 1.030 (1.005-1.030) 11/22/17 22:05 Urine Protein NEGATIVE mg/dL (NEGATIVE) 11/22/17 22:05 Urine Glucose (UA) NEGATIVE mg/dL (NEGATIVE) 11/22/17 22:05 Urine Ketones TRACE mg/dL (NEGATIVE) 11/22/17 22:05 Urine Blood TRACE (NEGATIVE) 11/22/17 22:05 Urine Nitrate NEGATIVE (NEGATIVE) 11/22/17 22:05 Urine Bilirubin SMALL (NEGATIVE) H 11/22/17 22:05 Urine Ictotest NEGATIVE (NEGATIVE) 11/22/17 22:05 Urine Urobilinogen 0.2 E.U./dL (0.2 - 1.0) 11/22/17 22:05 Ur Leukocyte Esterase NEGATIVE (NEGATIVE) 01/02/18 22:05 Urine RBC 0-2 /hpf (0-5) H 11/22/17 22:05 Urine WBC 0-2 /hpf (0-5) 11/22/17 22:05 Ur Epithelial Cells FEW /lpf (FEW) 11/22/17 22:05 Urine Bacteria FEW /hpf (NONE SEEN) 11/22/17 22:05 - Physical Exam Vitals and I&O: Vital Signs Temp 97.8 F 11/24/17 05:56 Pulse 73 11/24/17 08:00 Resp 20 11/24/17 08:00 BP 96/39 11/24/17 05:56 Pulse Ox 99 11/24/17 08:00 Intake & Output 11/23/17 11/24/17 11/24/17 18:59 06:59 18:59 Intake Total 650 Output Total 700 Balance -50 Weight (lbs) 246 lb 234 lb Intake: Oral 600 Albumin 50 Output: Urine 700 Other: # Voids 2 # Bowel Movements 0 Active Medications: Current Medications Acetaminophen (Tylenol) 650 mg PO Q4HR PRN PRN Reason: PAIN Stop: 01/21/18 17:18 Albuterol Sulfate (Albuterol 2.5mg/3ml Neb Ud) 2.5 mg HHN QIDRT [facility] Stop: 01/21/18 18:59 Last Admin: 11/24/17 13:48 Dose: Not Given Ascorbic Acid (Vitamin C) 500 mg PO DAILY [facility] Stop: 01/22/18 08:59 Last Admin: 11/24/17 10:30 Dose: 500 mg Benztropine Mesylate (Cogentin) 1 mg PO BID [facility] Stop: 01/22/18 08:59 Last Admin: 11/24/17 10:30 Dose: 1 mg Docusate Sodium (Colace) 100 mg PO DAILY [facility] Stop: 01/22/18 08:59 Last Admin: 11/24/17 10:37 Dose: Not Given Gabapentin (Neurontin) 300 mg PO TID [facility] Stop: 01/21/18 20:59 Last Admin: 11/24/17 10:30 Dose: 300 mg Guaifenesin (Robitussin) 200 mg PO Q4HR PRN PRN Reason: Cough or Congestion Stop: 01/21/18 17:20 Haloperidol (Haldol) 1 mg PO BID [facility] PRN Reason: Protocol Stop: 01/22/18 08:59 Last Admin: 11/24/17 10:31 Dose: Not Given Dextrose/Sodium Chloride (D5-0.9%Ns) 1,000 mls @ 150 mls/hr IV .Q6H40M [facility] Stop: 01/21/18 21:13 Last Admin: 11/22/17 22:02 Dose: 150 mls/hr Dopamine HCl/Dextrose (Dopamine) 400 mg in 250 mls @ 12.502 mls/hr IV TITR PRN ; Protocol; 3 MCG/KG/MIN PRN Reason: RENAL PERFUSION Stop: 01/21/18 22:09 Last Admin: 11/22/17 23:31 Dose: 3 mcg/kg/min, 12.502 mls/hr Insulin Aspart (Novolog) 0 units SUBQ ACHS [place] PRN Reason: Protocol Stop: 01/21/18 20:59 Last Admin: 11/24/17 07:00 Dose: Not Given Ipratropium [place] (Atrovent Neb 0.5mg/2.5ml) 0.5 mg HHN QIDRT [facility] Stop: 01/21/18 18:59 Last Admin: 11/24/17 13:48 Dose: Not Given Lorazepam (Ativan) 1 mg IV Q4H PRN; Protocol PRN Reason: Agitation Stop: 01/22/18 13:05 Magnesium Hydroxide (Milk Of Magnesia) 30 ml PO DAILY PRN PRN Reason: Constipation Stop: 01/21/18 17:18 Miscellaneous (Clinical Monitoring) 1 ea MC DAILY PRN PRN Reason: RENAL Stop: 01/22/18 07:35 Zinc Sulfate (Zinc Sulfate) 220 mg PO DAILY [facility] Stop: 01/22/18 08:59 Last Admin: 11/24/17 10:30 Dose: 220 mg General: alert HEENT: NC/AT Neck: Supple Lungs: CTAB Cardiovascular: RRR, Normal S1, Normal S2, without murmur Abdomen: soft, non-tender, non-distended, positive bowel sound Internal Medicine Assmt/Plan - Assessment Assessment: hypotension aloc possible pna acute renal failure multiple open wounds dm2 psychosis htn chest defibrillator status copd chf cad - Plan Plan: continue to monitor patient's BP, dc planning to geropsych once stable follow up labs in am continue current plan of care Nutritional Asmnt/Malnutr-PDOC - Dietary Evaluation Malnutrition Findings (Please click <Entered> for more info): Nutritional Asmnt/Malnutrition Start: 11/23/17 15: 36 Text: Status: Complete Freq: Document 11/23/17 15:43 HERBIEROSE (Rec: 11/23/17 16:04 HERBIEROSE [id number]) Nutritional Asmnt/Malnutrition Patient General Information Nutritional Screening High Risk Consult Pertinent Medical Hx/Surgical Hx DM, psychosis, HTN, anxiety, chest defibrillator, COPD, CHF , CAD, alzheimer's Subjective Information Consult received for Issa Irma . Pt was transfered from [facility] unit for droped BP. Pt seen resting in bed at the time of visit. Spoke with RN, pt consumed 50% of oatmeal and Persian toast for breakfast, " do not like the egg". Current Diet Order/ Nutrition Support Pureed, CCHO Pertinent Medications Vitamin C, D5-0.9% Ns, colace, dopamine, novolog, zinc Pertinent Labs 11/23 Na 138, K 3.9, Cl 107, BUN 78, Cr 10.2, glucose 101, POC 101-168 since adm, A1c 6.8, Ca 8.1, Phos 7.4, mg 1.9 Nutritional Hx/Data Height 5 ft 10 in Height (Calculated Centimeters) 177.8 Current Weight (lbs) 246 lb Weight (Calculated Kilograms) 111.6 Weight (Calculated Grams) 402815.7 [place] Body Weight 166 % [place] Body Weight 148 Body Mass Index (BMI) 35.3 Weight Status Obese GI Symptoms GI Symptoms None Last BM no records Skin Integrity/Comment: edema 2+ pitting to left/right foot ulceration to bilateral feet Estimated Nutritional Goals BEE in Kcals: Adj wt of IBW Calories/Kcals/Kg 25-30 Kcals Calculated 8850-6021 considering bedbound and wound Protein: Adj wt of IBW Protein g/k.2-1.4 Protein Calculated 101-118 Fluid: ml 2110-2532ml (1ml/kcal) Nutritional Problem 2. Problem Problem increased nutrition needs ( calorie and protein) Etiology increased metabolic demand for wound healing Signs/Symptoms: ulceration to bilateral legs 1. Problem Problem altered nutrition related lab values Etiology renal dysfunction, hx of DM Signs/Symptoms: BUN 78, Cr 10.2, POC 101-168, A1c 6.8 Malnutrition Alert Protein-Calorie Malnutrition N/A Is there a minimum of two criteria No selected? Query Text:Check all the applicable criteria. A minimum of two criteria are recommended for diagnosis of either severe or non-severe malnutrition. Intervention/Recommendation Comments 1. Recommend renal CCHO diet considering elevated renal labs 2. Monitor PO intake, wt, labs and skin integrity 3. F/U as high risk in 2-3 days, 11/25-11/26 Expected Outcomes/Goals Expected Outcomes/Goals 1. PO intake to meet at least 75% of nutritional needs. 2. Wt stability, skin to remain intact, labs to improve .
--- NOTE | 2017-11-24 14:21 | Diagnostic Imaging Report ---
Renal ultrasound HISTORY: Abnormal renal function tests Right kidney is somewhat poorly defined, but appears to be increased in size (13.6 x 6.9 x 6.2 cm). No focal lesions. No hydronephrosis. Suboptimal delineation of the left kidney which also appears to be increased in size (14.1 x 7.4 x 7.0 cm). No focal lesions. No hydronephrosis. No intraluminal abnormality seen within the urinary bladder. IMPRESSION: 1. Somewhat Limited exam 2. Increased renal size is bilaterally. 3. No hydronephrosis
[2017-11-24] MEDS: D5-0.9%NS 1,000 ML IV SCH (14:38)
--- NOTE | 2017-11-25 00:03 | Consultation ---
DATE OF CONSULTATION: 11/24/2017 ATTENDING PHYSICIAN: Luis Munoz M.D. AIRCRAFT INSTRUMENT ENGINEER: Iban Garcia M.D. REASON FOR CONSULTATION: Worsening kidney function, electrolyte imbalance and fluid management. HISTORY OF PRESENT ILLNESS: This is a 72-year-old male with past medical history of acute kidney injury, who was transferred to ICU because of hypotensive episode. A few hours prior to admission, the patient was noted by [facility] staff to be hypotensive with a blood pressure of 60/30. He was then transferred to ICU for albumin as well as pressors. His blood pressure improved and was transferred back to [facility]. He had a history of acute kidney injury about 2 weeks ago. He was hydrated and this improved remarkably. He was subsequently transferred to [facility]. However, his BUN/creatinine gradually increased anywhere from 76/10 upon transfer. His BUN/creatinine today were 80/10.5. He has no history of nausea and vomiting as well as diarrhea. Renal ultrasound revealed increased renal size, but no hydronephrosis. PAST MEDICAL HISTORY: 1. Acute kidney injury. 2. Type 2 diabetes mellitus. 3. Psychosis. 4. Essential hypertension. 5. Anxiety disorder. 6. Arrhythmia. 7. COPD. 8. Chest x-ray. 9. Coronary artery disease. 10. Alzheimer dementia. PAST SURGICAL HISTORY: Status post AICD. CURRENT MEDICATIONS: He is currently on acetaminophen, albuterol, ascorbic acid, benztropine, gabapentin, Robitussin, Haldol, lorazepam, magnesium hydroxide, olanzapine, zinc sulfate. ALLERGIES: No known drug allergies. SOCIAL AND FAMILY HISTORY: I was unable to obtain from the patient because he is currently sedated. REVIEW OF SYSTEMS: Again, I was not able to decipher directly from the patient. PHYSICAL EXAMINATION: GENERAL: The patient remains sedated, but comfortable. VITAL SIGNS: His blood pressure is 96/39, pulse 93, temperature 97.8 degrees. SKIN: Poor turgor, warm. No rash, no jaundice appreciated. HEENT: Head normocephalic, atraumatic. Eyes: Unable to assess extraocular muscles. Pupils are equal, round, reactive to light and accommodates. Anicteric sclerae. Pale conjunctivae. Nose, midline nasal septum. Mouth, dry mucosa with adequate dentition. NECK: Supple, no adenopathy, no thyromegaly, no bruits. Trachea palpated in the midline. CHEST AND CARDIOVASCULAR: S1, S2. No rub, murmur, or gallop appreciated. Point of maximal impulse fifth intercostal space, left midclavicular line. No abdominal or femoral bruits appreciated. LUNGS: Equal expansion. No use of accessory muscles. No supraclavicular retractions, clear to auscultation without any wheeze. ABDOMEN: Flat, soft. Positive for bowel sounds. No bruits either diastolic or systolic. RECTAL: Lax sphincter tone. GENITOURINARY: Normal appearing male genitalia. MUSCULOSKELETAL: No effusions present in his joints, but unable to assess his range of motion. EXTREMITIES: No evidence of edema, cyanosis nor clubbing with palpable femoral, popliteal and dorsalis pedis pulses. NEUROLOGIC: The patient is obtunded at the present time, so I was not able to pursue further by neuro exam. LABORATORY DATA: Labs revealed sodium 133, potassium 3.8, chloride 104, bicarbonate 14.7, hemoglobin 8.5, hematocrit , glucose 117, calcium 8.5, phosphorous 8, magnesium 1.9. BNP 270. IMPRESSION: 1. Acute kidney injury likely due to underlying poor oral intake, which could have given rise to dehydration. This was supported by his physical exam of poor skin turgor, dry oral mucosa, and very concentrated urine. He again developed acute tubular injury. 2. Type 2 diabetes mellitus with chronic kidney disease. 3. Essential hypertension with chronic kidney disease. 4. Psychosis. 5. Anxiety. 6. Cardiac arrhythmia status post AICD. 7. Chronic obstructive pulmonary disease. 8. History of congestive heart failure in the past. 9. Coronary artery disease. 10. Alzheimer dementia. 11. Metabolic acidosis secondary to acute kidney injury. PLAN: 1. Continue with IV fluids. 2. Urine sodium, eosinophils and creatinine. 3. Urine microalbumin to creatinine ratio. 4. Encourage p.o. intake or possibly alternate route of oral feedings. 5. Follow up electrolytes. 6. Phosphate binders. 7. Sodium bicarbonate. Thank you, Dr. Munoz, for this consult. I will follow the patient closely with you. JOB# [id number]
[2017-11-25] MEDS: Albuterol Nebulizer 2.5mg/3mL HHN SCH ×4 (07:39→19:46)
[2017-11-25] MEDS: Ipratropium Neb 0.5 mg/2.5 mL UD HHN SCH ×4 (07:39→19:46)
[2017-11-25 08:04] LABS: % BASOPHILS 0.6 % (0.0-2.0); % EOSINOPHILS 3.1 % (0.0-5.0); % LYMPHOCYTES 11.7 % (20.0-50.0); % MONOCYTES 10.8 % (2.0-10.0); % NEUTROPHILS 73.8 % (40.0-80.0); EOSINOPHILE ABSOLUTE 0.2 Th/cmm (0.1-0.4); HEMATOCRIT 31.3 % (41.0-60); HEMOGLOBIN 10.5 gm/dL (12-16); LYMPHOCYTE ABSOLUTE 0.9 Th/cmm (1.5-3.0); MEAN CELL VOLUME 95.9 fl (80-99); MEAN CORPUSCULAR HEMOGLOBIN 32.3 pg (27.0-31.0); MEAN CORPUSCULAR HGB CONC 33.6 pg (28.0-36.0); MEAN PLATELET VOLUME 9.5 fl; MONOCYTE ABSOLUTE 0.8 Th/cmm (0.3-1.0); NEUTROPHILE ABSOLUTE 5.6 Th/cmm (1.8-8.0); PLATELET COUNT 262 Th/cmm (150-400); RED BLOOD COUNT 3.27 Mil/cmm (3.80-5.80); RED CELL DISTRIBUTION WIDTH 13.7 % (11.5-20.0)
[2017-11-25 08:05] LABS: WHITE BLOOD COUNT 7.5 Th/cmm (4.8-10.8)
[2017-11-25] MEDS: INSULIN ASPART, RECOMBINANT 100 UNITS/ML SUBQ SCH ×4 (08:12→21:11)
[2017-11-25 08:22] LABS: ANION GAP 14.9 (7.0-16.0); BUN - UREA NITROGEN 73 mg/dL (7-25); CARBON DIOXIDE 18.5 mEq/L (21.0-31.0); CHLORIDE 114 mEq/L (98-107); GLUCOSE 109 mg/dL (70-105); POTASSIUM SERUM 3.4 mEq/L (3.5-5.1); SODIUM SERUM 144 mEq/L (136-145)
[2017-11-25 08:23] LABS: MAGNESIUM 1.6 mg/dL (1.9-2.7); PHOSPHOROUS 6.3 mg/dL (2.5-5.0); URIC ACID 11.8 mg/dL (4.4-7.6)
[2017-11-25] MEDS: D5-0.9%NS 1,000 ML IV SCH ×2 (08:23→18:10)
[2017-11-25 08:25] LABS: CREATININE - SERUM 7.3 mg/dL (0.7-1.3)
[2017-11-25] MEDS: Benztropine 1 MG TAB PO SCH ×2 (09:42→18:11)
[2017-11-25] MEDS: Multivitamin w/ Minerals Tab PO SCH (09:43)
--- NOTE | 2017-11-25 12:03 | Internal Medicine Prog Note ---
Internal Medicine Subjective - Subjective Service Date: 11/25/17 Patient is:: awake, agitated, confused Per staff patient has:: no adverse event Internal Medicine Objective - Results Result Diagrams: 11/25/17 07:40 11/25/17 07:40 Recent Labs: Laboratory Last Values WBC 7.5 Th/cmm (4.8-10.8) D 11/25/17 07:40 RBC 3.27 Mil/cmm (3.80-5.80) L 11/25/17 07:40 Hgb 10.5 gm/dL (12-16) L 11/25/17 07:40 Hct 31.3 % (41.0-60) L 11/25/17 07:40 MCV 95.9 fl (80-99) 11/25/17 07:40 MCH 32.3 pg (27.0-31.0) H 11/25/17 07:40 MCHC Differential 33.6 pg (28.0-36.0) 11/25/17 07:40 RDW 13.7 % (11.5-20.0) 11/25/17 07:40 Plt Count 262 Th/cmm (150-400) 11/25/17 07:40 MPV 9.5 fl 11/25/17 07:40 Neutrophils % 73.8 % (40.0-80.0) 11/25/17 07:40 Lymphocytes % 11.7 % (20.0-50.0) L 11/25/17 07:40 Monocytes % 10.8 % (2.0-10.0) H 11/25/17 07:40 Eosinophils % 3.1 % (0.0-5.0) 11/25/17 07:40 Basophils % 0.6 % (0.0-2.0) 11/25/17 07:40 Specimen Source ARTERIAL 11/22/17 17:19 Sample Site Left Radial 11/22/17 17:19 pH 7.36 (7.35-7.45) 11/22/17 17:19 pCO2 35.0 mmHg (35.0-45.0) 11/22/17 17:19 pO2 77.0 mmHg (80.0-100.0) L 11/22/17 17:19 HCO3 21.0 mEq/L (20.0-26.0) 11/22/17 17:19 Base Excess 5.0 mEq/L (-3.0-3.0) H 11/22/17 17:19 O2 Saturation 95.0 % (92.0-100.0) 11/22/17 17:19 Seven Test Y 11/22/17 17:19 Vent Rate N/A 11/22/17 17:19 Inspired O2 21 11/22/17 17:19 Tidal Volume A/N 11/22/17 17:19 PEEP N/A 11/22/17 17:19 Pressure (ins/psv/peep) N/A 11/22/17 17:19 Critical Value O.SAMPSON 11/22/17 17:19 Sodium 144 mEq/L (136-145) 11/25/17 07:40 Potassium 3.4 mEq/L (3.5-5.1) L 11/25/17 07:40 Chloride 114 mEq/L (98-107) H 11/25/17 07:40 Carbon Dioxide 18.5 mEq/L (21.0-31.0) L 11/25/17 07:40 Anion Gap 14.9 (7.0-16.0) 11/25/17 07:40 BUN 73 mg/dL (7-25) H 11/25/17 07:40 Creatinine 7.3 mg/dL (0.7-1.3) H* 11/25/17 07:40 Est GFR ( Amer) TNP 11/25/17 07:40 Est GFR (Non-Af Amer) TN 11/25/17 07:40 BUN/Creatinine Ratio 10.0 11/25/17 07:40 Glucose 109 mg/dL (70-105) H 11/25/17 07:40 POC Glucose 113 MG/DL (70 - 105) H 11/25/17 06:19 Hemoglobin A1c % 6.8 % (4.0-6.0) H 11/23/17 08:30 Uric Acid 11.8 mg/dL (4.4-7.6) H 11/25/17 07:40 Calcium 8.0 mg/dL (8.6-10.3) L 11/25/17 07:40 Phosphorus 6.3 mg/dL (2.5-5.0) H 11/25/17 07:40 Magnesium 1.6 mg/dL (1.9-2.7) L 11/25/17 07:40 Total Bilirubin 0.5 mg/dL (0.3-1.0) 11/22/17 17:50 AST 28 U/L (13-39) 11/22/17 17:50 ALT 28 U/L (7-52) 11/22/17 17:50 Alkaline Phosphatase 87 U/L (34-104) 11/22/17 17:50 Ammonia 55 umol/L (16-53) H 11/24/17 05:05 B-Natriuretic Peptide 270.0 pg/mL (5.0-100.0) H 11/24/17 05:05 Total Protein 7.1 gm/dL (6.0-8.3) 11/22/17 17:50 Albumin 3.0 gm/dL (4.2-5.5) L 11/22/17 17:50 Globulin 4.1 gm/dL 11/22/17 17:50 Albumin/Globulin Ratio 0.7 (1.0-1.8) L 11/22/17 17:50 Vitamin B12 922 pg/mL (232-1245) 11/23/17 08:30 Folic Acid 13.7 ng/mL (>3.0) 11/23/17 08:30 Urine Source CATH 11/22/17 22:05 Urine Color BROWN 11/22/17 22:05 Urine Clarity HAZY (CLEAR) 11/22/17 22:05 Urine pH 5.0 (4.6 - 8.0) 11/22/17 22:05 Ur Specific [place] >= 1.030 (1.005-1.030) 11/22/17 22:05 Urine Protein NEGATIVE mg/dL (NEGATIVE) 11/22/17 22:05 Urine Glucose (UA) NEGATIVE mg/dL (NEGATIVE) 11/22/17 22:05 Urine Ketones TRACE mg/dL (NEGATIVE) 11/22/17 22:05 Urine Blood TRACE (NEGATIVE) 11/22/17 22:05 Urine Nitrate NEGATIVE (NEGATIVE) 11/22/17 22:05 Urine Bilirubin SMALL (NEGATIVE) H 11/22/17 22:05 Urine Ictotest NEGATIVE (NEGATIVE) 11/22/17 22:05 Urine Urobilinogen 0.2 E.U./dL (0.2 - 1.0) 11/22/17 22:05 Ur Leukocyte Esterase NEGATIVE (NEGATIVE) 11/22/17 22:05 Urine RBC 0-2 /hpf (0-5) H 11/22/17 22:05 Urine WBC 0-2 /hpf (0-5) 11/22/17 22:05 Ur Epithelial Cells FEW /lpf (FEW) 11/22/17 22:05 Urine Bacteria FEW /hpf (NONE SEEN) 11/22/17 22:05 - Physical Exam Vitals and I&O: Vital Signs Temp 97.9 F 11/25/17 03:50 Pulse 79 11/25/17 07:39 Resp 20 11/25/17 07:39 BP 105/68 11/25/17 03:50 Pulse Ox 97 11/25/17 07:39 Intake & Output 11/24/17 11/25/17 11/25/17 18:59 06:59 18:59 Intake Total 120 1000 Balance 120 1000 Weight (lbs) 221 lb 14.4 oz 216 lb 8 oz Intake: Intake, IV Amount 1000 D5-0.9%Ns 1,000 ml @ 150 1000 mls/hr IV .Q6H40M [facility] Rx# :[id number] Oral 120 Other: # Voids 3 2 # Bowel Movements 0 Active Medications: Current Medications Acetaminophen (Tylenol) 650 mg PO Q4HR PRN PRN Reason: PAIN Stop: 01/21/18 17:18 Albuterol Sulfate (Albuterol 2.5mg/3ml Neb Ud) 2.5 mg HHN QIDRT [facility] Stop: 01/21/18 18:59 Last Admin: 11/25/17 07:39 Dose: 2.5 mg Ascorbic Acid (Vitamin C) 500 mg PO DAILY [facility] Stop: 01/22/18 08:59 Last Admin: 11/25/17 09:41 Dose: 500 mg Benztropine Mesylate (Cogentin) 1 mg PO BID [facility] Stop: 01/22/18 08:59 Last Admin: 11/25/17 09:42 Dose: 1 mg Citric Acid/Sodium Citrate (Bicitra) 30 ml PO BID [facility] Stop: 01/23/18 16:59 Last Admin: 11/25/17 09:42 Dose: 30 ml Docusate Sodium (Colace) 100 mg PO DAILY [facility] Stop: 01/22/18 08:59 Last Admin: 11/25/17 09:42 Dose: 100 mg Gabapentin (Neurontin) 300 mg PO TID [facility] Stop: 01/21/18 20:59 Last Admin: 11/25/17 09:42 Dose: 300 mg Guaifenesin (Robitussin) 200 mg PO Q4HR PRN PRN Reason: Cough or Congestion Stop: 01/21/18 17:20 Haloperidol (Haldol) 1 mg PO BID [facility] PRN Reason: Protocol Stop: 01/22/18 08:59 Last Admin: 11/25/17 09:43 Dose: 1 mg Dextrose/Sodium Chloride (D5-0.9%Ns) 1,000 mls @ 150 mls/hr IV .Q6H40M [facility] Stop: 01/21/18 21:13 Last Admin: 11/25/17 08:23 Dose: 150 mls/hr Dopamine HCl/Dextrose (Dopamine) 400 mg in 250 mls @ 12.502 mls/hr IV TITR PRN ; Protocol; 3 MCG/KG/MIN PRN Reason: RENAL PERFUSION Stop: 01/21/18 22:09 Last Admin: 11/22/17 23:31 Dose: 3 mcg/kg/min, 12.502 mls/hr Insulin Aspart (Novolog) 0 units SUBQ ACHS [facility] PRN Reason: Protocol Stop: 01/21/18 20:59 Last Admin: 11/25/17 08:12 Dose: Not Given Ipratropium [place] (Atrovent Neb 0.5mg/2.5ml) 0.5 mg HHN QIDRT [facility] Stop: 01/21/18 18:59 Last Admin: 11/25/17 07:39 Dose: 0.5 mg Lorazepam (Ativan) 1 mg IV Q4H PRN; Protocol PRN Reason: Agitation Stop: 01/22/18 13:05 Last Admin: 11/25/17 11:14 Dose: 1 mg Magnesium Hydroxide (Milk Of Magnesia) 30 ml PO DAILY PRN PRN Reason: Constipation Stop: 01/21/18 17:18 Miscellaneous (Clinical Monitoring) 1 ea MC DAILY PRN PRN Reason: RENAL Stop: 01/22/18 07:35 Sevelamer Carbonate (Renvela) 800 mg PO TIDWM [facility] Stop: 01/23/18 16:59 Last Admin: 11/25/17 09:41 Dose: 800 mg Zinc Sulfate (Zinc Sulfate) 220 mg PO DAILY [facility] Stop: 01/22/18 08:59 Last Admin: 11/25/17 09:43 Dose: 220 mg General: alert HEENT: NC/AT Neck: Supple Lungs: CTAB Cardiovascular: RRR, Normal S1, Normal S2, without murmur Abdomen: soft, non-tender, non-distended, positive bowel sound Internal Medicine Assmt/Plan - Assessment Assessment: hypotension aloc possible pna acute renal failure multiple open wounds dm2 psychosis htn chest defibrillator status copd chf cad - Plan Plan: monitor bun/crea sitter for safety follow up labs in am continue current plan of care Nutritional Asmnt/Malnutr-PDOC - Dietary Evaluation Malnutrition Findings (Please click <Entered> for more info): Nutritional Asmnt/Malnutrition Start: 11/23/17 15: 36 Text: Status: Complete Freq: Document 11/23/17 15:43 [email or web address] (Rec: 11/23/17 16:04 [email or web address]) Nutritional Asmnt/Malnutrition Patient General Information Nutritional Screening High Risk Consult Pertinent Medical Hx/Surgical Hx DM, psychosis, HTN, anxiety, chest defibrillator, COPD, CHF , CAD, alzheimer's Subjective Information Consult received for Issa Solis . [facility] for droped BP. Pt seen resting in bed at the time of visit. Spoke with RN, pt consumed 50% of oatmeal and [place] toast for breakfast, " do not like the egg". Current Diet Order/ Nutrition Support Pureed, CCHO Pertinent Medications Vitamin C, D5-0.9% Ns, colace, dopamine, novolog, zinc Pertinent Labs 1 Na 138, K 3.9, Cl 107, BUN 78, Cr 10.2, glucose 101, POC 101-168 since adm, A1c 6.8, Ca 8.1, Phos 7.4, mg 1.9 Nutritional Hx/Data Height 5 ft 10 in Height (Calculated Centimeters) 177.8 Current Weight (lbs) 246 lb Weight (Calculated Kilograms) 111.6 Weight (Calculated Grams) 325999.7 [place] Body Weight 166 % [place] Body Weight 148 Body Mass Index (BMI) 35.3 Weight Status Obese GI Symptoms GI Symptoms None Last BM no records Skin Integrity/Comment: edema 2+ pitting to left/right foot ulceration to bilateral feet Estimated Nutritional Goals BEE in Kcals: Adj wt of IBW Calories/Kcals/Kg 25-30 Kcals Calculated [id number] considering bedbound and wound Protein: Adj wt of IBW Protein g/k.2-1.4 Protein Calculated 101-118 Fluid: ml 2109-253ml (1ml/kcal) Nutritional Problem 2. Problem Problem increased nutrition needs ( calorie and protein) Etiology increased metabolic demand for wound healing Signs/Symptoms: ulceration to bilateral legs 1. Problem Problem altered nutrition related lab values Etiology renal dysfunction, hx of DM Signs/Symptoms: BUN 78, Cr 10.2, POC 101-168, A1c 6.8 Malnutrition Alert Protein-Calorie Malnutrition N/A Is there a minimum of two criteria No selected? Query Text:Check all the applicable criteria. A minimum of two criteria are recommended for diagnosis of either severe or non-severe malnutrition. Intervention/Recommendation Comments 1. Recommend renal CCHO diet considering elevated renal labs 2. Monitor PO intake, wt, labs and skin integrity 3. F/U as high risk in 2-3 days, 11/25-11/26 Expected Outcomes/Goals Expected Outcomes/Goals 1. PO intake to meet at least 75% of nutritional needs. 2. Wt stability, skin to remain intact, labs to improve .
[2017-11-25] MEDS ORDERED: Potassium Chloride 20 mEq ER Tab PO ONE (13:30)
[2017-11-25] MEDS ORDERED: Mag Sulfate 2gm/50mL Premix 2 GM/50 ML BAG IV ONE (13:32)
--- NOTE | 2017-11-25 14:20 | Diagnostic Imaging Report ---
CHEST X-RAY: AP view INDICATION: Aspiration COMPARISON: 11/22/2017 FINDINGS: Left chest wall ICD stable. Mild congestive changes are noted with no focal consolidation. Cardiomegaly is noted. No effusions. IMPRESSION: Mild congestive changes. Developing infiltrate of the right lower lobe cannot be excluded.
--- NOTE | 2017-11-25 15:10 | General Progress Note ---
Subjective - Review of Systems Service Date: 11/25/17 Subjective: sedated, comfortable Objective - Results Result Diagrams: 11/25/17 07:40 11/25/17 07:40 Recent Labs: Laboratory Last Values WBC 7.5 Th/cmm (4.8-10.8) D 11/25/17 07:40 RBC 3.27 Mil/cmm (3.80-5.80) L 11/25/17 07:40 Hgb 10.5 gm/dL (12-16) L 11/25/17 07:40 Hct 31.3 % (41.0-60) L 11/25/17 07:40 MCV 95.9 fl (80-99) 11/25/17 07:40 MCH 32.3 pg (27.0-31.0) H 11/25/17 07:40 MCHC Differential 33.6 pg (28.0-36.0) 11/25/17 07:40 RDW 13.7 % (11.5-20.0) 11/25/17 07:40 Plt Count 262 Th/cmm (150-400) 11/25/17 07:40 MPV 9.5 fl 11/25/17 07:40 Neutrophils % 73.8 % (40.0-80.0) 11/25/17 07:40 Lymphocytes % 11.7 % (20.0-50.0) L 11/25/17 07:40 Monocytes % 10.8 % (2.0-10.0) H 11/25/17 07:40 Eosinophils % 3.1 % (0.0-5.0) 11/25/17 07:40 Basophils % 0.6 % (0.0-2.0) 11/25/17 07:40 Specimen Source ARTERIAL 11/22/17 17:19 Sample Site Left Radial 11/22/17 17:19 pH 7.36 (7.35-7.45) 11/22/17 17:19 pCO2 35.0 mmHg (35.0-45.0) 11/22/17 17:19 pO2 77.0 mmHg (80.0-100.0) L 11/22/17 17:19 HCO3 21.0 mEq/L (20.0-26.0) 11/22/17 17:19 Base Excess 5.0 mEq/L (-3.0-3.0) H 11/22/17 17:19 O2 Saturation 95.0 % (92.0-100.0) 11/22/17 17:19 Seven Test Y 11/22/17 17:19 Vent Rate N/A 11/22/17 17:19 Inspired O2 21 11/22/17 17:19 Tidal Volume A/N 11/22/17 17:19 PEEP N/A 11/22/17 17:19 Pressure (ins/psv/peep) N/A 11/22/17 17:19 Critical Value O.SAMPSON 11/22/17 17:19 Sodium 144 mEq/L (136-145) 11/25/17 07:40 Potassium 3.4 mEq/L (3.5-5.1) L 11/25/17 07:40 Chloride 114 mEq/L (98-107) H 11/25/17 07:40 Carbon Dioxide 18.5 mEq/L (21.0-31.0) L 11/25/17 07:40 Anion Gap 14.9 (7.0-16.0) 11/25/17 07:40 BUN 73 mg/dL (7-25) H 11/25/17 07:40 Creatinine 7.3 mg/dL (0.7-1.3) H* 11/25/17 07:40 Est GFR ( Amer) TNP 11/25/17 07:40 Est GFR (Non-Af Amer) TNP 11/25/17 07:40 BUN/Creatinine Ratio 10.0 11/25/17 07:40 Glucose 109 mg/dL (70-105) H 11/25/17 07:40 POC Glucose 159 MG/DL (70 - 105) H 11/25/17 11:51 Hemoglobin A1c % 6.8 % (4.0-6.0) H 11/23/17 08:30 Uric Acid 11.8 mg/dL (4.4-7.6) H 11/25/17 07:40 Calcium 8.0 mg/dL (8.6-10.3) L 11/25/17 07:40 Phosphorus 6.3 mg/dL (2.5-5.0) H 11/25/17 07:40 Magnesium 1.6 mg/dL (1.9-2.7) L 11/25/17 07:40 Total Bilirubin 0.5 mg/dL (0.3-1.0) 11/22/17 17:50 AST 28 U/L (13-39) 11/22/17 17:50 ALT 28 U/L (7-52) 11/22/17 17:50 Alkaline Phosphatase 87 U/L (34-104) 11/22/17 17:50 Ammonia 55 umol/L (16-53) H 11/24/17 05:05 B-Natriuretic Peptide 270.0 pg/mL (5.0-100.0) H 11/24/17 05:05 Total Protein 7.1 gm/dL (6.0-8.3) 11/22/17 17:50 Albumin 3.0 gm/dL (4.2-5.5) L 11/22/17 17:50 Globulin 4.1 gm/dL 11/22/17 17:50 Albumin/Globulin Ratio 0.7 (1.0-1.8) L 11/22/17 17:50 Vitamin B12 922 pg/mL (232-1245) 11/23/17 08:30 Folic Acid 13.7 ng/mL (>3.0) 11/23/17 08:30 Urine Source CATH 11/22/17 22:05 Urine Color BROWN 11/22/17 22:05 Urine Clarity HAZY (CLEAR) 11/22/17 22:05 Urine pH 5.0 (4.6 - 8.0) 11/22/17 22:05 Ur Specific [place] >= 1.030 (1.005-1.030) 11/22/17 22:05 Urine Protein NEGATIVE mg/dL (NEGATIVE) 11/22/17 22:05 Urine Glucose (UA) NEGATIVE mg/dL (NEGATIVE) 11/22/17 22:05 Urine Ketones TRACE mg/dL (NEGATIVE) 11/22/17 22:05 Urine Blood TRACE (NEGATIVE) 11/22/17 22:05 Urine Nitrate NEGATIVE (NEGATIVE) 11/22/17 22:05 Urine Bilirubin SMALL (NEGATIVE) H 11/22/17 22:05 Urine Ictotest NEGATIVE (NEGATIVE) 11/22/17 22:05 Urine Urobilinogen 0.2 E.U./dL (0.2 - 1.0) 11/22/17 22:05 Ur Leukocyte Esterase NEGATIVE (NEGATIVE) 11/22/17 22:05 Urine RBC 0-2 /hpf (0-5) H 11/22/17 22:05 Urine WBC 0-2 /hpf (0-5) 11/22/17 22:05 Ur Epithelial Cells FEW /lpf (FEW) 11/22/17 22:05 Urine Bacteria FEW /hpf (NONE SEEN) 11/22/17 22:05 - Physical Exam Vitals and I&O: Vital Signs Temp 97.9 F 11/25/17 03:50 Pulse 80 11/25/17 13:13 Resp 20 11/25/17 13:13 BP 105/68 11/25/17 03:50 Pulse Ox 97 11/25/17 13:13 Intake & Output 11/24/17 11/25/17 11/25/17 18:59 06:59 18:59 Intake Total 120 1000 Balance 120 1000 Weight (lbs) 100.652 kg 98.203 kg Intake: Intake, IV Amount 1000 D5-0.9%Ns 1,000 ml @ 150 1000 mls/hr IV .Q6H40M [facility] Rx# :[id number] Oral 120 Other: # Voids 3 2 # Bowel Movements 0 Active Medications: Current Medications Acetaminophen (Tylenol) 650 mg PO Q4HR PRN PRN Reason: PAIN Stop: 01/21/18 17:18 Albuterol Sulfate (Albuterol 2.5mg/3ml Neb Ud) 2.5 mg HHN QIDRT [facility] Stop: 01/21/18 18:59 Last Admin: 11/25/17 13:12 Dose: 2.5 mg Ascorbic Acid (Vitamin C) 500 mg PO DAILY [facility] Stop: 01/22/18 08:59 Last Admin: 11/25/17 09:41 Dose: 500 mg Benztropine Mesylate (Cogentin) 1 mg PO BID [facility] Stop: 01/22/18 08:59 Last Admin: 11/25/17 09:42 Dose: 1 mg Citric Acid/Sodium Citrate (Bicitra) 30 ml PO BID [facility] Stop: 01/23/18 16:59 Last Admin: 11/25/17 09:42 Dose: 30 ml Docusate Sodium (Colace) 100 mg PO DAILY [facility] Stop: 01/22/18 08:59 Last Admin: 11/25/17 09:42 Dose: 100 mg Gabapentin (Neurontin) 300 mg PO TID [facility] Stop: 01/21/18 20:59 Last Admin: 11/25/17 13:34 Dose: 300 mg Guaifenesin (Robitussin) 200 mg PO Q4HR PRN PRN Reason: Cough or Congestion Stop: 01/21/18 17:20 Haloperidol (Haldol) 1 mg PO BID [facility] PRN Reason: Protocol Stop: 01/22/18 08:59 Last Admin: 11/25/17 09:43 Dose: 1 mg Dextrose/Sodium Chloride (D5-0.9%Ns) 1,000 mls @ 150 mls/hr IV .Q6H40M [facility] Stop: 01/21/18 21:13 Last Admin: 11/25/17 08:23 Dose: 150 mls/hr Magnesium Sulfate (Magnesium Sulfate Premix) 2 gm in 50 mls @ 25 mls/hr IV X1 ONE Stop: 11/25/17 15:31 Last Admin: 11/25/17 14:41 Dose: 25 mls/hr Insulin Aspart (Novolog) 0 units SUBQ ACHS [facility] PRN Reason: Protocol Stop: 01/21/18 20:59 Last Admin: 11/25/17 12:35 Dose: Not Given Ipratropium [place] (Atrovent Neb 0.5mg/2.5ml) 0.5 mg HHN QIDRT [facility] Stop: 01/21/18 18:59 Last Admin: 11/25/17 13:12 Dose: 0.5 mg Lorazepam (Ativan) 1 mg IV Q4H PRN; Protocol PRN Reason: Agitation Stop: 01/22/18 13:05 Last Admin: 11/25/17 11:14 Dose: 1 mg Magnesium Hydroxide (Milk Of Magnesia) 30 ml PO DAILY PRN PRN Reason: Constipation Stop: 01/21/18 17:18 Miscellaneous (Clinical Monitoring) 1 ea MC DAILY PRN PRN Reason: RENAL Stop: 01/22/18 07:35 Sevelamer Carbonate (Renvela) 800 mg PO TIDWM [facility] Stop: 01/23/18 16:59 Last Admin: 11/25/17 13:34 Dose: 800 mg Zinc Sulfate (Zinc Sulfate) 220 mg PO DAILY [facility] Stop: 01/22/18 08:59 Last Admin: 11/25/17 09:43 Dose: 220 mg General: No acute distress HEENT: Atraumatic, Mucous membr. moist/pink Neck: Supple Cardiovascular: Regular rate, Normal S1, Normal S2 Lungs: Clear to auscultation Abdomen: Bowel sounds, Soft Extremities: no Edema Neurological: Sensation intact Skin: no Rash Psych/Mental Status: Mood NL Assessment/Plan - Problem List Patient Problems: All Active Problems ABNORMAL LAB RESULTS (Acute) - Assessment Assessment: DENNIS Type 2 DM Ess Htn Psychosis Anxiety Cardiac Arrythmia S/P AICD CAD Met Acid - Plan Plan: Lab - Result Diagrams 11/25/17 07:40 11/25/17 07:40 Current Medications Acetaminophen (Tylenol) 650 mg PO Q4HR PRN PRN Reason: PAIN Stop: 01/21/18 17:18 Albuterol Sulfate (Albuterol 2.5mg/3ml Neb Ud) 2.5 mg HHN QIDRT [facility] Stop: 01/21/18 18:59 Last Admin: 11/25/17 13:12 Dose: 2.5 mg Ascorbic Acid (Vitamin C) 500 mg PO DAILY [facility] Stop: 01/22/18 08:59 Last Admin: 11/25/17 09:41 Dose: 500 mg Benztropine Mesylate (Cogentin) 1 mg PO BID [facility] Stop: 01/22/18 08:59 Last Admin: 11/25/17 09:42 Dose: 1 mg Citric Acid/Sodium Citrate (Bicitra) 30 ml PO BID [facility] Stop: 01/23/18 16:59 Last Admin: 11/25/17 09:42 Dose: 30 ml Docusate Sodium (Colace) 100 mg PO DAILY [facility] Stop: 01/22/18 08:59 Last Admin: 11/25/17 09:42 Dose: 100 mg Gabapentin (Neurontin) 300 mg PO TID [facility] Stop: 01/21/18 20:59 Last Admin: 11/25/17 13:34 Dose: 300 mg Guaifenesin (Robitussin) 200 mg PO Q4HR PRN PRN Reason: Cough or Congestion Stop: 01/21/18 17:20 Haloperidol (Haldol) 1 mg PO BID [facility] PRN Reason: Protocol Stop: 01/22/18 08:59 Last Admin: 11/25/17 09:43 Dose: 1 mg Dextrose/Sodium Chloride (D5-0.9%Ns) 1,000 mls @ 150 mls/hr IV .Q6H40M [facility] Stop: 01/21/18 21:13 Last Admin: 11/25/17 08:23 Dose: 150 mls/hr Magnesium Sulfate (Magnesium Sulfate Premix) 2 gm in 50 mls @ 25 mls/hr IV X1 ONE Stop: 11/25/17 15:31 Last Admin: 11/25/17 14:41 Dose: 25 mls/hr Insulin Aspart (Novolog) 0 units SUBQ ACHS [facility] PRN Reason: Protocol Stop: 01/21/18 20:59 Last Admin: 11/25/17 12:35 Dose: Not Given Ipratropium [place] (Atrovent Neb 0.5mg/2.5ml) 0.5 mg HHN QIDRT [facility] Stop: 01/21/18 18:59 Last Admin: 11/25/17 13:12 Dose: 0.5 mg Lorazepam (Ativan) 1 mg IV Q4H PRN; Protocol PRN Reason: Agitation Stop: 01/22/18 13:05 Last Admin: 11/25/17 11:14 Dose: 1 mg Magnesium Hydroxide (Milk Of Magnesia) 30 ml PO DAILY PRN PRN Reason: Constipation Stop: 01/21/18 17:18 Miscellaneous (Clinical Monitoring) 1 ea MC DAILY PRN PRN Reason: RENAL Stop: 01/22/18 07:35 Sevelamer Carbonate (Renvela) 800 mg PO TIDWM [facility] Stop: 01/23/18 16:59 Last Admin: 11/25/17 13:34 Dose: 800 mg Zinc Sulfate (Zinc Sulfate) 220 mg PO DAILY [facility] Stop: 01/22/18 08:59 Last Admin: 11/25/17 09:43 Dose: 220 mg Lab - Result Diagrams 11/25/17 07:40 11/25/17 07:40 Kidney fnc gradually improving agree w/ K, Mg replacement maintain bicitra, IVF f/u electrolytes, cbc Nutritional Asmnt/Malnutr-PDOC - Dietary Evaluation Malnutrition Findings (Please click <Entered> for more info): Nutritional Asmnt/Malnutrition Start: 11/23/17 15: 36 Text: Status: Complete Freq: Document 11/23/17 15:43 LCHENG (Rec: 11/23/17 16:04 [email or web address] [email or web address]) Nutritional Asmnt/Malnutrition Patient General Information Nutritional Screening High Risk Consult Pertinent Medical Hx/Surgical Hx DM, psychosis, HTN, anxiety, chest defibrillator, COPD, CHF , CAD, alzheimer's Subjective Information Consult received for Issa Solis . Pt was transfered from [facility] unit for droped BP. Pt seen resting in bed at the time of visit. Spoke with RN, pt consumed 50% of oatmeal and [place] toast for breakfast, " do not like the egg". Current Diet Order/ Nutrition Support Pureed, CCHO Pertinent Medications Vitamin C, D5-0.9% Ns, colace, dopamine, novolog, zinc Pertinent Labs 11/23 Na 138, K 3.9, Cl 107, BUN 78, Cr 10.2, glucose 101, POC 101-168 since adm, A1c 6.8, Ca 8.1, Phos 7.4, mg 1.9 Nutritional Hx/Data Height 1.78 m Height (Calculated Centimeters) 177.8 Current Weight (lbs) 111.584 kg Weight (Calculated Kilograms) 111.6 Weight (Calculated Grams) 298512.7 [place] Body Weight 166 % [place] Body Weight 148 Body Mass Index (BMI) 35.3 Weight Status Obese GI Symptoms GI Symptoms None Last BM no records Skin Integrity/Comment: edema 2+ pitting to left/right foot ulceration to bilateral feet Estimated Nutritional Goals BEE in Kcals: Adj wt of IBW Calories/Kcals/Kg 25-30 Kcals Calculated 9545-0303 considering bedbound and wound Protein: Adj wt of IBW Protein g/k.2-1.4 Protein Calculated 101-118 Fluid: ml 2110-2532ml (1ml/kcal) Nutritional Problem 2. Problem Problem increased nutrition needs ( calorie and protein) Etiology increased metabolic demand for wound healing Signs/Symptoms: ulceration to bilateral legs 1. Problem Problem altered nutrition related lab values Etiology renal dysfunction, hx of DM Signs/Symptoms: BUN 78, Cr 10.2, POC 101-168, A1c 6.8 Malnutrition Alert Protein-Calorie Malnutrition N/A Is there a minimum of two criteria No selected? Query Text:Check all the applicable criteria. A minimum of two criteria are recommended for diagnosis of either severe or non-severe malnutrition. Intervention/Recommendation Comments 1. Recommend renal CCHO diet considering elevated renal labs 2. Monitor PO intake, wt, labs and skin integrity 3. F/U as high risk in 2-3 days, 11/25-11/26 Expected Outcomes/Goals Expected Outcomes/Goals 1. PO intake to meet at least 75% of nutritional needs. 2. Wt stability, skin to remain intact, labs to improve .
[2017-11-26 02:48] LABS: EOSINOPHIL SMEAR SOURCE URINE
[2017-11-26 02:49] LABS: EOSINOPHILS SMEAR COUNT FEW EOSINOPHILS SEEN (NONE SEEN)
[2017-11-26] MEDS: D5-0.9%NS 1,000 ML IV SCH (03:52)
[2017-11-26 06:39] LABS: % BASOPHILS 0.2 % (0.0-2.0); % EOSINOPHILS 3.2 % (0.0-5.0); % LYMPHOCYTES 18.1 % (20.0-50.0); % MONOCYTES 13.3 % (2.0-10.0); % NEUTROPHILS 65.2 % (40.0-80.0); EOSINOPHILE ABSOLUTE 0.2 Th/cmm (0.1-0.4); HEMATOCRIT 28.3 % (41.0-60); HEMOGLOBIN 9.5 gm/dL (12-16); LYMPHOCYTE ABSOLUTE 1.2 Th/cmm (1.5-3.0); MEAN CELL VOLUME 96.2 fl (80-99); MEAN CORPUSCULAR HEMOGLOBIN 32.4 pg (27.0-31.0); MEAN CORPUSCULAR HGB CONC 33.6 pg (28.0-36.0); MEAN PLATELET VOLUME 9.6 fl; MONOCYTE ABSOLUTE 0.9 Th/cmm (0.3-1.0); NEUTROPHILE ABSOLUTE 4.5 Th/cmm (1.8-8.0); PLATELET COUNT 305 Th/cmm (150-400); RED BLOOD COUNT 2.94 Mil/cmm (3.80-5.80); RED CELL DISTRIBUTION WIDTH 13.8 % (11.5-20.0); WHITE BLOOD COUNT 6.8 Th/cmm (4.8-10.8)
[2017-11-26 07:06] LABS: ANION GAP 12.2 (7.0-16.0); BUN - UREA NITROGEN 57 mg/dL (7-25); CALCIUM SERUM 8.5 mg/dL (8.6-10.3); CARBON DIOXIDE 23.2 mEq/L (21.0-31.0); CHLORIDE 121 mEq/L (98-107); GLUCOSE 133 mg/dL (70-105); MAGNESIUM 1.9 mg/dL (1.9-2.7); POTASSIUM SERUM 3.4 mEq/L (3.5-5.1); SODIUM SERUM 153 mEq/L (136-145)
[2017-11-26 07:12] LABS: CREATININE - SERUM 5.1 mg/dL (0.7-1.3)
[2017-11-26] MEDS: Ipratropium Neb 0.5 mg/2.5 mL UD HHN SCH ×4 (07:16→19:48)
[2017-11-26] MEDS: Albuterol Nebulizer 2.5mg/3mL HHN SCH ×4 (07:16→19:48)
[2017-11-26] MEDS: Multivitamin w/ Minerals Tab PO SCH (09:02)
[2017-11-26] MEDS: Benztropine 1 MG TAB PO SCH ×2 (09:02→17:30)
[2017-11-26] MEDS: INSULIN ASPART, RECOMBINANT 100 UNITS/ML SUBQ SCH ×4 (09:25→21:21)
--- NOTE | 2017-11-26 12:08 | General Progress Note ---
Subjective - Review of Systems Service Date: 11/26/17 Subjective: sedated, comfortable Objective - Results Result Diagrams: 11/26/17 05:45 11/26/17 05:45 Recent Labs: Laboratory Last Values WBC 6.8 Th/cmm (4.8-10.8) 11/26/17 05:45 RBC 2.94 Mil/cmm (3.80-5.80) L 11/26/17 05:45 Hgb 9.5 gm/dL (12-16) L 11/26/17 05:45 Hct 28.3 % (41.0-60) L 11/26/17 05:45 MCV 96.2 fl (80-99) 11/26/17 05:45 MCH 32.4 pg (27.0-31.0) H 11/26/17 05:45 MCHC Differential 33.6 pg (28.0-36.0) 11/26/17 05:45 RDW 13.8 % (11.5-20.0) 11/26/17 05:45 Plt Count 305 Th/cmm (150-400) 11/26/17 05:45 MPV 9.6 fl 11/26/17 05:45 Neutrophils % 65.2 % (40.0-80.0) 11/26/17 05:45 Lymphocytes % 18.1 % (20.0-50.0) L 11/26/17 05:45 Monocytes % 13.3 % (2.0-10.0) H 11/26/17 05:45 Eosinophils % 3.2 % (0.0-5.0) 11/26/17 05:45 Basophils % 0.2 % (0.0-2.0) 11/26/17 05:45 Eos Smear Source URINE 11/25/17 23:16 Eos Smear Total Cells FEW EOSINOPHILS SEEN (NONE SEEN) 11/25/17 23:16 Specimen Source ARTERIAL 11/22/17 17:19 Sample Site Left Radial 11/22/17 17:19 pH 7.36 (7.35-7.45) 11/22/17 17:19 pCO2 35.0 mmHg (35.0-45.0) 11/22/17 17:19 pO2 77.0 mmHg (80.0-100.0) L 11/22/17 17:19 HCO3 21.0 mEq/L (20.0-26.0) 11/22/17 17:19 Base Excess 5.0 mEq/L (-3.0-3.0) H 11/22/17 17:19 O2 Saturation 95.0 % (92.0-100.0) 11/22/17 17:19 Seven Test Y 11/22/17 17:19 Vent Rate N/A 11/22/17 17:19 Inspired O2 21 11/22/17 17:19 Tidal Volume A/N 11/22/17 17:19 PEEP N/A 11/22/17 17:19 Pressure (ins/psv/peep) N/A 11/22/17 17:19 Critical Value O.SAMPSON 11/22/17 17:19 Sodium 153 mEq/L (136-145) H 11/26/17 05:45 Potassium 3.4 mEq/L (3.5-5.1) L 11/26/17 05:45 Chloride 121 mEq/L (98-107) H 11/26/17 05:45 Carbon Dioxide 23.2 mEq/L (21.0-31.0) 11/26/17 05:45 Anion Gap 12.2 (7.0-16.0) 11/26/17 05:45 BUN 57 mg/dL (7-25) H 11/26/17 05:45 Creatinine 5.1 mg/dL (0.7-1.3) H* 11/26/17 05:45 Est GFR ( Amer) TNP 11/26/17 05:45 Est GFR (Non-Af Amer) TNP 11/26/17 05:45 BUN/Creatinine Ratio 11.2 11/26/17 05:45 Glucose 133 mg/dL (70-105) H 11/26/17 05:45 POC Glucose 139 MG/DL (70 - 105) H 11/26/17 07:27 Hemoglobin A1c % 6.8 % (4.0-6.0) H 11/23/17 08:30 Uric Acid 11.8 mg/dL (4.4-7.6) H 11/25/17 07:40 Calcium 8.5 mg/dL (8.6-10.3) L 11/26/17 05:45 Phosphorus 6.3 mg/dL (2.5-5.0) H 11/25/17 07:40 Magnesium 1.9 mg/dL (1.9-2.7) 11/26/17 05:45 Total Bilirubin 0.5 mg/dL (0.3-1.0) 11/22/17 17:50 AST 28 U/L (13-39) 11/22/17 17:50 ALT 28 U/L (7-52) 11/22/17 17:50 Alkaline Phosphatase 87 U/L (34-104) 11/22/17 17:50 Ammonia 55 umol/L (16-53) H 11/24/17 05:05 B-Natriuretic Peptide 270.0 pg/mL (5.0-100.0) H 11/24/17 05:05 Total Protein 7.1 gm/dL (6.0-8.3) 11/22/17 17:50 Albumin 3.0 gm/dL (4.2-5.5) L 11/22/17 17:50 Globulin 4.1 gm/dL 11/22/17 17:50 Albumin/Globulin Ratio 0.7 (1.0-1.8) L 11/22/17 17:50 Vitamin B12 922 pg/mL (232-1245) 11/23/17 08:30 Folic Acid 13.7 ng/mL (>3.0) 11/23/17 08:30 Urine Source CATH 11/22/17 22:05 Urine Color BROWN 11/22/17 22:05 Urine Clarity HAZY (CLEAR) 11/22/17 22:05 Urine pH 5.0 (4.6 - 8.0) 11/22/17 22:05 Ur Specific [place] >= 1.030 (1.005-1.030) 11/22/17 22:05 Urine Protein NEGATIVE mg/dL (NEGATIVE) 11/22/17 22:05 Urine Glucose (UA) NEGATIVE mg/dL (NEGATIVE) 11/22/17 22:05 Urine Ketones TRACE mg/dL (NEGATIVE) 11/22/17 22:05 Urine Blood TRACE (NEGATIVE) 11/22/17 22:05 Urine Nitrate NEGATIVE (NEGATIVE) 11/22/17 22:05 Urine Bilirubin SMALL (NEGATIVE) H 11/22/17 22:05 Urine Ictotest NEGATIVE (NEGATIVE) 11/22/17 22:05 Urine Urobilinogen 0.2 E.U./dL (0.2 - 1.0) 11/22/17 22:05 Ur Leukocyte Esterase NEGATIVE (NEGATIVE) 11/22/17 22:05 Urine RBC 0-2 /hpf (0-5) H 11/22/17 22:05 Urine WBC 0-2 /hpf (0-5) 11/22/17 22:05 Ur Epithelial Cells FEW /lpf (FEW) 11/22/17 22:05 Urine Bacteria FEW /hpf (NONE SEEN) 11/22/17 22:05 Ur Random Sodium 62 mmol/L 11/25/17 23:16 Urine Creatinine 109.0 mg/dl (39.0-259.0) 11/25/17 23:16 - Physical Exam Vitals and I&O: Vital Signs Temp 97.4 F 11/26/17 08:00 Pulse 86 11/26/17 11:24 Resp 14 11/26/17 11:24 BP 142/74 11/26/17 08:00 Pulse Ox 95 11/26/17 11:24 Intake & Output 11/25/17 11/26/17 11/26/17 18:59 06:59 18:59 Intake Total 1120 1000 Output Total 1700 Balance -580 1000 Weight (lbs) 97.976 kg Intake: Intake, IV Amount 1000 1000 D5-0.9%Ns 1,000 ml @ 150 1000 1000 mls/hr IV .Q6H40M [facility] Rx# :[id number] Oral 120 Output: Urine 1700 Active Medications: Current Medications Acetaminophen (Tylenol) 650 mg PO Q4HR PRN PRN Reason: PAIN Stop: 01/21/18 17:18 Albuterol Sulfate (Albuterol 2.5mg/3ml Neb Ud) 2.5 mg HHN QIDRT [facility] Stop: 01/21/18 18:59 Last Admin: 11/26/17 11:21 Dose: 2.5 mg Ascorbic Acid (Vitamin C) 500 mg PO DAILY [facility] Stop: 01/22/18 08:59 Last Admin: 11/26/17 09:02 Dose: 500 mg Benztropine Mesylate (Cogentin) 1 mg PO BID [facility] Stop: 01/22/18 08:59 Last Admin: 11/26/17 09:02 Dose: 1 mg Citric Acid/Sodium Citrate (Bicitra) 30 ml PO BID [facility] Stop: 01/23/18 16:59 Last Admin: 11/26/17 09:05 Dose: 30 ml Docusate Sodium (Colace) 100 mg PO DAILY [facility] Stop: 01/22/18 08:59 Last Admin: 11/26/17 09:02 Dose: 100 mg Gabapentin (Neurontin) 300 mg PO TID [facility] Stop: 01/21/18 20:59 Last Admin: 11/26/17 09:02 Dose: 300 mg Guaifenesin (Robitussin) 200 mg PO Q4HR PRN PRN Reason: Cough or Congestion Stop: 01/21/18 17:20 Haloperidol (Haldol) 1 mg PO BID [facility] PRN Reason: Protocol Stop: 01/22/18 08:59 Last Admin: 11/26/17 09:30 Dose: 1 mg Potassium Chloride/Dextrose/Sod Cl (D5-0.45ns W/20 Meq Kcl) 1,000 mls @ 75 mls/ hr IV .[id number] [facility] Stop: 01/25/18 12:14 Insulin Aspart (Novolog) 0 units SUBQ ACHS [facility] PRN Reason: Protocol Stop: 01/21/18 20:59 Last Admin: 11/26/17 09:25 Dose: Not Given Ipratropium [place] (Atrovent Neb 0.5mg/2.5ml) 0.5 mg HHN QIDRT [facility] Stop: 01/21/18 18:59 Last Admin: 11/26/17 11:21 Dose: 0.5 mg Lorazepam (Ativan) 1 mg IV Q4H PRN; Protocol PRN Reason: Agitation Stop: 01/22/18 13:05 Last Admin: 11/26/17 08:37 Dose: 1 mg Magnesium Hydroxide (Milk Of Magnesia) 30 ml PO DAILY PRN PRN Reason: Constipation Stop: 01/21/18 17:18 Miscellaneous (Clinical Monitoring) 1 ea MC DAILY PRN PRN Reason: RENAL Stop: 01/22/18 07:35 Sevelamer Carbonate (Renvela) 800 mg PO TIDWM [facility] Stop: 01/23/18 16:59 Last Admin: 11/26/17 09:02 Dose: 800 mg Zinc Sulfate (Zinc Sulfate) 220 mg PO DAILY [facility] Stop: 01/22/18 08:59 Last Admin: 11/26/17 09:02 Dose: 220 mg General: No acute distress HEENT: Atraumatic, Mucous membr. moist/pink Neck: Supple Cardiovascular: Regular rate, Normal S1, Normal S2 Lungs: Clear to auscultation Abdomen: Bowel sounds, Soft Extremities: no Edema Neurological: Sensation intact Skin: no Rash Psych/Mental Status: Mood NL Assessment/Plan - Problem List Patient Problems: All Active Problems ABNORMAL LAB RESULTS (Acute) - Assessment Assessment: DENNIS Type 2 DM Ess Htn Psychosis Anxiety Cardiac Arrythmia S/P AICD CAD Met Acid Hypernatremia iatrogenic Hypokalemia - Plan Plan: Lab - Result Diagrams 11/25/17 07:40 11/25/17 07:40 Current Medications Acetaminophen (Tylenol) 650 mg PO Q4HR PRN PRN Reason: PAIN Stop: 01/21/18 17:18 Albuterol Sulfate (Albuterol 2.5mg/3ml Neb Ud) 2.5 mg HHN QIDRT [facility] Stop: 01/21/18 18:59 Last Admin: 11/25/17 13:12 Dose: 2.5 mg Ascorbic Acid (Vitamin C) 500 mg PO DAILY [facility] Stop: 01/22/18 08:59 Last Admin: 11/25/17 09:41 Dose: 500 mg Benztropine Mesylate (Cogentin) 1 mg PO BID [facility] Stop: 01/22/18 08:59 Last Admin: 11/25/17 09:42 Dose: 1 mg Citric Acid/Sodium Citrate (Bicitra) 30 ml PO BID [facility] Stop: 01/23/18 16:59 Last Admin: 11/25/17 09:42 Dose: 30 ml Docusate Sodium (Colace) 100 mg PO DAILY [facility] Stop: 01/22/18 08:59 Last Admin: 11/25/17 09:42 Dose: 100 mg Gabapentin (Neurontin) 300 mg PO TID [facility] Stop: 01/21/18 20:59 Last Admin: 11/25/17 13:34 Dose: 300 mg Guaifenesin (Robitussin) 200 mg PO Q4HR PRN PRN Reason: Cough or Congestion Stop: 01/21/18 17:20 Haloperidol (Haldol) 1 mg PO BID [facility] PRN Reason: Protocol Stop: 01/22/18 08:59 Last Admin: 11/25/17 09:43 Dose: 1 mg Dextrose/Sodium Chloride (D5-0.9%Ns) 1,000 mls @ 150 mls/hr IV .Q6H40M [facility] Stop: 01/21/18 21:13 Last Admin: 11/25/17 08:23 Dose: 150 mls/hr Magnesium Sulfate (Magnesium Sulfate Premix) 2 gm in 50 mls @ 25 mls/hr IV X1 ONE Stop: 11/25/17 15:31 Last Admin: 11/25/17 14:41 Dose: 25 mls/hr Insulin Aspart (Novolog) 0 units SUBQ ACHS [facility] PRN Reason: Protocol Stop: 01/21/18 20:59 Last Admin: 11/25/17 12:35 Dose: Not Given Ipratropium [place] (Atrovent Neb 0.5mg/2.5ml) 0.5 mg HHN QIDRT [facility] Stop: 01/21/18 18:59 Last Admin: 11/25/17 13:12 Dose: 0.5 mg Lorazepam (Ativan) 1 mg IV Q4H PRN; Protocol PRN Reason: Agitation Stop: 01/22/18 13:05 Last Admin: 11/25/17 11:14 Dose: 1 mg Magnesium Hydroxide (Milk Of Magnesia) 30 ml PO DAILY PRN PRN Reason: Constipation Stop: 01/21/18 17:18 Miscellaneous (Clinical Monitoring) 1 ea MC DAILY PRN PRN Reason: RENAL Stop: 01/22/18 07:35 Sevelamer Carbonate (Renvela) 800 mg PO TIDWM [facility] Stop: 01/23/18 16:59 Last Admin: 11/25/17 13:34 Dose: 800 mg Zinc Sulfate (Zinc Sulfate) 220 mg PO DAILY [facility] Stop: 01/22/18 08:59 Last Admin: 11/25/17 09:43 Dose: 220 mg Lab - Result Diagrams 11/26/17 05:45 11/26/17 05:45 Kidney fnc gradually improving agree w/ K, Mg replacement maintain bicitra, IVF, switch to D5 1/2 NS f/u electrolytes, cbc Nutritional Asmnt/Malnutr-PDOC - Dietary Evaluation Malnutrition Findings (Please click <Entered> for more info): Nutritional Asmnt/Malnutrition Start: 11/23/17 15: 36 Text: Status: Complete Freq: Document 11/23/17 15:43 LCHENG (Rec: 11/23/17 16:04 MECCAG [email or web address]) Nutritional Asmnt/Malnutrition Patient General Information Nutritional Screening High Risk Consult Pertinent Medical Hx/Surgical Hx DM, psychosis, HTN, anxiety, chest defibrillator, COPD, CHF , CAD, alzheimer's Subjective Information Consult received for Issa Solis . Pt was transfered from [facility] for droped BP. Pt seen resting in bed at the time of visit. Spoke with RN, pt consumed 50% of oatmeal and [place] toast for breakfast, " do not like the egg". Current Diet Order/ Nutrition Support Pureed, CCHO Pertinent Medications Vitamin C, D5-0.9% Ns, colace, dopamine, novolog, zinc Pertinent Labs 11/23 Na 138, K 3.9, Cl 107, BUN 78, Cr 10.2, glucose 101, POC 101-168 since adm, A1c 6.8, Ca 8.1, Phos 7.4, mg 1.9 Nutritional Hx/Data Height 1.78 m Height (Calculated Centimeters) 177.8 Current Weight (lbs) 111.584 kg Weight (Calculated Kilograms) 111.6 Weight (Calculated Grams) 929466.7 [place] Body Weight 166 % [place] Body Weight 148 Body Mass Index (BMI) 35.3 Weight Status Obese GI Symptoms GI Symptoms None Last BM no records Skin Integrity/Comment: edema 2+ pitting to left/right foot ulceration to bilateral feet Estimated Nutritional Goals BEE in Kcals: Adj wt of IBW Calories/Kcals/Kg 25-30 Kcals Calculated [id number] considering bedbound and wound Protein: Adj wt of IBW Protein g/k.2-1.4 Protein Calculated 101-118 Fluid: ml 2110-2532ml (1ml/kcal) Nutritional Problem 2. Problem Problem increased nutrition needs ( calorie and protein) Etiology increased metabolic demand for wound healing Signs/Symptoms: ulceration to bilateral legs 1. Problem Problem altered nutrition related lab values Etiology renal dysfunction, hx of DM Signs/Symptoms: BUN 78, Cr 10.2, POC 101-168, A1c 6.8 Malnutrition Alert Protein-Calorie Malnutrition N/A Is there a minimum of two criteria No selected? Query Text:Check all the applicable criteria. A minimum of two criteria are recommended for diagnosis of either severe or non-severe malnutrition. Intervention/Recommendation Comments 1. Recommend renal CCHO diet considering elevated renal labs 2. Monitor PO intake, wt, labs and skin integrity 3. F/U as high risk in 2-3 days, 11/25-11/26 Expected Outcomes/Goals Expected Outcomes/Goals 1. PO intake to meet at least 75% of nutritional needs. 2. Wt stability, skin to remain intact, labs to improve .
[2017-11-26 12:15] LABS: CREATININEURINE 73.1 mg/dL (Not Estab.); MICROALBUMIN RANDOM RUINE 19.3 ug/mL (Not Estab.)
[2017-11-26] MEDS: D5-0.45NS w/20 mEq KCL 1,000 ML IV SCH (17:32)
--- NOTE | 2017-11-26 17:33 | Internal Medicine Prog Note ---
Internal Medicine Subjective - Subjective Patient seen and examined:: with staff, chart reviewed Patient is:: awake, agitated, confused Patient Complaints of:: congestion Per staff patient has:: no adverse event, poor appetite, poor oral intake, agitated, combative, noncompliant, refusing care, refusing labs Internal Medicine Objective - Results Result Diagrams: 11/26/17 05:45 11/26/17 05:45 Recent Labs: Laboratory Last Values WBC 6.8 Th/cmm (4.8-10.8) 11/26/17 05:45 RBC 2.94 Mil/cmm (3.80-5.80) L 11/26/17 05:45 Hgb 9.5 gm/dL (12-16) L 11/26/17 05:45 Hct 28.3 % (41.0-60) L 11/26/17 05:45 MCV 96.2 fl (80-99) 11/26/17 05:45 MCH 32.4 pg (27.0-31.0) H 11/26/17 05:45 MCHC Differential 33.6 pg (28.0-36.0) 11/26/17 05:45 RDW 13.8 % (11.5-20.0) 11/26/17 05:45 Plt Count 305 Th/cmm (150-400) 11/26/17 05:45 MPV 9.6 fl 11/26/17 05:45 Neutrophils % 65.2 % (40.0-80.0) 11/26/17 05:45 Lymphocytes % 18.1 % (20.0-50.0) L 11/26/17 05:45 Monocytes % 13.3 % (2.0-10.0) H 11/26/17 05:45 Eosinophils % 3.2 % (0.0-5.0) 11/26/17 05:45 Basophils % 0.2 % (0.0-2.0) 11/26/17 05:45 Eos Smear Source URINE 11/25/17 23:16 Eos Smear Total Cells FEW EOSINOPHILS SEEN (NONE SEEN) 11/25/17 23:16 Specimen Source ARTERIAL 11/22/17 17:19 Sample Site Left Radial 11/22/17 17:19 pH 7.36 (7.35-7.45) 01/02/18 17:19 pCO2 35.0 mmHg (35.0-45.0) 11/22/17 17:19 pO2 77.0 mmHg (80.0-100.0) L 11/22/17 17:19 HCO3 21.0 mEq/L (20.0-26.0) 11/22/17 17:19 Base Excess 5.0 mEq/L (-3.0-3.0) H 11/22/17 17:19 O2 Saturation 95.0 % (92.0-100.0) 11/22/17 17:19 Seven Test Y 11/22/17 17:19 Vent Rate N/A 11/22/17 17:19 Inspired O2 21 11/22/17 17:19 Tidal Volume A/N 11/22/17 17:19 PEEP N/A 11/22/17 17:19 Pressure (ins/psv/peep) N/A 11/22/17 17:19 Critical Value O.SAMPSON 11/22/17 17:19 Sodium 153 mEq/L (136-145) H 11/26/17 05:45 Potassium 3.4 mEq/L (3.5-5.1) L 11/26/17 05:45 Chloride 121 mEq/L (98-107) H 11/26/17 05:45 Carbon Dioxide 23.2 mEq/L (21.0-31.0) 11/26/17 05:45 Anion Gap 12.2 (7.0-16.0) 11/26/17 05:45 BUN 57 mg/dL (7-25) H 11/26/17 05:45 Creatinine 5.1 mg/dL (0.7-1.3) H* 11/26/17 05:45 Est GFR ( Amer) [facility] 11/26/17 05:45 Est GFR (Non-Af Amer) [facility] 11/26/17 05:45 BUN/Creatinine Ratio 11.2 11/26/17 05:45 Glucose 133 mg/dL (70-105) H 11/26/17 05:45 POC Glucose 149 MG/DL (70 - 105) H 11/26/17 17:22 Hemoglobin A1c % 6.8 % (4.0-6.0) H 11/23/17 08:30 Uric Acid 11.8 mg/dL (4.4-7.6) H 11/25/17 07:40 Calcium 8.5 mg/dL (8.6-10.3) L 11/26/17 05:45 Phosphorus 6.3 mg/dL (2.5-5.0) H 11/25/17 07:40 Magnesium 1.9 mg/dL (1.9-2.7) 11/26/17 05:45 Total Bilirubin 0.5 mg/dL (0.3-1.0) 11/22/17 17:50 AST 28 U/L (13-39) 11/22/17 17:50 ALT 28 U/L (7-52) 11/22/17 17:50 Alkaline Phosphatase 87 U/L (34-104) 11/22/17 17:50 Ammonia 55 umol/L (16-53) H 11/24/17 05:05 B-Natriuretic Peptide 270.0 pg/mL (5.0-100.0) H 11/24/17 05:05 Total Protein 7.1 gm/dL (6.0-8.3) 11/22/17 17:50 Albumin 3.0 gm/dL (4.2-5.5) L 11/22/17 17:50 Globulin 4.1 gm/dL 11/22/17 17:50 Albumin/Globulin Ratio 0.7 (1.0-1.8) L 11/22/17 17:50 Vitamin B12 922 pg/mL (232-1245) 11/23/17 08:30 Folic Acid 13.7 ng/mL (>3.0) 11/23/17 08:30 Urine Source CATH 11/22/17 22:05 Urine Color BROWN 11/22/17 22:05 Urine Clarity HAZY (CLEAR) 11/22/17 22:05 Urine pH 5.0 (4.6 - 8.0) 11/22/17 22:05 Ur Specific [place] >= 1.030 (1.005-1.030) 11/22/17 22:05 Urine Protein NEGATIVE mg/dL (NEGATIVE) 11/22/17 22:05 Urine Glucose (UA) NEGATIVE mg/dL (NEGATIVE) 11/22/17 22:05 Urine Ketones TRACE mg/dL (NEGATIVE) 11/22/17 22:05 Urine Blood TRACE (NEGATIVE) 11/22/17 22:05 Urine Nitrate NEGATIVE (NEGATIVE) 11/22/17 22:05 Urine Bilirubin SMALL (NEGATIVE) H 11/22/17 22:05 Urine Ictotest NEGATIVE (NEGATIVE) 11/22/17 22:05 Urine Urobilinogen 0.2 E.U./dL (0.2 - 1.0) 11/22/17 22:05 Ur Leukocyte Esterase NEGATIVE (NEGATIVE) 11/22/17 22:05 Urine RBC 0-2 /hpf (0-5) H 11/22/17 22:05 Urine WBC 0-2 /hpf (0-5) 11/22/17 22:05 Ur Epithelial Cells FEW /lpf (FEW) 11/22/17 22:05 Urine Bacteria FEW /hpf (NONE SEEN) 11/22/17 22:05 Ur Random Sodium 62 mmol/L 11/25/17 23:16 Urine Creatinine 109.0 mg/dl (39.0-259.0) 11/25/17 23:16 Urine Microalbumin 19.3 ug/mL (Not Estab.) 11/25/17 10:50 - Physical Exam Vitals and I&O: Vital Signs Temp 97.6 F 11/26/17 16:00 Pulse 82 11/26/17 16:00 Resp 20 11/26/17 16:00 BP 140/79 11/26/17 16:00 Pulse Ox 98 11/26/17 16:00 Intake & Output 11/25/17 11/26/17 11/26/17 18:59 06:59 18:59 Intake Total 1120 1000 Output Total 1700 Balance -580 1000 Weight (lbs) 97.976 kg Intake: Intake, IV Amount 1000 1000 D5-0.9%Ns 1,000 ml @ 150 1000 1000 mls/hr IV .Q6H40M [facility] Rx# :[id number] Oral 120 Output: Urine 1700 Active Medications: Current Medications Acetaminophen (Tylenol) 650 mg PO Q4HR PRN PRN Reason: PAIN Stop: 01/21/18 17:18 Albuterol Sulfate (Albuterol 2.5mg/3ml Neb Ud) 2.5 mg HHN QIDRT [facility] Stop: 01/21/18 18:59 Last Admin: 11/26/17 14:53 Dose: 2.5 mg Ascorbic Acid (Vitamin C) 500 mg PO DAILY [facility] Stop: 01/22/18 08:59 Last Admin: 11/26/17 09:02 Dose: 500 mg Benztropine Mesylate (Cogentin) 1 mg PO BID [facility] Stop: 01/22/18 08:59 Last Admin: 11/26/17 09:02 Dose: 1 mg Citric Acid/Sodium Citrate (Bicitra) 30 ml PO BID [facility] Stop: 01/23/18 16:59 Last Admin: 11/26/17 17:28 Dose: Not Given Docusate Sodium (Colace) 100 mg PO DAILY [facility] Stop: 01/22/18 08:59 Last Admin: 11/26/17 09:02 Dose: 100 mg Gabapentin (Neurontin) 300 mg PO TID [facility] Stop: 01/21/18 20:59 Last Admin: 11/26/17 15:33 Dose: Not Given Guaifenesin (Robitussin) 200 mg PO Q4HR PRN PRN Reason: Cough or Congestion Stop: 01/21/18 17:20 Haloperidol (Haldol) 1 mg PO BID [facility] PRN Reason: Protocol Stop: 01/22/18 08:59 Last Admin: 11/26/17 17:29 Dose: Not Given Potassium Chloride/Dextrose/Sod Cl (D5-0.45ns W/20 Meq Kcl) 1,000 mls @ 75 mls/ hr IV .[id number] [facility] Stop: 01/25/18 12:14 Insulin Aspart (Novolog) 0 units SUBQ ACHS [facility] PRN Reason: Protocol Stop: 01/21/18 20:59 Last Admin: 11/26/17 17:28 Dose: Not Given Ipratropium [place] (Atrovent Neb 0.5mg/2.5ml) 0.5 mg HHN QIDRT [facility] Stop: 01/21/18 18:59 Last Admin: 11/26/17 14:53 Dose: 0.5 mg Lorazepam (Ativan) 1 mg IV Q4H PRN; Protocol PRN Reason: Agitation Stop: 01/22/18 13:05 Last Admin: 11/26/17 08:37 Dose: 1 mg Magnesium Hydroxide (Milk Of Magnesia) 30 ml PO DAILY PRN PRN Reason: Constipation Stop: 01/21/18 17:18 Miscellaneous (Clinical Monitoring) 1 ea MC DAILY PRN PRN Reason: RENAL Stop: 01/22/18 07:35 Sevelamer Carbonate (Renvela) 800 mg PO TIDWM [facility] Stop: 01/23/18 16:59 Last Admin: 11/26/17 13:11 Dose: Not Given Zinc Sulfate (Zinc Sulfate) 220 mg PO DAILY [facility] Stop: 01/22/18 08:59 Last Admin: 11/26/17 09:02 Dose: 220 mg General: congested, demented, disheveled, appears older HEENT: NC/AT Neck: Supple Lungs: CTAB Cardiovascular: RRR, Normal S1, Normal S2, without murmur Abdomen: soft, non-tender, non-distended, positive bowel sound Extremities: excoriation, ecchymosis Neurological: bedbound Internal Medicine Assmt/Plan - Assessment Assessment: hypotension aloc possible pna acute renal failure multiple open wounds dm2 psychosis htn chest defibrillator status copd chf cad - Plan Plan: monitor bun/crea sitter for safety follow up labs in am continue current plan of care - Plan Plan: see orders will repeat cxr Nutritional Asmnt/Malnutr-PDOC - Dietary Evaluation Malnutrition Findings (Please click <Entered> for more info): Nutritional Asmnt/Malnutrition Start: 11/23/17 15: 36 Text: Status: Complete Freq: Document 11/23/17 15:43 JUANG (Rec: 11/23/17 16:04 LCROSE [email or web address]) Nutritional Asmnt/Malnutrition Patient General Information Nutritional Screening High Risk Consult Pertinent Medical Hx/Surgical Hx DM, psychosis, HTN, anxiety, chest defibrillator, COPD, CHF , CAD, alzheimer's Subjective Information Consult received for Issa Solis . Pt was transfered from [facility] unit for droped BP. Pt seen resting in bed at the time of visit. Spoke with RN, pt consumed 50% of oatmeal and [place] toast for breakfast, " do not like the egg". Current Diet Order/ Nutrition Support Pureed, CCHO Pertinent Medications Vitamin C, D5-0.9% Ns, colace, dopamine, novolog, zinc Pertinent Labs 1/3 Na 138, K 3.9, Cl 107, BUN 78, Cr 10.2, glucose 101, POC 101-168 since adm, A1c 6.8, Ca 8.1, Phos 7.4, mg 1.9 Nutritional Hx/Data Height 1.78 m Height (Calculated Centimeters) 177.8 Current Weight (lbs) 111.584 kg Weight (Calculated Kilograms) 111.6 Weight (Calculated Grams) 718726.7 [place] Body Weight 166 % [place] Body Weight 148 Body Mass Index (BMI) 35.3 Weight Status Obese GI Symptoms GI Symptoms None Last BM no records Skin Integrity/Comment: edema 2+ pitting to left/right foot ulceration to bilateral feet Estimated Nutritional Goals BEE in Kcals: Adj wt of IBW Calories/Kcals/Kg 25-30 Kcals Calculated [id number] considering bedbound and wound Protein: Adj wt of IBW Protein g/k.2-1.4 Protein Calculated 101-118 Fluid: ml 2110-2532ml (1ml/kcal) Nutritional Problem 2. Problem Problem increased nutrition needs ( calorie and protein) Etiology increased metabolic demand for wound healing Signs/Symptoms: ulceration to bilateral legs 1. Problem Problem altered nutrition related lab values Etiology renal dysfunction, hx of DM Signs/Symptoms: BUN 78, Cr 10.2, POC 101-168, A1c 6.8 Malnutrition Alert Protein-Calorie Malnutrition N/A Is there a minimum of two criteria No selected? Query Text:Check all the applicable criteria. A minimum of two criteria are recommended for diagnosis of either severe or non-severe malnutrition. Intervention/Recommendation Comments 1. Recommend renal CCHO diet considering elevated renal labs 2. Monitor PO intake, wt, labs and skin integrity 3. F/U as high risk in 2-3 days, 1/5-1/6 Expected Outcomes/Goals Expected Outcomes/Goals 1. PO intake to meet at least 75% of nutritional needs. 2. Wt stability, skin to remain intact, labs to improve .
[2017-11-27] MEDS: Ipratropium Neb 0.5 mg/2.5 mL UD HHN SCH ×4 (07:19→18:54)
[2017-11-27] MEDS: Albuterol Nebulizer 2.5mg/3mL HHN SCH ×4 (07:19→18:54)
[2017-11-27 07:26] LABS: ANION GAP 11.2 (7.0-16.0); BUN - UREA NITROGEN 42 mg/dL (7-25); CALCIUM SERUM 9.2 mg/dL (8.6-10.3); CARBON DIOXIDE 25.6 mEq/L (21.0-31.0); CHLORIDE 124 mEq/L (98-107); CREATININE - SERUM 3.2 mg/dL (0.7-1.3); GLUCOSE 109 mg/dL (70-105); MAGNESIUM 1.7 mg/dL (1.9-2.7); POTASSIUM SERUM 3.8 mEq/L (3.5-5.1); SODIUM SERUM 157 mEq/L (136-145)
[2017-11-27] MEDS: INSULIN ASPART, RECOMBINANT 100 UNITS/ML SUBQ SCH ×4 (07:26→22:12)
[2017-11-27] MEDS: Multivitamin w/ Minerals Tab PO SCH (09:09)
[2017-11-27] MEDS: Benztropine 1 MG TAB PO SCH ×2 (09:13→18:46)
[2017-11-27] MEDS: D5-0.45NS w/20 mEq KCL 1,000 ML IV SCH (09:21)
--- NOTE | 2017-11-27 09:49 | Diagnostic Imaging Report ---
CHEST X-RAY: AP view INDICATION pneumonia COMPARISON: Chest x-ray on 11/25/2017 FINDINGS: Left chest wall PICC is stable. Mild Congestive changes are noted with increased interstitial lung markings. No focal consolidation or effusion. Mild cardiomegaly is noted. Sclerotic densities of the left proximal humerus are partially seen. IMPRESSION: Mild congestive changes with no focal consolidation identified Mild cardiomegaly. Partially visualized sclerotic densities of the left proximal humerus. Findings are nonspecific and may be related to an enchondroma or bone infarct. Correlation old exams would be helpful for comparison. Dedicated follow-up left shoulder x-rays or MRI would provide additional detail and assessment.
[2017-11-27] MEDS ORDERED: Mag Sulfate 2gm/50mL Premix 2 GM/50 ML BAG IV ONE (12:56)
--- NOTE | 2017-11-27 12:56 | Internal Medicine Prog Note ---
Internal Medicine Subjective - Subjective Patient seen and examined:: with staff, chart reviewed Patient is:: awake, agitated, confused Patient Complaints of:: congestion Per staff patient has:: no adverse event, poor appetite, poor oral intake, agitated, combative, noncompliant, refusing care, refusing labs Internal Medicine Objective - Results Result Diagrams: 11/26/17 05:45 11/27/17 05:45 Recent Labs: Laboratory Last Values WBC 6.8 Th/cmm (4.8-10.8) 11/26/17 05:45 RBC 2.94 Mil/cmm (3.80-5.80) L 11/26/17 05:45 Hgb 9.5 gm/dL (12-16) L 11/26/17 05:45 Hct 28.3 % (41.0-60) L 11/26/17 05:45 MCV 96.2 fl (80-99) 11/26/17 05:45 MCH 32.4 pg (27.0-31.0) H 11/26/17 05:45 MCHC Differential 33.6 pg (28.0-36.0) 11/26/17 05:45 RDW 13.8 % (11.5-20.0) 11/26/17 05:45 Plt Count 305 Th/cmm (150-400) 11/26/17 05:45 MPV 9.6 fl 11/26/17 05:45 Neutrophils % 65.2 % (40.0-80.0) 11/26/17 05:45 Lymphocytes % 18.1 % (20.0-50.0) L 11/26/17 05:45 Monocytes % 13.3 % (2.0-10.0) H 11/26/17 05:45 Eosinophils % 3.2 % (0.0-5.0) 11/26/17 05:45 Basophils % 0.2 % (0.0-2.0) 11/26/17 05:45 Eos Smear Source URINE 11/25/17 23:16 Eos Smear Total Cells FEW EOSINOPHILS SEEN (NONE SEEN) 11/25/17 23:16 Specimen Source ARTERIAL 11/22/17 17:19 Sample Site Left Radial 11/22/17 17:19 pH 7.36 (7.35-7.45) 01/02/18 17:19 pCO2 35.0 mmHg (35.0-45.0) 11/22/17 17:19 pO2 77.0 mmHg (80.0-100.0) L 11/22/17 17:19 HCO3 21.0 mEq/L (20.0-26.0) 11/22/17 17:19 Base Excess 5.0 mEq/L (-3.0-3.0) H 11/22/17 17:19 O2 Saturation 95.0 % (92.0-100.0) 11/22/17 17:19 Seven Test Y 11/22/17 17:19 Vent Rate N/A 11/22/17 17:19 Inspired O2 21 11/22/17 17:19 Tidal Volume A/N 11/22/17 17:19 PEEP N/A 11/22/17 17:19 Pressure (ins/psv/peep) N/A 11/22/17 17:19 Critical Value O.SAMPSON 11/22/17 17:19 Sodium 157 mEq/L (136-145) H 11/27/17 05:45 Potassium 3.8 mEq/L (3.5-5.1) 11/27/17 05:45 Chloride 124 mEq/L (98-107) H 11/27/17 05:45 Carbon Dioxide 25.6 mEq/L (21.0-31.0) 11/27/17 05:45 Anion Gap 11.2 (7.0-16.0) 11/27/17 05:45 BUN 42 mg/dL (7-25) H 11/27/17 05:45 Creatinine 3.2 mg/dL (0.7-1.3) H 11/27/17 05:45 Est GFR ( Amer) [facility] 11/27/17 05:45 Est GFR (Non-Af Amer) [facility] 11/27/17 05:45 BUN/Creatinine Ratio 13.1 11/27/17 05:45 Glucose 109 mg/dL (70-105) H 11/27/17 05:45 POC Glucose 221 MG/DL (70 - 105) H 11/27/17 07:17 Hemoglobin A1c % 6.8 % (4.0-6.0) H 11/23/17 08:30 Uric Acid 11.8 mg/dL (4.4-7.6) H 11/25/17 07:40 Calcium 9.2 mg/dL (8.6-10.3) 11/27/17 05:45 Phosphorus 6.3 mg/dL (2.5-5.0) H 11/25/17 07:40 Magnesium 1.7 mg/dL (1.9-2.7) L 11/27/17 05:45 Total Bilirubin 0.5 mg/dL (0.3-1.0) 11/22/17 17:50 AST 28 U/L (13-39) 11/22/17 17:50 ALT 28 U/L (7-52) 11/22/17 17:50 Alkaline Phosphatase 87 U/L (34-104) 11/22/17 17:50 Ammonia 55 umol/L (16-53) H 11/24/17 05:05 B-Natriuretic Peptide 270.0 pg/mL (5.0-100.0) H 11/24/17 05:05 Total Protein 7.1 gm/dL (6.0-8.3) 11/22/17 17:50 Albumin 3.0 gm/dL (4.2-5.5) L 11/22/17 17:50 Globulin 4.1 gm/dL 11/22/17 17:50 Albumin/Globulin Ratio 0.7 (1.0-1.8) L 11/22/17 17:50 Vitamin B12 922 pg/mL (232-1245) 11/23/17 08:30 Folic Acid 13.7 ng/mL (>3.0) 11/23/17 08:30 Urine Source CATH 11/22/17 22:05 Urine Color BROWN 11/22/17 22:05 Urine Clarity HAZY (CLEAR) 11/22/17 22:05 Urine pH 5.0 (4.6 - 8.0) 11/22/17 22:05 Ur Specific [place] >= 1.030 (1.005-1.030) 11/22/17 22:05 Urine Protein NEGATIVE mg/dL (NEGATIVE) 11/22/17 22:05 Urine Glucose (UA) NEGATIVE mg/dL (NEGATIVE) 11/22/17 22:05 Urine Ketones TRACE mg/dL (NEGATIVE) 11/22/17 22:05 Urine Blood TRACE (NEGATIVE) 11/22/17 22:05 Urine Nitrate NEGATIVE (NEGATIVE) 11/22/17 22:05 Urine Bilirubin SMALL (NEGATIVE) H 11/22/17 22:05 Urine Ictotest NEGATIVE (NEGATIVE) 11/22/17 22:05 Urine Urobilinogen 0.2 E.U./dL (0.2 - 1.0) 11/22/17 22:05 Ur Leukocyte Esterase NEGATIVE (NEGATIVE) 11/22/17 22:05 Urine RBC 0-2 /hpf (0-5) H 11/22/17 22:05 Urine WBC 0-2 /hpf (0-5) 11/22/17 22:05 Ur Epithelial Cells FEW /lpf (FEW) 11/22/17 22:05 Urine Bacteria FEW /hpf (NONE SEEN) 11/22/17 22:05 Ur Random Sodium 62 mmol/L 11/25/17 23:16 Urine Creatinine 109.0 mg/dl (39.0-259.0) 11/25/17 23:16 Urine Microalbumin 19.3 ug/mL (Not Estab.) 11/25/17 10:50 - Physical Exam Vitals and I&O: Vital Signs Temp 98.6 F 11/27/17 00:00 Pulse 87 11/27/17 10:45 Resp 20 11/27/17 10:45 BP 128/65 11/27/17 00:00 Pulse Ox 98 11/27/17 10:45 Intake & Output 11/26/17 11/27/17 11/27/17 18:59 06:59 18:59 Intake Total 800 1240 Output Total 900 1200 Balance -100 40 Weight (lbs) 97.976 kg 97.976 kg Intake: Intake, IV Amount 1000 D5-0.45NS w/20 mEq KCL 1, 1000 000 ml @ 75 mls/hr IV . [id number] [facility] Rx#:[id number] Oral 800 240 Output: Urine 900 1200 Other: # Bowel Movements 0 0 Active Medications: Current Medications Acetaminophen (Tylenol) 650 mg PO Q4HR PRN PRN Reason: PAIN Stop: 01/21/18 17:18 Last Admin: 11/26/17 20:58 Dose: 650 mg Albuterol Sulfate (Albuterol 2.5mg/3ml Neb Ud) 2.5 mg HHN QIDRT [facility] Stop: 01/21/18 18:59 Last Admin: 11/27/17 10:45 Dose: 2.5 mg Ascorbic Acid (Vitamin C) 500 mg PO DAILY [facility] Stop: 01/22/18 08:59 Last Admin: 11/27/17 09:13 Dose: 500 mg Benztropine Mesylate (Cogentin) 1 mg PO BID [facility] Stop: 01/22/18 08:59 Last Admin: 11/27/17 09:13 Dose: 1 mg Citric Acid/Sodium Citrate (Bicitra) 30 ml PO BID [facility] Stop: 01/23/18 16:59 Last Admin: 11/27/17 09:13 Dose: 30 ml Docusate Sodium (Colace) 100 mg PO DAILY [facility] Stop: 01/22/18 08:59 Last Admin: 11/27/17 09:09 Dose: 100 mg Gabapentin (Neurontin) 300 mg PO TID [facility] Stop: 01/21/18 20:59 Last Admin: 11/27/17 09:09 Dose: 300 mg Guaifenesin (Robitussin) 200 mg PO Q4HR PRN PRN Reason: Cough or Congestion Stop: 01/21/18 17:20 Haloperidol (Haldol) 1 mg PO BID [facility] PRN Reason: Protocol Stop: 01/22/18 08:59 Last Admin: 11/27/17 09:09 Dose: 1 mg Potassium Chloride/Dextrose/Sod Cl (D5-0.45ns W/20 Meq Kcl) 1,000 mls @ 75 mls/ hr IV .[id number] [facility] Stop: 01/25/18 12:14 Last Admin: 11/27/17 09:21 Dose: 75 mls/hr Insulin Aspart (Novolog) 0 units SUBQ ACHS [facility] PRN Reason: Protocol Stop: 01/21/18 20:59 Last Admin: 11/27/17 07:26 Dose: 2 unit Ipratropium [place] (Atrovent Neb 0.5mg/2.5ml) 0.5 mg HHN QIDRT [facility] Stop: 01/21/18 18:59 Last Admin: 11/27/17 10:45 Dose: 0.5 mg Lorazepam (Ativan) 1 mg IV Q4H PRN; Protocol PRN Reason: Agitation Stop: 01/22/18 13:05 Last Admin: 11/27/17 08:27 Dose: 1 mg Magnesium Hydroxide (Milk Of Magnesia) 30 ml PO DAILY PRN PRN Reason: Constipation Stop: 01/21/18 17:18 Miscellaneous (Clinical Monitoring) 1 ea MC DAILY PRN PRN Reason: RENAL Stop: 01/22/18 07:35 Sevelamer Carbonate (Renvela) 800 mg PO TIDWM [facility] Stop: 01/23/18 16:59 Last Admin: 11/26/17 17:37 Dose: 800 mg Zinc Sulfate (Zinc Sulfate) 220 mg PO DAILY [facility] Stop: 01/22/18 08:59 Last Admin: 11/27/17 09:09 Dose: 220 mg General: congested, demented, disheveled, appears older HEENT: NC/AT Neck: Supple Lungs: CTAB Cardiovascular: RRR, Normal S1, Normal S2, without murmur Abdomen: soft, non-tender, non-distended, positive bowel sound Extremities: excoriation, ecchymosis Neurological: bedbound Internal Medicine Assmt/Plan - Assessment Assessment: hypotension aloc possible pna acute renal failure multiple open wounds dm2 psychosis htn chest defibrillator status copd chf cad - Plan Plan: monitor bun/crea sitter for safety follow up labs in am continue current plan of care - Plan Plan: see orders will repeat cxr tried calling hari serra left message Nutritional Asmnt/Malnutr-PDOC - Dietary Evaluation Malnutrition Findings (Please click <Entered> for more info): Nutritional Asmnt/Malnutrition Start: 11/23/17 15: 36 Text: Status: Complete Freq: Document 11/23/17 15:43 LCHENG (Rec: 11/23/17 16:04 LCHENG [email or web address]) Nutritional Asmnt/Malnutrition Patient General Information Nutritional Screening High Risk Consult Pertinent Medical Hx/Surgical Hx DM, psychosis, HTN, anxiety, chest defibrillator, COPD, CHF , CAD, alzheimer's Subjective Information Consult received for Issa Solis . Pt was [facility] for droped BP. Pt seen resting in bed at the time of visit. Spoke with RN, pt consumed 50% of oatmeal and Spanish toast for breakfast, " do not like the egg". Current Diet Order/ Nutrition Support Pureed, [facility] Pertinent Medications Vitamin C, D5-0.9% Ns, colace, dopamine, novolog, zinc Pertinent Labs 11/23 Na 138, K 3.9, Cl 107, BUN 78, Cr 10.2, glucose 101, POC 101-168 since adm, A1c 6.8, Ca 8.1, Phos 7.4, mg 1.9 Nutritional Hx/Data Height 1.78 m Height (Calculated Centimeters) 177.8 Current Weight (lbs) 111.584 kg Weight (Calculated Kilograms) 111.6 Weight (Calculated Grams) 431244.7 [place] Body Weight 166 % [place] Body Weight 148 Body Mass Index (BMI) 35.3 Weight Status Obese GI Symptoms GI Symptoms None Last BM no records Skin Integrity/Comment: edema 2+ pitting to left/right foot ulceration to bilateral feet Estimated Nutritional Goals BEE in Kcals: Adj wt of IBW Calories/Kcals/Kg 25-30 Kcals Calculated 1518-5764 considering bedbound and wound Protein: Adj wt of IBW Protein g/k.2-1.4 Protein Calculated 101-118 Fluid: ml 2109-2532ml (1ml/kcal) Nutritional Problem 2. Problem Problem increased nutrition needs ( calorie and protein) Etiology increased metabolic demand for wound healing Signs/Symptoms: ulceration to bilateral legs 1. Problem Problem altered nutrition related lab values Etiology renal dysfunction, hx of DM Signs/Symptoms: BUN 78, Cr 10.2, POC 101-168, A1c 6.8 Malnutrition Alert Protein-Calorie Malnutrition N/A Is there a minimum of two criteria No selected? Query Text:Check all the applicable criteria. A minimum of two criteria are recommended for diagnosis of either severe or non-severe malnutrition. Intervention/Recommendation Comments 1. Recommend renal CCHO diet considering elevated renal labs 2. Monitor PO intake, wt, labs and skin integrity 3. F/U as high risk in 2-3 days, 11/25-11/26 Expected Outcomes/Goals Expected Outcomes/Goals 1. PO intake to meet at least 75% of nutritional needs. 2. Wt stability, skin to remain intact, labs to improve .
[2017-11-27] MEDS: D5W w/20 mEq KCL 1,000 ML IV SCH (18:32)
[2017-11-28 06:50] LABS: % BASOPHILS 0.4 % (0.0-2.0); % LYMPHOCYTES 22.6 % (20.0-50.0); % MONOCYTES 9.6 % (2.0-10.0); % NEUTROPHILS 62.4 % (40.0-80.0); EOSINOPHILE ABSOLUTE 0.4 Th/cmm (0.1-0.4); HEMOGLOBIN 10.9 gm/dL (12-16); LYMPHOCYTE ABSOLUTE 1.8 Th/cmm (1.5-3.0); MEAN CELL VOLUME 97.8 fl (80-99); MEAN CORPUSCULAR HEMOGLOBIN 31.9 pg (27.0-31.0); MEAN CORPUSCULAR HGB CONC 32.6 pg (28.0-36.0); MEAN PLATELET VOLUME 8.3 fl; MONOCYTE ABSOLUTE 0.8 Th/cmm (0.3-1.0); NEUTROPHILE ABSOLUTE 4.9 Th/cmm (1.8-8.0); PLATELET COUNT 363 Th/cmm (150-400); RED BLOOD COUNT 3.41 Mil/cmm (3.80-5.80); RED CELL DISTRIBUTION WIDTH 14.3 % (11.5-20.0); WHITE BLOOD COUNT 7.9 Th/cmm (4.8-10.8)
[2017-11-28 06:57] LABS: HEMATOCRIT 33.3 % (41.0-60)
[2017-11-28] MEDS ORDERED: Albuterol Nebulizer 2.5mg/3mL HHN ONE (07:03)
[2017-11-28] MEDS ORDERED: Ipratropium Neb 0.5 mg/2.5 mL UD HHN ONE (07:03)
[2017-11-28 07:12] LABS: ALB/GLOB RATIO 0.7 (1.0-1.8); ALBUMIN 3.3 gm/dL (4.2-5.5); ALKALINE PHOSPHATASE 75 U/L (34-104); BILIRUBIN,TOTAL 0.6 mg/dL (0.3-1.0); BUN - UREA NITROGEN 34 mg/dL (7-25); CALCIUM SERUM 9.7 mg/dL (8.6-10.3); CARBON DIOXIDE 28.8 mEq/L (21.0-31.0); CHLORIDE 122 mEq/L (98-107); CREATININE - SERUM 2.6 mg/dL (0.7-1.3); GLUCOSE 132 mg/dL (70-105); POTASSIUM SERUM 3.8 mEq/L (3.5-5.1); SGOT 48 U/L (13-39); SGPT/ALT 34 U/L (7-52); SODIUM SERUM 156 mEq/L (136-145); TOTAL PROTEIN,SERUM 8.2 gm/dL (6.0-8.3)
[2017-11-28] MEDS: Ipratropium Neb 0.5 mg/2.5 mL UD HHN SCH ×4 (07:42→20:26)
[2017-11-28] MEDS: Albuterol Nebulizer 2.5mg/3mL HHN SCH ×4 (07:42→20:26)
[2017-11-28] MEDS: Multivitamin w/ Minerals Tab PO SCH (09:49)
[2017-11-28] MEDS: Benztropine 1 MG TAB PO SCH ×2 (09:50→16:13)
[2017-11-28] MEDS: INSULIN ASPART, RECOMBINANT 100 UNITS/ML SUBQ SCH ×3 (10:10→17:39)
--- NOTE | 2017-11-28 11:04 | Internal Medicine Prog Note ---
Internal Medicine Subjective - Subjective Service Date: 11/28/17 Patient seen and examined:: with staff Patient is:: awake, agitated, confused Patient Complaints of:: congestion Per staff patient has:: no adverse event, poor appetite, poor oral intake, agitated, combative, noncompliant, refusing care, refusing labs Internal Medicine Objective - Results Result Diagrams: 11/28/17 06:40 11/28/17 06:40 Recent Labs: Laboratory Last Values WBC 7.9 Th/cmm (4.8-10.8) 11/28/17 06:40 RBC 3.41 Mil/cmm (3.80-5.80) L 11/28/17 06:40 Hgb 10.9 gm/dL (12-16) L 11/28/17 06:40 Hct 33.3 % (41.0-60) L D 11/28/17 06:40 MCV 97.8 fl (80-99) 11/28/17 06:40 MCH 31.9 pg (27.0-31.0) H 11/28/17 06:40 MCHC Differential 32.6 pg (28.0-36.0) 11/28/17 06:40 RDW 14.3 % (11.5-20.0) 11/28/17 06:40 Plt Count 363 Th/cmm (150-400) 11/28/17 06:40 MPV 8.3 fl 11/28/17 06:40 Neutrophils % 62.4 % (40.0-80.0) 11/28/17 06:40 Lymphocytes % 22.6 % (20.0-50.0) 11/28/17 06:40 Monocytes % 9.6 % (2.0-10.0) 11/28/17 06:40 Eosinophils % 5.0 % (0.0-5.0) 11/28/17 06:40 Basophils % 0.4 % (0.0-2.0) 11/28/17 06:40 Eos Smear Source URINE 11/25/17 23:16 Eos Smear Total Cells FEW EOSINOPHILS SEEN (NONE SEEN) 11/25/17 23:16 Specimen Source ARTERIAL 11/22/17 17:19 Sample Site Left Radial 11/22/17 17:19 pH 7.36 (7.35-7.45) 11/22/17 17:19 pCO2 35.0 mmHg (35.0-45.0) 11/22/17 17:19 pO2 77.0 mmHg (80.0-100.0) L 11/22/17 17:19 HCO3 21.0 mEq/L (20.0-26.0) 11/22/17 17:19 Base Excess 5.0 mEq/L (-3.0-3.0) H 11/22/17 17:19 O2 Saturation 95.0 % (92.0-100.0) 11/22/17 17:19 Seven Test Y 11/22/17 17:19 Vent Rate N/A 11/22/17 17:19 Inspired O2 21 11/22/17 17:19 Tidal Volume A/N 11/22/17 17:19 PEEP N/A 11/22/17 17:19 Pressure (ins/psv/peep) N/A 11/22/17 17:19 Critical Value O.SAMPSON 11/22/17 17:19 Sodium 156 mEq/L (136-145) H 11/28/17 06:40 Potassium 3.8 mEq/L (3.5-5.1) 11/28/17 06:40 Chloride 122 mEq/L (98-107) H 11/28/17 06:40 Carbon Dioxide 28.8 mEq/L (21.0-31.0) 11/28/17 06:40 Anion Gap 9.0 (7.0-16.0) 11/28/17 06:40 BUN 34 mg/dL (7-25) H 11/28/17 06:40 Creatinine 2.6 mg/dL (0.7-1.3) H 11/28/17 06:40 Est GFR ( Amer) [facility] 11/28/17 06:40 Est GFR (Non-Af Amer) [facility] 11/28/17 06:40 BUN/Creatinine Ratio 13.1 11/28/17 06:40 Glucose 132 mg/dL (70-105) H 11/28/17 06:40 POC Glucose 118 MG/DL (70 - 105) H 11/28/17 07:26 Hemoglobin A1c % 6.8 % (4.0-6.0) H 11/23/17 08:30 Uric Acid 11.8 mg/dL (4.4-7.6) H 11/25/17 07:40 Calcium 9.7 mg/dL (8.6-10.3) 11/28/17 06:40 Phosphorus 6.3 mg/dL (2.5-5.0) H 11/25/17 07:40 Magnesium 2.0 mg/dL (1.9-2.7) 11/28/17 06:40 Total Bilirubin 0.6 mg/dL (0.3-1.0) 11/28/17 06:40 AST 48 U/L (13-39) H 11/28/17 06:40 ALT 34 U/L (7-52) 11/28/17 06:40 Alkaline Phosphatase 75 U/L (34-104) 11/28/17 06:40 Ammonia 43 umol/L (16-53) 11/28/17 06:40 B-Natriuretic Peptide 629.0 pg/mL (5.0-100.0) H 11/28/17 06:40 Total Protein 8.2 gm/dL (6.0-8.3) 11/28/17 06:40 Albumin 3.3 gm/dL (4.2-5.5) L 11/28/17 06:40 Globulin 4.9 gm/dL 11/28/17 06:40 Albumin/Globulin Ratio 0.7 (1.0-1.8) L 11/28/17 06:40 Vitamin B12 922 pg/mL (232-1245) 11/23/17 08:30 Folic Acid 13.7 ng/mL (>3.0) 11/23/17 08:30 Urine Source CATH 11/22/17 22:05 Urine Color BROWN 11/22/17 22:05 Urine Clarity HAZY (CLEAR) 11/22/17 22:05 Urine pH 5.0 (4.6 - 8.0) 11/22/17 22:05 Ur Specific [place] >= 1.030 (1.005-1.030) 11/22/17 22:05 Urine Protein NEGATIVE mg/dL (NEGATIVE) 11/22/17 22:05 Urine Glucose (UA) NEGATIVE mg/dL (NEGATIVE) 11/22/17 22:05 Urine Ketones TRACE mg/dL (NEGATIVE) 11/22/17 22:05 Urine Blood TRACE (NEGATIVE) 11/22/17 22:05 Urine Nitrate NEGATIVE (NEGATIVE) 11/22/17 22:05 Urine Bilirubin SMALL (NEGATIVE) H 11/22/17 22:05 Urine Ictotest NEGATIVE (NEGATIVE) 11/22/17 22:05 Urine Urobilinogen 0.2 E.U./dL (0.2 - 1.0) 11/22/17 22:05 Ur Leukocyte Esterase NEGATIVE (NEGATIVE) 11/22/17 22:05 Urine RBC 0-2 /hpf (0-5) H 11/22/17 22:05 Urine WBC 0-2 /hpf (0-5) 11/22/17 22:05 Ur Epithelial Cells FEW /lpf (FEW) 11/22/17 22:05 Urine Bacteria FEW /hpf (NONE SEEN) 11/22/17 22:05 Ur Random Sodium 62 mmol/L 11/25/17 23:16 Urine Creatinine 109.0 mg/dl (39.0-259.0) 11/25/17 23:16 Urine Microalbumin 19.3 ug/mL (Not Estab.) 11/25/17 10:50 - Physical Exam Vitals and I&O: Vital Signs Temp 98.8 F 11/28/17 04:00 Pulse 80 11/28/17 04:00 Resp 19 11/28/17 04:00 BP 112/67 11/28/17 04:00 Pulse Ox 97 11/28/17 04:00 Intake & Output 11/27/17 11/28/17 11/28/17 18:59 06:59 18:59 Intake Total 500 100 Output Total 1100 Balance 500 -1000 Weight (lbs) 216 lb 216 lb Intake: Oral 500 100 Output: Urine 1100 Active Medications: Current Medications Acetaminophen (Tylenol) 650 mg PO Q4HR PRN PRN Reason: PAIN Stop: 01/21/18 17:18 Last Admin: 11/26/17 20:58 Dose: 650 mg Albuterol Sulfate (Albuterol 2.5mg/3ml Neb Ud) 2.5 mg HHN QIDRT [facility] Stop: 01/21/18 18:59 Last Admin: 11/28/17 07:42 Dose: 2.5 mg Ascorbic Acid (Vitamin C) 500 mg PO DAILY [facility] Stop: 01/22/18 08:59 Last Admin: 11/28/17 09:50 Dose: 500 mg Benztropine Mesylate (Cogentin) 1 mg PO BID [facility] Stop: 01/22/18 08:59 Last Admin: 11/28/17 09:50 Dose: 1 mg Citric Acid/Sodium Citrate (Bicitra) 30 ml PO BID [facility] Stop: 01/23/18 16:59 Last Admin: 11/28/17 09:49 Dose: 30 ml Docusate Sodium (Colace) 100 mg PO DAILY [facility] Stop: 01/22/18 08:59 Last Admin: 11/28/17 09:50 Dose: 100 mg Gabapentin (Neurontin) 300 mg PO TID [facility] Stop: 01/21/18 20:59 Last Admin: 11/28/17 09:50 Dose: 300 mg Guaifenesin (Robitussin) 200 mg PO Q4HR PRN PRN Reason: Cough or Congestion Stop: 01/21/18 17:20 Haloperidol (Haldol) 1 mg PO BID [facility] PRN Reason: Protocol Stop: 01/22/18 08:59 Last Admin: 11/28/17 09:50 Dose: 1 mg Potassium Chloride/Dextrose (D5w W/20 Meq Kcl) 1,000 mls @ 75 mls/hr IV .[id number] [facility] Stop: 01/26/18 15:56 Last Admin: 11/27/17 18:32 Dose: 75 mls/hr Insulin Aspart (Novolog) 0 units SUBQ ACHS [facility] PRN Reason: Protocol Stop: 01/21/18 20:59 Last Admin: 11/28/17 10:10 Dose: Not Given Ipratropium [place] (Atrovent Neb 0.5mg/2.5ml) 0.5 mg HHN QIDRT [facility] Stop: 01/21/18 18:59 Last Admin: 11/28/17 07:42 Dose: 0.5 mg Lorazepam (Ativan) 1 mg IV Q4H PRN; Protocol PRN Reason: Agitation Stop: 01/22/18 13:05 Last Admin: 11/27/17 22:09 Dose: 1 mg Magnesium Hydroxide (Milk Of Magnesia) 30 ml PO DAILY PRN PRN Reason: Constipation Stop: 01/21/18 17:18 Miscellaneous (Clinical Monitoring) 1 ea MC DAILY PRN PRN Reason: RENAL Stop: 01/22/18 07:35 Sevelamer Carbonate (Renvela) 800 mg PO TIDWM [facility] Stop: 01/23/18 16:59 Last Admin: 11/28/17 10:10 Dose: 800 mg Zinc Sulfate (Zinc Sulfate) 220 mg PO DAILY [facility] Stop: 01/22/18 08:59 Last Admin: 11/28/17 09:49 Dose: 220 mg General: congested, demented, disheveled, appears older HEENT: NC/AT Neck: Supple Lungs: CTAB Cardiovascular: RRR, Normal S1, Normal S2, without murmur Abdomen: soft, non-tender, non-distended, positive bowel sound Extremities: excoriation, ecchymosis Neurological: bedbound Internal Medicine Assmt/Plan - Assessment Assessment: hypotension aloc possible pna acute renal failure multiple open wounds dm2 psychosis htn chest defibrillator status copd chf cad - Plan Plan: monitor bun/crea sitter for safety follow up labs in am continue current plan of care Nutritional Asmnt/Malnutr-PDOC - Dietary Evaluation Malnutrition Findings (Please click <Entered> for more info): Nutritional Asmnt/Malnutrition Start: 11/23/17 15: 36 Text: Status: Complete Freq: Document 11/23/17 15:43 LCHENG (Rec: 11/23/17 16:04 LCHENG [email or web address]) Nutritional Asmnt/Malnutrition Patient General Information Nutritional Screening High Risk Consult Pertinent Medical Hx/Surgical Hx DM, psychosis, HTN, anxiety, chest defibrillator, COPD, CHF , CAD, alzheimer's Subjective Information Consult received for Issa Solis . Pt was transfered from [facility] unit for droped BP. Pt seen resting in bed at the time of visit. Spoke with RN, pt consumed 50% of oatmeal and [place] toast for breakfast, " do not like the egg". Current Diet Order/ Nutrition Support [facility] Pertinent Medications Vitamin C, D5-0.9% Ns, colace, dopamine, novolog, zinc Pertinent Labs 1/3 Na 138, K 3.9, Cl 107, BUN 78, Cr 10.2, glucose 101, POC 101-168 since adm, A1c 6.8, Ca 8.1, Phos 7.4, mg 1.9 Nutritional Hx/Data Height 5 ft 10 in Height (Calculated Centimeters) 177.8 Current Weight (lbs) 246 lb Weight (Calculated Kilograms) 111.6 Weight (Calculated Grams) 972907.7 [place] Body Weight 166 % [place] Body Weight 148 Body Mass Index (BMI) 35.3 Weight Status Obese GI Symptoms GI Symptoms None Last BM no records Skin Integrity/Comment: edema 2+ pitting to left/right foot ulceration to bilateral feet Estimated Nutritional Goals BEE in Kcals: Adj wt of IBW Calories/Kcals/Kg 25-30 Kcals Calculated 9435-3349 considering bedbound and wound Protein: Adj wt of IBW Protein g/k.2-1.4 Protein Calculated 101-118 Fluid: ml 2109-2531ml (1ml/kcal) Nutritional Problem 2. Problem Problem increased nutrition needs ( calorie and protein) Etiology increased metabolic demand for wound healing Signs/Symptoms: ulceration to bilateral legs 1. Problem Problem altered nutrition related lab values Etiology renal dysfunction, hx of DM Signs/Symptoms: BUN 78, Cr 10.2, POC 101-168, A1c 6.8 Malnutrition Alert Protein-Calorie Malnutrition N/A Is there a minimum of two criteria No selected? Query Text:Check all the applicable criteria. A minimum of two criteria are recommended for diagnosis of either severe or non-severe malnutrition. Intervention/Recommendation Comments 1. Recommend renal CCHO diet considering elevated renal labs 2. Monitor PO intake, wt, labs and skin integrity 3. F/U as high risk in 2-3 days, 1/5-1/6 Expected Outcomes/Goals Expected Outcomes/Goals 1. PO intake to meet at least 75% of nutritional needs. 2. Wt stability, skin to remain intact, labs to improve .
[2017-11-28] MEDS: D5W w/20 mEq KCL 1,000 ML IV SCH (13:00)
[2017-11-29] MEDS: INSULIN ASPART, RECOMBINANT 100 UNITS/ML SUBQ SCH ×5 (01:01→22:58)
[2017-11-29 06:37] LABS: % BASOPHILS 0.4 % (0.0-2.0); % EOSINOPHILS 4.6 % (0.0-5.0); % LYMPHOCYTES 25.5 % (20.0-50.0); % MONOCYTES 10.5 % (2.0-10.0); EOSINOPHILE ABSOLUTE 0.3 Th/cmm (0.1-0.4); HEMATOCRIT 30.5 % (41.0-60); HEMOGLOBIN 10.4 gm/dL (12-16); LYMPHOCYTE ABSOLUTE 1.9 Th/cmm (1.5-3.0); MEAN CELL VOLUME 96.8 fl (80-99); MEAN CORPUSCULAR HEMOGLOBIN 32.9 pg (27.0-31.0); MEAN PLATELET VOLUME 8.1 fl; MONOCYTE ABSOLUTE 0.8 Th/cmm (0.3-1.0); NEUTROPHILE ABSOLUTE 4.4 Th/cmm (1.8-8.0); RED BLOOD COUNT 3.15 Mil/cmm (3.80-5.80); RED CELL DISTRIBUTION WIDTH 14.1 % (11.5-20.0); WHITE BLOOD COUNT 7.4 Th/cmm (4.8-10.8)
[2017-11-29 06:39] LABS: PLATELET COUNT 245 Th/cmm (150-400)
[2017-11-29 06:53] LABS: ALB/GLOB RATIO 0.7 (1.0-1.8); ALBUMIN 2.8 gm/dL (4.2-5.5); ALKALINE PHOSPHATASE 62 U/L (34-104); ANION GAP 8.4 (7.0-16.0); BILIRUBIN,TOTAL 0.6 mg/dL (0.3-1.0); BUN - UREA NITROGEN 26 mg/dL (7-25); CALCIUM SERUM 8.9 mg/dL (8.6-10.3); CARBON DIOXIDE 29.1 mEq/L (21.0-31.0); CHLORIDE 119 mEq/L (98-107); CREATININE - SERUM 2.1 mg/dL (0.7-1.3); GLUCOSE 123 mg/dL (70-105); PHOSPHOROUS 2.9 mg/dL (2.5-5.0); POTASSIUM SERUM 3.5 mEq/L (3.5-5.1); SGOT 30 U/L (13-39); SGPT/ALT 24 U/L (7-52); SODIUM SERUM 153 mEq/L (136-145); TOTAL PROTEIN,SERUM 7.1 gm/dL (6.0-8.3); URIC ACID 8.6 mg/dL (4.4-7.6)
[2017-11-29] MEDS: Ipratropium Neb 0.5 mg/2.5 mL UD HHN SCH ×4 (07:19→21:44)
[2017-11-29] MEDS: Albuterol Nebulizer 2.5mg/3mL HHN SCH ×4 (07:19→21:44)
[2017-11-29] MEDS: Benztropine 1 MG TAB PO SCH ×2 (08:10→17:20)
[2017-11-29] MEDS: Multivitamin w/ Minerals Tab PO SCH (08:11)
--- NOTE | 2017-11-29 08:13 | Progress Notes ---
DATE: RENAL PROGRESS NOTE LOCATION: [facility], room #18, bed 3. SUBJECTIVE: The patient is conscious, seems to be somewhat alert. A sitter is at bedside. Morgan with good urine output. OBJECTIVE: VITAL SIGNS: Temperature 98.2, blood pressure 112/63, respirations 16. Yesterday's intake 2039, urine output 2100. HEART: Regular. LUNGS: Good air entry. ABDOMEN: Soft. EXTREMITIES: No edema. LABORATORY DATA: Sodium 156, potassium 3.8, chloride 122, CO2 28, BUN 34, creatinine 2.6, calcium 9.7, AST elevated, BNP 629. ASSESSMENT: 1. Acute kidney injury. 2. Water deficit. 3. Dehydration. 4. Anxiety. 5. Psychosis. 6. Hypokalemia. PLAN: 1. Discontinue current IV fluid. 2. Start D5W at 125 mL per hour. 3. Check CBC, CMP, phosphorus, uric acid in the morning. JOB# [id number]
[2017-11-29] MEDS: Dextrose 5% 1,000 ML IV SCH ×3 (13:04→22:39)
--- NOTE | 2017-11-29 16:01 | Internal Medicine Prog Note ---
Internal Medicine Subjective - Subjective Service Date: 11/29/17 Patient seen and examined:: with staff Patient is:: awake, agitated, confused Patient Complaints of:: congestion Per staff patient has:: no adverse event, poor appetite, poor oral intake, agitated, combative, noncompliant, refusing care, refusing labs Internal Medicine Objective - Results Result Diagrams: 11/29/17 06:10 11/29/17 06:10 Recent Labs: Laboratory Last Values WBC 7.4 Th/cmm (4.8-10.8) 11/29/17 06:10 RBC 3.15 Mil/cmm (3.80-5.80) L 11/29/17 06:10 Hgb 10.4 gm/dL (12-16) L 11/29/17 06:10 Hct 30.5 % (41.0-60) L 11/29/17 06:10 MCV 96.8 fl (80-99) 11/29/17 06:10 MCH 32.9 pg (27.0-31.0) H 11/29/17 06:10 MCHC Differential 34.0 pg (28.0-36.0) 11/29/17 06:10 RDW 14.1 % (11.5-20.0) 11/29/17 06:10 Plt Count 245 Th/cmm (150-400) D 11/29/17 06:10 MPV 8.1 fl 11/29/17 06:10 Neutrophils % 59.0 % (40.0-80.0) 11/29/17 06:10 Lymphocytes % 25.5 % (20.0-50.0) 11/29/17 06:10 Monocytes % 10.5 % (2.0-10.0) H 11/29/17 06:10 Eosinophils % 4.6 % (0.0-5.0) 11/29/17 06:10 Basophils % 0.4 % (0.0-2.0) 11/29/17 06:10 Eos Smear Source URINE 11/25/17 23:16 Eos Smear Total Cells FEW EOSINOPHILS SEEN (NONE SEEN) 11/25/17 23:16 Specimen Source ARTERIAL 11/22/17 17:19 Sample Site Left Radial 11/22/17 17:19 pH 7.36 (7.35-7.45) 11/22/17 17:19 pCO2 35.0 mmHg (35.0-45.0) 11/22/17 17:19 pO2 77.0 mmHg (80.0-100.0) L 11/22/17 17:19 HCO3 21.0 mEq/L (20.0-26.0) 11/22/17 17:19 Base Excess 5.0 mEq/L (-3.0-3.0) H 11/22/17 17:19 O2 Saturation 95.0 % (92.0-100.0) 11/22/17 17:19 Seven Test Y 11/22/17 17:19 Vent Rate N/A 11/22/17 17:19 Inspired O2 21 11/22/17 17:19 Tidal Volume A/N 11/22/17 17:19 PEEP N/A 11/22/17 17:19 Pressure (ins/psv/peep) N/A 11/22/17 17:19 Critical Value O.SAMPSON 11/22/17 17:19 Sodium 153 mEq/L (136-145) H 11/29/17 06:10 Potassium 3.5 mEq/L (3.5-5.1) 11/29/17 06:10 Chloride 119 mEq/L (98-107) H 11/29/17 06:10 Carbon Dioxide 29.1 mEq/L (21.0-31.0) 11/29/17 06:10 Anion Gap 8.4 (7.0-16.0) 11/29/17 06:10 BUN 26 mg/dL (7-25) H 11/29/17 06:10 Creatinine 2.1 mg/dL (0.7-1.3) H 11/29/17 06:10 Est GFR ( Amer) [facility] 11/29/17 06:10 Est GFR (Non-Af Amer) [facility] 11/29/17 06:10 BUN/Creatinine Ratio 12.4 11/29/17 06:10 Glucose 123 mg/dL (70-105) H 11/29/17 06:10 POC Glucose 182 MG/DL (70 - 105) H 11/29/17 12:30 Hemoglobin A1c % 6.8 % (4.0-6.0) H 11/23/17 08:30 Plasma/Ser Osmolality 322 mOsmol/kg (280-301) H 11/25/17 07:40 Uric Acid 8.6 mg/dL (4.4-7.6) H 11/29/17 06:10 Calcium 8.9 mg/dL (8.6-10.3) 11/29/17 06:10 Phosphorus 2.9 mg/dL (2.5-5.0) 11/29/17 06:10 Magnesium 2.0 mg/dL (1.9-2.7) 11/28/17 06:40 Total Bilirubin 0.6 mg/dL (0.3-1.0) 11/29/17 06:10 AST 30 U/L (13-39) 11/29/17 06:10 ALT 24 U/L (7-52) 11/29/17 06:10 Alkaline Phosphatase 62 U/L (34-104) 11/29/17 06:10 Ammonia 43 umol/L (16-53) 11/28/17 06:40 B-Natriuretic Peptide 629.0 pg/mL (5.0-100.0) H 11/28/17 06:40 Total Protein 7.1 gm/dL (6.0-8.3) 11/29/17 06:10 Albumin 2.8 gm/dL (4.2-5.5) L 11/29/17 06:10 Globulin 4.3 gm/dL 11/29/17 06:10 Albumin/Globulin Ratio 0.7 (1.0-1.8) L 11/29/17 06:10 Vitamin B12 922 pg/mL (232-1245) 11/23/17 08:30 Folic Acid 13.7 ng/mL (>3.0) 11/23/17 08:30 TSH 2.01 uIU/ml (0.34-5.60) 11/29/17 06:10 Urine Source CATH 11/22/17 22:05 Urine Color BROWN 11/22/17 22:05 Urine Clarity HAZY (CLEAR) 11/22/17 22:05 Urine pH 5.0 (4.6 - 8.0) 11/22/17 22:05 Ur Specific [place] >= 1.030 (1.005-1.030) 11/22/17 22:05 Urine Protein NEGATIVE mg/dL (NEGATIVE) 11/22/17 22:05 Urine Glucose (UA) NEGATIVE mg/dL (NEGATIVE) 11/22/17 22:05 Urine Ketones TRACE mg/dL (NEGATIVE) 11/22/17 22:05 Urine Blood TRACE (NEGATIVE) 11/22/17 22:05 Urine Nitrate NEGATIVE (NEGATIVE) 11/22/17 22:05 Urine Bilirubin SMALL (NEGATIVE) H 11/22/17 22:05 Urine Ictotest NEGATIVE (NEGATIVE) 11/22/17 22:05 Urine Urobilinogen 0.2 E.U./dL (0.2 - 1.0) 11/22/17 22:05 Ur Leukocyte Esterase NEGATIVE (NEGATIVE) 11/22/17 22:05 Urine RBC 0-2 /hpf (0-5) H 11/22/17 22:05 Urine WBC 0-2 /hpf (0-5) 11/22/17 22:05 Ur Epithelial Cells FEW /lpf (FEW) 11/22/17 22:05 Urine Bacteria FEW /hpf (NONE SEEN) 11/22/17 22:05 Ur Random Sodium 62 mmol/L 11/25/17 23:16 Urine Creatinine 109.0 mg/dl (39.0-259.0) 11/25/17 23:16 Urine Microalbumin 19.3 ug/mL (Not Estab.) 11/25/17 10:50 - Physical Exam Vitals and I&O: Vital Signs Temp 98.7 F 11/29/17 04:00 Pulse 75 11/29/17 15:13 Resp 20 11/29/17 15:13 BP 141/65 11/29/17 04:00 Pulse Ox 94 11/29/17 15:13 Intake & Output 11/28/17 11/29/17 11/29/17 18:59 06:59 18:59 Intake Total 2300 1000 Output Total 1650 Balance 650 1000 Weight (lbs) 216 lb Intake: Intake, IV Amount 1000 1000 D5W w/20 mEq KCL 1,000 ml 1000 @ 75 mls/hr IV .[id number] [facility] Rx#:[id number] Dextrose 5% 1,000 ml @ 1000 125 mls/hr IV .Q8H [facility] Rx #:[id number] Oral 1300 Output: Urine 1650 Active Medications: Current Medications Acetaminophen (Tylenol) 650 mg PO Q4HR PRN PRN Reason: PAIN Stop: 01/21/18 17:18 Last Admin: 11/26/17 20:58 Dose: 650 mg Albuterol Sulfate (Albuterol 2.5mg/3ml Neb Ud) 2.5 mg HHN QIDRT [facility] Stop: 01/21/18 18:59 Last Admin: 11/29/17 15:13 Dose: 2.5 mg Ascorbic Acid (Vitamin C) 500 mg PO DAILY [facility] Stop: 01/22/18 08:59 Last Admin: 11/29/17 08:10 Dose: 500 mg Benztropine Mesylate (Cogentin) 1 mg PO BID [facility] Stop: 01/22/18 08:59 Last Admin: 11/29/17 08:10 Dose: 1 mg Citric Acid/Sodium Citrate (Bicitra) 30 ml PO BID [facility] Stop: 01/23/18 16:59 Last Admin: 11/29/17 08:12 Dose: 30 ml Docusate Sodium (Colace) 100 mg PO DAILY [facility] Stop: 01/22/18 08:59 Last Admin: 11/29/17 08:11 Dose: 100 mg Gabapentin (Neurontin) 300 mg PO TID [facility] Stop: 01/21/18 20:59 Last Admin: 11/29/17 13:03 Dose: 300 mg Guaifenesin (Robitussin) 200 mg PO Q4HR PRN PRN Reason: Cough or Congestion Stop: 01/21/18 17:20 Haloperidol (Haldol) 1 mg PO BID [facility] PRN Reason: Protocol Stop: 01/22/18 08:59 Last Admin: 11/29/17 08:11 Dose: 1 mg Dextrose (D5w) 1,000 mls @ 125 mls/hr IV .Q8H [facility] Stop: 01/27/18 19:51 Last Admin: 11/29/17 13:04 Dose: 125 mls/hr Insulin Aspart (Novolog) 0 units SUBQ ACHS [facility] PRN Reason: Protocol Stop: 01/21/18 20:59 Last Admin: 11/29/17 12:40 Dose: Not Given Ipratropium [place] (Atrovent Neb 0.5mg/2.5ml) 0.5 mg HHN QIDRT [facility] Stop: 01/21/18 18:59 Last Admin: 11/29/17 15:13 Dose: 0.5 mg Lorazepam (Ativan) 1 mg IV Q4H PRN; Protocol PRN Reason: Agitation Stop: 01/22/18 13:05 Last Admin: 11/29/17 08:05 Dose: 1 mg Magnesium Hydroxide (Milk Of Magnesia) 30 ml PO DAILY PRN PRN Reason: Constipation Stop: 01/21/18 17:18 Miscellaneous (Clinical Monitoring) 1 ea MC DAILY PRN PRN Reason: RENAL Stop: 01/22/18 07:35 Sevelamer Carbonate (Renvela) 800 mg PO TIDWM [facility] Stop: 01/23/18 16:59 Last Admin: 11/29/17 13:03 Dose: 800 mg Zinc Sulfate (Zinc Sulfate) 220 mg PO DAILY [facility] Stop: 01/22/18 08:59 Last Admin: 11/29/17 08:11 Dose: 220 mg General: congested, demented, disheveled, appears older HEENT: NC/AT Neck: Supple Lungs: CTAB Cardiovascular: RRR, Normal S1, Normal S2, without murmur Abdomen: soft, non-tender, non-distended, positive bowel sound Extremities: excoriation, ecchymosis Neurological: bedbound Internal Medicine Assmt/Plan - Assessment Assessment: hypotension aloc possible pna acute renal failure multiple open wounds dm2 psychosis htn chest defibrillator status copd chf cad - Plan Plan: monitor bun/crea sitter for safety follow up labs in am continue current plan of care Nutritional Asmnt/Malnutr-PDOC - Dietary Evaluation Malnutrition Findings (Please click <Entered> for more info): Nutritional Asmnt/Malnutrition Start: 11/23/17 15: 36 Text: Status: Complete Freq: Document 11/23/17 15:43 MECCA (Rec: 11/23/17 16:04 LCHEN [email or web address]) Nutritional Asmnt/Malnutrition Patient General Information Nutritional Screening High Risk Consult Pertinent Medical Hx/Surgical Hx DM, psychosis, HTN, anxiety, chest defibrillator, COPD, CHF , CAD, alzheimer's Subjective Information Consult received for Issa Solis . Pt was transfered from [facility] unit for droped BP. Pt seen resting in bed at the time of visit. Spoke with RN, pt consumed 50% of oatmeal and [place] toast for breakfast, " do not like the egg". Current Diet Order/ Nutrition Support Pureed, CCHO Pertinent Medications Vitamin C, D5-0.9% Ns, colace, dopamine, novolog, zinc Pertinent Labs 1/ Na 138, K 3.9, Cl 107, BUN 78, Cr 10.2, glucose 101, POC 101-168 since adm, A1c 6.8, Ca 8.1, Phos 7.4, mg 1.9 Nutritional Hx/Data Height 5 ft 10 in Height (Calculated Centimeters) 177.8 Current Weight (lbs) 246 lb Weight (Calculated Kilograms) 111.6 Weight (Calculated Grams) 324854.7 Boyce Body Weight 166 % Boyce Body Weight 148 Body Mass Index (BMI) 35.3 Weight Status Obese GI Symptoms GI Symptoms None Last BM no records Skin Integrity/Comment: edema 2+ pitting to left/right foot ulceration to bilateral feet Estimated Nutritional Goals BEE in Kcals: Adj wt of IBW Calories/Kcals/Kg 25-30 Kcals Calculated [id number] considering bedbound and wound Protein: Adj wt of IBW Protein g/k.2-1.4 Protein Calculated 101-118 Fluid: ml 2109-2532ml (1ml/kcal) Nutritional Problem 2. Problem Problem increased nutrition needs ( calorie and protein) Etiology increased metabolic demand for wound healing Signs/Symptoms: ulceration to bilateral legs 1. Problem Problem altered nutrition related lab values Etiology renal dysfunction, hx of DM Signs/Symptoms: BUN 78, Cr 10.2, POC 101-168, A1c 6.8 Malnutrition Alert Protein-Calorie Malnutrition N/A Is there a minimum of two criteria No selected? Query Text:Check all the applicable criteria. A minimum of two criteria are recommended for diagnosis of either severe or non-severe malnutrition. Intervention/Recommendation Comments 1. Recommend renal CCHO diet considering elevated renal labs 2. Monitor PO intake, wt, labs and skin integrity 3. F/U as high risk in 2-3 days, 11/25-11/26 Expected Outcomes/Goals Expected Outcomes/Goals 1. PO intake to meet at least 75% of nutritional needs. 2. Wt stability, skin to remain intact, labs to improve .
[2017-11-29 16:13] LABS: FOLIC ACID 11.3 ng/mL (>3.0)
[2017-11-30 05:34] LABS: % BASOPHILS 0.3 % (0.0-2.0); % EOSINOPHILS 4.5 % (0.0-5.0); % LYMPHOCYTES 20.3 % (20.0-50.0); % MONOCYTES 9.4 % (2.0-10.0); % NEUTROPHILS 65.5 % (40.0-80.0); EOSINOPHILE ABSOLUTE 0.4 Th/cmm (0.1-0.4); HEMOGLOBIN 10.3 gm/dL (12-16); LYMPHOCYTE ABSOLUTE 1.8 Th/cmm (1.5-3.0); MEAN CORPUSCULAR HGB CONC 33.3 pg (28.0-36.0); MEAN PLATELET VOLUME 8.6 fl; MONOCYTE ABSOLUTE 0.8 Th/cmm (0.3-1.0); NEUTROPHILE ABSOLUTE 5.8 Th/cmm (1.8-8.0); PLATELET COUNT 221 Th/cmm (150-400); RED BLOOD COUNT 3.23 Mil/cmm (3.80-5.80); WHITE BLOOD COUNT 8.8 Th/cmm (4.8-10.8)
[2017-11-30 05:42] LABS: ANION GAP 9.5 (7.0-16.0); BUN - UREA NITROGEN 24 mg/dL (7-25); CARBON DIOXIDE 29.9 mEq/L (21.0-31.0); CHLORIDE 115 mEq/L (98-107); CREATININE - SERUM 1.9 mg/dL (0.7-1.3); GLUCOSE 112 mg/dL (70-105); POTASSIUM SERUM 3.4 mEq/L (3.5-5.1); SODIUM SERUM 151 mEq/L (136-145)
[2017-11-30] MEDS: Ipratropium Neb 0.5 mg/2.5 mL UD HHN SCH ×4 (07:04→20:02)
[2017-11-30] MEDS: Albuterol Nebulizer 2.5mg/3mL HHN SCH ×4 (07:04→20:02)
[2017-11-30] MEDS: INSULIN ASPART, RECOMBINANT 100 UNITS/ML SUBQ SCH ×4 (08:00→22:43)
[2017-11-30] MEDS: Multivitamin w/ Minerals Tab PO SCH (08:32)
--- NOTE | 2017-11-30 12:22 | Progress Notes ---
DATE: 11/29/2017 LOCATION: [facility], room #18, bed 3. SUBJECTIVE: The patient is out of bed, sitting in the chair, more alert. OBJECTIVE: VITAL SIGNS: Temperature 97.1, blood pressure 130s/70, respirations 17. The patient's urine output is improving. Yesterday's intake 2300, urine output 1650. HEART: Regular. LUNGS: Good air entry. No rales. ABDOMEN: Soft. EXTREMITIES: No edema. LABORATORY DATA: Hemoglobin 10.4. Sodium improved to 153, BUN improved to 26, creatinine improved to 2.1. ASSESSMENT: 1. Hypernatremia, improving. 2. Acute kidney injury, improving. 3. Dehydration, improving. 4. Psychosis. 5. Hypokalemia, stable. PLAN: Continue D5 IV at 125 mL. Check BMP tomorrow morning. Continue other treatment. JOB# [id number]
--- NOTE | 2017-11-30 12:59 | General Progress Note ---
Subjective - Review of Systems Service Date: 11/30/17 Subjective: sitting on chair, comfortable Objective - Results Result Diagrams: 11/30/17 05:15 11/30/17 05:15 Recent Labs: Laboratory Last Values WBC 8.8 Th/cmm (4.8-10.8) 11/30/17 05:15 RBC 3.23 Mil/cmm (3.80-5.80) L 11/30/17 05:15 Hgb 10.3 gm/dL (12-16) L 11/30/17 05:15 Hct 31.0 % (41.0-60) L 11/30/17 05:15 MCV 96.0 fl (80-99) 11/30/17 05:15 MCH 32.0 pg (27.0-31.0) H 11/30/17 05:15 MCHC Differential 33.3 pg (28.0-36.0) 11/30/17 05:15 RDW 14.0 % (11.5-20.0) 11/30/17 05:15 Plt Count 221 Th/cmm (150-400) 11/30/17 05:15 MPV 8.6 fl 11/30/17 05:15 Neutrophils % 65.5 % (40.0-80.0) 11/30/17 05:15 Lymphocytes % 20.3 % (20.0-50.0) 11/30/17 05:15 Monocytes % 9.4 % (2.0-10.0) 11/30/17 05:15 Eosinophils % 4.5 % (0.0-5.0) 11/30/17 05:15 Basophils % 0.3 % (0.0-2.0) 11/30/17 05:15 Eos Smear Source URINE 11/25/17 23:16 Eos Smear Total Cells FEW EOSINOPHILS SEEN (NONE SEEN) 11/25/17 23:16 Specimen Source ARTERIAL 11/22/17 17:19 Sample Site Left Radial 11/22/17 17:19 pH 7.36 (7.35-7.45) 11/22/17 17:19 pCO2 35.0 mmHg (35.0-45.0) 11/22/17 17:19 pO2 77.0 mmHg (80.0-100.0) L 11/22/17 17:19 HCO3 21.0 mEq/L (20.0-26.0) 11/22/17 17:19 Base Excess 5.0 mEq/L (-3.0-3.0) H 11/22/17 17:19 O2 Saturation 95.0 % (92.0-100.0) 11/22/17 17:19 Seven Test Y 11/22/17 17:19 Vent Rate N/A 11/22/17 17:19 Inspired O2 21 11/22/17 17:19 Tidal Volume A/N 11/22/17 17:19 PEEP N/A 11/22/17 17:19 Pressure (ins/psv/peep) N/A 11/22/17 17:19 Critical Value O.SAMPSON 11/22/17 17:19 Sodium 151 mEq/L (136-145) H 11/30/17 05:15 Potassium 3.4 mEq/L (3.5-5.1) L 11/30/17 05:15 Chloride 115 mEq/L (98-107) H 11/30/17 05:15 Carbon Dioxide 29.9 mEq/L (21.0-31.0) 11/30/17 05:15 Anion Gap 9.5 (7.0-16.0) 11/30/17 05:15 BUN 24 mg/dL (7-25) 11/30/17 05:15 Creatinine 1.9 mg/dL (0.7-1.3) H 11/30/17 05:15 Est GFR ( Amer) [facility] 11/30/17 05:15 Est GFR (Non-Af Amer) TNP 11/30/17 05:15 BUN/Creatinine Ratio 12.6 11/30/17 05:15 Glucose 112 mg/dL (70-105) H 11/30/17 05:15 POC Glucose 114 MG/DL (70 - 105) H 11/30/17 06:11 Hemoglobin A1c % 6.8 % (4.0-6.0) H 11/23/17 08:30 Plasma/Ser Osmolality 322 mOsmol/kg (280-301) H 11/25/17 07:40 Uric Acid 8.6 mg/dL (4.4-7.6) H 11/29/17 06:10 Calcium 9.0 mg/dL (8.6-10.3) 11/30/17 05:15 Phosphorus 2.9 mg/dL (2.5-5.0) 11/29/17 06:10 Magnesium 2.0 mg/dL (1.9-2.7) 11/28/17 06:40 Total Bilirubin 0.6 mg/dL (0.3-1.0) 11/29/17 06:10 AST 30 U/L (13-39) 11/29/17 06:10 ALT 24 U/L (7-52) 11/29/17 06:10 Alkaline Phosphatase 62 U/L (34-104) 11/29/17 06:10 Ammonia 43 umol/L (16-53) 11/28/17 06:40 B-Natriuretic Peptide 629.0 pg/mL (5.0-100.0) H 11/28/17 06:40 Total Protein 7.1 gm/dL (6.0-8.3) 11/29/17 06:10 Albumin 2.8 gm/dL (4.2-5.5) L 11/29/17 06:10 Globulin 4.3 gm/dL 11/29/17 06:10 Albumin/Globulin Ratio 0.7 (1.0-1.8) L 11/29/17 06:10 Vitamin B12 730 pg/mL (232-1245) 11/28/17 06:40 Folic Acid 11.3 ng/mL (>3.0) 11/28/17 06:40 TSH 2.01 uIU/ml (0.34-5.60) 11/29/17 06:10 Urine Source CATH 11/22/17 22:05 Urine Color BROWN 11/22/17 22:05 Urine Clarity HAZY (CLEAR) 11/22/17 22:05 Urine pH 5.0 (4.6 - 8.0) 11/22/17 22:05 Ur Specific [place] >= 1.030 (1.005-1.030) 11/22/17 22:05 Urine Protein NEGATIVE mg/dL (NEGATIVE) 11/22/17 22:05 Urine Glucose (UA) NEGATIVE mg/dL (NEGATIVE) 11/22/17 22:05 Urine Ketones TRACE mg/dL (NEGATIVE) 11/22/17 22:05 Urine Blood TRACE (NEGATIVE) 11/22/17 22:05 Urine Nitrate NEGATIVE (NEGATIVE) 11/22/17 22:05 Urine Bilirubin SMALL (NEGATIVE) H 11/22/17 22:05 Urine Ictotest NEGATIVE (NEGATIVE) 11/22/17 22:05 Urine Urobilinogen 0.2 E.U./dL (0.2 - 1.0) 11/22/17 22:05 Ur Leukocyte Esterase NEGATIVE (NEGATIVE) 11/22/17 22:05 Urine RBC 0-2 /hpf (0-5) H 11/22/17 22:05 Urine WBC 0-2 /hpf (0-5) 11/22/17 22:05 Ur Epithelial Cells FEW /lpf (FEW) 11/22/17 22:05 Urine Bacteria FEW /hpf (NONE SEEN) 11/22/17 22:05 Ur Random Sodium 62 mmol/L 11/25/17 23:16 Urine Creatinine 109.0 mg/dl (39.0-259.0) 11/25/17 23:16 Urine Microalbumin 19.3 ug/mL (Not Estab.) 11/25/17 10:50 - Physical Exam Vitals and I&O: Vital Signs Temp 97.5 F 11/30/17 05:44 Pulse 76 11/30/17 11:55 Resp 20 11/30/17 11:55 BP 112/61 11/30/17 05:44 Pulse Ox 97 11/30/17 11:55 Intake & Output 11/29/17 11/30/17 11/30/17 18:59 06:59 18:59 Intake Total 1000 1240 Output Total 1600 Balance 1000 -360 Weight (lbs) 113.852 kg 113.852 kg Intake: Intake, IV Amount 1000 1000 Dextrose 5% 1,000 ml @ 1000 1000 125 mls/hr IV .Q8H [facility] Rx #:[id number] Oral 240 Output: Urine 1600 Other: # Bowel Movements 0 Active Medications: Current Medications Acetaminophen (Tylenol) 650 mg PO Q4HR PRN PRN Reason: PAIN Stop: 01/21/18 17:18 Last Admin: 11/26/17 20:58 Dose: 650 mg Albuterol Sulfate (Albuterol 2.5mg/3ml Neb Ud) 2.5 mg HHN QIDRT [facility] Stop: 01/21/18 18:59 Last Admin: 11/30/17 11:54 Dose: 2.5 mg Ascorbic Acid (Vitamin C) 500 mg PO DAILY [facility] Stop: 01/22/18 08:59 Last Admin: 11/30/17 08:32 Dose: 500 mg Citric Acid/Sodium Citrate (Bicitra) 30 ml PO BID [facility] Stop: 01/23/18 16:59 Last Admin: 11/29/17 17:20 Dose: 30 ml Docusate Sodium (Colace) 100 mg PO DAILY [facility] Stop: 01/22/18 08:59 Last Admin: 11/30/17 08:33 Dose: 100 mg Gabapentin (Neurontin) 300 mg PO TID [facility] Stop: 01/21/18 20:59 Last Admin: 11/30/17 08:32 Dose: 300 mg Guaifenesin (Robitussin) 200 mg PO Q4HR PRN PRN Reason: Cough or Congestion Stop: 01/21/18 17:20 Dextrose (D5w) 1,000 mls @ 125 mls/hr IV .Q8H [facility] Stop: 01/27/18 19:51 Last Admin: 11/29/17 22:39 Dose: 125 mls/hr Insulin Aspart (Novolog) 0 units SUBQ ACHS [facility] PRN Reason: Protocol Stop: 01/21/18 20:59 Last Admin: 11/29/17 22:58 Dose: Not Given Ipratropium [place] (Atrovent Neb 0.5mg/2.5ml) 0.5 mg HHN QIDRT [facility] Stop: 01/21/18 18:59 Last Admin: 11/30/17 11:54 Dose: 0.5 mg Lorazepam (Ativan) 1 mg IV Q4H PRN; Protocol PRN Reason: Agitation Stop: 01/22/18 13:05 Last Admin: 11/30/17 10:27 Dose: 1 mg Magnesium Hydroxide (Milk Of Magnesia) 30 ml PO DAILY PRN PRN Reason: Constipation Stop: 01/21/18 17:18 Miscellaneous (Clinical Monitoring) 1 ea MC DAILY PRN PRN Reason: RENAL Stop: 01/22/18 07:35 Quetiapine Fumarate (Seroquel) 12.5 mg PO HS [facility] PRN Reason: Protocol Stop: 01/29/18 20:59 Sevelamer Carbonate (Renvela) 800 mg PO TIDWM [facility] Stop: 01/23/18 16:59 Last Admin: 01/10/18 08:29 Dose: 800 mg Zinc Sulfate (Zinc Sulfate) 220 mg PO DAILY [facility] Stop: 01/22/18 08:59 Last Admin: 11/30/17 08:33 Dose: 220 mg General: No acute distress HEENT: Atraumatic, Mucous membr. moist/pink Neck: Supple Cardiovascular: Regular rate, Normal S1, Normal S2 Lungs: Clear to auscultation Abdomen: Bowel sounds, Soft Extremities: no Edema Neurological: Sensation intact Skin: no Rash Psych/Mental Status: Mood NL Assessment/Plan - Problem List Patient Problems: All Active Problems ABNORMAL LAB RESULTS (Acute) - Assessment Assessment: DENNIS Type 2 DM Ess Htn Psychosis Anxiety Cardiac Arrythmia S/P AICD CAD Met Acid Hypernatremia iatrogenic Hypokalemia - Plan Plan: Lab - Result Diagrams 11/25/17 07:40 11/25/17 07:40 Current Medications Acetaminophen (Tylenol) 650 mg PO Q4HR PRN PRN Reason: PAIN Stop: 01/21/18 17:18 Albuterol Sulfate (Albuterol 2.5mg/3ml Neb Ud) 2.5 mg HHN QIDRT [facility] Stop: 01/21/18 18:59 Last Admin: 11/25/17 13:12 Dose: 2.5 mg Ascorbic Acid (Vitamin C) 500 mg PO DAILY [facility] Stop: 01/22/18 08:59 Last Admin: 11/25/17 09:41 Dose: 500 mg Benztropine Mesylate (Cogentin) 1 mg PO BID [facility] Stop: 01/22/18 08:59 Last Admin: 11/25/17 09:42 Dose: 1 mg Citric Acid/Sodium Citrate (Bicitra) 30 ml PO BID [facility] Stop: 01/23/18 16:59 Last Admin: 11/25/17 09:42 Dose: 30 ml Docusate Sodium (Colace) 100 mg PO DAILY [facility] Stop: 01/22/18 08:59 Last Admin: 11/25/17 09:42 Dose: 100 mg Gabapentin (Neurontin) 300 mg PO TID [facility] Stop: 01/21/18 20:59 Last Admin: 11/25/17 13:34 Dose: 300 mg Guaifenesin (Robitussin) 200 mg PO Q4HR PRN PRN Reason: Cough or Congestion Stop: 01/21/18 17:20 Haloperidol (Haldol) 1 mg PO BID [facility] PRN Reason: Protocol Stop: 01/22/18 08:59 Last Admin: 11/25/17 09:43 Dose: 1 mg Dextrose/Sodium Chloride (D5-0.9%Ns) 1,000 mls @ 150 mls/hr IV .Q6H40M [facility] Stop: 01/21/18 21:13 Last Admin: 11/25/17 08:23 Dose: 150 mls/hr Magnesium Sulfate (Magnesium Sulfate Premix) 2 gm in 50 mls @ 25 mls/hr IV X1 ONE Stop: 11/25/17 15:31 Last Admin: 11/25/17 14:41 Dose: 25 mls/hr Insulin Aspart (Novolog) 0 units SUBQ ACHS [facility] PRN Reason: Protocol Stop: 01/21/18 20:59 Last Admin: 11/25/17 12:35 Dose: Not Given Ipratropium Melvin (Atrovent Neb 0.5mg/2.5ml) 0.5 mg HHN QIDRT [facility] Stop: 01/21/18 18:59 Last Admin: 11/25/17 13:12 Dose: 0.5 mg Lorazepam (Ativan) 1 mg IV Q4H PRN; Protocol PRN Reason: Agitation Stop: 01/22/18 13:05 Last Admin: 11/25/17 11:14 Dose: 1 mg Magnesium Hydroxide (Milk Of Magnesia) 30 ml PO DAILY PRN PRN Reason: Constipation Stop: 01/21/18 17:18 Miscellaneous (Clinical Monitoring) 1 ea MC DAILY PRN PRN Reason: RENAL Stop: 01/22/18 07:35 Sevelamer Carbonate (Renvela) 800 mg PO TIDWM [facility] Stop: 01/23/18 16:59 Last Admin: 11/25/17 13:34 Dose: 800 mg Zinc Sulfate (Zinc Sulfate) 220 mg PO DAILY [facility] Stop: 01/22/18 08:59 Last Admin: 11/25/17 09:43 Dose: 220 mg Lab - Result Diagrams 11/30/17 05:15 11/30/17 05:15 Kidney fnc gradually improving agree w/ K, Mg replacement IVF switch to D5W f/u electrolytes, cbc DC bicitra Nutritional Asmnt/Malnutr-PDOC - Dietary Evaluation Malnutrition Findings (Please click <Entered> for more info): Nutritional Asmnt/Malnutrition Start: 11/23/17 15: 36 Text: Status: Complete Freq: Document 11/23/17 15:43 DEBBY (Rec: 11/23/17 16:04 [email or web address] [id number]) Nutritional Asmnt/Malnutrition Patient General Information Nutritional Screening High Risk Consult Pertinent Medical Hx/Surgical Hx DM, psychosis, HTN, anxiety, chest defibrillator, COPD, CHF , CAD, alzheimer's Subjective Information Consult received for Issa 12 . Pt was transfered from [facility] for droped BP. Pt seen resting in bed at the time of visit. Spoke with RN, pt consumed 50% of oatmeal and Cym[place] toast for breakfast, " do not like the egg". Current Diet Order/ Nutrition Support [facility] Pertinent Medications Vitamin C, D5-0.9% Ns, colace, dopamine, novolog, zinc Pertinent Labs 11/23 Na 138, K 3.9, Cl 107, BUN 78, Cr 10.2, glucose 101, POC 101-168 since adm, A1c 6.8, Ca 8.1, Phos 7.4, mg 1.9 Nutritional Hx/Data Height 1.78 m Height (Calculated Centimeters) 177.8 Current Weight (lbs) 111.584 kg Weight (Calculated Kilograms) 111.6 Weight (Calculated Grams) 948033.7 [place] Body Weight 166 % [place] Body Weight 148 Body Mass Index (BMI) 35.3 Weight Status Obese GI Symptoms GI Symptoms None Last BM no records Skin Integrity/Comment: edema 2+ pitting to left/right foot ulceration to bilateral feet Estimated Nutritional Goals BEE in Kcals: Adj wt of IBW Calories/Kcals/Kg 25-30 Kcals Calculated [id number] considering bedbound and wound Protein: Adj wt of IBW Protein g/k.2-1.4 Protein Calculated 101-118 Fluid: ml 2110-2532ml (1ml/kcal) Nutritional Problem 2. Problem Problem increased nutrition needs ( calorie and protein) Etiology increased metabolic demand for wound healing Signs/Symptoms: ulceration to bilateral legs 1. Problem Problem altered nutrition related lab values Etiology renal dysfunction, hx of DM Signs/Symptoms: BUN 78, Cr 10.2, POC 101-168, A1c 6.8 Malnutrition Alert Protein-Calorie Malnutrition N/A Is there a minimum of two criteria No selected? Query Text:Check all the applicable criteria. A minimum of two criteria are recommended for diagnosis of either severe or non-severe malnutrition. Intervention/Recommendation Comments 1. Recommend renal CCHO diet considering elevated renal labs 2. Monitor PO intake, wt, labs and skin integrity 3. F/U as high risk in 2-3 days, 11/25-11/26 Expected Outcomes/Goals Expected Outcomes/Goals 1. PO intake to meet at least 75% of nutritional needs. 2. Wt stability, skin to remain intact, labs to improve .
[2017-11-30] MEDS ORDERED: Potassium Chloride 20 mEq ER Tab PO ONE (13:04)
--- NOTE | 2017-11-30 13:57 | Internal Medicine Prog Note ---
Internal Medicine Subjective - Subjective Service Date: 11/30/17 Patient is:: awake, agitated, confused Patient Complaints of:: congestion Per staff patient has:: no adverse event, poor appetite, poor oral intake, agitated, combative, noncompliant, refusing care, refusing labs Internal Medicine Objective - Results Result Diagrams: 11/30/17 05:15 11/30/17 05:15 Recent Labs: Laboratory Last Values WBC 8.8 Th/cmm (4.8-10.8) 11/30/17 05:15 RBC 3.23 Mil/cmm (3.80-5.80) L 11/30/17 05:15 Hgb 10.3 gm/dL (12-16) L 11/30/17 05:15 Hct 31.0 % (41.0-60) L 11/30/17 05:15 MCV 96.0 fl (80-99) 11/30/17 05:15 MCH 32.0 pg (27.0-31.0) H 11/30/17 05:15 MCHC Differential 33.3 pg (28.0-36.0) 11/30/17 05:15 RDW 14.0 % (11.5-20.0) 11/30/17 05:15 Plt Count 221 Th/cmm (150-400) 11/30/17 05:15 MPV 8.6 fl 11/30/17 05:15 Neutrophils % 65.5 % (40.0-80.0) 11/30/17 05:15 Lymphocytes % 20.3 % (20.0-50.0) 11/30/17 05:15 Monocytes % 9.4 % (2.0-10.0) 11/30/17 05:15 Eosinophils % 4.5 % (0.0-5.0) 11/30/17 05:15 Basophils % 0.3 % (0.0-2.0) 11/30/17 05:15 Eos Smear Source URINE 11/25/17 23:16 Eos Smear Total Cells FEW EOSINOPHILS SEEN (NONE SEEN) 11/25/17 23:16 Specimen Source ARTERIAL 11/22/17 17:19 Sample Site Left Radial 11/22/17 17:19 pH 7.36 (7.35-7.45) 11/22/17 17:19 pCO2 35.0 mmHg (35.0-45.0) 11/22/17 17:19 pO2 77.0 mmHg (80.0-100.0) L 11/22/17 17:19 HCO3 21.0 mEq/L (20.0-26.0) 11/22/17 17:19 Base Excess 5.0 mEq/L (-3.0-3.0) H 11/22/17 17:19 O2 Saturation 95.0 % (92.0-100.0) 11/22/17 17:19 Seven Test Y 11/22/17 17:19 Vent Rate N/A 11/22/17 17:19 Inspired O2 21 11/22/17 17:19 Tidal Volume A/N 11/22/17 17:19 PEEP N/A 11/22/17 17:19 Pressure (ins/psv/peep) N/A 11/22/17 17:19 Critical Value O.SAMPSON 11/22/17 17:19 Sodium 151 mEq/L (136-145) H 11/30/17 05:15 Potassium 3.4 mEq/L (3.5-5.1) L 11/30/17 05:15 Chloride 115 mEq/L (98-107) H 11/30/17 05:15 Carbon Dioxide 29.9 mEq/L (21.0-31.0) 11/30/17 05:15 Anion Gap 9.5 (7.0-16.0) 11/30/17 05:15 BUN 24 mg/dL (7-25) 11/30/17 05:15 Creatinine 1.9 mg/dL (0.7-1.3) H 11/30/17 05:15 Est GFR ( Amer) TNP 11/30/17 05:15 Est GFR (Non-Af Amer) [place] 11/30/17 05:15 BUN/Creatinine Ratio 12.6 11/30/17 05:15 Glucose 112 mg/dL (70-105) H 11/30/17 05:15 POC Glucose 114 MG/DL (70 - 105) H 11/30/17 06:11 Hemoglobin A1c % 6.8 % (4.0-6.0) H 11/23/17 08:30 Plasma/Ser Osmolality 322 mOsmol/kg (280-301) H 11/25/17 07:40 Uric Acid 8.6 mg/dL (4.4-7.6) H 11/29/17 06:10 Calcium 9.0 mg/dL (8.6-10.3) 11/30/17 05:15 Phosphorus 2.9 mg/dL (2.5-5.0) 11/29/17 06:10 Magnesium 2.0 mg/dL (1.9-2.7) 11/28/17 06:40 Total Bilirubin 0.6 mg/dL (0.3-1.0) 11/29/17 06:10 AST 30 U/L (13-39) 11/29/17 06:10 ALT 24 U/L (7-52) 11/29/17 06:10 Alkaline Phosphatase 62 U/L (34-104) 11/29/17 06:10 Ammonia 43 umol/L (16-53) 11/28/17 06:40 B-Natriuretic Peptide 629.0 pg/mL (5.0-100.0) H 11/28/17 06:40 Total Protein 7.1 gm/dL (6.0-8.3) 11/29/17 06:10 Albumin 2.8 gm/dL (4.2-5.5) L 11/29/17 06:10 Globulin 4.3 gm/dL 11/29/17 06:10 Albumin/Globulin Ratio 0.7 (1.0-1.8) L 11/29/17 06:10 Vitamin B12 730 pg/mL (232-1245) 11/28/17 06:40 Folic Acid 11.3 ng/mL (>3.0) 11/28/17 06:40 TSH 2.01 uIU/ml (0.34-5.60) 11/29/17 06:10 Urine Source CATH 11/22/17 22:05 Urine Color BROWN 11/22/17 22:05 Urine Clarity HAZY (CLEAR) 11/22/17 22:05 Urine pH 5.0 (4.6 - 8.0) 11/22/17 22:05 Ur Specific [place] >= 1.030 (1.005-1.030) 11/22/17 22:05 Urine Protein NEGATIVE mg/dL (NEGATIVE) 11/22/17 22:05 Urine Glucose (UA) NEGATIVE mg/dL (NEGATIVE) 11/22/17 22:05 Urine Ketones TRACE mg/dL (NEGATIVE) 11/22/17 22:05 Urine Blood TRACE (NEGATIVE) 11/22/17 22:05 Urine Nitrate NEGATIVE (NEGATIVE) 11/22/17 22:05 Urine Bilirubin SMALL (NEGATIVE) H 11/22/17 22:05 Urine Ictotest NEGATIVE (NEGATIVE) 11/22/17 22:05 Urine Urobilinogen 0.2 E.U./dL (0.2 - 1.0) 11/22/17 22:05 Ur Leukocyte Esterase NEGATIVE (NEGATIVE) 11/22/17 22:05 Urine RBC 0-2 /hpf (0-5) H 11/22/17 22:05 Urine WBC 0-2 /hpf (0-5) 11/22/17 22:05 Ur Epithelial Cells FEW /lpf (FEW) 11/22/17 22:05 Urine Bacteria FEW /hpf (NONE SEEN) 11/22/17 22:05 Ur Random Sodium 62 mmol/L 11/25/17 23:16 Urine Creatinine 109.0 mg/dl (39.0-259.0) 11/25/17 23:16 Urine Microalbumin 19.3 ug/mL (Not Estab.) 11/25/17 10:50 - Physical Exam Vitals and I&O: Vital Signs Temp 97.5 F 11/30/17 05:44 Pulse 76 11/30/17 11:55 Resp 20 11/30/17 11:55 BP 112/61 11/30/17 05:44 Pulse Ox 97 11/30/17 11:55 Intake & Output 11/29/17 11/30/17 11/30/17 18:59 06:59 18:59 Intake Total 1000 1240 Output Total 1600 Balance 1000 -360 Weight (lbs) 251 lb 251 lb Intake: Intake, IV Amount 1000 1000 Dextrose 5% 1,000 ml @ 1000 1000 125 mls/hr IV .Q8H [facility] Rx #:[id number] Oral 240 Output: Urine 1600 Other: # Bowel Movements 0 Active Medications: Current Medications Acetaminophen (Tylenol) 650 mg PO Q4HR PRN PRN Reason: PAIN Stop: 01/21/18 17:18 Last Admin: 11/26/17 20:58 Dose: 650 mg Albuterol Sulfate (Albuterol 2.5mg/3ml Neb Ud) 2.5 mg HHN QIDRT [facility] Stop: 01/21/18 18:59 Last Admin: 11/30/17 11:54 Dose: 2.5 mg Ascorbic Acid (Vitamin C) 500 mg PO DAILY [facility] Stop: 01/22/18 08:59 Last Admin: 11/30/17 08:32 Dose: 500 mg Docusate Sodium (Colace) 100 mg PO DAILY [facility] Stop: 01/22/18 08:59 Last Admin: 11/30/17 08:33 Dose: 100 mg Gabapentin (Neurontin) 300 mg PO TID [facility] Stop: 01/21/18 20:59 Last Admin: 11/30/17 08:32 Dose: 300 mg Guaifenesin (Robitussin) 200 mg PO Q4HR PRN PRN Reason: Cough or Congestion Stop: 01/21/18 17:20 Dextrose (D5w) 1,000 mls @ 125 mls/hr IV .Q8H [facility] Stop: 01/27/18 19:51 Last Admin: 11/29/17 22:39 Dose: 125 mls/hr Insulin Aspart (Novolog) 0 units SUBQ ACHS [facility] PRN Reason: Protocol Stop: 01/21/18 20:59 Last Admin: 11/29/17 22:58 Dose: Not Given Ipratropium [place] (Atrovent Neb 0.5mg/2.5ml) 0.5 mg N QIDRT [facility] Stop: 01/21/18 18:59 Last Admin: 11/30/17 11:54 Dose: 0.5 mg Lorazepam (Ativan) 1 mg IV Q4H PRN; Protocol PRN Reason: Agitation Stop: 01/22/18 13:05 Last Admin: 11/30/17 10:27 Dose: 1 mg Magnesium Hydroxide (Milk Of Magnesia) 30 ml PO DAILY PRN PRN Reason: Constipation Stop: 01/21/18 17:18 Miscellaneous (Clinical Monitoring) 1 ea MC DAILY PRN PRN Reason: RENAL Stop: 01/22/18 07:35 Quetiapine Fumarate (Seroquel) 12.5 mg PO HS [facility] PRN Reason: Protocol Stop: 01/29/18 20:59 Sevelamer Carbonate (Renvela) 800 mg PO TIDWM [facility] Stop: 01/23/18 16:59 Last Admin: 11/30/17 08:29 Dose: 800 mg Zinc Sulfate (Zinc Sulfate) 220 mg PO DAILY [facility] Stop: 01/22/18 08:59 Last Admin: 11/30/17 08:33 Dose: 220 mg General: congested, demented, disheveled, appears older HEENT: NC/AT Neck: Supple Lungs: CTAB Cardiovascular: RRR, Normal S1, Normal S2, without murmur Abdomen: soft, non-tender, non-distended, positive bowel sound Extremities: excoriation, ecchymosis Neurological: bedbound Internal Medicine Assmt/Plan - Assessment Assessment: hypotension aloc possible pna acute renal failure multiple open wounds dm2 psychosis htn chest defibrillator status copd chf cad - Plan Plan: monitor bun/crea sitter for safety follow up labs in am continue current plan of care Nutritional Asmnt/Malnutr-PDOC - Dietary Evaluation Malnutrition Findings (Please click <Entered> for more info): Nutritional Asmnt/Malnutrition Start: 11/23/17 15: 36 Text: Status: Complete Freq: Document 11/23/17 15:43 DEBBY (Rec: 11/23/17 16:04 LCHENG [email or web address]) Nutritional Asmnt/Malnutrition Patient General Information Nutritional Screening High Risk Consult Pertinent Medical Hx/Surgical Hx DM, psychosis, HTN, anxiety, chest defibrillator, COPD, CHF , CAD, alzheimer's Subjective Information Consult received for Issa Solis . Pt was transfered from [facility] unit for droped BP. Pt seen resting in bed at the time of visit. Spoke with RN, pt consumed 50% of oatmeal and [place] toast for breakfast, " do not like the egg". Current Diet Order/ Nutrition Support Pureed, [facility] Pertinent Medications Vitamin C, D5-0.9% Ns, colace, dopamine, novolog, zinc Pertinent Labs 11/23 Na 138, K 3.9, Cl 107, BUN 78, Cr 10.2, glucose 101, POC 101-168 since adm, A1c 6.8, Ca 8.1, Phos 7.4, mg 1.9 Nutritional Hx/Data Height 5 ft 10 in Height (Calculated Centimeters) 177.8 Current Weight (lbs) 246 lb Weight (Calculated Kilograms) 111.6 Weight (Calculated Grams) 675111.7 [place] Body Weight 166 % [place] Body Weight 148 Body Mass Index (BMI) 35.3 Weight Status Obese GI Symptoms GI Symptoms None Last BM no records Skin Integrity/Comment: edema 2+ pitting to left/right foot ulceration to bilateral feet Estimated Nutritional Goals BEE in Kcals: Adj wt of IBW Calories/Kcals/Kg 25-30 Kcals Calculated 2225-8542 considering bedbound and wound Protein: Adj wt of IBW Protein g/k.2-1.4 Protein Calculated 101-118 Fluid: ml 2109-253ml (1ml/kcal) Nutritional Problem 2. Problem Problem increased nutrition needs ( calorie and protein) Etiology increased metabolic demand for wound healing Signs/Symptoms: ulceration to bilateral legs 1. Problem Problem altered nutrition related lab values Etiology renal dysfunction, hx of DM Signs/Symptoms: BUN 78, Cr 10.2, POC 101-168, A1c 6.8 Malnutrition Alert Protein-Calorie Malnutrition N/A Is there a minimum of two criteria No selected? Query Text:Check all the applicable criteria. A minimum of two criteria are recommended for diagnosis of either severe or non-severe malnutrition. Intervention/Recommendation Comments 1. Recommend renal CCHO diet considering elevated renal labs 2. Monitor PO intake, wt, labs and skin integrity 3. F/U as high risk in 2-3 days, 5-11/26 Expected Outcomes/Goals Expected Outcomes/Goals 1. PO intake to meet at least 75% of nutritional needs. 2. Wt stability, skin to remain intact, labs to improve .
--- NOTE | 2017-11-30 18:59 | Progress Notes ---
DATE: 11/30/2017 The staff was spoken to. The patient is interviewed. Mood is noted to be anxious. The patient's insight and judgment are noted to be fair. Impulse control is also noted to be very fair. The patient's family did not want the patient to be on Haldol and staff was spoken to and the patient has been discontinued off the Haldol and has been placed on 12.5 mg of the Seroquel and the patient is going to be followed up with the supportive therapy. JOB# [id number]
[2017-12-01] MEDS: Dextrose 5% 1,000 ML IV SCH ×2 (04:58→16:11)
[2017-12-01] MEDS: Albuterol Nebulizer 2.5mg/3mL HHN SCH ×4 (07:00→18:48)
[2017-12-01] MEDS: Ipratropium Neb 0.5 mg/2.5 mL UD HHN SCH ×4 (07:00→18:48)
[2017-12-01] MEDS: INSULIN ASPART, RECOMBINANT 100 UNITS/ML SUBQ SCH ×3 (07:01→21:04)
[2017-12-01 08:15] LABS: ANION GAP 7.8 (7.0-16.0); BUN - UREA NITROGEN 24 mg/dL (7-25); CARBON DIOXIDE 29.7 mEq/L (21.0-31.0); CHLORIDE 113 mEq/L (98-107); CREATININE - SERUM 1.6 mg/dL (0.7-1.3); GLUCOSE 112 mg/dL (70-105); POTASSIUM SERUM 3.5 mEq/L (3.5-5.1); SODIUM SERUM 147 mEq/L (136-145)
[2017-12-01] MEDS: Multivitamin w/ Minerals Tab PO SCH (09:22)
--- NOTE | 2017-12-01 13:19 | Internal Medicine Prog Note ---
Internal Medicine Subjective - Subjective Service Date: 12/01/17 Patient seen and examined:: with staff Patient is:: awake, agitated, confused Patient Complaints of:: congestion Per staff patient has:: no adverse event, poor appetite, poor oral intake, agitated, combative, noncompliant, refusing care, refusing labs Internal Medicine Objective - Results Result Diagrams: 11/30/17 05:15 12/01/17 05:10 Recent Labs: Laboratory Last Values WBC 8.8 Th/cmm (4.8-10.8) 11/30/17 05:15 RBC 3.23 Mil/cmm (3.80-5.80) L 11/30/17 05:15 Hgb 10.3 gm/dL (12-16) L 11/30/17 05:15 Hct 31.0 % (41.0-60) L 11/30/17 05:15 MCV 96.0 fl (80-99) 11/30/17 05:15 MCH 32.0 pg (27.0-31.0) H 11/30/17 05:15 MCHC Differential 33.3 pg (28.0-36.0) 11/30/17 05:15 RDW 14.0 % (11.5-20.0) 11/30/17 05:15 Plt Count 221 Th/cmm (150-400) 11/30/17 05:15 MPV 8.6 fl 11/30/17 05:15 Neutrophils % 65.5 % (40.0-80.0) 11/30/17 05:15 Lymphocytes % 20.3 % (20.0-50.0) 11/30/17 05:15 Monocytes % 9.4 % (2.0-10.0) 11/30/17 05:15 Eosinophils % 4.5 % (0.0-5.0) 11/30/17 05:15 Basophils % 0.3 % (0.0-2.0) 11/30/17 05:15 Eos Smear Source URINE 11/25/17 23:16 Eos Smear Total Cells FEW EOSINOPHILS SEEN (NONE SEEN) 11/25/17 23:16 Specimen Source ARTERIAL 11/22/17 17:19 Sample Site Left Radial 11/22/17 17:19 pH 7.36 (7.35-7.45) 11/22/17 17:19 pCO2 35.0 mmHg (35.0-45.0) 11/22/17 17:19 pO2 77.0 mmHg (80.0-100.0) L 11/22/17 17:19 HCO3 21.0 mEq/L (20.0-26.0) 11/22/17 17:19 Base Excess 5.0 mEq/L (-3.0-3.0) H 11/22/17 17:19 O2 Saturation 95.0 % (92.0-100.0) 11/22/17 17:19 Seven Test Y 11/22/17 17:19 Vent Rate N/A 11/22/17 17:19 Inspired O2 21 11/22/17 17:19 Tidal Volume A/N 11/22/17 17:19 PEEP N/A 11/22/17 17:19 Pressure (ins/psv/peep) N/A 11/22/17 17:19 Critical Value O.SAMPSON 11/22/17 17:19 Sodium 147 mEq/L (136-145) H 12/01/17 05:10 Potassium 3.5 mEq/L (3.5-5.1) 12/01/17 05:10 Chloride 113 mEq/L (98-107) H 12/01/17 05:10 Carbon Dioxide 29.7 mEq/L (21.0-31.0) 12/01/17 05:10 Anion Gap 7.8 (7.0-16.0) 12/01/17 05:10 BUN 24 mg/dL (7-25) 12/01/17 05:10 Creatinine 1.6 mg/dL (0.7-1.3) H 12/01/17 05:10 Est GFR ( Amer) [facility] 12/01/17 05:10 Est GFR (Non-Af Amer) [facility] 12/01/17 05:10 BUN/Creatinine Ratio 15.0 12/01/17 05:10 Glucose 112 mg/dL (70-105) H 12/01/17 05:10 POC Glucose 114 MG/DL (70 - 105) H 12/01/17 12:00 Hemoglobin A1c % 6.8 % (4.0-6.0) H 11/23/17 08:30 Plasma/Ser Osmolality 322 mOsmol/kg (280-301) H 11/25/17 07:40 Uric Acid 8.6 mg/dL (4.4-7.6) H 11/29/17 06:10 Calcium 9.0 mg/dL (8.6-10.3) 12/01/17 05:10 Phosphorus 2.9 mg/dL (2.5-5.0) 11/29/17 06:10 Magnesium 2.0 mg/dL (1.9-2.7) 11/28/17 06:40 Total Bilirubin 0.6 mg/dL (0.3-1.0) 11/29/17 06:10 AST 30 U/L (13-39) 11/29/17 06:10 ALT 24 U/L (7-52) 11/29/17 06:10 Alkaline Phosphatase 62 U/L (34-104) 11/29/17 06:10 Ammonia 43 umol/L (16-53) 11/28/17 06:40 B-Natriuretic Peptide 629.0 pg/mL (5.0-100.0) H 11/28/17 06:40 Total Protein 7.1 gm/dL (6.0-8.3) 11/29/17 06:10 Albumin 2.8 gm/dL (4.2-5.5) L 11/29/17 06:10 Globulin 4.3 gm/dL 11/29/17 06:10 Albumin/Globulin Ratio 0.7 (1.0-1.8) L 11/29/17 06:10 Vitamin B12 730 pg/mL (232-1245) 11/28/17 06:40 Folic Acid 11.3 ng/mL (>3.0) 11/28/17 06:40 TSH 2.01 uIU/ml (0.34-5.60) 11/29/17 06:10 Urine Source CATH 11/22/17 22:05 Urine Color BROWN 11/22/17 22:05 Urine Clarity HAZY (CLEAR) 11/22/17 22:05 Urine pH 5.0 (4.6 - 8.0) 11/22/17 22:05 Ur Specific [place] >= 1.030 (1.005-1.030) 11/22/17 22:05 Urine Protein NEGATIVE mg/dL (NEGATIVE) 11/22/17 22:05 Urine Glucose (UA) NEGATIVE mg/dL (NEGATIVE) 11/22/17 22:05 Urine Ketones TRACE mg/dL (NEGATIVE) 11/22/17 22:05 Urine Blood TRACE (NEGATIVE) 11/22/17 22:05 Urine Nitrate NEGATIVE (NEGATIVE) 11/22/17 22:05 Urine Bilirubin SMALL (NEGATIVE) H 11/22/17 22:05 Urine Ictotest NEGATIVE (NEGATIVE) 11/22/17 22:05 Urine Urobilinogen 0.2 E.U./dL (0.2 - 1.0) 11/22/17 22:05 Ur Leukocyte Esterase NEGATIVE (NEGATIVE) 11/22/17 22:05 Urine RBC 0-2 /hpf (0-5) H 11/22/17 22:05 Urine WBC 0-2 /hpf (0-5) 11/22/17 22:05 Ur Epithelial Cells FEW /lpf (FEW) 11/22/17 22:05 Urine Bacteria FEW /hpf (NONE SEEN) 11/22/17 22:05 Ur Random Sodium 62 mmol/L 11/25/17 23:16 Urine Creatinine 109.0 mg/dl (39.0-259.0) 11/25/17 23:16 Urine Microalbumin 19.3 ug/mL (Not Estab.) 11/25/17 10:50 - Physical Exam Vitals and I&O: Vital Signs Temp 98.7 F 12/01/17 04:00 Pulse 82 12/01/17 11:46 Resp 20 12/01/17 11:46 BP 135/73 12/01/17 04:00 Pulse Ox 96 12/01/17 11:46 Intake & Output 11/30/17 12/01/17 12/01/17 18:59 06:59 18:59 Intake Total 200 Output Total 420 Balance -220 Weight (lbs) 251 lb 250 lb Intake: Oral 200 Output: Urine 420 Other: # Bowel Movements 0 Active Medications: Current Medications Acetaminophen (Tylenol) 650 mg PO Q4HR PRN PRN Reason: PAIN Stop: 01/21/18 17:18 Last Admin: 11/26/17 20:58 Dose: 650 mg Albuterol Sulfate (Albuterol 2.5mg/3ml Neb Ud) 2.5 mg HHN QIDRT [facility] Stop: 01/21/18 18:59 Last Admin: 12/01/17 11:46 Dose: 2.5 mg Ascorbic Acid (Vitamin C) 500 mg PO DAILY [facility] Stop: 01/22/18 08:59 Last Admin: 12/01/17 09:22 Dose: 500 mg Docusate Sodium (Colace) 100 mg PO DAILY [facility] Stop: 01/22/18 08:59 Last Admin: 12/01/17 09:22 Dose: 100 mg Gabapentin (Neurontin) 300 mg PO TID [facility] Stop: 01/21/18 20:59 Last Admin: 12/01/17 13:06 Dose: 300 mg Guaifenesin (Robitussin) 200 mg PO Q4HR PRN PRN Reason: Cough or Congestion Stop: 01/21/18 17:20 Dextrose (D5w) 1,000 mls @ 125 mls/hr IV .Q8H [facility] Stop: 01/27/18 19:51 Last Admin: 12/01/17 04:58 Dose: 125 mls/hr Insulin Aspart (Novolog) 0 units SUBQ ACHS [facility] PRN Reason: Protocol Stop: 01/21/18 20:59 Last Admin: 12/01/17 12:38 Dose: Not Given Ipratropium [place] (Atrovent Neb 0.5mg/2.5ml) 0.5 mg HHN QIDRT [facility] Stop: 01/21/18 18:59 Last Admin: 12/01/17 11:46 Dose: 0.5 mg Lorazepam (Ativan) 1 mg IV Q4H PRN; Protocol PRN Reason: Agitation Stop: 01/22/18 13:05 Last Admin: 12/01/17 13:06 Dose: 1 mg Magnesium Hydroxide (Milk Of Magnesia) 30 ml PO DAILY PRN PRN Reason: Constipation Stop: 01/21/18 17:18 Miscellaneous (Clinical Monitoring) 1 ea MC DAILY PRN PRN Reason: RENAL Stop: 01/22/18 07:35 Quetiapine Fumarate (Seroquel) 12.5 mg PO HS [facility] PRN Reason: Protocol Stop: 01/29/18 20:59 Last Admin: 11/30/17 22:36 Dose: 12.5 mg Sevelamer Carbonate (Renvela) 800 mg PO TIDWM [facility] Stop: 01/23/18 16:59 Last Admin: 12/01/17 13:06 Dose: 800 mg Zinc Sulfate (Zinc Sulfate) 220 mg PO DAILY [facility] Stop: 01/22/18 08:59 Last Admin: 12/01/17 09:22 Dose: 220 mg General: congested, demented, disheveled, appears older HEENT: NC/AT Neck: Supple Lungs: CTAB Cardiovascular: RRR, Normal S1, Normal S2, without murmur Abdomen: soft, non-tender, non-distended, positive bowel sound Extremities: excoriation, ecchymosis Neurological: bedbound Internal Medicine Assmt/Plan - Assessment Assessment: hypotension aloc possible pna acute renal failure multiple open wounds dm2 psychosis htn chest defibrillator status copd chf cad - Plan Plan: monitor bun/crea sitter for safety follow up labs in am continue current plan of care Nutritional Asmnt/Malnutr-PDOC - Dietary Evaluation Malnutrition Findings (Please click <Entered> for more info): Nutritional Asmnt/Malnutrition Start: 11/23/17 15: 36 Text: Status: Complete Freq: Document 11/23/17 15:43 MECCA (Rec: 11/23/17 16:04 [email or web address] Nutritional Asmnt/Malnutrition Patient General Information Nutritional Screening High Risk Consult Pertinent Medical Hx/Surgical Hx DM, psychosis, HTN, anxiety, chest defibrillator, COPD, CHF , CAD, alzheimer's Subjective Information Consult received for Issa Solis . Pt was transfered from [facility] unit for droped BP. Pt seen resting in bed at the time of visit. Spoke with RN, pt consumed 50% of oatmeal and [place] toast for breakfast, " do not like the egg". Current Diet Order/ Nutrition Support Pureed, [facility] Pertinent Medications Vitamin C, D5-0.9% Ns, colace, dopamine, novolog, zinc Pertinent Labs 1/3 Na 138, K 3.9, Cl 107, BUN 78, Cr 10.2, glucose 101, POC 101-168 since adm, A1c 6.8, Ca 8.1, Phos 7.4, mg 1.9 Nutritional Hx/Data Height 5 ft 10 in Height (Calculated Centimeters) 177.8 Current Weight (lbs) 246 lb Weight (Calculated Kilograms) 111.6 Weight (Calculated Grams) 358843.7 [place] Body Weight 166 % [place] Body Weight 148 Body Mass Index (BMI) 35.3 Weight Status Obese GI Symptoms GI Symptoms None Last BM no records Skin Integrity/Comment: edema 2+ pitting to left/right foot ulceration to bilateral feet Estimated Nutritional Goals BEE in Kcals: Adj wt of IBW Calories/Kcals/Kg 25-30 Kcals Calculated 8425-8196 considering bedbound and wound Protein: Adj wt of IBW Protein g/k.2-1.4 Protein Calculated 101-118 Fluid: ml 2109-253ml (1ml/kcal) Nutritional Problem 2. Problem Problem increased nutrition needs ( calorie and protein) Etiology increased metabolic demand for wound healing Signs/Symptoms: ulceration to bilateral legs 1. Problem Problem altered nutrition related lab values Etiology renal dysfunction, hx of DM Signs/Symptoms: BUN 78, Cr 10.2, POC 101-168, A1c 6.8 Malnutrition Alert Protein-Calorie Malnutrition N/A Is there a minimum of two criteria No selected? Query Text:Check all the applicable criteria. A minimum of two criteria are recommended for diagnosis of either severe or non-severe malnutrition. Intervention/Recommendation Comments 1. Recommend renal CCHO diet considering elevated renal labs 2. Monitor PO intake, wt, labs and skin integrity 3. F/U as high risk in 2-3 days, 11/25-11/26 Expected Outcomes/Goals Expected Outcomes/Goals 1. PO intake to meet at least 75% of nutritional needs. 2. Wt stability, skin to remain intact, labs to improve .
--- NOTE | 2017-12-01 14:22 | General Progress Note ---
Subjective - Review of Systems Service Date: 12/01/17 Subjective: agitated, just sedated, comfortable Objective - Results Result Diagrams: 11/30/17 05:15 12/01/17 05:10 Recent Labs: Laboratory Last Values WBC 8.8 Th/cmm (4.8-10.8) 11/30/17 05:15 RBC 3.23 Mil/cmm (3.80-5.80) L 11/30/17 05:15 Hgb 10.3 gm/dL (12-16) L 11/30/17 05:15 Hct 31.0 % (41.0-60) L 11/30/17 05:15 MCV 96.0 fl (80-99) 11/30/17 05:15 MCH 32.0 pg (27.0-31.0) H 11/30/17 05:15 MCHC Differential 33.3 pg (28.0-36.0) 11/30/17 05:15 RDW 14.0 % (11.5-20.0) 11/30/17 05:15 Plt Count 221 Th/cmm (150-400) 11/30/17 05:15 MPV 8.6 fl 11/30/17 05:15 Neutrophils % 65.5 % (40.0-80.0) 11/30/17 05:15 Lymphocytes % 20.3 % (20.0-50.0) 11/30/17 05:15 Monocytes % 9.4 % (2.0-10.0) 11/30/17 05:15 Eosinophils % 4.5 % (0.0-5.0) 11/30/17 05:15 Basophils % 0.3 % (0.0-2.0) 11/30/17 05:15 Eos Smear Source URINE 11/25/17 23:16 Eos Smear Total Cells FEW EOSINOPHILS SEEN (NONE SEEN) 11/25/17 23:16 Specimen Source ARTERIAL 11/22/17 17:19 Sample Site Left Radial 11/22/17 17:19 pH 7.36 (7.35-7.45) 11/22/17 17:19 pCO2 35.0 mmHg (35.0-45.0) 11/22/17 17:19 pO2 77.0 mmHg (80.0-100.0) L 11/22/17 17:19 HCO3 21.0 mEq/L (20.0-26.0) 11/22/17 17:19 Base Excess 5.0 mEq/L (-3.0-3.0) H 11/22/17 17:19 O2 Saturation 95.0 % (92.0-100.0) 11/22/17 17:19 Seven Test Y 11/22/17 17:19 Vent Rate N/A 11/22/17 17:19 Inspired O2 21 11/22/17 17:19 Tidal Volume A/N 11/22/17 17:19 PEEP N/A 11/22/17 17:19 Pressure (ins/psv/peep) N/A 11/22/17 17:19 Critical Value O.SAMPSON 11/22/17 17:19 Sodium 147 mEq/L (136-145) H 12/01/17 05:10 Potassium 3.5 mEq/L (3.5-5.1) 12/01/17 05:10 Chloride 113 mEq/L (98-107) H 12/01/17 05:10 Carbon Dioxide 29.7 mEq/L (21.0-31.0) 12/01/17 05:10 Anion Gap 7.8 (7.0-16.0) 12/01/17 05:10 BUN 24 mg/dL (7-25) 12/01/17 05:10 Creatinine 1.6 mg/dL (0.7-1.3) H 12/01/17 05:10 Est GFR ( Amer) TNP 12/01/17 05:10 Est GFR (Non-Af Amer) TNP 12/01/17 05:10 BUN/Creatinine Ratio 15.0 12/01/17 05:10 Glucose 112 mg/dL (70-105) H 12/01/17 05:10 POC Glucose 114 MG/DL (70 - 105) H 12/01/17 12:00 Hemoglobin A1c % 6.8 % (4.0-6.0) H 11/23/17 08:30 Plasma/Ser Osmolality 322 mOsmol/kg (280-301) H 11/25/17 07:40 Uric Acid 8.6 mg/dL (4.4-7.6) H 11/29/17 06:10 Calcium 9.0 mg/dL (8.6-10.3) 12/01/17 05:10 Phosphorus 2.9 mg/dL (2.5-5.0) 11/29/17 06:10 Magnesium 2.0 mg/dL (1.9-2.7) 11/28/17 06:40 Total Bilirubin 0.6 mg/dL (0.3-1.0) 11/29/17 06:10 AST 30 U/L (13-39) 11/29/17 06:10 ALT 24 U/L (7-52) 11/29/17 06:10 Alkaline Phosphatase 62 U/L (34-104) 11/29/17 06:10 Ammonia 43 umol/L (16-53) 11/28/17 06:40 B-Natriuretic Peptide 629.0 pg/mL (5.0-100.0) H 11/28/17 06:40 Total Protein 7.1 gm/dL (6.0-8.3) 11/29/17 06:10 Albumin 2.8 gm/dL (4.2-5.5) L 11/29/17 06:10 Globulin 4.3 gm/dL 11/29/17 06:10 Albumin/Globulin Ratio 0.7 (1.0-1.8) L 11/29/17 06:10 Vitamin B12 730 pg/mL (232-1245) 11/28/17 06:40 Folic Acid 11.3 ng/mL (>3.0) 11/28/17 06:40 TSH 2.01 uIU/ml (0.34-5.60) 11/29/17 06:10 Urine Source CATH 11/22/17 22:05 Urine Color BROWN 11/22/17 22:05 Urine Clarity HAZY (CLEAR) 11/22/17 22:05 Urine pH 5.0 (4.6 - 8.0) 11/22/17 22:05 Ur Specific [place] >= 1.030 (1.005-1.030) 11/22/17 22:05 Urine Protein NEGATIVE mg/dL (NEGATIVE) 11/22/17 22:05 Urine Glucose (UA) NEGATIVE mg/dL (NEGATIVE) 11/22/17 22:05 Urine Ketones TRACE mg/dL (NEGATIVE) 11/22/17 22:05 Urine Blood TRACE (NEGATIVE) 11/22/17 22:05 Urine Nitrate NEGATIVE (NEGATIVE) 11/22/17 22:05 Urine Bilirubin SMALL (NEGATIVE) H 11/22/17 22:05 Urine Ictotest NEGATIVE (NEGATIVE) 11/22/17 22:05 Urine Urobilinogen 0.2 E.U./dL (0.2 - 1.0) 11/22/17 22:05 Ur Leukocyte Esterase NEGATIVE (NEGATIVE) 11/22/17 22:05 Urine RBC 0-2 /hpf (0-5) H 11/22/17 22:05 Urine WBC 0-2 /hpf (0-5) 11/22/17 22:05 Ur Epithelial Cells FEW /lpf (FEW) 11/22/17 22:05 Urine Bacteria FEW /hpf (NONE SEEN) 11/22/17 22:05 Ur Random Sodium 62 mmol/L 11/25/17 23:16 Urine Creatinine 109.0 mg/dl (39.0-259.0) 11/25/17 23:16 Urine Microalbumin 19.3 ug/mL (Not Estab.) 11/25/17 10:50 - Physical Exam Vitals and I&O: Vital Signs Temp 98.7 F 12/01/17 04:00 Pulse 82 12/01/17 11:46 Resp 20 12/01/17 11:46 BP 135/73 12/01/17 04:00 Pulse Ox 96 12/01/17 11:46 Intake & Output 11/30/17 12/01/17 12/01/17 18:59 06:59 18:59 Intake Total 200 Output Total 420 Balance -220 Weight (lbs) 113.852 kg 113.398 kg Intake: Oral 200 Output: Urine 420 Other: # Bowel Movements 0 Active Medications: Current Medications Acetaminophen (Tylenol) 650 mg PO Q4HR PRN PRN Reason: PAIN Stop: 01/21/18 17:18 Last Admin: 11/26/17 20:58 Dose: 650 mg Albuterol Sulfate (Albuterol 2.5mg/3ml Neb Ud) 2.5 mg HHN QIDRT [facility] Stop: 01/21/18 18:59 Last Admin: 12/01/17 11:46 Dose: 2.5 mg Ascorbic Acid (Vitamin C) 500 mg PO DAILY [facility] Stop: 01/22/18 08:59 Last Admin: 12/01/17 09:22 Dose: 500 mg Docusate Sodium (Colace) 100 mg PO DAILY [facility] Stop: 01/22/18 08:59 Last Admin: 12/01/17 09:22 Dose: 100 mg Gabapentin (Neurontin) 300 mg PO TID [facility] Stop: 01/21/18 20:59 Last Admin: 12/01/17 13:06 Dose: 300 mg Guaifenesin (Robitussin) 200 mg PO Q4HR PRN PRN Reason: Cough or Congestion Stop: 01/21/18 17:20 Dextrose (D5w) 1,000 mls @ 125 mls/hr IV .Q8H [facility] Stop: 01/27/18 19:51 Last Admin: 12/01/17 04:58 Dose: 125 mls/hr Insulin Aspart (Novolog) 0 units SUBQ ACHS [facility] PRN Reason: Protocol Stop: 01/21/18 20:59 Last Admin: 12/01/17 12:38 Dose: Not Given Ipratropium [place] (Atrovent Neb 0.5mg/2.5ml) 0.5 mg HHN QIDRT [facility] Stop: 01/21/18 18:59 Last Admin: 12/01/17 11:46 Dose: 0.5 mg Lorazepam (Ativan) 1 mg IV Q4H PRN; Protocol PRN Reason: Agitation Stop: 01/22/18 13:05 Last Admin: 12/01/17 13:06 Dose: 1 mg Magnesium Hydroxide (Milk Of Magnesia) 30 ml PO DAILY PRN PRN Reason: Constipation Stop: 01/21/18 17:18 Miscellaneous (Clinical Monitoring) 1 ea MC DAILY PRN PRN Reason: RENAL Stop: 01/22/18 07:35 Quetiapine Fumarate (Seroquel) 12.5 mg PO HS [facility] PRN Reason: Protocol Stop: 01/29/18 20:59 Last Admin: 11/30/17 22:36 Dose: 12.5 mg Sevelamer Carbonate (Renvela) 800 mg PO TIDWM [facility] Stop: 01/23/18 16:59 Last Admin: 12/01/17 13:06 Dose: 800 mg Zinc Sulfate (Zinc Sulfate) 220 mg PO DAILY [facility] Stop: 01/22/18 08:59 Last Admin: 12/01/17 09:22 Dose: 220 mg General: No acute distress HEENT: Atraumatic, Mucous membr. moist/pink Neck: Supple Cardiovascular: Regular rate, Normal S1, Normal S2 Lungs: Clear to auscultation Abdomen: Bowel sounds, Soft Extremities: no Edema Neurological: Sensation intact Skin: no Rash Psych/Mental Status: Mood NL Assessment/Plan - Problem List Patient Problems: All Active Problems ABNORMAL LAB RESULTS (Acute) - Assessment Assessment: DENNIS Type 2 DM Ess Htn Psychosis Anxiety Cardiac Arrythmia S/P AICD CAD Met Acid Hypernatremia iatrogenic Hypokalemia - Plan Plan: Lab - Result Diagrams 11/25/17 07:40 11/25/17 07:40 Current Medications Acetaminophen (Tylenol) 650 mg PO Q4HR PRN PRN Reason: PAIN Stop: 01/21/18 17:18 Albuterol Sulfate (Albuterol 2.5mg/3ml Neb Ud) 2.5 mg HHN QIDRT [facility] Stop: 01/21/18 18:59 Last Admin: 11/25/17 13:12 Dose: 2.5 mg Ascorbic Acid (Vitamin C) 500 mg PO DAILY [facility] Stop: 01/22/18 08:59 Last Admin: 11/25/17 09:41 Dose: 500 mg Benztropine Mesylate (Cogentin) 1 mg PO BID [facility] Stop: 01/22/18 08:59 Last Admin: 11/25/17 09:42 Dose: 1 mg Citric Acid/Sodium Citrate (Bicitra) 30 ml PO BID [facility] Stop: 01/23/18 16:59 Last Admin: 11/25/17 09:42 Dose: 30 ml Docusate Sodium (Colace) 100 mg PO DAILY [facility] Stop: 01/22/18 08:59 Last Admin: 11/25/17 09:42 Dose: 100 mg Gabapentin (Neurontin) 300 mg PO TID [facility] Stop: 01/21/18 20:59 Last Admin: 11/25/17 13:34 Dose: 300 mg Guaifenesin (Robitussin) 200 mg PO Q4HR PRN PRN Reason: Cough or Congestion Stop: 01/21/18 17:20 Haloperidol (Haldol) 1 mg PO BID [facility] PRN Reason: Protocol Stop: 01/22/18 08:59 Last Admin: 11/25/17 09:43 Dose: 1 mg Dextrose/Sodium Chloride (D5-0.9%Ns) 1,000 mls @ 150 mls/hr IV .Q6H40M [facility] Stop: 01/21/18 21:13 Last Admin: 11/25/17 08:23 Dose: 150 mls/hr Magnesium Sulfate (Magnesium Sulfate Premix) 2 gm in 50 mls @ 25 mls/hr IV X1 ONE Stop: 11/25/17 15:31 Last Admin: 11/25/17 14:41 Dose: 25 mls/hr Insulin Aspart (Novolog) 0 units SUBQ ACHS [facility] PRN Reason: Protocol Stop: 01/21/18 20:59 Last Admin: 11/25/17 12:35 Dose: Not Given Ipratropium [place] (Atrovent Neb 0.5mg/2.5ml) 0.5 mg HHN QIDRT [facility] Stop: 01/21/18 18:59 Last Admin: 11/25/17 13:12 Dose: 0.5 mg Lorazepam (Ativan) 1 mg IV Q4H PRN; Protocol PRN Reason: Agitation Stop: 01/22/18 13:05 Last Admin: 11/25/17 11:14 Dose: 1 mg Magnesium Hydroxide (Milk Of Magnesia) 30 ml PO DAILY PRN PRN Reason: Constipation Stop: 01/21/18 17:18 Miscellaneous (Clinical Monitoring) 1 ea MC DAILY PRN PRN Reason: RENAL Stop: 01/22/18 07:35 Sevelamer Carbonate (Renvela) 800 mg PO TIDWM [facility] Stop: 01/23/18 16:59 Last Admin: 11/25/17 13:34 Dose: 800 mg Zinc Sulfate (Zinc Sulfate) 220 mg PO DAILY [facility] Stop: 01/22/18 08:59 Last Admin: 11/25/17 09:43 Dose: 220 mg Lab - Result Diagrams 11/30/17 05:15 12/01/17 05:10 Kidney fnc gradually improving w/ BUN/CR of24/1.6 agree w/ K, Mg replacement IVF switch to D5W f/u electrolytes, cbc DC bicitra Nutritional Asmnt/Malnutr-PDOC - Dietary Evaluation Malnutrition Findings (Please click <Entered> for more info): Nutritional Asmnt/Malnutrition Start: 11/23/17 15: 36 Text: Status: Complete Freq: Document 11/23/17 15:43 LCHENG (Rec: 11/23/17 16:04 [email or web address]) Nutritional Asmnt/Malnutrition Patient General Information Nutritional Screening High Risk Consult Pertinent Medical Hx/Surgical Hx DM, psychosis, HTN, anxiety, chest defibrillator, COPD, CHF , CAD, alzheimer's Subjective Information Consult received for Issa Solis . [facility] was [facility]fered [facility] [place] [facility] for droped BP. Pt seen resting in bed at the time of visit. Spoke with RN, pt consumed 50% of oatmeal and [place] toast for breakfast, " do not like the egg". Current Diet Order/ Nutrition Support Pureed, CCHO Pertinent Medications Vitamin C, D5-0.9% Ns, colace, dopamine, novolog, zinc Pertinent Labs 11/23 Na 138, K 3.9, Cl 107, BUN 78, Cr 10.2, glucose 101, POC 101-168 since adm, A1c 6.8, Ca 8.1, Phos 7.4, mg 1.9 Nutritional Hx/Data Height 1.78 m Height (Calculated Centimeters) 177.8 Current Weight (lbs) 111.584 kg Weight (Calculated Kilograms) 111.6 Weight (Calculated Grams) 965231.7 [place] Body Weight 166 % [place] Body Weight 148 Body Mass Index (BMI) 35.3 Weight Status Obese GI Symptoms GI Symptoms None Last BM no records Skin Integrity/Comment: edema 2+ pitting to left/right foot ulceration to bilateral feet Estimated Nutritional Goals BEE in Kcals: Adj wt of IBW Calories/Kcals/Kg 25-30 Kcals Calculated [id number] considering bedbound and wound Protein: Adj wt of IBW Protein g/k.2-1.4 Protein Calculated 101-118 Fluid: ml 2110-2532ml (1ml/kcal) Nutritional Problem 2. Problem Problem increased nutrition needs ( calorie and protein) Etiology increased metabolic demand for wound healing Signs/Symptoms: ulceration to bilateral legs 1. Problem Problem altered nutrition related lab values Etiology renal dysfunction, hx of DM Signs/Symptoms: BUN 78, Cr 10.2, POC 101-168, A1c 6.8 Malnutrition Alert Protein-Calorie Malnutrition N/A Is there a minimum of two criteria No selected? Query Text:Check all the applicable criteria. A minimum of two criteria are recommended for diagnosis of either severe or non-severe malnutrition. Intervention/Recommendation Comments 1. Recommend renal CCHO diet considering elevated renal labs 2. Monitor PO intake, wt, labs and skin integrity 3. F/U as high risk in 2-3 days, 11/25-11/26 Expected Outcomes/Goals Expected Outcomes/Goals 1. PO intake to meet at least 75% of nutritional needs. 2. Wt stability, skin to remain intact, labs to improve .
[2017-12-02] MEDS: INSULIN ASPART, RECOMBINANT 100 UNITS/ML SUBQ SCH ×3 (06:38→17:24)
[2017-12-02] MEDS: Albuterol Nebulizer 2.5mg/3mL HHN SCH ×4 (08:10→18:54)
[2017-12-02] MEDS: Ipratropium Neb 0.5 mg/2.5 mL UD HHN SCH ×4 (08:10→18:54)
[2017-12-02] MEDS: Multivitamin w/ Minerals Tab PO SCH (10:57)
[2017-12-02] MEDS: Dextrose 5% 1,000 ML IV SCH ×3 (11:12→17:29)
--- NOTE | 2017-12-02 13:35 | General Progress Note ---
Subjective - Review of Systems Service Date: 12/02/17 Subjective: in bed, comfortable Objective - Results Result Diagrams: 11/30/17 05:15 12/01/17 05:10 Recent Labs: Laboratory Last Values WBC 8.8 Th/cmm (4.8-10.8) 11/30/17 05:15 RBC 3.23 Mil/cmm (3.80-5.80) L 11/30/17 05:15 Hgb 10.3 gm/dL (12-16) L 11/30/17 05:15 Hct 31.0 % (41.0-60) L 11/30/17 05:15 MCV 96.0 fl (80-99) 11/30/17 05:15 MCH 32.0 pg (27.0-31.0) H 11/30/17 05:15 MCHC Differential 33.3 pg (28.0-36.0) 11/30/17 05:15 RDW 14.0 % (11.5-20.0) 11/30/17 05:15 Plt Count 221 Th/cmm (150-400) 11/30/17 05:15 MPV 8.6 fl 11/30/17 05:15 Neutrophils % 65.5 % (40.0-80.0) 11/30/17 05:15 Lymphocytes % 20.3 % (20.0-50.0) 11/30/17 05:15 Monocytes % 9.4 % (2.0-10.0) 11/30/17 05:15 Eosinophils % 4.5 % (0.0-5.0) 11/30/17 05:15 Basophils % 0.3 % (0.0-2.0) 11/30/17 05:15 Eos Smear Source URINE 11/25/17 23:16 Eos Smear Total Cells FEW EOSINOPHILS SEEN (NONE SEEN) 11/25/17 23:16 Specimen Source ARTERIAL 11/22/17 17:19 Sample Site Left Radial 11/22/17 17:19 pH 7.36 (7.35-7.45) 11/22/17 17:19 pCO2 35.0 mmHg (35.0-45.0) 11/22/17 17:19 pO2 77.0 mmHg (80.0-100.0) L 11/22/17 17:19 HCO3 21.0 mEq/L (20.0-26.0) 11/22/17 17:19 Base Excess 5.0 mEq/L (-3.0-3.0) H 11/22/17 17:19 O2 Saturation 95.0 % (92.0-100.0) 11/22/17 17:19 Seven Test Y 11/22/17 17:19 Vent Rate N/A 11/22/17 17:19 Inspired O2 21 11/22/17 17:19 Tidal Volume A/N 11/22/17 17:19 PEEP N/A 11/22/17 17:19 Pressure (ins/psv/peep) N/A 11/22/17 17:19 Critical Value O.SAMPSON 11/22/17 17:19 Sodium 147 mEq/L (136-145) H 12/01/17 05:10 Potassium 3.5 mEq/L (3.5-5.1) 12/01/17 05:10 Chloride 113 mEq/L (98-107) H 12/01/17 05:10 Carbon Dioxide 29.7 mEq/L (21.0-31.0) 12/01/17 05:10 Anion Gap 7.8 (7.0-16.0) 12/01/17 05:10 BUN 24 mg/dL (7-25) 12/01/17 05:10 Creatinine 1.6 mg/dL (0.7-1.3) H 12/01/17 05:10 Est GFR ( Amer) TNP 12/01/17 05:10 Est GFR (Non-Af Amer) TNP 12/01/17 05:10 BUN/Creatinine Ratio 15.0 12/01/17 05:10 Glucose 112 mg/dL (70-105) H 12/01/17 05:10 POC Glucose 244 MG/DL (70 - 105) H 12/02/17 05:54 Hemoglobin A1c % 6.8 % (4.0-6.0) H 11/23/17 08:30 Plasma/Ser Osmolality 322 mOsmol/kg (280-301) H 11/25/17 07:40 Uric Acid 8.6 mg/dL (4.4-7.6) H 11/29/17 06:10 Calcium 9.0 mg/dL (8.6-10.3) 12/01/17 05:10 Phosphorus 2.9 mg/dL (2.5-5.0) 11/29/17 06:10 Magnesium 2.0 mg/dL (1.9-2.7) 11/28/17 06:40 Total Bilirubin 0.6 mg/dL (0.3-1.0) 11/29/17 06:10 AST 30 U/L (13-39) 11/29/17 06:10 ALT 24 U/L (7-52) 11/29/17 06:10 Alkaline Phosphatase 62 U/L (34-104) 11/29/17 06:10 Ammonia 43 umol/L (16-53) 11/28/17 06:40 B-Natriuretic Peptide 629.0 pg/mL (5.0-100.0) H 11/28/17 06:40 Total Protein 7.1 gm/dL (6.0-8.3) 11/29/17 06:10 Albumin 2.8 gm/dL (4.2-5.5) L 11/29/17 06:10 Globulin 4.3 gm/dL 11/29/17 06:10 Albumin/Globulin Ratio 0.7 (1.0-1.8) L 11/29/17 06:10 Vitamin B12 730 pg/mL (232-1245) 11/28/17 06:40 Folic Acid 11.3 ng/mL (>3.0) 11/28/17 06:40 TSH 2.01 uIU/ml (0.34-5.60) 11/29/17 06:10 Urine Source CATH 11/22/17 22:05 Urine Color BROWN 11/22/17 22:05 Urine Clarity HAZY (CLEAR) 11/22/17 22:05 Urine pH 5.0 (4.6 - 8.0) 11/22/17 22:05 Ur Specific [place] >= 1.030 (1.005-1.030) 11/22/17 22:05 Urine Protein NEGATIVE mg/dL (NEGATIVE) 11/22/17 22:05 Urine Glucose (UA) NEGATIVE mg/dL (NEGATIVE) 11/22/17 22:05 Urine Ketones TRACE mg/dL (NEGATIVE) 11/22/17 22:05 Urine Blood TRACE (NEGATIVE) 11/22/17 22:05 Urine Nitrate NEGATIVE (NEGATIVE) 11/22/17 22:05 Urine Bilirubin SMALL (NEGATIVE) H 11/22/17 22:05 Urine Ictotest NEGATIVE (NEGATIVE) 11/22/17 22:05 Urine Urobilinogen 0.2 E.U./dL (0.2 - 1.0) 11/22/17 22:05 Ur Leukocyte Esterase NEGATIVE (NEGATIVE) 11/22/17 22:05 Urine RBC 0-2 /hpf (0-5) H 11/22/17 22:05 Urine WBC 0-2 /hpf (0-5) 11/22/17 22:05 Ur Epithelial Cells FEW /lpf (FEW) 11/22/17 22:05 Urine Bacteria FEW /hpf (NONE SEEN) 11/22/17 22:05 Ur Random Sodium 62 mmol/L 11/25/17 23:16 Urine Creatinine 109.0 mg/dl (39.0-259.0) 11/25/17 23:16 Urine Microalbumin 19.3 ug/mL (Not Estab.) 11/25/17 10:50 - Physical Exam Vitals and I&O: Vital Signs Temp 98.8 F 12/02/17 04:00 Pulse 86 12/02/17 12:31 Resp 20 12/02/17 12:31 BP 127/90 12/02/17 04:00 Pulse Ox 96 12/02/17 12:31 Intake & Output 12/01/17 12/02/17 12/02/17 18:59 06:59 18:59 Intake Total 1000 1000 16.667 Balance 1000 1000 16.667 Intake: Intake, IV Amount 1000 1000 16.667 Dextrose 5% 1,000 ml @ 1000 1000 16.667 125 mls/hr IV .Q8H [facility] Rx #:[id number] Active Medications: Current Medications Acetaminophen (Tylenol) 650 mg PO Q4HR PRN PRN Reason: PAIN Stop: 01/21/18 17:18 Last Admin: 11/26/17 20:58 Dose: 650 mg Albuterol Sulfate (Albuterol 2.5mg/3ml Neb Ud) 2.5 mg HHN QIDRT [facility] Stop: 01/21/18 18:59 Last Admin: 12/02/17 12:31 Dose: 2.5 mg Ascorbic Acid (Vitamin C) 500 mg PO DAILY [facility] Stop: 01/22/18 08:59 Last Admin: 12/02/17 10:56 Dose: 500 mg Docusate Sodium (Colace) 100 mg PO DAILY [facility] Stop: 01/22/18 08:59 Last Admin: 12/02/17 11:00 Dose: 100 mg Gabapentin (Neurontin) 300 mg PO TID [facility] Stop: 01/21/18 20:59 Last Admin: 12/02/17 10:56 Dose: 300 mg Guaifenesin (Robitussin) 200 mg PO Q4HR PRN PRN Reason: Cough or Congestion Stop: 01/21/18 17:20 Dextrose (D5w) 1,000 mls @ 125 mls/hr IV .Q8H [facility] Stop: 01/27/18 19:51 Last Admin: 12/02/17 11:20 Dose: 125 mls/hr Insulin Aspart (Novolog) 0 units SUBQ ACHS [facility] PRN Reason: Protocol Stop: 01/21/18 20:59 Last Admin: 12/02/17 12:33 Dose: Not Given Ipratropium [place] (Atrovent Neb 0.5mg/2.5ml) 0.5 mg HHN QIDRT [facility] Stop: 01/21/18 18:59 Last Admin: 12/02/17 12:31 Dose: 0.5 mg Lorazepam (Ativan) 1 mg IV Q4H PRN; Protocol PRN Reason: Agitation Stop: 01/22/18 13:05 Last Admin: 12/01/17 21:05 Dose: 1 mg Magnesium Hydroxide (Milk Of Magnesia) 30 ml PO DAILY PRN PRN Reason: Constipation Stop: 01/21/18 17:18 Miscellaneous (Clinical Monitoring) 1 ea MC DAILY PRN PRN Reason: RENAL Stop: 01/22/18 07:35 Quetiapine Fumarate (Seroquel) 12.5 mg PO HS [facility] PRN Reason: Protocol Stop: 01/29/18 20:59 Last Admin: 12/01/17 21:05 Dose: 12.5 mg Sevelamer Carbonate (Renvela) 800 mg PO TIDWM [facility] Stop: 01/23/18 16:59 Last Admin: 12/02/17 12:43 Dose: Not Given Zinc Sulfate (Zinc Sulfate) 220 mg PO DAILY [facility] Stop: 01/22/18 08:59 Last Admin: 12/02/17 10:56 Dose: 220 mg General: No acute distress HEENT: Atraumatic, Mucous membr. moist/pink Neck: Supple Cardiovascular: Regular rate, Normal S1, Normal S2 Lungs: Clear to auscultation Abdomen: Bowel sounds, Soft Extremities: no Edema Neurological: Sensation intact Skin: no Rash Psych/Mental Status: Mood NL Assessment/Plan - Problem List Patient Problems: All Active Problems ABNORMAL LAB RESULTS (Acute) - Assessment Assessment: DENNIS Type 2 DM Ess Htn Psychosis Anxiety Cardiac Arrythmia S/P AICD CAD Met Acid Hypernatremia iatrogenic Hypokalemia - Plan Plan: Lab - Result Diagrams 11/25/17 07:40 11/25/17 07:40 Current Medications Acetaminophen (Tylenol) 650 mg PO Q4HR PRN PRN Reason: PAIN Stop: 01/21/18 17:18 Albuterol Sulfate (Albuterol 2.5mg/3ml Neb Ud) 2.5 mg HHN QIDRT [facility] Stop: 01/21/18 18:59 Last Admin: 11/25/17 13:12 Dose: 2.5 mg Ascorbic Acid (Vitamin C) 500 mg PO DAILY [facility] Stop: 01/22/18 08:59 Last Admin: 11/25/17 09:41 Dose: 500 mg Benztropine Mesylate (Cogentin) 1 mg PO BID [facility] Stop: 01/22/18 08:59 Last Admin: 11/25/17 09:42 Dose: 1 mg Citric Acid/Sodium Citrate (Bicitra) 30 ml PO BID [facility] Stop: 01/23/18 16:59 Last Admin: 11/25/17 09:42 Dose: 30 ml Docusate Sodium (Colace) 100 mg PO DAILY [facility] Stop: 01/22/18 08:59 Last Admin: 11/25/17 09:42 Dose: 100 mg Gabapentin (Neurontin) 300 mg PO TID [facility] Stop: 01/21/18 20:59 Last Admin: 11/25/17 13:34 Dose: 300 mg Guaifenesin (Robitussin) 200 mg PO Q4HR PRN PRN Reason: Cough or Congestion Stop: 01/21/18 17:20 Haloperidol (Haldol) 1 mg PO BID SHAMEKA PRN Reason: Protocol Stop: 01/22/18 08:59 Last Admin: 11/25/17 09:43 Dose: 1 mg Dextrose/Sodium Chloride (D5-0.9%Ns) 1,000 mls @ 150 mls/hr IV .Q6H40M [facility] Stop: 01/21/18 21:13 Last Admin: 11/25/17 08:23 Dose: 150 mls/hr Magnesium Sulfate (Magnesium Sulfate Premix) 2 gm in 50 mls @ 25 mls/hr IV X1 ONE Stop: 11/25/17 15:31 Last Admin: 11/25/17 14:41 Dose: 25 mls/hr Insulin Aspart (Novolog) 0 units SUBQ ACHS SHAMEKA PRN Reason: Protocol Stop: 01/21/18 20:59 Last Admin: 11/25/17 12:35 Dose: Not Given Ipratropium [place] (Atrovent Neb 0.5mg/2.5ml) 0.5 mg HHN QIDRT [facility] Stop: 01/21/18 18:59 Last Admin: 11/25/17 13:12 Dose: 0.5 mg Lorazepam (Ativan) 1 mg IV Q4H PRN; Protocol PRN Reason: Agitation Stop: 01/22/18 13:05 Last Admin: 11/25/17 11:14 Dose: 1 mg Magnesium Hydroxide (Milk Of Magnesia) 30 ml PO DAILY PRN PRN Reason: Constipation Stop: 01/21/18 17:18 Miscellaneous (Clinical Monitoring) 1 ea MC DAILY PRN PRN Reason: RENAL Stop: 01/22/18 07:35 Sevelamer Carbonate (Renvela) 800 mg PO TIDWM [facility] Stop: 01/23/18 16:59 Last Admin: 11/25/17 13:34 Dose: 800 mg Zinc Sulfate (Zinc Sulfate) 220 mg PO DAILY [facility] Stop: 01/22/18 08:59 Last Admin: 11/25/17 09:43 Dose: 220 mg Lab - Result Diagrams 11/30/17 05:15 12/01/17 05:10 Kidney fnc gradually improving w/ BUN/CR of24/1.6 agree w/ K, Mg replacement IVF switch to D5W f/u electrolytes, cbc DC bicitra Nutritional Asmnt/Malnutr-PDOC - Dietary Evaluation Malnutrition Findings (Please click <Entered> for more info): Nutritional Asmnt/Malnutrition Start: 11/23/17 15: 36 Text: Status: Complete Freq: Document 11/23/17 15:43 [email or web address] (Rec: 11/23/17 16:04 [email or web address]) Nutritional Asmnt/Malnutrition Patient General Information Nutritional Screening High Risk Consult Pertinent Medical Hx/Surgical Hx DM, psychosis, HTN, anxiety, chest defibrillator, COPD, CHF , CAD, alzheimer's Subjective Information Consult received for Issa Solis . Pt was transfered from [facility] for droped BP. Pt seen resting in bed at the time of visit. Spoke with RN, pt consumed 50% of oatmeal and [place] toast for breakfast, " do not like the egg". Current Diet Order/ Nutrition Support Pureed, CCHO Pertinent Medications Vitamin C, D5-0.9% Ns, colace, dopamine, novolog, zinc Pertinent Labs 11/23 Na 138, K 3.9, Cl 107, BUN 78, Cr 10.2, glucose 101, POC 101-168 since adm, A1c 6.8, Ca 8.1, Phos 7.4, mg 1.9 Nutritional Hx/Data Height 1.78 m Height (Calculated Centimeters) 177.8 Current Weight (lbs) 111.584 kg Weight (Calculated Kilograms) 111.6 Weight (Calculated Grams) 380074.7 [place] Body Weight 166 % [place] Body Weight 148 Body Mass Index (BMI) 35.3 Weight Status Obese GI Symptoms GI Symptoms None Last BM no records Skin Integrity/Comment: edema 2+ pitting to left/right foot ulceration to bilateral feet Estimated Nutritional Goals BEE in Kcals: Adj wt of IBW Calories/Kcals/Kg 25-30 Kcals Calculated [id number] considering bedbound and wound Protein: Adj wt of IBW Protein g/k.2-1.4 Protein Calculated 101-118 Fluid: ml 2110-2532ml (1ml/kcal) Nutritional Problem 2. Problem Problem increased nutrition needs ( calorie and protein) Etiology increased metabolic demand for wound healing Signs/Symptoms: ulceration to bilateral legs 1. Problem Problem altered nutrition related lab values Etiology renal dysfunction, hx of DM Signs/Symptoms: BUN 78, Cr 10.2, POC 101-168, A1c 6.8 Malnutrition Alert Protein-Calorie Malnutrition N/A Is there a minimum of two criteria No selected? Query Text:Check all the applicable criteria. A minimum of two criteria are recommended for diagnosis of either severe or non-severe malnutrition. Intervention/Recommendation Comments 1. Recommend renal CCHO diet considering elevated renal labs 2. Monitor PO intake, wt, labs and skin integrity 3. F/U as high risk in 2-3 days, 11/25-11/26 Expected Outcomes/Goals Expected Outcomes/Goals 1. PO intake to meet at least 75% of nutritional needs. 2. Wt stability, skin to remain intact, labs to improve .
--- NOTE | 2017-12-02 14:36 | Internal Medicine Prog Note ---
Internal Medicine Subjective - Subjective Service Date: 12/02/17 Patient seen and examined:: with staff Patient is:: awake, agitated, confused Patient Complaints of:: congestion Per staff patient has:: no adverse event, poor appetite, poor oral intake, agitated, combative, noncompliant, refusing care, refusing labs Internal Medicine Objective - Results Result Diagrams: 11/30/17 05:15 12/01/17 05:10 Recent Labs: Laboratory Last Values WBC 8.8 Th/cmm (4.8-10.8) 11/30/17 05:15 RBC 3.23 Mil/cmm (3.80-5.80) L 11/30/17 05:15 Hgb 10.3 gm/dL (12-16) L 11/30/17 05:15 Hct 31.0 % (41.0-60) L 11/30/17 05:15 MCV 96.0 fl (80-99) 11/30/17 05:15 MCH 32.0 pg (27.0-31.0) H 11/30/17 05:15 MCHC Differential 33.3 pg (28.0-36.0) 11/30/17 05:15 RDW 14.0 % (11.5-20.0) 11/30/17 05:15 Plt Count 221 Th/cmm (150-400) 11/30/17 05:15 MPV 8.6 fl 11/30/17 05:15 Neutrophils % 65.5 % (40.0-80.0) 11/30/17 05:15 Lymphocytes % 20.3 % (20.0-50.0) 11/30/17 05:15 Monocytes % 9.4 % (2.0-10.0) 11/30/17 05:15 Eosinophils % 4.5 % (0.0-5.0) 11/30/17 05:15 Basophils % 0.3 % (0.0-2.0) 11/30/17 05:15 Eos Smear Source URINE 11/25/17 23:16 Eos Smear Total Cells FEW EOSINOPHILS SEEN (NONE SEEN) 11/25/17 23:16 Specimen Source ARTERIAL 11/22/17 17:19 Sample Site Left Radial 11/22/17 17:19 pH 7.36 (7.35-7.45) 11/22/17 17:19 pCO2 35.0 mmHg (35.0-45.0) 11/22/17 17:19 pO2 77.0 mmHg (80.0-100.0) L 11/22/17 17:19 HCO3 21.0 mEq/L (20.0-26.0) 11/22/17 17:19 Base Excess 5.0 mEq/L (-3.0-3.0) H 11/22/17 17:19 O2 Saturation 95.0 % (92.0-100.0) 11/22/17 17:19 Seven Test Y 11/22/17 17:19 Vent Rate N/A 11/22/17 17:19 Inspired O2 21 11/22/17 17:19 Tidal Volume A/N 11/22/17 17:19 PEEP N/A 11/22/17 17:19 Pressure (ins/psv/peep) N/A 11/22/17 17:19 Critical Value O.SAMPSON 11/22/17 17:19 Sodium 147 mEq/L (136-145) H 12/01/17 05:10 Potassium 3.5 mEq/L (3.5-5.1) 12/01/17 05:10 Chloride 113 mEq/L (98-107) H 12/01/17 05:10 Carbon Dioxide 29.7 mEq/L (21.0-31.0) 12/01/17 05:10 Anion Gap 7.8 (7.0-16.0) 12/01/17 05:10 BUN 24 mg/dL (7-25) 12/01/17 05:10 Creatinine 1.6 mg/dL (0.7-1.3) H 12/01/17 05:10 Est GFR ( Amer) [facility] 12/01/17 05:10 Est GFR (Non-Af Amer) [facility] 12/01/17 05:10 BUN/Creatinine Ratio 15.0 12/01/17 05:10 Glucose 112 mg/dL (70-105) H 12/01/17 05:10 POC Glucose 244 MG/DL (70 - 105) H 12/02/17 05:54 Hemoglobin A1c % 6.8 % (4.0-6.0) H 11/23/17 08:30 Plasma/Ser Osmolality 322 mOsmol/kg (280-301) H 11/25/17 07:40 Uric Acid 8.6 mg/dL (4.4-7.6) H 11/29/17 06:10 Calcium 9.0 mg/dL (8.6-10.3) 12/01/17 05:10 Phosphorus 2.9 mg/dL (2.5-5.0) 11/29/17 06:10 Magnesium 2.0 mg/dL (1.9-2.7) 11/28/17 06:40 Total Bilirubin 0.6 mg/dL (0.3-1.0) 11/29/17 06:10 AST 30 U/L (13-39) 11/29/17 06:10 ALT 24 U/L (7-52) 11/29/17 06:10 Alkaline Phosphatase 62 U/L (34-104) 11/29/17 06:10 Ammonia 43 umol/L (16-53) 11/28/17 06:40 B-Natriuretic Peptide 629.0 pg/mL (5.0-100.0) H 11/28/17 06:40 Total Protein 7.1 gm/dL (6.0-8.3) 11/29/17 06:10 Albumin 2.8 gm/dL (4.2-5.5) L 11/29/17 06:10 Globulin 4.3 gm/dL 11/29/17 06:10 Albumin/Globulin Ratio 0.7 (1.0-1.8) L 11/29/17 06:10 Vitamin B12 730 pg/mL (232-1245) 11/28/17 06:40 Folic Acid 11.3 ng/mL (>3.0) 11/28/17 06:40 TSH 2.01 uIU/ml (0.34-5.60) 11/29/17 06:10 Urine Source CATH 11/22/17 22:05 Urine Color BROWN 11/22/17 22:05 Urine Clarity HAZY (CLEAR) 11/22/17 22:05 Urine pH 5.0 (4.6 - 8.0) 11/22/17 22:05 Ur Specific [place] >= 1.030 (1.005-1.030) 11/22/17 22:05 Urine Protein NEGATIVE mg/dL (NEGATIVE) 11/22/17 22:05 Urine Glucose (UA) NEGATIVE mg/dL (NEGATIVE) 11/22/17 22:05 Urine Ketones TRACE mg/dL (NEGATIVE) 11/22/17 22:05 Urine Blood TRACE (NEGATIVE) 11/22/17 22:05 Urine Nitrate NEGATIVE (NEGATIVE) 11/22/17 22:05 Urine Bilirubin SMALL (NEGATIVE) H 11/22/17 22:05 Urine Ictotest NEGATIVE (NEGATIVE) 11/22/17 22:05 Urine Urobilinogen 0.2 E.U./dL (0.2 - 1.0) 11/22/17 22:05 Ur Leukocyte Esterase NEGATIVE (NEGATIVE) 11/22/17 22:05 Urine RBC 0-2 /hpf (0-5) H 11/22/17 22:05 Urine WBC 0-2 /hpf (0-5) 11/22/17 22:05 Ur Epithelial Cells FEW /lpf (FEW) 11/22/17 22:05 Urine Bacteria FEW /hpf (NONE SEEN) 11/22/17 22:05 Ur Random Sodium 62 mmol/L 11/25/17 23:16 Urine Creatinine 109.0 mg/dl (39.0-259.0) 11/25/17 23:16 Urine Microalbumin 19.3 ug/mL (Not Estab.) 11/25/17 10:50 - Physical Exam Vitals and I&O: Vital Signs Temp 98.8 F 12/02/17 04:00 Pulse 86 12/02/17 12:31 Resp 20 12/02/17 12:31 BP 127/90 12/02/17 04:00 Pulse Ox 96 12/02/17 12:31 Intake & Output 12/01/17 12/02/17 12/02/17 18:59 06:59 18:59 Intake Total 1000 1000 16.667 Balance 1000 1000 16.667 Intake: Intake, IV Amount 1000 1000 16.667 Dextrose 5% 1,000 ml @ 1000 1000 16.667 125 mls/hr IV .Q8H [facility] Rx #:[id number] Active Medications: Current Medications Acetaminophen (Tylenol) 650 mg PO Q4HR PRN PRN Reason: PAIN Stop: 01/21/18 17:18 Last Admin: 11/26/17 20:58 Dose: 650 mg Albuterol Sulfate (Albuterol 2.5mg/3ml Neb Ud) 2.5 mg HHN QIDRT [facility] Stop: 01/21/18 18:59 Last Admin: 12/02/17 12:31 Dose: 2.5 mg Ascorbic Acid (Vitamin C) 500 mg PO DAILY [facility] Stop: 01/22/18 08:59 Last Admin: 12/02/17 10:56 Dose: 500 mg Docusate Sodium (Colace) 100 mg PO DAILY [facility] Stop: 01/22/18 08:59 Last Admin: 12/02/17 11:00 Dose: 100 mg Gabapentin (Neurontin) 300 mg PO TID [facility] Stop: 01/21/18 20:59 Last Admin: 12/02/17 10:56 Dose: 300 mg Guaifenesin (Robitussin) 200 mg PO Q4HR PRN PRN Reason: Cough or Congestion Stop: 01/21/18 17:20 Dextrose (D5w) 1,000 mls @ 125 mls/hr IV .Q8H [facility] Stop: 01/27/18 19:51 Last Admin: 12/02/17 11:20 Dose: 125 mls/hr Insulin Aspart (Novolog) 0 units SUBQ ACHS [facility] PRN Reason: Protocol Stop: 01/21/18 20:59 Last Admin: 12/02/17 12:33 Dose: Not Given Ipratropium [place] (Atrovent Neb 0.5mg/2.5ml) 0.5 mg N QIDRT [facility] Stop: 01/21/18 18:59 Last Admin: 12/02/17 12:31 Dose: 0.5 mg Lorazepam (Ativan) 1 mg IV Q4H PRN; Protocol PRN Reason: Agitation Stop: 01/22/18 13:05 Last Admin: 12/02/17 13:57 Dose: 1 mg Magnesium Hydroxide (Milk Of Magnesia) 30 ml PO DAILY PRN PRN Reason: Constipation Stop: 01/21/18 17:18 Miscellaneous (Clinical Monitoring) 1 ea MC DAILY PRN PRN Reason: RENAL Stop: 01/22/18 07:35 Quetiapine Fumarate (Seroquel) 12.5 mg PO [facility] PRN Reason: Protocol Stop: 01/29/18 20:59 Last Admin: 12/01/17 21:05 Dose: 12.5 mg Sevelamer Carbonate (Renvela) 800 mg PO TIDWM [facility] Stop: 01/23/18 16:59 Last Admin: 12/02/17 12:43 Dose: Not Given Zinc Sulfate (Zinc Sulfate) 220 mg PO DAILY [facility] Stop: 01/22/18 08:59 Last Admin: 12/02/17 10:56 Dose: 220 mg General: congested, demented, disheveled, appears older HEENT: NC/AT Neck: Supple Lungs: CTAB Cardiovascular: RRR, Normal S1, Normal S2, without murmur Abdomen: soft, non-tender, non-distended, positive bowel sound Extremities: excoriation, ecchymosis Neurological: bedbound Internal Medicine Assmt/Plan - Assessment Assessment: hypotension aloc possible pna acute renal failure multiple open wounds dm2 psychosis htn chest defibrillator status copd chf cad - Plan Plan: monitor bun/crea sitter for safety follow up labs in am continue current plan of care Nutritional Asmnt/Malnutr-PDOC - Dietary Evaluation Malnutrition Findings (Please click <Entered> for more info): Nutritional Asmnt/Malnutrition Start: 11/23/17 15: 36 Text: Status: Complete Freq: Document 11/23/17 15:43 LCHEN (Rec: 11/23/17 16:04 [email or web address] [email or web address]) Nutritional Asmnt/Malnutrition Patient General Information Nutritional Screening High Risk Consult Pertinent Medical Hx/Surgical Hx DM, psychosis, HTN, anxiety, chest defibrillator, COPD, CHF , CAD, alzheimer's Subjective Information Consult received for Issa Irma . Pt was transfered from [facility] for droped BP. Pt seen resting in bed at the time of visit. Spoke with RN, pt consumed 50% of oatmeal and [place] toast for breakfast, " do not like the egg". Current Diet Order/ Nutrition Support Pureed, CCHO Pertinent Medications Vitamin C, D5-0.9% Ns, colace, dopamine, novolog, zinc Pertinent Labs / Na 138, K 3.9, Cl 107, BUN 78, Cr 10.2, glucose 101, POC 101-168 since adm, A1c 6.8, Ca 8.1, Phos 7.4, mg 1.9 Nutritional Hx/Data Height 5 ft 10 in Height (Calculated Centimeters) 177.8 Current Weight (lbs) 246 lb Weight (Calculated Kilograms) 111.6 Weight (Calculated Grams) 469233.7 [place] Body Weight 166 % [place] Body Weight 148 Body Mass Index (BMI) 35.3 Weight Status Obese GI Symptoms GI Symptoms None Last BM no records Skin Integrity/Comment: edema 2+ pitting to left/right foot ulceration to bilateral feet Estimated Nutritional Goals BEE in Kcals: Adj wt of IBW Calories/Kcals/Kg 25-30 Kcals Calculated [id number] considering bedbound and wound Protein: Adj wt of IBW Protein g/k.2-1.4 Protein Calculated 101-118 Fluid: ml 2109-253ml (1ml/kcal) Nutritional Problem 2. Problem Problem increased nutrition needs ( calorie and protein) Etiology increased metabolic demand for wound healing Signs/Symptoms: ulceration to bilateral legs 1. Problem Problem altered nutrition related lab values Etiology renal dysfunction, hx of DM Signs/Symptoms: BUN 78, Cr 10.2, POC 101-168, A1c 6.8 Malnutrition Alert Protein-Calorie Malnutrition N/A Is there a minimum of two criteria No selected? Query Text:Check all the applicable criteria. A minimum of two criteria are recommended for diagnosis of either severe or non-severe malnutrition. Intervention/Recommendation Comments 1. Recommend renal CCHO diet considering elevated renal labs 2. Monitor PO intake, wt, labs and skin integrity 3. F/U as high risk in 2-3 days, 5-11/26 Expected Outcomes/Goals Expected Outcomes/Goals 1. PO intake to meet at least 75% of nutritional needs. 2. Wt stability, skin to remain intact, labs to improve .
[2017-12-03] MEDS: Ipratropium Neb 0.5 mg/2.5 mL UD HHN SCH ×4 (06:44→18:58)
[2017-12-03] MEDS: Albuterol Nebulizer 2.5mg/3mL HHN SCH ×4 (06:44→18:58)
[2017-12-03] MEDS: INSULIN ASPART, RECOMBINANT 100 UNITS/ML SUBQ SCH ×4 (07:30→20:59)
[2017-12-03 08:58] LABS: % BASOPHILS 0.9 % (0.0-2.0); % EOSINOPHILS 3.6 % (0.0-5.0); % MONOCYTES 10.7 % (2.0-10.0); % NEUTROPHILS 62.8 % (40.0-80.0); BASOPHILE ABSOLUTE 0.1 Th/cumm (0-0.2); EOSINOPHILE ABSOLUTE 0.3 Th/cmm (0.1-0.4); HEMATOCRIT 30.3 % (41.0-60); HEMOGLOBIN 10.4 gm/dL (12-16); LYMPHOCYTE ABSOLUTE 1.5 Th/cmm (1.5-3.0); MEAN CELL VOLUME 95.3 fl (80-99); MEAN CORPUSCULAR HEMOGLOBIN 32.8 pg (27.0-31.0); MEAN CORPUSCULAR HGB CONC 34.4 pg (28.0-36.0); MEAN PLATELET VOLUME 8.1 fl; MONOCYTE ABSOLUTE 0.7 Th/cmm (0.3-1.0); NEUTROPHILE ABSOLUTE 4.4 Th/cmm (1.8-8.0); PLATELET COUNT 153 Th/cmm (150-400); RED BLOOD COUNT 3.17 Mil/cmm (3.80-5.80); RED CELL DISTRIBUTION WIDTH 13.4 % (11.5-20.0)
[2017-12-03 09:15] LABS: ANION GAP 9.8 (7.0-16.0); BUN - UREA NITROGEN 14 mg/dL (7-25); CALCIUM SERUM 8.7 mg/dL (8.6-10.3); CARBON DIOXIDE 29.5 mEq/L (21.0-31.0); CHLORIDE 104 mEq/L (98-107); CREATININE - SERUM 1.3 mg/dL (0.7-1.3); GLUCOSE 106 mg/dL (70-105); POTASSIUM SERUM 3.3 mEq/L (3.5-5.1); SODIUM SERUM 140 mEq/L (136-145)
[2017-12-03] MEDS: Dextrose 5% 1,000 ML IV SCH (10:29)
[2017-12-03] MEDS: Multivitamin w/ Minerals Tab PO SCH (10:29)
--- NOTE | 2017-12-03 13:28 | General Progress Note ---
Subjective - Review of Systems Service Date: 12/03/17 Subjective: quiet, comfortable Objective - Results Result Diagrams: 12/03/17 08:30 12/03/17 06:00 Recent Labs: Laboratory Last Values WBC 7.0 Th/cmm (4.8-10.8) D 12/03/17 08:30 RBC 3.17 Mil/cmm (3.80-5.80) L 12/03/17 08:30 Hgb 10.4 gm/dL (12-16) L 12/03/17 08:30 Hct 30.3 % (41.0-60) L 12/03/17 08:30 MCV 95.3 fl (80-99) 12/03/17 08:30 MCH 32.8 pg (27.0-31.0) H 12/03/17 08:30 MCHC Differential 34.4 pg (28.0-36.0) 12/03/17 08:30 RDW 13.4 % (11.5-20.0) 12/03/17 08:30 Plt Count 153 Th/cmm (150-400) D 12/03/17 08:30 MPV 8.1 fl 12/03/17 08:30 Neutrophils % 62.8 % (40.0-80.0) 12/03/17 08:30 Lymphocytes % 22.0 % (20.0-50.0) 12/03/17 08:30 Monocytes % 10.7 % (2.0-10.0) H 12/03/17 08:30 Eosinophils % 3.6 % (0.0-5.0) 12/03/17 08:30 Basophils % 0.9 % (0.0-2.0) 12/03/17 08:30 Eos Smear Source URINE 11/25/17 23:16 Eos Smear Total Cells FEW EOSINOPHILS SEEN (NONE SEEN) 11/25/17 23:16 Specimen Source ARTERIAL 11/22/17 17:19 Sample Site Left Radial 11/22/17 17:19 pH 7.36 (7.35-7.45) 11/22/17 17:19 pCO2 35.0 mmHg (35.0-45.0) 11/22/17 17:19 pO2 77.0 mmHg (80.0-100.0) L 11/22/17 17:19 HCO3 21.0 mEq/L (20.0-26.0) 11/22/17 17:19 Base Excess 5.0 mEq/L (-3.0-3.0) H 11/22/17 17:19 O2 Saturation 95.0 % (92.0-100.0) 11/22/17 17:19 Seven Test Y 11/22/17 17:19 Vent Rate N/A 11/22/17 17:19 Inspired O2 21 11/22/17 17:19 Tidal Volume A/N 11/22/17 17:19 PEEP N/A 11/22/17 17:19 Pressure (ins/psv/peep) N/A 11/22/17 17:19 Critical Value O.SAMPSON 11/22/17 17:19 Sodium 140 mEq/L (136-145) 12/03/17 06:00 Potassium 3.3 mEq/L (3.5-5.1) L 12/03/17 06:00 Chloride 104 mEq/L (98-107) 12/03/17 06:00 Carbon Dioxide 29.5 mEq/L (21.0-31.0) 12/03/17 06:00 Anion Gap 9.8 (7.0-16.0) 12/03/17 06:00 BUN 14 mg/dL (7-25) 12/03/17 06:00 Creatinine 1.3 mg/dL (0.7-1.3) 12/03/17 06:00 Est GFR ( Amer) TNP 12/03/17 06:00 Est GFR (Non-Af Amer) TNP 12/03/17 06:00 BUN/Creatinine Ratio 10.8 12/03/17 06:00 Glucose 106 mg/dL (70-105) H 12/03/17 06:00 POC Glucose 244 MG/DL (70 - 105) H 12/02/17 05:54 Hemoglobin A1c % 6.8 % (4.0-6.0) H 11/23/17 08:30 Plasma/Ser Osmolality 322 mOsmol/kg (280-301) H 11/25/17 07:40 Uric Acid 8.6 mg/dL (4.4-7.6) H 11/29/17 06:10 Calcium 8.7 mg/dL (8.6-10.3) 12/03/17 06:00 Phosphorus 2.9 mg/dL (2.5-5.0) 11/29/17 06:10 Magnesium 2.0 mg/dL (1.9-2.7) 11/28/17 06:40 Total Bilirubin 0.6 mg/dL (0.3-1.0) 11/29/17 06:10 AST 30 U/L (13-39) 11/29/17 06:10 ALT 24 U/L (7-52) 11/29/17 06:10 Alkaline Phosphatase 62 U/L (34-104) 11/29/17 06:10 Ammonia 43 umol/L (16-53) 11/28/17 06:40 B-Natriuretic Peptide 629.0 pg/mL (5.0-100.0) H 11/28/17 06:40 Total Protein 7.1 gm/dL (6.0-8.3) 11/29/17 06:10 Albumin 2.8 gm/dL (4.2-5.5) L 11/29/17 06:10 Globulin 4.3 gm/dL 11/29/17 06:10 Albumin/Globulin Ratio 0.7 (1.0-1.8) L 11/29/17 06:10 Vitamin B12 730 pg/mL (232-1245) 11/28/17 06:40 Folic Acid 11.3 ng/mL (>3.0) 11/28/17 06:40 TSH 2.01 uIU/ml (0.34-5.60) 11/29/17 06:10 Urine Source CATH 11/22/17 22:05 Urine Color BROWN 11/22/17 22:05 Urine Clarity HAZY (CLEAR) 11/22/17 22:05 Urine pH 5.0 (4.6 - 8.0) 11/22/17 22:05 Ur Specific [place] >= 1.030 (1.005-1.030) 11/22/17 22:05 Urine Protein NEGATIVE mg/dL (NEGATIVE) 11/22/17 22:05 Urine Glucose (UA) NEGATIVE mg/dL (NEGATIVE) 11/22/17 22:05 Urine Ketones TRACE mg/dL (NEGATIVE) 11/22/17 22:05 Urine Blood TRACE (NEGATIVE) 11/22/17 22:05 Urine Nitrate NEGATIVE (NEGATIVE) 11/22/17 22:05 Urine Bilirubin SMALL (NEGATIVE) H 11/22/17 22:05 Urine Ictotest NEGATIVE (NEGATIVE) 11/22/17 22:05 Urine Urobilinogen 0.2 E.U./dL (0.2 - 1.0) 11/22/17 22:05 Ur Leukocyte Esterase NEGATIVE (NEGATIVE) 11/22/17 22:05 Urine RBC 0-2 /hpf (0-5) H 11/22/17 22:05 Urine WBC 0-2 /hpf (0-5) 11/22/17 22:05 Ur Epithelial Cells FEW /lpf (FEW) 11/22/17 22:05 Urine Bacteria FEW /hpf (NONE SEEN) 11/22/17 22:05 Ur Random Sodium 62 mmol/L 11/25/17 23:16 Urine Creatinine 109.0 mg/dl (39.0-259.0) 11/25/17 23:16 Urine Microalbumin 19.3 ug/mL (Not Estab.) 11/25/17 10:50 - Physical Exam Vitals and I&O: Vital Signs Temp 97.9 F 12/03/17 05:34 Pulse 73 12/03/17 10:29 Resp 20 12/03/17 10:29 BP 108/54 12/03/17 05:34 Pulse Ox 99 12/03/17 10:29 Intake & Output 12/02/17 12/03/17 12/03/17 18:59 06:59 18:59 Intake Total 16.667 1000 Balance 16.667 1000 Weight (lbs) 113.398 kg 113.398 kg Intake: Intake, IV Amount 16.667 1000 Dextrose 5% 1,000 ml @ 16.667 125 mls/hr IV .Q8H [facility] Rx #:[id number] Dextrose 5% 1,000 ml @ 80 1000 mls/hr IV .[id number] [facility] Rx#:[id number] Other: # Voids 2 # Bowel Movements 0 Active Medications: Current Medications Acetaminophen (Tylenol) 650 mg PO Q4HR PRN PRN Reason: PAIN Stop: 01/21/18 17:18 Last Admin: 11/26/17 20:58 Dose: 650 mg Albuterol Sulfate (Albuterol 2.5mg/3ml Neb Ud) 2.5 mg HHN QIDRT [facility] Stop: 01/21/18 18:59 Last Admin: 12/03/17 10:29 Dose: 2.5 mg Ascorbic Acid (Vitamin C) 500 mg PO DAILY [facility] Stop: 01/22/18 08:59 Last Admin: 12/03/17 10:29 Dose: 500 mg Docusate Sodium (Colace) 100 mg PO DAILY [facility] Stop: 01/22/18 08:59 Last Admin: 12/03/17 10:29 Dose: 100 mg Gabapentin (Neurontin) 300 mg PO TID [facility] Stop: 01/21/18 20:59 Last Admin: 12/03/17 10:29 Dose: 300 mg Guaifenesin (Robitussin) 200 mg PO Q4HR PRN PRN Reason: Cough or Congestion Stop: 01/21/18 17:20 Dextrose (D5w) 1,000 mls @ 80 mls/hr IV .[id number] [facility] Stop: 01/27/18 19:51 Last Admin: 12/03/17 10:29 Dose: 80 mls/hr Insulin Aspart (Novolog) 0 units SUBQ ACHS [facility] PRN Reason: Protocol Stop: 01/21/18 20:59 Last Admin: 12/03/17 12:20 Dose: Not Given Ipratropium [place] (Atrovent Neb 0.5mg/2.5ml) 0.5 mg HHN QIDRT [facility] Stop: 01/21/18 18:59 Last Admin: 12/03/17 10:29 Dose: 0.5 mg Lorazepam (Ativan) 1 mg IV Q4H PRN; Protocol PRN Reason: Agitation Stop: 01/22/18 13:05 Last Admin: 12/02/17 13:57 Dose: 1 mg Magnesium Hydroxide (Milk Of Magnesia) 30 ml PO DAILY PRN PRN Reason: Constipation Stop: 01/21/18 17:18 Miscellaneous (Clinical Monitoring) 1 ea MC DAILY PRN PRN Reason: RENAL Stop: 01/22/18 07:35 Quetiapine Fumarate (Seroquel) 12.5 mg PO HS [facility] PRN Reason: Protocol Stop: 01/29/18 20:59 Last Admin: 12/01/17 21:05 Dose: 12.5 mg Sevelamer Carbonate (Renvela) 800 mg PO TIDWM [facility] Stop: 01/23/18 16:59 Last Admin: 12/03/17 12:41 Dose: 800 mg Zinc Sulfate (Zinc Sulfate) 220 mg PO DAILY [facility] Stop: 01/22/18 08:59 Last Admin: 12/03/17 10:29 Dose: 220 mg General: No acute distress HEENT: Atraumatic, Mucous membr. moist/pink Neck: Supple Cardiovascular: Regular rate, Normal S1, Normal S2 Lungs: Clear to auscultation Abdomen: Bowel sounds, Soft Extremities: no Edema Neurological: Sensation intact Skin: no Rash Psych/Mental Status: Mood NL Assessment/Plan - Problem List Patient Problems: All Active Problems ABNORMAL LAB RESULTS (Acute) - Assessment Assessment: DENNIS Type 2 DM Ess Htn Psychosis Anxiety Cardiac Arrythmia S/P AICD CAD Met Acid Hypernatremia iatrogenic Hypokalemia - Plan Plan: Lab - Result Diagrams 11/25/17 07:40 11/25/17 07:40 Current Medications Acetaminophen (Tylenol) 650 mg PO Q4HR PRN PRN Reason: PAIN Stop: 01/21/18 17:18 Albuterol Sulfate (Albuterol 2.5mg/3ml Neb Ud) 2.5 mg HHN QIDRT [facility] Stop: 01/21/18 18:59 Last Admin: 11/25/17 13:12 Dose: 2.5 mg Ascorbic Acid (Vitamin C) 500 mg PO DAILY [facility] Stop: 01/22/18 08:59 Last Admin: 11/25/17 09:41 Dose: 500 mg Benztropine Mesylate (Cogentin) 1 mg PO BID [facility] Stop: 01/22/18 08:59 Last Admin: 11/25/17 09:42 Dose: 1 mg Citric Acid/Sodium Citrate (Bicitra) 30 ml PO BID [facility] Stop: 01/23/18 16:59 Last Admin: 11/25/17 09:42 Dose: 30 ml Docusate Sodium (Colace) 100 mg PO DAILY [facility] Stop: 01/22/18 08:59 Last Admin: 11/25/17 09:42 Dose: 100 mg Gabapentin (Neurontin) 300 mg PO TID [facility] Stop: 01/21/18 20:59 Last Admin: 11/25/17 13:34 Dose: 300 mg Guaifenesin (Robitussin) 200 mg PO Q4HR PRN PRN Reason: Cough or Congestion Stop: 01/21/18 17:20 Haloperidol (Haldol) 1 mg PO BID [facility] PRN Reason: Protocol Stop: 01/22/18 08:59 Last Admin: 11/25/17 09:43 Dose: 1 mg Dextrose/Sodium Chloride (D5-0.9%Ns) 1,000 mls @ 150 mls/hr IV .Q6H40M [facility] Stop: 01/21/18 21:13 Last Admin: 11/25/17 08:23 Dose: 150 mls/hr Magnesium Sulfate (Magnesium Sulfate Premix) 2 gm in 50 mls @ 25 mls/hr IV X1 [facility] Stop: 11/25/17 15:31 Last Admin: 11/25/17 14:41 Dose: 25 mls/hr Insulin Aspart (Novolog) 0 units SUBQ ACHS [facility] PRN Reason: Protocol Stop: 01/21/18 20:59 Last Admin: 11/25/17 12:35 Dose: Not Given Ipratropium [place] (Atrovent Neb 0.5mg/2.5ml) 0.5 mg HHN QIDRT [facility] Stop: 01/21/18 18:59 Last Admin: 11/25/17 13:12 Dose: 0.5 mg Lorazepam (Ativan) 1 mg IV Q4H PRN; Protocol PRN Reason: Agitation Stop: 01/22/18 13:05 Last Admin: 11/25/17 11:14 Dose: 1 mg Magnesium Hydroxide (Milk Of Magnesia) 30 ml PO DAILY PRN PRN Reason: Constipation Stop: 01/21/18 17:18 Miscellaneous (Clinical Monitoring) 1 ea MC DAILY PRN PRN Reason: RENAL Stop: 01/22/18 07:35 Sevelamer Carbonate (Renvela) 800 mg PO TIDWM [facility] Stop: 01/23/18 16:59 Last Admin: 11/25/17 13:34 Dose: 800 mg Zinc Sulfate (Zinc Sulfate) 220 mg PO DAILY [facility] Stop: 01/22/18 08:59 Last Admin: 11/25/17 09:43 Dose: 220 mg Lab - Result Diagrams 12/03/17 08:30 12/03/17 06:00 Kidney fnc continues to improve agree w/ K, Mg replacement IVF switch to D5W f/u electrolytes, cbc DC bicitra Nutritional Asmnt/Malnutr-PDOC - Dietary Evaluation Malnutrition Findings (Please click <Entered> for more info): Nutritional Asmnt/Malnutrition Start: 11/23/17 15: 36 Text: Status: Complete Freq: Document 11/23/17 15:43 JUANG (Rec: 11/23/17 16:04 DEBBY [email or web address]) Nutritional Asmnt/Malnutrition Patient General Information Nutritional Screening High Risk Consult Pertinent Medical Hx/Surgical Hx DM, psychosis, HTN, anxiety, chest defibrillator, COPD, CHF , CAD, alzheimer's Subjective Information Consult received for Issa Solis . Pt was transfered from [facility] unit for droped BP. Pt seen resting in bed at the time of visit. Spoke with RN, pt consumed 50% of oatmeal and [place] toast for breakfast, " do not like the egg". Current Diet Order/ Nutrition Support Pureed, CCHO Pertinent Medications Vitamin C, D5-0.9% Ns, colace, dopamine, novolog, zinc Pertinent Labs 11/23 Na 138, K 3.9, Cl 107, BUN 78, Cr 10.2, glucose 101, POC 101-168 since adm, A1c 6.8, Ca 8.1, Phos 7.4, mg 1.9 Nutritional Hx/Data Height 1.78 m Height (Calculated Centimeters) 177.8 Current Weight (lbs) 111.584 kg Weight (Calculated Kilograms) 111.6 Weight (Calculated Grams) 162549.7 [place] Body Weight 166 % [place] Body Weight 148 Body Mass Index (BMI) 35.3 Weight Status Obese GI Symptoms GI Symptoms None Last BM no records Skin Integrity/Comment: edema 2+ pitting to left/right foot ulceration to bilateral feet Estimated Nutritional Goals BEE in Kcals: Adj wt of IBW Calories/Kcals/Kg 25-30 Kcals Calculated [id number] considering bedbound and wound Protein: Adj wt of IBW Protein g/k.2-1.4 Protein Calculated 101-118 Fluid: ml 0-2532ml (1ml/kcal) Nutritional Problem 2. Problem Problem increased nutrition needs ( calorie and protein) Etiology increased metabolic demand for wound healing Signs/Symptoms: ulceration to bilateral legs 1. Problem Problem altered nutrition related lab values Etiology renal dysfunction, hx of DM Signs/Symptoms: BUN 78, Cr 10.2, POC 101-168, A1c 6.8 Malnutrition Alert Protein-Calorie Malnutrition N/A Is there a minimum of two criteria No selected? Query Text:Check all the applicable criteria. A minimum of two criteria are recommended for diagnosis of either severe or non-severe malnutrition. Intervention/Recommendation Comments 1. Recommend renal CCHO diet considering elevated renal labs 2. Monitor PO intake, wt, labs and skin integrity 3. F/U as high risk in 2-3 days, 11/25-11/26 Expected Outcomes/Goals Expected Outcomes/Goals 1. PO intake to meet at least 75% of nutritional needs. 2. Wt stability, skin to remain intact, labs to improve .
[2017-12-03] MEDS ORDERED: Potassium Chloride 20 mEq ER Tab PO ONE (13:32)
--- NOTE | 2017-12-03 16:24 | Internal Medicine Prog Note ---
Internal Medicine Subjective - Subjective Service Date: 12/03/17 Patient is:: awake, agitated, confused Patient Complaints of:: congestion Per staff patient has:: no adverse event, poor appetite, poor oral intake, agitated, combative, noncompliant, refusing care, refusing labs Internal Medicine Objective - Results Result Diagrams: 12/03/17 08:30 12/03/17 06:00 Recent Labs: Laboratory Last Values WBC 7.0 Th/cmm (4.8-10.8) D 12/03/17 08:30 RBC 3.17 Mil/cmm (3.80-5.80) L 12/03/17 08:30 Hgb 10.4 gm/dL (12-16) L 12/03/17 08:30 Hct 30.3 % (41.0-60) L 12/03/17 08:30 MCV 95.3 fl (80-99) 12/03/17 08:30 MCH 32.8 pg (27.0-31.0) H 12/03/17 08:30 MCHC Differential 34.4 pg (28.0-36.0) 12/03/17 08:30 RDW 13.4 % (11.5-20.0) 12/03/17 08:30 Plt Count 153 Th/cmm (150-400) D 12/03/17 08:30 MPV 8.1 fl 12/03/17 08:30 Neutrophils % 62.8 % (40.0-80.0) 12/03/17 08:30 Lymphocytes % 22.0 % (20.0-50.0) 12/03/17 08:30 Monocytes % 10.7 % (2.0-10.0) H 12/03/17 08:30 Eosinophils % 3.6 % (0.0-5.0) 12/03/17 08:30 Basophils % 0.9 % (0.0-2.0) 12/03/17 08:30 Eos Smear Source URINE 11/25/17 23:16 Eos Smear Total Cells FEW EOSINOPHILS SEEN (NONE SEEN) 11/25/17 23:16 Specimen Source ARTERIAL 11/22/17 17:19 Sample Site Left Radial 11/22/17 17:19 pH 7.36 (7.35-7.45) 11/22/17 17:19 pCO2 35.0 mmHg (35.0-45.0) 11/22/17 17:19 pO2 77.0 mmHg (80.0-100.0) L 11/22/17 17:19 HCO3 21.0 mEq/L (20.0-26.0) 11/22/17 17:19 Base Excess 5.0 mEq/L (-3.0-3.0) H 11/22/17 17:19 O2 Saturation 95.0 % (92.0-100.0) 11/22/17 17:19 Seven Test Y 11/22/17 17:19 Vent Rate N/A 11/22/17 17:19 Inspired O2 21 11/22/17 17:19 Tidal Volume A/N 11/22/17 17:19 PEEP N/A 11/22/17 17:19 Pressure (ins/psv/peep) N/A 11/22/17 17:19 Critical Value O.SAMPSON 11/22/17 17:19 Sodium 140 mEq/L (136-145) 12/03/17 06:00 Potassium 3.3 mEq/L (3.5-5.1) L 12/03/17 06:00 Chloride 104 mEq/L (98-107) 12/03/17 06:00 Carbon Dioxide 29.5 mEq/L (21.0-31.0) 12/03/17 06:00 Anion Gap 9.8 (7.0-16.0) 12/03/17 06:00 BUN 14 mg/dL (7-25) 12/03/17 06:00 Creatinine 1.3 mg/dL (0.7-1.3) 12/03/17 06:00 Est GFR ( Amer) TNP 12/03/17 06:00 Est GFR (Non-Af Amer) TNP 12/03/17 06:00 BUN/Creatinine Ratio 10.8 12/03/17 06:00 Glucose 106 mg/dL (70-105) H 12/03/17 06:00 POC Glucose 244 MG/DL (70 - 105) H 12/02/17 05:54 Hemoglobin A1c % 6.8 % (4.0-6.0) H 11/23/17 08:30 Plasma/Ser Osmolality 322 mOsmol/kg (280-301) H 11/25/17 07:40 Uric Acid 8.6 mg/dL (4.4-7.6) H 11/29/17 06:10 Calcium 8.7 mg/dL (8.6-10.3) 12/03/17 06:00 Phosphorus 2.9 mg/dL (2.5-5.0) 11/29/17 06:10 Magnesium 2.0 mg/dL (1.9-2.7) 11/28/17 06:40 Total Bilirubin 0.6 mg/dL (0.3-1.0) 11/29/17 06:10 AST 30 U/L (13-39) 11/29/17 06:10 ALT 24 U/L (7-52) 11/29/17 06:10 Alkaline Phosphatase 62 U/L (34-104) 11/29/17 06:10 Ammonia 43 umol/L (16-53) 11/28/17 06:40 B-Natriuretic Peptide 629.0 pg/mL (5.0-100.0) H 11/28/17 06:40 Total Protein 7.1 gm/dL (6.0-8.3) 11/29/17 06:10 Albumin 2.8 gm/dL (4.2-5.5) L 11/29/17 06:10 Globulin 4.3 gm/dL 11/29/17 06:10 Albumin/Globulin Ratio 0.7 (1.0-1.8) L 11/29/17 06:10 Vitamin B12 730 pg/mL (232-1245) 11/28/17 06:40 Folic Acid 11.3 ng/mL (>3.0) 11/28/17 06:40 TSH 2.01 uIU/ml (0.34-5.60) 11/29/17 06:10 Urine Source CATH 11/22/17 22:05 Urine Color BROWN 11/22/17 22:05 Urine Clarity HAZY (CLEAR) 11/22/17 22:05 Urine pH 5.0 (4.6 - 8.0) 11/22/17 22:05 Ur Specific [place] >= 1.030 (1.005-1.030) 11/22/17 22:05 Urine Protein NEGATIVE mg/dL (NEGATIVE) 11/22/17 22:05 Urine Glucose (UA) NEGATIVE mg/dL (NEGATIVE) 11/22/17 22:05 Urine Ketones TRACE mg/dL (NEGATIVE) 11/22/17 22:05 Urine Blood TRACE (NEGATIVE) 11/22/17 22:05 Urine Nitrate NEGATIVE (NEGATIVE) 11/22/17 22:05 Urine Bilirubin SMALL (NEGATIVE) H 11/22/17 22:05 Urine Ictotest NEGATIVE (NEGATIVE) 11/22/17 22:05 Urine Urobilinogen 0.2 E.U./dL (0.2 - 1.0) 11/22/17 22:05 Ur Leukocyte Esterase NEGATIVE (NEGATIVE) 11/22/17 22:05 Urine RBC 0-2 /hpf (0-5) H 11/22/17 22:05 Urine WBC 0-2 /hpf (0-5) 11/22/17 22:05 Ur Epithelial Cells FEW /lpf (FEW) 11/22/17 22:05 Urine Bacteria FEW /hpf (NONE SEEN) 11/22/17 22:05 Ur Random Sodium 62 mmol/L 11/25/17 23:16 Urine Creatinine 109.0 mg/dl (39.0-259.0) 11/25/17 23:16 Urine Microalbumin 19.3 ug/mL (Not Estab.) 11/25/17 10:50 - Physical Exam Vitals and I&O: Vital Signs Temp 97.9 F 12/03/17 05:34 Pulse 75 12/03/17 15:50 Resp 20 12/03/17 15:50 BP 108/54 12/03/17 05:34 Pulse Ox 98 12/03/17 15:50 Intake & Output 12/02/17 12/03/17 12/03/17 18:59 06:59 18:59 Intake Total 16.667 1000 Balance 16.667 1000 Weight (lbs) 250 lb 250 lb Intake: Intake, IV Amount 16.667 1000 Dextrose 5% 1,000 ml @ 16.667 125 mls/hr IV .Q8H [facility] Rx #:[id number] Dextrose 5% 1,000 ml @ 80 1000 mls/hr IV .[id number] [facility] Rx#:[id number] Other: # Voids 2 # Bowel Movements 0 Active Medications: Current Medications Acetaminophen (Tylenol) 650 mg PO Q4HR PRN PRN Reason: PAIN Stop: 01/21/18 17:18 Last Admin: 11/26/17 20:58 Dose: 650 mg Albuterol Sulfate (Albuterol 2.5mg/3ml Neb Ud) 2.5 mg HHN QIDRT [facility] Stop: 01/21/18 18:59 Last Admin: 12/03/17 15:52 Dose: 2.5 mg Ascorbic Acid (Vitamin C) 500 mg PO DAILY [facility] Stop: 01/22/18 08:59 Last Admin: 12/03/17 10:29 Dose: 500 mg Docusate Sodium (Colace) 100 mg PO DAILY [facility] Stop: 01/22/18 08:59 Last Admin: 12/03/17 10:29 Dose: 100 mg Gabapentin (Neurontin) 300 mg PO TID [facility] Stop: 01/21/18 20:59 Last Admin: 12/03/17 10:29 Dose: 300 mg Guaifenesin (Robitussin) 200 mg PO Q4HR PRN PRN Reason: Cough or Congestion Stop: 01/21/18 17:20 Dextrose (D5w) 1,000 mls @ 80 mls/hr IV .[id number] [facility] Stop: 01/27/18 19:51 Last Admin: 12/03/17 10:29 Dose: 80 mls/hr Insulin Aspart (Novolog) 0 units SUBQ ACHS [facility] PRN Reason: Protocol Stop: 01/21/18 20:59 Last Admin: 12/03/17 12:20 Dose: Not Given Ipratropium [place] (Atrovent Neb 0.5mg/2.5ml) 0.5 mg N QIDRT [facility] Stop: 01/21/18 18:59 Last Admin: 12/03/17 15:52 Dose: 0.5 mg Lorazepam (Ativan) 1 mg IV Q4H PRN; Protocol PRN Reason: Agitation Stop: 01/22/18 13:05 Last Admin: 12/02/17 13:57 Dose: 1 mg Magnesium Hydroxide (Milk Of Magnesia) 30 ml PO DAILY PRN PRN Reason: Constipation Stop: 01/21/18 17:18 Miscellaneous (Clinical Monitoring) 1 ea MC DAILY PRN PRN Reason: RENAL Stop: 01/22/18 07:35 Quetiapine Fumarate (Seroquel) 12.5 mg PO [facility] PRN Reason: Protocol Stop: 01/29/18 20:59 Last Admin: 12/01/17 21:05 Dose: 12.5 mg Sevelamer Carbonate (Renvela) 800 mg PO TIDWM [facility] Stop: 01/23/18 16:59 Last Admin: 12/03/17 12:41 Dose: 800 mg Zinc Sulfate (Zinc Sulfate) 220 mg PO DAILY [facility] Stop: 01/22/18 08:59 Last Admin: 12/03/17 10:29 Dose: 220 mg General: congested, demented, disheveled, appears older HEENT: NC/AT Neck: Supple Lungs: CTAB Cardiovascular: RRR, Normal S1, Normal S2, without murmur Abdomen: soft, non-tender, non-distended, positive bowel sound Extremities: excoriation, ecchymosis Neurological: bedbound Internal Medicine Assmt/Plan - Assessment Assessment: hypotension aloc possible pna acute renal failure multiple open wounds dm2 psychosis htn chest defibrillator status copd chf cad - Plan Plan: monitor bun/crea sitter for safety follow up labs in am continue current plan of care Nutritional Asmnt/Malnutr-PDOC - Dietary Evaluation Malnutrition Findings (Please click <Entered> for more info): Nutritional Asmnt/Malnutrition Start: 11/23/17 15: 36 Text: Status: Complete Freq: Document 11/23/17 15:43 DEBBY (Rec: 11/23/17 16:04 DEBBY [email or web address]) Nutritional Asmnt/Malnutrition Patient General Information Nutritional Screening High Risk Consult Pertinent Medical Hx/Surgical Hx DM, psychosis, HTN, anxiety, chest defibrillator, COPD, CHF , CAD, alzheimer's Subjective Information Consult received for Issa Solis . Pt was transfered from [facility] unit for droped BP. Pt seen resting in bed at the time of visit. Spoke with RN, pt consumed 50% of oatmeal and [place] toast for breakfast, " do not like the egg". Current Diet Order/ Nutrition Support Pureed, CCHO Pertinent Medications Vitamin C, D5-0.9% Ns, colace, dopamine, novolog, zinc Pertinent Labs /3 Na 138, K 3.9, Cl 107, BUN 78, Cr 10.2, glucose 101, POC 101-168 since adm, A1c 6.8, Ca 8.1, Phos 7.4, mg 1.9 Nutritional Hx/Data Height 5 ft 10 in Height (Calculated Centimeters) 177.8 Current Weight (lbs) 246 lb Weight (Calculated Kilograms) 111.6 Weight (Calculated Grams) 599362.7 [place] Body Weight 166 % [place] Body Weight 148 Body Mass Index (BMI) 35.3 Weight Status Obese GI Symptoms GI Symptoms None Last BM no records Skin Integrity/Comment: edema 2+ pitting to left/right foot ulceration to bilateral feet Estimated Nutritional Goals BEE in Kcals: Adj wt of IBW Calories/Kcals/Kg 25-30 Kcals Calculated [id number] considering bedbound and wound Protein: Adj wt of IBW Protein g/k.2-1.4 Protein Calculated 101-118 Fluid: ml 2110-2532ml (1ml/kcal) Nutritional Problem 2. Problem Problem increased nutrition needs ( calorie and protein) Etiology increased metabolic demand for wound healing Signs/Symptoms: ulceration to bilateral legs 1. Problem Problem altered nutrition related lab values Etiology renal dysfunction, hx of DM Signs/Symptoms: BUN 78, Cr 10.2, POC 101-168, A1c 6.8 Malnutrition Alert Protein-Calorie Malnutrition N/A Is there a minimum of two criteria No selected? Query Text:Check all the applicable criteria. A minimum of two criteria are recommended for diagnosis of either severe or non-severe malnutrition. Intervention/Recommendation Comments 1. Recommend renal CCHO diet considering elevated renal labs 2. Monitor PO intake, wt, labs and skin integrity 3. F/U as high risk in 2-3 days, 5-11/26 Expected Outcomes/Goals Expected Outcomes/Goals 1. PO intake to meet at least 75% of nutritional needs. 2. Wt stability, skin to remain intact, labs to improve .
[2017-12-04] MEDS: Dextrose 5% 1,000 ML IV SCH ×2 (05:33→21:57)
[2017-12-04] MEDS: INSULIN ASPART, RECOMBINANT 100 UNITS/ML SUBQ SCH ×4 (07:00→21:45)
[2017-12-04] MEDS: Ipratropium Neb 0.5 mg/2.5 mL UD HHN SCH ×3 (07:33→19:26)
[2017-12-04] MEDS: Albuterol Nebulizer 2.5mg/3mL HHN SCH ×3 (07:33→19:26)
[2017-12-04 07:38] LABS: ANION GAP 8.3 (7.0-16.0); BUN - UREA NITROGEN 13 mg/dL (7-25); CALCIUM SERUM 8.9 mg/dL (8.6-10.3); CARBON DIOXIDE 30.3 mEq/L (21.0-31.0); CHLORIDE 102 mEq/L (98-107); CREATININE - SERUM 1.2 mg/dL (0.7-1.3); GLUCOSE 113 mg/dL (70-105); MAGNESIUM 1.2 mg/dL (1.9-2.7); POTASSIUM SERUM 3.6 mEq/L (3.5-5.1); SODIUM SERUM 137 mEq/L (136-145)
[2017-12-04 07:55] LABS: % BASOPHILS 0.4 % (0.0-2.0); % EOSINOPHILS 3.8 % (0.0-5.0); % LYMPHOCYTES 19.9 % (20.0-50.0); % MONOCYTES 11.3 % (2.0-10.0); % NEUTROPHILS 64.6 % (40.0-80.0); EOSINOPHILE ABSOLUTE 0.3 Th/cmm (0.1-0.4); HEMOGLOBIN 10.5 gm/dL (12-16); LYMPHOCYTE ABSOLUTE 1.5 Th/cmm (1.5-3.0); MEAN CELL VOLUME 95.3 fl (80-99); MEAN CORPUSCULAR HEMOGLOBIN 32.3 pg (27.0-31.0); MEAN CORPUSCULAR HGB CONC 33.9 pg (28.0-36.0); MEAN PLATELET VOLUME 9.6 fl; MONOCYTE ABSOLUTE 0.8 Th/cmm (0.3-1.0); NEUTROPHILE ABSOLUTE 4.7 Th/cmm (1.8-8.0); PLATELET COUNT 141 Th/cmm (150-400); RED BLOOD COUNT 3.25 Mil/cmm (3.80-5.80); WHITE BLOOD COUNT 7.3 Th/cmm (4.8-10.8)
[2017-12-04] MEDS: Multivitamin w/ Minerals Tab PO SCH (09:20)
[2017-12-04] MEDS ORDERED: Mag Sulfate 2gm/50mL Premix 2 GM/50 ML BAG IV ONE (09:39)
--- NOTE | 2017-12-04 13:16 | Internal Medicine Prog Note ---
Internal Medicine Subjective - Subjective Service Date: 12/04/17 Patient is:: awake, agitated, confused Patient Complaints of:: congestion Per staff patient has:: no adverse event, poor appetite, poor oral intake, agitated, combative, noncompliant, refusing care, refusing labs Internal Medicine Objective - Results Result Diagrams: 12/04/17 06:48 12/04/17 06:48 Recent Labs: Laboratory Last Values WBC 7.3 Th/cmm (4.8-10.8) 12/04/17 06:48 RBC 3.25 Mil/cmm (3.80-5.80) L 12/04/17 06:48 Hgb 10.5 gm/dL (12-16) L 12/04/17 06:48 Hct 31.0 % (41.0-60) L 12/04/17 06:48 MCV 95.3 fl (80-99) 12/04/17 06:48 MCH 32.3 pg (27.0-31.0) H 12/04/17 06:48 MCHC Differential 33.9 pg (28.0-36.0) 12/04/17 06:48 RDW 13.0 % (11.5-20.0) 12/04/17 06:48 Plt Count 141 Th/cmm (150-400) L 12/04/17 06:48 MPV 9.6 fl 12/04/17 06:48 Neutrophils % 64.6 % (40.0-80.0) 12/04/17 06:48 Lymphocytes % 19.9 % (20.0-50.0) L 12/04/17 06:48 Monocytes % 11.3 % (2.0-10.0) H 12/04/17 06:48 Eosinophils % 3.8 % (0.0-5.0) 12/04/17 06:48 Basophils % 0.4 % (0.0-2.0) 12/04/17 06:48 Eos Smear Source URINE 11/25/17 23:16 Eos Smear Total Cells FEW EOSINOPHILS SEEN (NONE SEEN) 11/25/17 23:16 Specimen Source ARTERIAL 11/22/17 17:19 Sample Site Left Radial 11/22/17 17:19 pH 7.36 (7.35-7.45) 11/22/17 17:19 pCO2 35.0 mmHg (35.0-45.0) 11/22/17 17:19 pO2 77.0 mmHg (80.0-100.0) L 11/22/17 17:19 HCO3 21.0 mEq/L (20.0-26.0) 11/22/17 17:19 Base Excess 5.0 mEq/L (-3.0-3.0) H 11/22/17 17:19 O2 Saturation 95.0 % (92.0-100.0) 11/22/17 17:19 Seven Test Y 11/22/17 17:19 Vent Rate N/A 11/22/17 17:19 Inspired O2 21 11/22/17 17:19 Tidal Volume A/N 11/22/17 17:19 PEEP N/A 11/22/17 17:19 Pressure (ins/psv/peep) N/A 11/22/17 17:19 Critical Value O.SAMPSON 11/22/17 17:19 Sodium 137 mEq/L (136-145) 12/04/17 06:48 Potassium 3.6 mEq/L (3.5-5.1) 12/04/17 06:48 Chloride 102 mEq/L (98-107) 12/04/17 06:48 Carbon Dioxide 30.3 mEq/L (21.0-31.0) 12/04/17 06:48 Anion Gap 8.3 (7.0-16.0) 12/04/17 06:48 BUN 13 mg/dL (7-25) 12/04/17 06:48 Creatinine 1.2 mg/dL (0.7-1.3) 12/04/17 06:48 Est GFR ( Amer) TNP 12/04/17 06:48 Est GFR (Non-Af Amer) TNP 12/04/17 06:48 BUN/Creatinine Ratio 10.8 12/04/17 06:48 Glucose 113 mg/dL (70-105) H 12/04/17 06:48 POC Glucose 244 MG/DL (70 - 105) H 12/02/17 05:54 Hemoglobin A1c % 6.8 % (4.0-6.0) H 11/23/17 08:30 Plasma/Ser Osmolality 322 mOsmol/kg (280-301) H 11/25/17 07:40 Uric Acid 8.6 mg/dL (4.4-7.6) H 11/29/17 06:10 Calcium 8.9 mg/dL (8.6-10.3) 12/04/17 06:48 Phosphorus 2.9 mg/dL (2.5-5.0) 11/29/17 06:10 Magnesium 1.2 mg/dL (1.9-2.7) L 12/04/17 06:48 Total Bilirubin 0.6 mg/dL (0.3-1.0) 11/29/17 06:10 AST 30 U/L (13-39) 11/29/17 06:10 ALT 24 U/L (7-52) 11/29/17 06:10 Alkaline Phosphatase 62 U/L (34-104) 11/29/17 06:10 Ammonia 43 umol/L (16-53) 11/28/17 06:40 B-Natriuretic Peptide 629.0 pg/mL (5.0-100.0) H 11/28/17 06:40 Total Protein 7.1 gm/dL (6.0-8.3) 11/29/17 06:10 Albumin 2.8 gm/dL (4.2-5.5) L 11/29/17 06:10 Globulin 4.3 gm/dL 11/29/17 06:10 Albumin/Globulin Ratio 0.7 (1.0-1.8) L 11/29/17 06:10 Vitamin B12 730 pg/mL (232-1245) 11/28/17 06:40 Folic Acid 11.3 ng/mL (>3.0) 11/28/17 06:40 TSH 2.01 uIU/ml (0.34-5.60) 11/29/17 06:10 Urine Source CATH 11/22/17 22:05 Urine Color BROWN 11/22/17 22:05 Urine Clarity HAZY (CLEAR) 11/22/17 22:05 Urine pH 5.0 (4.6 - 8.0) 11/22/17 22:05 Ur Specific [place] >= 1.030 (1.005-1.030) 11/22/17 22:05 Urine Protein NEGATIVE mg/dL (NEGATIVE) 11/22/17 22:05 Urine Glucose (UA) NEGATIVE mg/dL (NEGATIVE) 11/22/17 22:05 Urine Ketones TRACE mg/dL (NEGATIVE) 11/22/17 22:05 Urine Blood TRACE (NEGATIVE) 11/22/17 22:05 Urine Nitrate NEGATIVE (NEGATIVE) 11/22/17 22:05 Urine Bilirubin SMALL (NEGATIVE) H 11/22/17 22:05 Urine Ictotest NEGATIVE (NEGATIVE) 11/22/17 22:05 Urine Urobilinogen 0.2 E.U./dL (0.2 - 1.0) 11/22/17 22:05 Ur Leukocyte Esterase NEGATIVE (NEGATIVE) 11/22/17 22:05 Urine RBC 0-2 /hpf (0-5) H 11/22/17 22:05 Urine WBC 0-2 /hpf (0-5) 11/22/17 22:05 Ur Epithelial Cells FEW /lpf (FEW) 11/22/17 22:05 Urine Bacteria FEW /hpf (NONE SEEN) 11/22/17 22:05 Ur Random Sodium 62 mmol/L 11/25/17 23:16 Urine Creatinine 109.0 mg/dl (39.0-259.0) 11/25/17 23:16 Urine Microalbumin 19.3 ug/mL (Not Estab.) 11/25/17 10:50 - Physical Exam Vitals and I&O: Vital Signs Temp 98.3 F 12/04/17 00:00 Pulse 71 12/04/17 11:45 Resp 16 12/04/17 11:45 BP 143/59 12/04/17 00:00 Pulse Ox 93 12/04/17 11:45 Intake & Output 12/03/17 12/04/17 12/04/17 18:59 06:59 18:59 Intake Total 1500 Balance 1500 Weight (lbs) 250 lb 250 lb 250 lb Intake: Intake, IV Amount 1000 Dextrose 5% 1,000 ml @ 80 1000 mls/hr IV .[id number] [facility] Rx#:[id number] Oral 500 Other: # Voids 3 # Bowel Movements 0 Active Medications: Current Medications Acetaminophen (Tylenol) 650 mg PO Q4HR PRN PRN Reason: PAIN Stop: 01/21/18 17:18 Last Admin: 12/03/17 20:56 Dose: 650 mg Albuterol Sulfate (Albuterol 2.5mg/3ml Neb Ud) 2.5 mg HHN QIDRT [facility] Stop: 01/21/18 18:59 Last Admin: 12/04/17 07:33 Dose: 2.5 mg Ascorbic Acid (Vitamin C) 500 mg PO DAILY [facility] Stop: 01/22/18 08:59 Last Admin: 12/04/17 09:20 Dose: 500 mg Docusate Sodium (Colace) 100 mg PO DAILY [facility] Stop: 01/22/18 08:59 Last Admin: 12/04/17 09:20 Dose: 100 mg Gabapentin (Neurontin) 300 mg PO TID [facility] Stop: 01/21/18 20:59 Last Admin: 12/04/17 13:05 Dose: 300 mg Guaifenesin (Robitussin) 200 mg PO Q4HR PRN PRN Reason: Cough or Congestion Stop: 01/21/18 17:20 Dextrose (D5w) 1,000 mls @ 80 mls/hr IV .[id number] [facility] Stop: 01/27/18 19:51 Last Admin: 12/04/17 05:33 Dose: 80 mls/hr Insulin Aspart (Novolog) 0 units SUBQ ACHS [facility] PRN Reason: Protocol Stop: 01/21/18 20:59 Last Admin: 12/04/17 13:05 Dose: Not Given Ipratropium [place] (Atrovent Neb 0.5mg/2.5ml) 0.5 mg HHN QIDRT [facility] Stop: 01/21/18 18:59 Last Admin: 12/04/17 07:33 Dose: 0.5 mg Lorazepam (Ativan) 1 mg IV Q4H PRN; Protocol PRN Reason: Agitation Stop: 01/22/18 13:05 Last Admin: 12/04/17 05:08 Dose: 1 mg Magnesium Hydroxide (Milk Of Magnesia) 30 ml PO DAILY PRN PRN Reason: Constipation Stop: 01/21/18 17:18 Miscellaneous (Clinical Monitoring) 1 ea MC DAILY PRN PRN Reason: RENAL Stop: 01/22/18 07:35 Quetiapine Fumarate (Seroquel) 12.5 mg PO [facility] PRN Reason: Protocol Stop: 01/29/18 20:59 Last Admin: 12/03/17 20:52 Dose: 12.5 mg Sevelamer Carbonate (Renvela) 800 mg PO TIDWM [facility] Stop: 01/23/18 16:59 Last Admin: 12/04/17 13:05 Dose: 800 mg Zinc Sulfate (Zinc Sulfate) 220 mg PO DAILY [facility] Stop: 01/22/18 08:59 Last Admin: 12/04/17 09:20 Dose: 220 mg General: congested, demented, disheveled, appears older HEENT: NC/AT Neck: Supple Lungs: CTAB Cardiovascular: RRR, Normal S1, Normal S2, without murmur Abdomen: soft, non-tender, non-distended, positive bowel sound Extremities: excoriation, ecchymosis Neurological: bedbound Internal Medicine Assmt/Plan - Assessment Assessment: hypotension aloc possible pna acute renal failure multiple open wounds dm2 psychosis htn chest defibrillator status copd chf cad - Plan Plan: monitor bun/crea sitter for safety follow up labs in am continue current plan of care Nutritional Asmnt/Malnutr-PDOC - Dietary Evaluation Malnutrition Findings (Please click <Entered> for more info): Nutritional Asmnt/Malnutrition Start: 11/23/17 15: 36 Text: Status: Complete Freq: Document 11/23/17 15:43 LCHENG (Rec: 11/23/17 16:04 LCHENG [email or web address]) Nutritional Asmnt/Malnutrition Patient General Information Nutritional Screening High Risk Consult Pertinent Medical Hx/Surgical Hx DM, psychosis, HTN, anxiety, chest defibrillator, COPD, CHF , CAD, alzheimer's Subjective Information Consult received for Issa Solis . [facility] for [facility]ed BP. Pt seen resting in bed at the time of visit. Spoke with RN, pt consumed 50% of oatmeal and [place] toast for breakfast, " do not like the egg". Current Diet Order/ Nutrition Support Pureed, CCHO Pertinent Medications Vitamin C, D5-0.9% Ns, colace, dopamine, novolog, zinc Pertinent Labs / Na 138, K 3.9, Cl 107, BUN 78, Cr 10.2, glucose 101, POC 101-168 since adm, A1c 6.8, Ca 8.1, Phos 7.4, mg 1.9 Nutritional Hx/Data Height 5 ft 10 in Height (Calculated Centimeters) 177.8 Current Weight (lbs) 246 lb Weight (Calculated Kilograms) 111.6 Weight (Calculated Grams) 594890.7 [place] Body Weight 166 % [place] Body Weight 148 Body Mass Index (BMI) 35.3 Weight Status Obese GI Symptoms GI Symptoms None Last BM no records Skin Integrity/Comment: edema 2+ pitting to left/right foot ulceration to bilateral feet Estimated Nutritional Goals BEE in Kcals: Adj wt of IBW Calories/Kcals/Kg 25-30 Kcals Calculated 8019-5702 considering bedbound and wound Protein: Adj wt of IBW Protein g/k.2-1.4 Protein Calculated 101-118 Fluid: ml 2109-253ml (1ml/kcal) Nutritional Problem 2. Problem Problem increased nutrition needs ( calorie and protein) Etiology increased metabolic demand for wound healing Signs/Symptoms: ulceration to bilateral legs 1. Problem Problem altered nutrition related lab values Etiology renal dysfunction, hx of DM Signs/Symptoms: BUN 78, Cr 10.2, POC 101-168, A1c 6.8 Malnutrition Alert Protein-Calorie Malnutrition N/A Is there a minimum of two criteria No selected? Query Text:Check all the applicable criteria. A minimum of two criteria are recommended for diagnosis of either severe or non-severe malnutrition. Intervention/Recommendation Comments 1. Recommend renal CCHO diet considering elevated renal labs 2. Monitor PO intake, wt, labs and skin integrity 3. F/U as high risk in 2-3 days, 5-11/26 Expected Outcomes/Goals Expected Outcomes/Goals 1. PO intake to meet at least 75% of nutritional needs. 2. Wt stability, skin to remain intact, labs to improve .
--- NOTE | 2017-12-04 16:17 | General Progress Note ---
Subjective - Review of Systems Service Date: 12/04/17 Subjective: quiet, comfortable Objective - Results Result Diagrams: 12/04/17 06:48 12/04/17 06:48 Recent Labs: Laboratory Last Values WBC 7.3 Th/cmm (4.8-10.8) 12/04/17 06:48 RBC 3.25 Mil/cmm (3.80-5.80) L 12/04/17 06:48 Hgb 10.5 gm/dL (12-16) L 12/04/17 06:48 Hct 31.0 % (41.0-60) L 12/04/17 06:48 MCV 95.3 fl (80-99) 12/04/17 06:48 MCH 32.3 pg (27.0-31.0) H 12/04/17 06:48 MCHC Differential 33.9 pg (28.0-36.0) 12/04/17 06:48 RDW 13.0 % (11.5-20.0) 12/04/17 06:48 Plt Count 141 Th/cmm (150-400) L 12/04/17 06:48 MPV 9.6 fl 12/04/17 06:48 Neutrophils % 64.6 % (40.0-80.0) 12/04/17 06:48 Lymphocytes % 19.9 % (20.0-50.0) L 12/04/17 06:48 Monocytes % 11.3 % (2.0-10.0) H 12/04/17 06:48 Eosinophils % 3.8 % (0.0-5.0) 12/04/17 06:48 Basophils % 0.4 % (0.0-2.0) 12/04/17 06:48 Eos Smear Source URINE 11/25/17 23:16 Eos Smear Total Cells FEW EOSINOPHILS SEEN (NONE SEEN) 11/25/17 23:16 Specimen Source ARTERIAL 11/22/17 17:19 Sample Site Left Radial 11/22/17 17:19 pH 7.36 (7.35-7.45) 11/22/17 17:19 pCO2 35.0 mmHg (35.0-45.0) 11/22/17 17:19 pO2 77.0 mmHg (80.0-100.0) L 11/22/17 17:19 HCO3 21.0 mEq/L (20.0-26.0) 11/22/17 17:19 Base Excess 5.0 mEq/L (-3.0-3.0) H 11/22/17 17:19 O2 Saturation 95.0 % (92.0-100.0) 11/22/17 17:19 Seven Test Y 11/22/17 17:19 Vent Rate N/A 11/22/17 17:19 Inspired O2 21 11/22/17 17:19 Tidal Volume A/N 11/22/17 17:19 PEEP N/A 11/22/17 17:19 Pressure (ins/psv/peep) N/A 11/22/17 17:19 Critical Value O.SAMPSON 11/22/17 17:19 Sodium 137 mEq/L (136-145) 12/04/17 06:48 Potassium 3.6 mEq/L (3.5-5.1) 12/04/17 06:48 Chloride 102 mEq/L (98-107) 12/04/17 06:48 Carbon Dioxide 30.3 mEq/L (21.0-31.0) 12/04/17 06:48 Anion Gap 8.3 (7.0-16.0) 12/04/17 06:48 BUN 13 mg/dL (7-25) 12/04/17 06:48 Creatinine 1.2 mg/dL (0.7-1.3) 12/04/17 06:48 Est GFR ( Amer) TNP 12/04/17 06:48 Est GFR (Non-Af Amer) TNP 12/04/17 06:48 BUN/Creatinine Ratio 10.8 12/04/17 06:48 Glucose 113 mg/dL (70-105) H 12/04/17 06:48 POC Glucose 244 MG/DL (70 - 105) H 12/02/17 05:54 Hemoglobin A1c % 6.8 % (4.0-6.0) H 11/23/17 08:30 Plasma/Ser Osmolality 322 mOsmol/kg (280-301) H 11/25/17 07:40 Uric Acid 8.6 mg/dL (4.4-7.6) H 11/29/17 06:10 Calcium 8.9 mg/dL (8.6-10.3) 12/04/17 06:48 Phosphorus 2.9 mg/dL (2.5-5.0) 11/29/17 06:10 Magnesium 1.2 mg/dL (1.9-2.7) L 12/04/17 06:48 Total Bilirubin 0.6 mg/dL (0.3-1.0) 11/29/17 06:10 AST 30 U/L (13-39) 11/29/17 06:10 ALT 24 U/L (7-52) 11/29/17 06:10 Alkaline Phosphatase 62 U/L (34-104) 11/29/17 06:10 Ammonia 43 umol/L (16-53) 11/28/17 06:40 B-Natriuretic Peptide 629.0 pg/mL (5.0-100.0) H 11/28/17 06:40 Total Protein 7.1 gm/dL (6.0-8.3) 11/29/17 06:10 Albumin 2.8 gm/dL (4.2-5.5) L 11/29/17 06:10 Globulin 4.3 gm/dL 11/29/17 06:10 Albumin/Globulin Ratio 0.7 (1.0-1.8) L 11/29/17 06:10 Vitamin B12 730 pg/mL (232-1245) 11/28/17 06:40 Folic Acid 11.3 ng/mL (>3.0) 11/28/17 06:40 TSH 2.01 uIU/ml (0.34-5.60) 11/29/17 06:10 Urine Source CATH 11/22/17 22:05 Urine Color BROWN 11/22/17 22:05 Urine Clarity HAZY (CLEAR) 11/22/17 22:05 Urine pH 5.0 (4.6 - 8.0) 11/22/17 22:05 Ur Specific [place] >= 1.030 (1.005-1.030) 11/22/17 22:05 Urine Protein NEGATIVE mg/dL (NEGATIVE) 11/22/17 22:05 Urine Glucose (UA) NEGATIVE mg/dL (NEGATIVE) 11/22/17 22:05 Urine Ketones TRACE mg/dL (NEGATIVE) 11/22/17 22:05 Urine Blood TRACE (NEGATIVE) 11/22/17 22:05 Urine Nitrate NEGATIVE (NEGATIVE) 11/22/17 22:05 Urine Bilirubin SMALL (NEGATIVE) H 11/22/17 22:05 Urine Ictotest NEGATIVE (NEGATIVE) 11/22/17 22:05 Urine Urobilinogen 0.2 E.U./dL (0.2 - 1.0) 11/22/17 22:05 Ur Leukocyte Esterase NEGATIVE (NEGATIVE) 11/22/17 22:05 Urine RBC 0-2 /hpf (0-5) H 11/22/17 22:05 Urine WBC 0-2 /hpf (0-5) 11/22/17 22:05 Ur Epithelial Cells FEW /lpf (FEW) 11/22/17 22:05 Urine Bacteria FEW /hpf (NONE SEEN) 11/22/17 22:05 Ur Random Sodium 62 mmol/L 11/25/17 23:16 Urine Creatinine 109.0 mg/dl (39.0-259.0) 11/25/17 23:16 Urine Microalbumin 19.3 ug/mL (Not Estab.) 11/25/17 10:50 - Physical Exam Vitals and I&O: Vital Signs Temp 98.3 F 12/04/17 00:00 Pulse 78 12/04/17 15:22 Resp 14 12/04/17 15:22 BP 143/59 12/04/17 00:00 Pulse Ox 94 12/04/17 15:22 Intake & Output 12/03/17 12/04/17 12/04/17 18:59 06:59 18:59 Intake Total 1500 Balance 1500 Weight (lbs) 113.398 kg 113.398 kg 113.398 kg Intake: Intake, IV Amount 1000 Dextrose 5% 1,000 ml @ 80 1000 mls/hr IV .[id number] [facility] Rx#:[id number] Oral 500 Other: # Voids 3 # Bowel Movements 0 Active Medications: Current Medications Acetaminophen (Tylenol) 650 mg PO Q4HR PRN PRN Reason: PAIN Stop: 01/21/18 17:18 Last Admin: 12/03/17 20:56 Dose: 650 mg Albuterol Sulfate (Albuterol 2.5mg/3ml Neb Ud) 2.5 mg HHN QIDRT SHAMEKA Stop: 01/21/18 18:59 Last Admin: 12/04/17 15:21 Dose: 2.5 mg Ascorbic Acid (Vitamin C) 500 mg PO DAILY SHAMEKA Stop: 01/22/18 08:59 Last Admin: 12/04/17 09:20 Dose: 500 mg Docusate Sodium (Colace) 100 mg PO DAILY SHAMEKA Stop: 01/22/18 08:59 Last Admin: 12/04/17 09:20 Dose: 100 mg Gabapentin (Neurontin) 300 mg PO TID SHAMEKA Stop: 01/21/18 20:59 Last Admin: 12/04/17 13:05 Dose: 300 mg Guaifenesin (Robitussin) 200 mg PO Q4HR PRN PRN Reason: Cough or Congestion Stop: 01/21/18 17:20 Dextrose (D5w) 1,000 mls @ 80 mls/hr IV .[id number] [facility] Stop: 01/27/18 19:51 Last Admin: 12/04/17 05:33 Dose: 80 mls/hr Insulin Aspart (Novolog) 0 units SUBQ ACHS SHAMEKA PRN Reason: Protocol Stop: 01/21/18 20:59 Last Admin: 12/04/17 13:05 Dose: Not Given Ipratropium Boomer (Atrovent Neb 0.5mg/2.5ml) 0.5 mg HHN QIDRT SHAMEKA Stop: 01/21/18 18:59 Last Admin: 12/04/17 15:21 Dose: 0.5 mg Lorazepam (Ativan) 1 mg IV Q4H PRN; Protocol PRN Reason: Agitation Stop: 01/22/18 13:05 Last Admin: 12/04/17 05:08 Dose: 1 mg Magnesium Hydroxide (Milk Of Magnesia) 30 ml PO DAILY PRN PRN Reason: Constipation Stop: 01/21/18 17:18 Miscellaneous (Clinical Monitoring) 1 ea MC DAILY PRN PRN Reason: RENAL Stop: 01/22/18 07:35 Quetiapine Fumarate (Seroquel) 12.5 mg PO HS SHAMEKA PRN Reason: Protocol Stop: 01/29/18 20:59 Last Admin: 12/03/17 20:52 Dose: 12.5 mg Sevelamer Carbonate (Renvela) 800 mg PO TIDWM [facility] Stop: 01/23/18 16:59 Last Admin: 12/04/17 13:05 Dose: 800 mg Zinc Sulfate (Zinc Sulfate) 220 mg PO DAILY [facility] Stop: 01/22/18 08:59 Last Admin: 12/04/17 09:20 Dose: 220 mg General: Alert, No acute distress HEENT: Atraumatic, Mucous membr. moist/pink Neck: Supple Cardiovascular: Regular rate, Normal S1, Normal S2 Lungs: Clear to auscultation Abdomen: Bowel sounds, Soft Extremities: no Edema Neurological: Sensation intact Skin: no Rash Psych/Mental Status: Mood NL Assessment/Plan - Problem List Patient Problems: All Active Problems ABNORMAL LAB RESULTS (Acute) - Assessment Assessment: DENNIS Type 2 DM Ess Htn Psychosis Anxiety Cardiac Arrythmia S/P AICD CAD Met Acid Hypernatremia iatrogenic Hypokalemia - Plan Plan: Lab - Result Diagrams 11/25/17 07:40 11/25/17 07:40 Current Medications Acetaminophen (Tylenol) 650 mg PO Q4HR PRN PRN Reason: PAIN Stop: 01/21/18 17:18 Albuterol Sulfate (Albuterol 2.5mg/3ml Neb Ud) 2.5 mg HHN QIDRT [facility] Stop: 01/21/18 18:59 Last Admin: 11/25/17 13:12 Dose: 2.5 mg Ascorbic Acid (Vitamin C) 500 mg PO DAILY [facility] Stop: 01/22/18 08:59 Last Admin: 11/25/17 09:41 Dose: 500 mg Benztropine Mesylate (Cogentin) 1 mg PO BID [facility] Stop: 01/22/18 08:59 Last Admin: 11/25/17 09:42 Dose: 1 mg Citric Acid/Sodium Citrate (Bicitra) 30 ml PO BID [facility] Stop: 01/23/18 16:59 Last Admin: 11/25/17 09:42 Dose: 30 ml Docusate Sodium (Colace) 100 mg PO DAILY [facility] Stop: 01/22/18 08:59 Last Admin: 11/25/17 09:42 Dose: 100 mg Gabapentin (Neurontin) 300 mg PO TID [facility] Stop: 01/21/18 20:59 Last Admin: 11/25/17 13:34 Dose: 300 mg Guaifenesin (Robitussin) 200 mg PO Q4HR PRN PRN Reason: Cough or Congestion Stop: 01/21/18 17:20 Haloperidol (Haldol) 1 mg PO BID [facility] PRN Reason: Protocol Stop: 01/22/18 08:59 Last Admin: 11/25/17 09:43 Dose: 1 mg Dextrose/Sodium Chloride (D5-0.9%Ns) 1,000 mls @ 150 mls/hr IV .[id number] [facility] Stop: 01/21/18 21:13 Last Admin: 11/25/17 08:23 Dose: 150 mls/hr Magnesium Sulfate (Magnesium Sulfate Premix) 2 gm in 50 mls @ 25 mls/hr IV X1 ONE Stop: 11/25/17 15:31 Last Admin: 11/25/17 14:41 Dose: 25 mls/hr Insulin Aspart (Novolog) 0 units SUBQ ACHS SHAMEKA PRN Reason: Protocol Stop: 01/21/18 20:59 Last Admin: 11/25/17 12:35 Dose: Not Given Ipratropium Boomer (Atrovent Neb 0.5mg/2.5ml) 0.5 mg HHN QIDRT [facility] Stop: 01/21/18 18:59 Last Admin: 11/25/17 13:12 Dose: 0.5 mg Lorazepam (Ativan) 1 mg IV Q4H PRN; Protocol PRN Reason: Agitation Stop: 01/22/18 13:05 Last Admin: 11/25/17 11:14 Dose: 1 mg Magnesium Hydroxide (Milk Of Magnesia) 30 ml PO DAILY PRN PRN Reason: Constipation Stop: 01/21/18 17:18 Miscellaneous (Clinical Monitoring) 1 ea MC DAILY PRN PRN Reason: RENAL Stop: 01/22/18 07:35 Sevelamer Carbonate (Renvela) 800 mg PO TIDWM [facility] Stop: 01/23/18 16:59 Last Admin: 11/25/17 13:34 Dose: 800 mg Zinc Sulfate (Zinc Sulfate) 220 mg PO DAILY [facility] Stop: 01/22/18 08:59 Last Admin: 11/25/17 09:43 Dose: 220 mg Kidney fnc continues to improve agree w/ K, Mg replacement IVF switch to D5W f/u electrolytes, cbc DC bicitra Nutritional Asmnt/Malnutr-PDOC - Dietary Evaluation Malnutrition Findings (Please click <Entered> for more info): Nutritional Asmnt/Malnutrition Start: 11/23/17 15: 36 Text: Status: Complete Freq: Document 11/23/17 15:43 LCHENG (Rec: 11/23/17 16:04 [email or web address]) Nutritional Asmnt/Malnutrition Patient General Information Nutritional Screening High Risk Consult Pertinent Medical Hx/Surgical Hx DM, psychosis, HTN, anxiety, chest defibrillator, COPD, CHF , CAD, alzheimer's Subjective Information Consult received for Issa Solis . Pt was transfered from [facility] unit for droped BP. Pt seen resting in bed at the time of visit. Spoke with RN, pt consumed 50% of oatmeal and Pashto toast for breakfast, " do not like the egg". Current Diet Order/ Nutrition Support Pureed, CCHO Pertinent Medications Vitamin C, D5-0.9% Ns, colace, dopamine, novolog, zinc Pertinent Labs 11/23 Na 138, K 3.9, Cl 107, BUN 78, Cr 10.2, glucose 101, POC 101-168 since adm, A1c 6.8, Ca 8.1, Phos 7.4, mg 1.9 Nutritional Hx/Data Height 1.78 m Height (Calculated Centimeters) 177.8 Current Weight (lbs) 111.584 kg Weight (Calculated Kilograms) 111.6 Weight (Calculated Grams) 737101.7 [place] Body Weight 166 % [place] Body Weight 148 Body Mass Index (BMI) 35.3 Weight Status Obese GI Symptoms GI Symptoms None Last BM no records Skin Integrity/Comment: edema 2+ pitting to left/right foot ulceration to bilateral feet Estimated Nutritional Goals BEE in Kcals: Adj wt of IBW Calories/Kcals/Kg 25-30 Kcals Calculated [id number] considering bedbound and wound Protein: Adj wt of IBW Protein g/k.2-1.4 Protein Calculated 101-118 Fluid: ml 2110-2532ml (1ml/kcal) Nutritional Problem 2. Problem Problem increased nutrition needs ( calorie and protein) Etiology increased metabolic demand for wound healing Signs/Symptoms: ulceration to bilateral legs 1. Problem Problem altered nutrition related lab values Etiology renal dysfunction, hx of DM Signs/Symptoms: BUN 78, Cr 10.2, POC 101-168, A1c 6.8 Malnutrition Alert Protein-Calorie Malnutrition N/A Is there a minimum of two criteria No selected? Query Text:Check all the applicable criteria. A minimum of two criteria are recommended for diagnosis of either severe or non-severe malnutrition. Intervention/Recommendation Comments 1. Recommend renal CCHO diet considering elevated renal labs 2. Monitor PO intake, wt, labs and skin integrity 3. F/U as high risk in 2-3 days, 11/25-11/26 Expected Outcomes/Goals Expected Outcomes/Goals 1. PO intake to meet at least 75% of nutritional needs. 2. Wt stability, skin to remain intact, labs to improve .
[2017-12-05 06:43] LABS: BUN - UREA NITROGEN 11 mg/dL (7-25); CALCIUM SERUM 8.8 mg/dL (8.6-10.3); CARBON DIOXIDE 28.4 mEq/L (21.0-31.0); CHLORIDE 99 mEq/L (98-107); CREATININE - SERUM 1.1 mg/dL (0.7-1.3); GLUCOSE 119 mg/dL (70-105); POTASSIUM SERUM 3.4 mEq/L (3.5-5.1); SODIUM SERUM 134 mEq/L (136-145)
[2017-12-05 06:45] LABS: % EOSINOPHILS 3.2 % (0.0-5.0)
[2017-12-05] MEDS: Ipratropium Neb 0.5 mg/2.5 mL UD HHN SCH ×4 (07:26→19:02)
[2017-12-05] MEDS: Albuterol Nebulizer 2.5mg/3mL HHN SCH ×3 (07:26→19:02)
[2017-12-05 07:33] LABS: % BASOPHILS 0.4 % (0.0-2.0); % LYMPHOCYTES 16.7 % (20.0-50.0); % MONOCYTES 11.5 % (2.0-10.0); % NEUTROPHILS 68.2 % (40.0-80.0); EOSINOPHILE ABSOLUTE 0.3 Th/cmm (0.1-0.4); HEMATOCRIT 32.1 % (41.0-60); HEMOGLOBIN 10.6 gm/dL (12-16); LYMPHOCYTE ABSOLUTE 1.4 Th/cmm (1.5-3.0); MEAN CELL VOLUME 93.8 fl (80-99); MEAN CORPUSCULAR HEMOGLOBIN 31.1 pg (27.0-31.0); MEAN CORPUSCULAR HGB CONC 33.1 pg (28.0-36.0); MEAN PLATELET VOLUME 9.5 fl; MONOCYTE ABSOLUTE 0.9 Th/cmm (0.3-1.0); NEUTROPHILE ABSOLUTE 5.5 Th/cmm (1.8-8.0); PLATELET COUNT 130 Th/cmm (150-400); RED BLOOD COUNT 3.42 Mil/cmm (3.80-5.80); RED CELL DISTRIBUTION WIDTH 13.1 % (11.5-20.0); WHITE BLOOD COUNT 8.1 Th/cmm (4.8-10.8)
[2017-12-05] MEDS: INSULIN ASPART, RECOMBINANT 100 UNITS/ML SUBQ SCH ×3 (07:53→21:45)
[2017-12-05] MEDS: Multivitamin w/ Minerals Tab PO SCH (08:07)
[2017-12-05] MEDS: Dextrose 5% 1,000 ML IV SCH (10:49)
--- NOTE | 2017-12-05 14:24 | General Progress Note ---
Subjective - Review of Systems Service Date: 12/05/17 Subjective: quiet, comfortable Objective - Results Result Diagrams: 12/05/17 05:54 12/05/17 05:54 Recent Labs: Laboratory Last Values WBC 8.1 Th/cmm (4.8-10.8) 12/05/17 05:54 RBC 3.42 Mil/cmm (3.80-5.80) L 12/05/17 05:54 Hgb 10.6 gm/dL (12-16) L 12/05/17 05:54 Hct 32.1 % (41.0-60) L 12/05/17 05:54 MCV 93.8 fl (80-99) 12/05/17 05:54 MCH 31.1 pg (27.0-31.0) H 12/05/17 05:54 MCHC Differential 33.1 pg (28.0-36.0) 12/05/17 05:54 RDW 13.1 % (11.5-20.0) 12/05/17 05:54 Plt Count 130 Th/cmm (150-400) L 12/05/17 05:54 MPV 9.5 fl 12/05/17 05:54 Neutrophils % 68.2 % (40.0-80.0) 12/05/17 05:54 Lymphocytes % 16.7 % (20.0-50.0) L 12/05/17 05:54 Monocytes % 11.5 % (2.0-10.0) H 12/05/17 05:54 Eosinophils % 3.2 % (0.0-5.0) 12/05/17 05:54 Basophils % 0.4 % (0.0-2.0) 12/05/17 05:54 Eos Smear Source URINE 11/25/17 23:16 Eos Smear Total Cells FEW EOSINOPHILS SEEN (NONE SEEN) 11/25/17 23:16 Specimen Source ARTERIAL 11/22/17 17:19 Sample Site Left Radial 11/22/17 17:19 pH 7.36 (7.35-7.45) 11/22/17 17:19 pCO2 35.0 mmHg (35.0-45.0) 11/22/17 17:19 pO2 77.0 mmHg (80.0-100.0) L 11/22/17 17:19 HCO3 21.0 mEq/L (20.0-26.0) 11/22/17 17:19 Base Excess 5.0 mEq/L (-3.0-3.0) H 11/22/17 17:19 O2 Saturation 95.0 % (92.0-100.0) 11/22/17 17:19 Seven Test Y 11/22/17 17:19 Vent Rate N/A 11/22/17 17:19 Inspired O2 21 11/22/17 17:19 Tidal Volume A/N 11/22/17 17:19 PEEP N/A 11/22/17 17:19 Pressure (ins/psv/peep) N/A 11/22/17 17:19 Critical Value O.SAMPSON 11/22/17 17:19 Sodium 134 mEq/L (136-145) L 12/05/17 05:54 Potassium 3.4 mEq/L (3.5-5.1) L 12/05/17 05:54 Chloride 99 mEq/L (98-107) 12/05/17 05:54 Carbon Dioxide 28.4 mEq/L (21.0-31.0) 12/05/17 05:54 Anion Gap 10.0 (7.0-16.0) 12/05/17 05:54 BUN 11 mg/dL (7-25) 12/05/17 05:54 Creatinine 1.1 mg/dL (0.7-1.3) 12/05/17 05:54 Est GFR ( Amer) TNP 12/05/17 05:54 Est GFR (Non-Af Amer) TNP 12/05/17 05:54 BUN/Creatinine Ratio 10.0 12/05/17 05:54 Glucose 119 mg/dL (70-105) H 12/05/17 05:54 POC Glucose 117 MG/DL (70 - 105) H 12/05/17 12:30 Hemoglobin A1c % 6.8 % (4.0-6.0) H 11/23/17 08:30 Plasma/Ser Osmolality 322 mOsmol/kg (280-301) H 11/25/17 07:40 Uric Acid 8.6 mg/dL (4.4-7.6) H 11/29/17 06:10 Calcium 8.8 mg/dL (8.6-10.3) 12/05/17 05:54 Phosphorus 2.9 mg/dL (2.5-5.0) 11/29/17 06:10 Magnesium 1.2 mg/dL (1.9-2.7) L 12/04/17 06:48 Total Bilirubin 0.6 mg/dL (0.3-1.0) 11/29/17 06:10 AST 30 U/L (13-39) 11/29/17 06:10 ALT 24 U/L (7-52) 11/29/17 06:10 Alkaline Phosphatase 62 U/L (34-104) 11/29/17 06:10 Ammonia 43 umol/L (16-53) 11/28/17 06:40 B-Natriuretic Peptide 629.0 pg/mL (5.0-100.0) H 11/28/17 06:40 Total Protein 7.1 gm/dL (6.0-8.3) 11/29/17 06:10 Albumin 2.8 gm/dL (4.2-5.5) L 11/29/17 06:10 Globulin 4.3 gm/dL 11/29/17 06:10 Albumin/Globulin Ratio 0.7 (1.0-1.8) L 11/29/17 06:10 Vitamin B12 730 pg/mL (232-1245) 11/28/17 06:40 Folic Acid 11.3 ng/mL (>3.0) 11/28/17 06:40 TSH 2.01 uIU/ml (0.34-5.60) 11/29/17 06:10 Urine Source CATH 11/22/17 22:05 Urine Color BROWN 11/22/17 22:05 Urine Clarity HAZY (CLEAR) 11/22/17 22:05 Urine pH 5.0 (4.6 - 8.0) 11/22/17 22:05 Ur Specific [place] >= 1.030 (1.005-1.030) 11/22/17 22:05 Urine Protein NEGATIVE mg/dL (NEGATIVE) 11/22/17 22:05 Urine Glucose (UA) NEGATIVE mg/dL (NEGATIVE) 11/22/17 22:05 Urine Ketones TRACE mg/dL (NEGATIVE) 11/22/17 22:05 Urine Blood TRACE (NEGATIVE) 11/22/17 22:05 Urine Nitrate NEGATIVE (NEGATIVE) 11/22/17 22:05 Urine Bilirubin SMALL (NEGATIVE) H 11/22/17 22:05 Urine Ictotest NEGATIVE (NEGATIVE) 11/22/17 22:05 Urine Urobilinogen 0.2 E.U./dL (0.2 - 1.0) 11/22/17 22:05 Ur Leukocyte Esterase NEGATIVE (NEGATIVE) 11/22/17 22:05 Urine RBC 0-2 /hpf (0-5) H 11/22/17 22:05 Urine WBC 0-2 /hpf (0-5) 11/22/17 22:05 Ur Epithelial Cells FEW /lpf (FEW) 11/22/17 22:05 Urine Bacteria FEW /hpf (NONE SEEN) 11/22/17 22:05 Ur Random Sodium 62 mmol/L 11/25/17 23:16 Urine Creatinine 109.0 mg/dl (39.0-259.0) 11/25/17 23:16 Urine Microalbumin 19.3 ug/mL (Not Estab.) 11/25/17 10:50 - Physical Exam Vitals and I&O: Vital Signs Temp 98.0 F 12/05/17 11:52 Pulse 70 12/05/17 11:52 Resp 18 12/05/17 11:52 BP 109/51 12/05/17 11:52 Pulse Ox 96 12/05/17 11:52 Intake & Output 12/04/17 12/05/17 12/05/17 18:59 06:59 18:59 Intake Total 9771 821 2027 Balance 9877 584 8746 Weight (lbs) 113.398 kg 113.398 kg Intake: Intake, IV Amount 1000 1000 Dextrose 5% 1,000 ml @ 80 1000 1000 mls/hr IV [id number] Rx#:[id number] Oral 600 400 Other: # Voids 3 # Bowel Movements 0 0 Active Medications: Current Medications Acetaminophen (Tylenol) 650 mg PO Q4HR PRN PRN Reason: PAIN Stop: 01/21/18 17:18 Last Admin: 12/03/17 20:56 Dose: 650 mg Albuterol Sulfate (Albuterol 2.5mg/3ml Neb Ud) 2.5 mg HHN QIDRT [facility] Stop: 01/21/18 18:59 Last Admin: 12/05/17 11:38 Dose: 2.5 mg Ascorbic Acid (Vitamin C) 500 mg PO DAILY [facility] Stop: 01/22/18 08:59 Last Admin: 12/05/17 08:07 Dose: 500 mg Docusate Sodium (Colace) 100 mg PO DAILY [facility] Stop: 01/22/18 08:59 Last Admin: 12/05/17 08:07 Dose: 100 mg Gabapentin (Neurontin) 300 mg PO TID [facility] Stop: 01/21/18 20:59 Last Admin: 12/05/17 13:35 Dose: 300 mg Guaifenesin (Robitussin) 200 mg PO Q4HR PRN PRN Reason: Cough or Congestion Stop: 01/21/18 17:20 Dextrose (D5w) 1,000 mls @ 80 mls/hr IV .[id number] [facility] Stop: 01/27/18 19:51 Last Admin: 12/05/17 10:49 Dose: 80 mls/hr Insulin Aspart (Novolog) 0 units SUBQ ACHS [place] PRN Reason: Protocol Stop: 01/21/18 20:59 Last Admin: 12/05/17 07:53 Dose: Not Given Ipratropium Mckittrick (Atrovent Neb 0.5mg/2.5ml) 0.5 mg HHN QIDRT [facility] Stop: 01/21/18 18:59 Last Admin: 12/05/17 11:38 Dose: 0.5 mg Lorazepam (Ativan) 1 mg IV Q4H PRN; Protocol PRN Reason: Agitation Stop: 01/22/18 13:05 Last Admin: 12/05/17 08:08 Dose: 1 mg Magnesium Hydroxide (Milk Of Magnesia) 30 ml PO DAILY PRN PRN Reason: Constipation Stop: 01/21/18 17:18 Miscellaneous (Clinical Monitoring) 1 ea MC DAILY PRN PRN Reason: RENAL Stop: 01/22/18 07:35 Quetiapine Fumarate (Seroquel) 12.5 mg PO HS [facility] PRN Reason: Protocol Stop: 01/29/18 20:59 Last Admin: 12/04/17 21:30 Dose: Not Given Sevelamer Carbonate (Renvela) 800 mg PO TIDWM [facility] Stop: 01/23/18 16:59 Last Admin: 12/05/17 13:35 Dose: 800 mg Zinc Sulfate (Zinc Sulfate) 220 mg PO DAILY [facility] Stop: 01/22/18 08:59 Last Admin: 12/05/17 08:07 Dose: 220 mg General: Alert, No acute distress HEENT: Atraumatic, Mucous membr. moist/pink Neck: Supple Cardiovascular: Regular rate, Normal S1, Normal S2 Lungs: Clear to auscultation Abdomen: Bowel sounds, Soft Extremities: no Edema Neurological: Sensation intact Skin: no Rash Psych/Mental Status: Mood NL Assessment/Plan - Problem List Patient Problems: All Active Problems ABNORMAL LAB RESULTS (Acute) - Assessment Assessment: DENNIS Type 2 DM Ess Htn Psychosis Anxiety Cardiac Arrythmia S/P AICD CAD Met Acid Hypernatremia iatrogenic Hypokalemia - Plan Plan: Lab - Result Diagrams 11/25/17 07:40 11/25/17 07:40 Current Medications Acetaminophen (Tylenol) 650 mg PO Q4HR PRN PRN Reason: PAIN Stop: 01/21/18 17:18 Albuterol Sulfate (Albuterol 2.5mg/3ml Neb Ud) 2.5 mg HHN QIDRT [facility] Stop: 01/21/18 18:59 Last Admin: 11/25/17 13:12 Dose: 2.5 mg Ascorbic Acid (Vitamin C) 500 mg PO DAILY [facility] Stop: 01/22/18 08:59 Last Admin: 11/25/17 09:41 Dose: 500 mg Benztropine Mesylate (Cogentin) 1 mg PO BID [facility] Stop: 01/22/18 08:59 Last Admin: 11/25/17 09:42 Dose: 1 mg Citric Acid/Sodium Citrate (Bicitra) 30 ml PO BID [facility] Stop: 01/23/18 16:59 Last Admin: 11/25/17 09:42 Dose: 30 ml Docusate Sodium (Colace) 100 mg PO DAILY [facility] Stop: 01/22/18 08:59 Last Admin: 11/25/17 09:42 Dose: 100 mg Gabapentin (Neurontin) 300 mg PO TID [facility] Stop: 01/21/18 20:59 Last Admin: 11/25/17 13:34 Dose: 300 mg Guaifenesin (Robitussin) 200 mg PO Q4HR PRN PRN Reason: Cough or Congestion Stop: 01/21/18 17:20 Haloperidol (Haldol) 1 mg PO BID [facility] PRN Reason: Protocol Stop: 01/22/18 08:59 Last Admin: 11/25/17 09:43 Dose: 1 mg Dextrose/Sodium Chloride (D5-0.9%Ns) 1,000 mls @ 150 mls/hr IV .Q6H40M [facility] Stop: 01/21/18 21:13 Last Admin: 11/25/17 08:23 Dose: 150 mls/hr Magnesium Sulfate (Magnesium Sulfate Premix) 2 gm in 50 mls @ 25 mls/hr IV X1 ONE Stop: 11/25/17 15:31 Last Admin: 11/25/17 14:41 Dose: 25 mls/hr Insulin Aspart (Novolog) 0 units SUBQ ACHS [facility] PRN Reason: Protocol Stop: 01/21/18 20:59 Last Admin: 11/25/17 12:35 Dose: Not Given Ipratropium Mckittrick (Atrovent Neb 0.5mg/2.5ml) 0.5 mg HHN QIDRT [facility] Stop: 01/21/18 18:59 Last Admin: 11/25/17 13:12 Dose: 0.5 mg Lorazepam (Ativan) 1 mg IV Q4H PRN; Protocol PRN Reason: Agitation Stop: 01/22/18 13:05 Last Admin: 11/25/17 11:14 Dose: 1 mg Magnesium Hydroxide (Milk Of Magnesia) 30 ml PO DAILY PRN PRN Reason: Constipation Stop: 01/21/18 17:18 Miscellaneous (Clinical Monitoring) 1 ea MC DAILY PRN PRN Reason: RENAL Stop: 01/22/18 07:35 Sevelamer Carbonate (Renvela) 800 mg PO TIDWM [facility] Stop: 01/23/18 16:59 Last Admin: 11/25/17 13:34 Dose: 800 mg Zinc Sulfate (Zinc Sulfate) 220 mg PO DAILY [facility] Stop: 01/22/18 08:59 Last Admin: 11/25/17 09:43 Dose: 220 mg Lab - Result Diagrams 12/05/17 05:54 12/05/17 05:54 Kidney fnc continues to improve agree w/ K, Mg replacement DC IVF f/u electrolytes, cbc DC bicitra Nutritional Asmnt/Malnutr-PDOC - Dietary Evaluation Malnutrition Findings (Please click <Entered> for more info): Nutritional Asmnt/Malnutrition Start: 11/23/17 15: 36 Text: Status: Complete Freq: Document 11/23/17 15:43 LCHENG (Rec: 11/23/17 16:04 [email or web address]) Nutritional Asmnt/Malnutrition Patient General Information Nutritional Screening High Risk Consult Pertinent Medical Hx/Surgical Hx DM, psychosis, HTN, anxiety, chest defibrillator, COPD, CHF , CAD, alzheimer's Subjective Information Consult received for Issa 12 . Pt was transfered from [facility] unit for droped BP. Pt seen resting in bed at the time of visit. Spoke with RN, pt consumed 50% of oatmeal and [place] toast for breakfast, " do not like the egg". Current Diet Order/ Nutrition Support Pureed, [facility] Pertinent Medications Vitamin C, D5-0.9% Ns, colace, dopamine, novolog, zinc Pertinent Labs 11/23 Na 138, K 3.9, Cl 107, BUN 78, Cr 10.2, glucose 101, POC 101-168 since adm, A1c 6.8, Ca 8.1, Phos 7.4, mg 1.9 Nutritional Hx/Data Height 1.78 m Height (Calculated Centimeters) 177.8 Current Weight (lbs) 111.584 kg Weight (Calculated Kilograms) 111.6 Weight (Calculated Grams) 262611.7 [place] Body Weight 166 % [place] Body Weight 148 Body Mass Index (BMI) 35.3 Weight Status Obese GI Symptoms GI Symptoms None Last BM no records Skin Integrity/Comment: edema 2+ pitting to left/right foot ulceration to bilateral feet Estimated Nutritional Goals BEE in Kcals: Adj wt of IBW Calories/Kcals/Kg 25-30 Kcals Calculated 5225-1259 considering bedbound and wound Protein: Adj wt of IBW Protein g/k.2-1.4 Protein Calculated 101-118 Fluid: ml 2110-2532ml (1ml/kcal) Nutritional Problem 2. Problem Problem increased nutrition needs ( calorie and protein) Etiology increased metabolic demand for wound healing Signs/Symptoms: ulceration to bilateral legs 1. Problem Problem altered nutrition related lab values Etiology renal dysfunction, hx of DM Signs/Symptoms: BUN 78, Cr 10.2, POC 101-168, A1c 6.8 Malnutrition Alert Protein-Calorie Malnutrition N/A Is there a minimum of two criteria No selected? Query Text:Check all the applicable criteria. A minimum of two criteria are recommended for diagnosis of either severe or non-severe malnutrition. Intervention/Recommendation Comments 1. Recommend renal [facility] diet considering elevated renal labs 2. Monitor PO intake, wt, labs and skin integrity 3. F/U as high risk in 2-3 days, 11/25-11/26 Expected Outcomes/Goals Expected Outcomes/Goals 1. PO intake to meet at least 75% of nutritional needs. 2. Wt stability, skin to remain intact, labs to improve .
[2017-12-05] MEDS ORDERED: Potassium Chloride 20 mEq ER Tab PO ONE (14:25)
--- NOTE | 2017-12-05 22:58 | Discharge Summary ---
addendum actual dod--12-06-17 placement finalized, daughter agreed to [facility] pt to be admittted to [facility] and cm dr pearson DATE OF DISCHARGE: 12/05/2017 CHIEF COMPLAINT: Transferred for low blood pressure. FINAL DIAGNOSES: [id number] renal failure, which is improved; hypotension, loss of consciousness secondary to above, multiple open wounds, type 2 diabetes, schizoaffective disorder, hypertension, chronic obstructive pulmonary disease, congestive heart failure, coronary artery disease. HISTORY: This is a 72-year-old male with a history of alcohol use, admitted initially at [facility], noted to have low blood pressure and transferred for continued care and treatment. PHYSICAL EXAMINATION: VITAL SIGNS: Blood pressure 109/____, respirations 18, pulse 78, temperature 98.0. GENERAL: Elderly male who appears his stated age, multiple bruises and abrasion. LUNGS: Equal breath sounds, otherwise clear to auscultation. HEART: Regular rate and rhythm without appreciable murmur. ABDOMEN: Soft, globular. EXTREMITIES: Positive excoriations as mentioned above. NEUROLOGIC: Limited. HOSPITAL COURSE: The patient was admitted to ICU initially and continued on aggressive IV hydration and vasopressor support. The patient was being followed by Dr. Cutler for Psychiatry and ____ Dr. Garcia. The patient was also seen by physical therapy. The patient has 1-1 sitter. Haldol has been discontinued. Case was discussed with the family member and the patient to be transferred close to home. CONDITION ON DISCHARGE: Fair. DISCHARGE INSTRUCTIONS: The patient to continue current management. Case was discussed with the daughter and son in great length. The patient is prone to dehydration and acute renal failure. The patient's mental status seemed to be not improving. Family is contemplating about hospice ____ and they did not want G-tube placement. The patient will be admitted to [facility] at the nursing facility of the family's choice. JOB# [id number] SUDEEP
[2017-12-06] MEDS: INSULIN ASPART, RECOMBINANT 100 UNITS/ML SUBQ SCH ×2 (06:47→12:13)
[2017-12-06 06:56] LABS: ANION GAP 9.2 (7.0-16.0); BUN - UREA NITROGEN 10 mg/dL (7-25); CALCIUM SERUM 9.2 mg/dL (8.6-10.3); CARBON DIOXIDE 26.4 mEq/L (21.0-31.0); CHLORIDE 98 mEq/L (98-107); GLUCOSE 124 mg/dL (70-105); MAGNESIUM 1.3 mg/dL (1.9-2.7); POTASSIUM SERUM 3.6 mEq/L (3.5-5.1); SODIUM SERUM 130 mEq/L (136-145)
[2017-12-06] MEDS: Ipratropium Neb 0.5 mg/2.5 mL UD HHN SCH (07:21)
[2017-12-06] MEDS: Albuterol Nebulizer 2.5mg/3mL HHN SCH ×2 (07:21→11:45)
[2017-12-06] MEDS: Multivitamin w/ Minerals Tab PO SCH (09:22)
--- NOTE | 2017-12-06 13:46 | General Progress Note ---
Subjective - Review of Systems Service Date: 12/06/17 Subjective: quiet, comfortable Objective - Results Result Diagrams: 12/05/17 05:54 12/06/17 06:15 Recent Labs: Laboratory Last Values WBC 8.1 Th/cmm (4.8-10.8) 12/05/17 05:54 RBC 3.42 Mil/cmm (3.80-5.80) L 12/05/17 05:54 Hgb 10.6 gm/dL (12-16) L 12/05/17 05:54 Hct 32.1 % (41.0-60) L 12/05/17 05:54 MCV 93.8 fl (80-99) 12/05/17 05:54 MCH 31.1 pg (27.0-31.0) H 12/05/17 05:54 MCHC Differential 33.1 pg (28.0-36.0) 12/05/17 05:54 RDW 13.1 % (11.5-20.0) 12/05/17 05:54 Plt Count 130 Th/cmm (150-400) L 12/05/17 05:54 MPV 9.5 fl 12/05/17 05:54 Neutrophils % 68.2 % (40.0-80.0) 12/05/17 05:54 Lymphocytes % 16.7 % (20.0-50.0) L 12/05/17 05:54 Monocytes % 11.5 % (2.0-10.0) H 12/05/17 05:54 Eosinophils % 3.2 % (0.0-5.0) 12/05/17 05:54 Basophils % 0.4 % (0.0-2.0) 12/05/17 05:54 Eos Smear Source URINE 11/25/17 23:16 Eos Smear Total Cells FEW EOSINOPHILS SEEN (NONE SEEN) 11/25/17 23:16 Specimen Source ARTERIAL 11/22/17 17:19 Sample Site Left Radial 11/22/17 17:19 pH 7.36 (7.35-7.45) 11/22/17 17:19 pCO2 35.0 mmHg (35.0-45.0) 11/22/17 17:19 pO2 77.0 mmHg (80.0-100.0) L 11/22/17 17:19 HCO3 21.0 mEq/L (20.0-26.0) 11/22/17 17:19 Base Excess 5.0 mEq/L (-3.0-3.0) H 11/22/17 17:19 O2 Saturation 95.0 % (92.0-100.0) 11/22/17 17:19 Seven Test Y 11/22/17 17:19 Vent Rate N/A 11/22/17 17:19 Inspired O2 21 11/22/17 17:19 Tidal Volume A/N 11/22/17 17:19 PEEP N/A 11/22/17 17:19 Pressure (ins/psv/peep) N/A 11/22/17 17:19 Critical Value O.SAMPSON 11/22/17 17:19 Sodium 130 mEq/L (136-145) L 12/06/17 06:15 Potassium 3.6 mEq/L (3.5-5.1) 12/06/17 06:15 Chloride 98 mEq/L (98-107) 12/06/17 06:15 Carbon Dioxide 26.4 mEq/L (21.0-31.0) 12/06/17 06:15 Anion Gap 9.2 (7.0-16.0) 12/06/17 06:15 BUN 10 mg/dL (7-25) 12/06/17 06:15 Creatinine 1.0 mg/dL (0.7-1.3) 12/06/17 06:15 Est GFR ( Amer) TNP 12/06/17 06:15 Est GFR (Non-Af Amer) TNP 12/06/17 06:15 BUN/Creatinine Ratio 10.0 12/06/17 06:15 Glucose 124 mg/dL (70-105) H 12/06/17 06:15 POC Glucose 142 MG/DL (70 - 105) H 12/06/17 06:32 Hemoglobin A1c % 6.8 % (4.0-6.0) H 11/23/17 08:30 Plasma/Ser Osmolality 322 mOsmol/kg (280-301) H 11/25/17 07:40 Uric Acid 8.6 mg/dL (4.4-7.6) H 11/29/17 06:10 Calcium 9.2 mg/dL (8.6-10.3) 12/06/17 06:15 Phosphorus 2.9 mg/dL (2.5-5.0) 11/29/17 06:10 Magnesium 1.3 mg/dL (1.9-2.7) L 12/06/17 06:15 Total Bilirubin 0.6 mg/dL (0.3-1.0) 11/29/17 06:10 AST 30 U/L (13-39) 11/29/17 06:10 ALT 24 U/L (7-52) 11/29/17 06:10 Alkaline Phosphatase 62 U/L (34-104) 11/29/17 06:10 Ammonia 43 umol/L (16-53) 11/28/17 06:40 B-Natriuretic Peptide 629.0 pg/mL (5.0-100.0) H 11/28/17 06:40 Total Protein 7.1 gm/dL (6.0-8.3) 11/29/17 06:10 Albumin 2.8 gm/dL (4.2-5.5) L 11/29/17 06:10 Globulin 4.3 gm/dL 11/29/17 06:10 Albumin/Globulin Ratio 0.7 (1.0-1.8) L 11/29/17 06:10 Vitamin B12 730 pg/mL (232-1245) 11/28/17 06:40 Folic Acid 11.3 ng/mL (>3.0) 11/28/17 06:40 TSH 2.01 uIU/ml (0.34-5.60) 11/29/17 06:10 Urine Source CATH 11/22/17 22:05 Urine Color BROWN 11/22/17 22:05 Urine Clarity HAZY (CLEAR) 11/22/17 22:05 Urine pH 5.0 (4.6 - 8.0) 11/22/17 22:05 Ur Specific [place] >= 1.030 (1.005-1.030) 11/22/17 22:05 Urine Protein NEGATIVE mg/dL (NEGATIVE) 11/22/17 22:05 Urine Glucose (UA) NEGATIVE mg/dL (NEGATIVE) 11/22/17 22:05 Urine Ketones TRACE mg/dL (NEGATIVE) 11/22/17 22:05 Urine Blood TRACE (NEGATIVE) 11/22/17 22:05 Urine Nitrate NEGATIVE (NEGATIVE) 11/22/17 22:05 Urine Bilirubin SMALL (NEGATIVE) H 11/22/17 22:05 Urine Ictotest NEGATIVE (NEGATIVE) 11/22/17 22:05 Urine Urobilinogen 0.2 E.U./dL (0.2 - 1.0) 11/22/17 22:05 Ur Leukocyte Esterase NEGATIVE (NEGATIVE) 11/22/17 22:05 Urine RBC 0-2 /hpf (0-5) H 11/22/17 22:05 Urine WBC 0-2 /hpf (0-5) 11/22/17 22:05 Ur Epithelial Cells FEW /lpf (FEW) 11/22/17 22:05 Urine Bacteria FEW /hpf (NONE SEEN) 11/22/17 22:05 Ur Random Sodium 62 mmol/L 11/25/17 23:16 Urine Creatinine 109.0 mg/dl (39.0-259.0) 11/25/17 23:16 Urine Microalbumin 19.3 ug/mL (Not Estab.) 11/25/17 10:50 - Physical Exam Vitals and I&O: Vital Signs Temp 99.0 F 12/06/17 10:54 Pulse 74 12/06/17 10:54 Resp 20 12/06/17 10:54 BP 114/62 12/06/17 10:54 Pulse Ox 96 12/06/17 10:54 Intake & Output 12/05/17 12/06/17 12/06/17 18:59 06:59 18:59 Intake Total 1000 360 Balance 1000 360 Weight (lbs) 113.398 kg Intake: Intake, IV Amount 1000 Dextrose 5% 1,000 ml @ 80 1000 mls/hr IV .[id number] [facility] Rx#:[id number] Oral 360 Other: # Bowel Movements 0 Active Medications: Current Medications Acetaminophen (Tylenol) 650 mg PO Q4HR PRN PRN Reason: PAIN Stop: 01/21/18 17:18 Last Admin: 12/03/17 20:56 Dose: 650 mg Albuterol Sulfate (Albuterol 2.5mg/3ml Neb Ud) 2.5 mg HHN QIDRT [facility] Stop: 01/21/18 18:59 Last Admin: 12/06/17 11:45 Dose: Not Given Ascorbic Acid (Vitamin C) 500 mg PO DAILY [facility] Stop: 01/22/18 08:59 Last Admin: 12/06/17 09:21 Dose: 500 mg Docusate Sodium (Colace) 100 mg PO DAILY [facility] Stop: 01/22/18 08:59 Last Admin: 12/06/17 09:21 Dose: 100 mg Gabapentin (Neurontin) 300 mg PO TID [facility] Stop: 01/21/18 20:59 Last Admin: 12/06/17 09:22 Dose: 300 mg Guaifenesin (Robitussin) 200 mg PO Q4HR PRN PRN Reason: Cough or Congestion Stop: 01/21/18 17:20 Insulin Aspart (Novolog) 0 units SUBQ ACHS [facility] PRN Reason: Protocol Stop: 01/21/18 20:59 Last Admin: 12/06/17 12:13 Dose: Not Given Ipratropium [place] (Atrovent Neb 0.5mg/2.5ml) 0.5 mg HHN QIDRT [facility] Stop: 01/21/18 18:59 Last Admin: 12/06/17 07:21 Dose: 0.5 mg Lorazepam (Ativan) 1 mg IV Q4H PRN; Protocol PRN Reason: Agitation Stop: 01/22/18 13:05 Last Admin: 12/06/17 09:18 Dose: 1 mg Magnesium Hydroxide (Milk Of Magnesia) 30 ml PO DAILY PRN PRN Reason: Constipation Stop: 01/21/18 17:18 Last Admin: 12/06/17 11:58 Dose: 30 ml Miscellaneous (Clinical Monitoring) 1 ea MC DAILY PRN PRN Reason: RENAL Stop: 01/22/18 07:35 Quetiapine Fumarate (Seroquel) 12.5 mg PO HS [facility] PRN Reason: Protocol Stop: 01/29/18 20:59 Last Admin: 12/05/17 21:45 Dose: Not Given Sevelamer Carbonate (Renvela) 800 mg PO TIDWM [facility] Stop: 01/23/18 16:59 Last Admin: 12/06/17 11:58 Dose: 800 mg Zinc Sulfate (Zinc Sulfate) 220 mg PO DAILY [facility] Stop: 01/22/18 08:59 Last Admin: 12/06/17 09:22 Dose: 220 mg General: Alert, No acute distress HEENT: Atraumatic, Mucous membr. moist/pink Neck: Supple Cardiovascular: Regular rate, Normal S1, Normal S2 Lungs: Clear to auscultation Abdomen: Bowel sounds, Soft Extremities: no Edema Neurological: Sensation intact Skin: no Rash Psych/Mental Status: Mood NL Assessment/Plan - Problem List Patient Problems: All Active Problems ABNORMAL LAB RESULTS (Acute) - Assessment Assessment: DENNIS Type 2 DM Ess Htn Psychosis Anxiety Cardiac Arrythmia S/P AICD CAD Met Acid Hypernatremia iatrogenic Hypokalemia - Plan Plan: Lab - Result Diagrams 11/25/17 07:40 11/25/17 07:40 Current Medications Acetaminophen (Tylenol) 650 mg PO Q4HR PRN PRN Reason: PAIN Stop: 01/21/18 17:18 Albuterol Sulfate (Albuterol 2.5mg/3ml Neb Ud) 2.5 mg HHN QIDRT [facility] Stop: 01/21/18 18:59 Last Admin: 11/25/17 13:12 Dose: 2.5 mg Ascorbic Acid (Vitamin C) 500 mg PO DAILY [facility] Stop: 01/22/18 08:59 Last Admin: 11/25/17 09:41 Dose: 500 mg Benztropine Mesylate (Cogentin) 1 mg PO BID [facility] Stop: 01/22/18 08:59 Last Admin: 11/25/17 09:42 Dose: 1 mg Citric Acid/Sodium Citrate (Bicitra) 30 ml PO BID [facility] Stop: 01/23/18 16:59 Last Admin: 11/25/17 09:42 Dose: 30 ml Docusate Sodium (Colace) 100 mg PO DAILY [facility] Stop: 01/22/18 08:59 Last Admin: 11/25/17 09:42 Dose: 100 mg Gabapentin (Neurontin) 300 mg PO TID [facility] Stop: 01/21/18 20:59 Last Admin: 11/25/17 13:34 Dose: 300 mg Guaifenesin (Robitussin) 200 mg PO Q4HR PRN PRN Reason: Cough or Congestion Stop: 01/21/18 17:20 Haloperidol (Haldol) 1 mg PO BID [facility] PRN Reason: Protocol Stop: 01/22/18 08:59 Last Admin: 11/25/17 09:43 Dose: 1 mg Dextrose/Sodium Chloride (D5-0.9%Ns) 1,000 mls @ 150 mls/hr IV .Q6H40M [facility] Stop: 01/21/18 21:13 Last Admin: 11/25/17 08:23 Dose: 150 mls/hr Magnesium Sulfate (Magnesium Sulfate Premix) 2 gm in 50 mls @ 25 mls/hr IV X1 ONE Stop: 11/25/17 15:31 Last Admin: 11/25/17 14:41 Dose: 25 mls/hr Insulin Aspart (Novolog) 0 units SUBQ ACHS [facility] PRN Reason: Protocol Stop: 01/21/18 20:59 Last Admin: 11/25/17 12:35 Dose: Not Given Ipratropium [place] (Atrovent Neb 0.5mg/2.5ml) 0.5 mg HHN QIDRT [facility] Stop: 01/21/18 18:59 Last Admin: 11/25/17 13:12 Dose: 0.5 mg Lorazepam (Ativan) 1 mg IV Q4H PRN; Protocol PRN Reason: Agitation Stop: 01/22/18 13:05 Last Admin: 11/25/17 11:14 Dose: 1 mg Magnesium Hydroxide (Milk Of Magnesia) 30 ml PO DAILY PRN PRN Reason: Constipation Stop: 01/21/18 17:18 Miscellaneous (Clinical Monitoring) 1 ea MC DAILY PRN PRN Reason: RENAL Stop: 01/22/18 07:35 Sevelamer Carbonate (Renvela) 800 mg PO TIDWM [facility] Stop: 01/23/18 16:59 Last Admin: 11/25/17 13:34 Dose: 800 mg Zinc Sulfate (Zinc Sulfate) 220 mg PO DAILY [facility] Stop: 01/22/18 08:59 Last Admin: 11/25/17 09:43 Dose: 220 mg Lab - Result Diagrams 12/05/17 05:54 12/05/17 05:54 Kidney fnc continues to improve agree w/ K, Mg replacement DC IVF f/u electrolytes, cbc DC bicitra Nutritional Asmnt/Malnutr-PDOC - Dietary Evaluation Malnutrition Findings (Please click <Entered> for more info): Nutritional Asmnt/Malnutrition Start: 11/23/17 15: 36 Text: Status: Complete Freq: Document 11/23/17 15:43 DEBBY (Rec: 11/23/17 16:04 [email or web address]) Nutritional Asmnt/Malnutrition Patient General Information Nutritional Screening High Risk Consult Pertinent Medical Hx/Surgical Hx DM, psychosis, HTN, anxiety, chest defibrillator, COPD, CHF , CAD, alzheimer's Subjective Information Consult received for Issa 12 . Pt was transfered from [facility] unit for droped BP. Pt seen resting in bed at the time of visit. Spoke with RN, pt consumed 50% of oatmeal and Greek toast for breakfast, " do not like the egg". Current Diet Order/ Nutrition Support Pureed, CCHO Pertinent Medications Vitamin C, D5-0.9% Ns, colace, dopamine, novolog, zinc Pertinent Labs 11/23 Na 138, K 3.9, Cl 107, BUN 78, Cr 10.2, glucose 101, POC 101-168 since adm, A1c 6.8, Ca 8.1, Phos 7.4, mg 1.9 Nutritional Hx/Data Height 1.78 m Height (Calculated Centimeters) 177.8 Current Weight (lbs) 111.584 kg Weight (Calculated Kilograms) 111.6 Weight (Calculated Grams) 185069.7 [place] Body Weight 166 % [place] Body Weight 148 Body Mass Index (BMI) 35.3 Weight Status Obese GI Symptoms GI Symptoms None Last BM no records Skin Integrity/Comment: edema 2+ pitting to left/right foot ulceration to bilateral feet Estimated Nutritional Goals BEE in Kcals: Adj wt of IBW Calories/Kcals/Kg 25-30 Kcals Calculated [id number] considering bedbound and wound Protein: Adj wt of IBW Protein g/k.2-1.4 Protein Calculated 101-118 Fluid: ml 2110-2532ml (1ml/kcal) Nutritional Problem 2. Problem Problem increased nutrition needs ( calorie and protein) Etiology increased metabolic demand for wound healing Signs/Symptoms: ulceration to bilateral legs 1. Problem Problem altered nutrition related lab values Etiology renal dysfunction, hx of DM Signs/Symptoms: BUN 78, Cr 10.2, POC 101-168, A1c 6.8 Malnutrition Alert Protein-Calorie Malnutrition N/A Is there a minimum of two criteria No selected? Query Text:Check all the applicable criteria. A minimum of two criteria are recommended for diagnosis of either severe or non-severe malnutrition. Intervention/Recommendation Comments 1. Recommend renal CCHO diet considering elevated renal labs 2. Monitor PO intake, wt, labs and skin integrity 3. F/U as high risk in 2-3 days, 11/25-11/26 Expected Outcomes/Goals Expected Outcomes/Goals 1. PO intake to meet at least 75% of nutritional needs. 2. Wt stability, skin to remain intact, labs to improve .
--- NOTE | 2017-12-06 15:07 | Internal Medicine Prog Note ---
Internal Medicine Subjective - Subjective Patient seen and examined:: with staff, chart reviewed Patient is:: awake, agitated, confused Per staff patient has:: no adverse event, poor appetite, poor oral intake, agitated, combative, noncompliant, refusing care, refusing labs Internal Medicine Objective - Results Result Diagrams: 12/05/17 05:54 12/06/17 06:15 Recent Labs: Laboratory Last Values WBC 8.1 Th/cmm (4.8-10.8) 12/05/17 05:54 RBC 3.42 Mil/cmm (3.80-5.80) L 12/05/17 05:54 Hgb 10.6 gm/dL (12-16) L 12/05/17 05:54 Hct 32.1 % (41.0-60) L 12/05/17 05:54 MCV 93.8 fl (80-99) 12/05/17 05:54 MCH 31.1 pg (27.0-31.0) H 12/05/17 05:54 MCHC Differential 33.1 pg (28.0-36.0) 12/05/17 05:54 RDW 13.1 % (11.5-20.0) 12/05/17 05:54 Plt Count 130 Th/cmm (150-400) L 12/05/17 05:54 MPV 9.5 fl 12/05/17 05:54 Neutrophils % 68.2 % (40.0-80.0) 12/05/17 05:54 Lymphocytes % 16.7 % (20.0-50.0) L 12/05/17 05:54 Monocytes % 11.5 % (2.0-10.0) H 12/05/17 05:54 Eosinophils % 3.2 % (0.0-5.0) 12/05/17 05:54 Basophils % 0.4 % (0.0-2.0) 12/05/17 05:54 Eos Smear Source URINE 11/25/17 23:16 Eos Smear Total Cells FEW EOSINOPHILS SEEN (NONE SEEN) 11/25/17 23:16 Specimen Source ARTERIAL 11/22/17 17:19 Sample Site Left Radial 11/22/17 17:19 pH 7.36 (7.35-7.45) 11/22/17 17:19 pCO2 35.0 mmHg (35.0-45.0) 11/22/17 17:19 pO2 77.0 mmHg (80.0-100.0) L 11/22/17 17:19 HCO3 21.0 mEq/L (20.0-26.0) 11/22/17 17:19 Base Excess 5.0 mEq/L (-3.0-3.0) H 11/22/17 17:19 O2 Saturation 95.0 % (92.0-100.0) 11/22/17 17:19 Seven Test Y 11/22/17 17:19 Vent Rate N/A 11/22/17 17:19 Inspired O2 21 11/22/17 17:19 Tidal Volume A/N 11/22/17 17:19 PEEP N/A 11/22/17 17:19 Pressure (ins/psv/peep) N/A 11/22/17 17:19 Critical Value O.SAMPSON 11/22/17 17:19 Sodium 130 mEq/L (136-145) L 12/06/17 06:15 Potassium 3.6 mEq/L (3.5-5.1) 12/06/17 06:15 Chloride 98 mEq/L (98-107) 12/06/17 06:15 Carbon Dioxide 26.4 mEq/L (21.0-31.0) 12/06/17 06:15 Anion Gap 9.2 (7.0-16.0) 12/06/17 06:15 BUN 10 mg/dL (7-25) 12/06/17 06:15 Creatinine 1.0 mg/dL (0.7-1.3) 12/06/17 06:15 Est GFR ( Amer) TNP 12/06/17 06:15 Est GFR (Non-Af Amer) TNP 12/06/17 06:15 BUN/Creatinine Ratio 10.0 12/06/17 06:15 Glucose 124 mg/dL (70-105) H 12/06/17 06:15 POC Glucose 142 MG/DL (70 - 105) H 12/06/17 06:32 Hemoglobin A1c % 6.8 % (4.0-6.0) H 11/23/17 08:30 Plasma/Ser Osmolality 322 mOsmol/kg (280-301) H 11/25/17 07:40 Uric Acid 8.6 mg/dL (4.4-7.6) H 11/29/17 06:10 Calcium 9.2 mg/dL (8.6-10.3) 12/06/17 06:15 Phosphorus 2.9 mg/dL (2.5-5.0) 11/29/17 06:10 Magnesium 1.3 mg/dL (1.9-2.7) L 12/06/17 06:15 Total Bilirubin 0.6 mg/dL (0.3-1.0) 11/29/17 06:10 AST 30 U/L (13-39) 11/29/17 06:10 ALT 24 U/L (7-52) 11/29/17 06:10 Alkaline Phosphatase 62 U/L (34-104) 11/29/17 06:10 Ammonia 43 umol/L (16-53) 11/28/17 06:40 B-Natriuretic Peptide 629.0 pg/mL (5.0-100.0) H 11/28/17 06:40 Total Protein 7.1 gm/dL (6.0-8.3) 11/29/17 06:10 Albumin 2.8 gm/dL (4.2-5.5) L 11/29/17 06:10 Globulin 4.3 gm/dL 11/29/17 06:10 Albumin/Globulin Ratio 0.7 (1.0-1.8) L 11/29/17 06:10 Vitamin B12 730 pg/mL (232-1245) 11/28/17 06:40 Folic Acid 11.3 ng/mL (>3.0) 11/28/17 06:40 TSH 2.01 uIU/ml (0.34-5.60) 11/29/17 06:10 Urine Source CATH 11/22/17 22:05 Urine Color BROWN 11/22/17 22:05 Urine Clarity HAZY (CLEAR) 11/22/17 22:05 Urine pH 5.0 (4.6 - 8.0) 11/22/17 22:05 Ur Specific [place] >= 1.030 (1.005-1.030) 11/22/17 22:05 Urine Protein NEGATIVE mg/dL (NEGATIVE) 11/22/17 22:05 Urine Glucose (UA) NEGATIVE mg/dL (NEGATIVE) 11/22/17 22:05 Urine Ketones TRACE mg/dL (NEGATIVE) 11/22/17 22:05 Urine Blood TRACE (NEGATIVE) 11/22/17 22:05 Urine Nitrate NEGATIVE (NEGATIVE) 11/22/17 22:05 Urine Bilirubin SMALL (NEGATIVE) H 11/22/17 22:05 Urine Ictotest NEGATIVE (NEGATIVE) 11/22/17 22:05 Urine Urobilinogen 0.2 E.U./dL (0.2 - 1.0) 11/22/17 22:05 Ur Leukocyte Esterase NEGATIVE (NEGATIVE) 11/22/17 22:05 Urine RBC 0-2 /hpf (0-5) H 11/22/17 22:05 Urine WBC 0-2 /hpf (0-5) 11/22/17 22:05 Ur Epithelial Cells FEW /lpf (FEW) 11/22/17 22:05 Urine Bacteria FEW /hpf (NONE SEEN) 11/22/17 22:05 Ur Random Sodium 62 mmol/L 11/25/17 23:16 Urine Creatinine 109.0 mg/dl (39.0-259.0) 11/25/17 23:16 Urine Microalbumin 19.3 ug/mL (Not Estab.) 11/25/17 10:50 - Physical Exam Vitals and I&O: Vital Signs Temp 98.7 F 12/06/17 12:00 Pulse 72 12/06/17 12:00 Resp 18 12/06/17 12:00 BP 130/67 12/06/17 12:00 Pulse Ox 99 12/06/17 12:00 Intake & Output 12/05/17 12/06/17 12/06/17 18:59 06:59 18:59 Intake Total 1000 360 800 Balance 1000 360 800 Weight (lbs) 113.398 kg 113.398 kg Intake: Intake, IV Amount 1000 Dextrose 5% 1,000 ml @ 80 1000 mls/hr IV .[id number] [facility] Rx#:[id number] Oral 360 800 Other: # Voids 1 # Bowel Movements 0 0 General: demented, disheveled, appears older HEENT: NC/AT Neck: Supple Lungs: CTAB Cardiovascular: RRR, Normal S1, Normal S2, without murmur Abdomen: soft, non-tender, non-distended, positive bowel sound Extremities: excoriation, ecchymosis Neurological: bedbound Internal Medicine Assmt/Plan - Assessment Assessment: hypotension- better aloc- improved possible pna acute renal failure multiple open wounds dm2 psychosis htn chest defibrillator status copd chf cad - Plan Plan: monitor bun/crea sitter for safety follow up labs in am continue current plan of care - Plan Plan: steff goel, for placement steff lala and rn Nutritional Asmnt/Malnutr-PDOC - Dietary Evaluation Malnutrition Findings (Please click <Entered> for more info): Nutritional Asmnt/Malnutrition Start: 11/23/17 15: 36 Text: Status: Complete Freq: Document 11/23/17 15:43 LCHENG (Rec: 11/23/17 16:04 LCHENG [email or web address]) Nutritional Asmnt/Malnutrition Patient General Information Nutritional Screening High Risk Consult Pertinent Medical Hx/Surgical Hx DM, psychosis, HTN, anxiety, chest defibrillator, COPD, CHF , CAD, alzheimer's Subjective Information Consult received for Issa 12 . Pt was transfered from [facility] unit for droped BP. Pt seen resting in bed at the time of visit. Spoke with RN, pt consumed 50% of oatmeal and [place] toast for breakfast, " do not like the egg". Current Diet Order/ Nutrition Support Pureed, CCHO Pertinent Medications Vitamin C, D5-0.9% Ns, colace, dopamine, novolog, zinc Pertinent Labs / Na 138, K 3.9, Cl 107, BUN 78, Cr 10.2, glucose 101, POC 101-168 since adm, A1c 6.8, Ca 8.1, Phos 7.4, mg 1.9 Nutritional Hx/Data Height 1.78 m Height (Calculated Centimeters) 177.8 Current Weight (lbs) 111.584 kg Weight (Calculated Kilograms) 111.6 Weight (Calculated Grams) 463887.7 [place] Body Weight 166 % [place] Body Weight 148 Body Mass Index (BMI) 35.3 Weight Status Obese GI Symptoms GI Symptoms None Last BM no records Skin Integrity/Comment: edema 2+ pitting to left/right foot ulceration to bilateral feet Estimated Nutritional Goals BEE in Kcals: Adj wt of IBW Calories/Kcals/Kg 25-30 Kcals Calculated [id number] considering bedbound and wound Protein: Adj wt of IBW Protein g/k.2-1.4 Protein Calculated 101-118 Fluid: ml 2110-2532ml (1ml/kcal) Nutritional Problem 2. Problem Problem increased nutrition needs ( calorie and protein) Etiology increased metabolic demand for wound healing Signs/Symptoms: ulceration to bilateral legs 1. Problem Problem altered nutrition related lab values Etiology renal dysfunction, hx of DM Signs/Symptoms: BUN 78, Cr 10.2, POC 101-168, A1c 6.8 Malnutrition Alert Protein-Calorie Malnutrition N/A Is there a minimum of two criteria No selected? Query Text:Check all the applicable criteria. A minimum of two criteria are recommended for diagnosis of either severe or non-severe malnutrition. Intervention/Recommendation Comments 1. Recommend renal CCHO diet considering elevated renal labs 2. Monitor PO intake, wt, labs and skin integrity 3. F/U as high risk in 2-3 days, 11/25-11/26 Expected Outcomes/Goals Expected Outcomes/Goals 1. PO intake to meet at least 75% of nutritional needs. 2. Wt stability, skin to remain intact, labs to improve .
== END 2017-12-06 12:45 | DRG 683 ==
LOC: ICU 15:46 → MSI 11-24 07:30
PROVIDERS: ADMIT Internal Medicine; ATTEND Internal Medicine
DX: N17.9 Acute kidney failure, unspecified (principal); E87.2 Acidosis; E87.0 Hyperosmolality and hypernatremia; I95.9 Hypotension, unspecified; I13.0 Hypertensive heart and chronic kidney disease with heart failure and stage 1 through stage 4 chronic kidney disease, or unspecified chronic kidney disease; E11.22 Type 2 diabetes mellitus with diabetic chronic kidney disease; I50.9 Heart failure, unspecified; G30.9 Alzheimer's disease, unspecified; F02.80 Dementia in other diseases classified elsewhere, unspecified severity, without behavioral disturbance, psychotic disturbance, mood disturbance, and anxiety; F29 Unspecified psychosis not due to a substance or known physiological condition; I25.10 Atherosclerotic heart disease of native coronary artery without angina pectoris; E86.0 Dehydration; N18.9 Chronic kidney disease, unspecified; F41.9 Anxiety disorder, unspecified; T14.8XXA Other injury of unspecified body region, initial encounter; E87.6 Hypokalemia; F25.9 Schizoaffective disorder, unspecified; J44.9 Chronic obstructive pulmonary disease, unspecified; Z95.810 Presence of automatic (implantable) cardiac defibrillator
CPT/HCPCS: 36415-UA; 36600-90; 71045-TC; 76770-TC; 80048-TC; 80053-TC; 81001-TC; 81015-TC; 82043-90; 82140-TC; 82570-TC; 82607-90; 82746-90; 82803-TC; 82948-90; 83036-90; 83735-TC; 83880-TC; 83930-90; 84100-TC; 84300-TC; 84443-TC; 84550-TC; 85025-TC; 90779; 90784; 94640; 94760; J1200; J1265; J1630; J1815; J2060; J3475; J3480; J7030; J7042; J7070; J7613; P9047; X3401; Z7610